=== PATIENT | male | born 1965 | race Caucasian/White ===

== ENCOUNTER 2020-08-02 06:15 | Outpatient (REF) | payer OTHER, SELFPAY ==
[2020-08-02 07:01] LABS: MANUAL DIFF FLAG NO
[2020-08-02 07:17] LABS: Basophils Percent Auto 0.8 % (0-2); Eosinophils Absolute Auto 0.2 X10*3/uL (0.0-0.4); Hematocrit 41.5 % (42-52); Hemoglobin 14.1 g/dl (14.0-18.0); Imm Gran Abs Auto 0.01 X10*3/uL (0.00-0.03); Imm Gran Pct Auto 0.2 % (0.0-0.4); Lymphocytes Absolute Auto 1.9 X10*3/uL (1.2-4.9); Lymphocytes Percent Auto 37.2 % (20-40); Mean Corpuscular Hemoglobin 29.1 pg (27.0-33.0); Mean Corpuscular Volume 85.7 fL (80-98); Mean Platelet Volume 9.8 fL (9.4-12.4); Monocytes Absolute Auto 0.5 X10*3/uL (0.1-1.2); Monocytes Percent Auto 8.9 % (2-11); Neutrophils Absolute Auto 2.5 X10*3/uL (2.0-8.3); Neutrophils Percent Auto 49.9 % (45-73); Platelet Count 255 X10*3/uL (160-400); Red Blood Count 4.84 X10*6/uL (4.60-5.80); Red Cell Distribution Width 12.2 % (11.0-16.0); White Blood Count 5.1 X10*3/uL (4.8-10.8)
[2020-08-02 07:31] LABS: Glucose Urine UA NEG (NEG); Leukocyte Esterase Urine NEG (NEG); Nitrite Urine NEG (NEG); PH 5.5 (5.0-8.0); Specific Gravity - Urine 1.025 (1.005-1.025); Urine Blood TRACE (NEG); Urine Ketones NEG (NEG); Urine Protein NEG (NEG-TRACE)
[2020-08-02 07:47] LABS: Appearance Urine CLEAR; Color Urine YELLOW
[2020-08-02 07:52] LABS: Creatinine Urine 123.57 mg/dL; Microalbum/Creatinine Ratio Ur 37.2 ug/mg cr
[2020-08-02 08:01] LABS: RBC Urine 0 /HPF (0)
[2020-08-02 08:01] LABS: Estimated Average Glucose 111 mg/dL; Hemoglobin A1c % 5.5 %
[2020-08-02 08:02] LABS: Alanine Aminotransferase 31 U/L (0-40); Albumin Level 4.5 g/dL (3.5-5.0); Alkaline Phosphatase 58 U/L (39-117); Anion Gap 9 (12-20); Aspartate Amino Transferase 30 U/L (5-37); Bilirubin Total 0.8 mg/dL (0.0-1.0); Blood Urea Nitrogen 14 mg/dL (9-16); Calcium 8.8 mg/dL (8.4-10.2); Carbon Dioxide 31 mmol/L (22-29); Chloride 105 mmol/L (96-108); Cholesterol 192 mg/dL; Estimated Glomerular Filt Rate > 60; Glucose Fasting 116 mg/dL (60-99); HDL Cholesterol 39 mg/dL; LDL Cholesterol Calculated 132 mg/dl; Potassium 4.4 mmol/l (3.3-5.1); Sodium 141 mmol/L (135-145); Total Protein 6.9 g/dL (6.5-8.0); Triglycerides 105 mg/dL
[2020-08-02 08:13] LABS: Prostate Specific Antigen Scr 0.44 ng/mL (<0.05-4.0)
== END 2020-08-02 06:16 | disposition home or self-care (01) ==
LOC: HO.LAB 06:15
PROVIDERS: PCP Internal Medicine; Visit Provider Internal Medicine
DX: Z00.00 Encounter for general adult medical examination without abnormal findings (principal); R31.0 Gross hematuria; R73.03 Prediabetes; E78.5 Hyperlipidemia, unspecified; L20.84 Intrinsic (allergic) eczema
CPT/HCPCS: 36415; 80053; 80061; 81001; 81003; 82043; 83036; 84153; 85025

== ENCOUNTER → 2020-12-29 14:48 | Outpatient (BNVA) | payer OTHER, SELFPAY | PROVIDERS: PCP Internal Medicine; Visit Provider Internal Medicine | DX: I48.0 Paroxysmal atrial fibrillation (principal); I49.3 Ventricular premature depolarization | CPT/HCPCS: 93005 ==

== ENCOUNTER → 2021-01-26 08:46 | Outpatient (REF) | payer OTHER, SELFPAY | LOC: HO.SL 08:46 | PROVIDERS: PCP Internal Medicine; Visit Provider Internal Medicine | DX: G47.33 Obstructive sleep apnea (adult) (pediatric) (principal); I48.0 Paroxysmal atrial fibrillation | CPT/HCPCS: 95806 ==

== ENCOUNTER → 2021-01-27 09:28 | Outpatient (REF) | payer OTHER, SELFPAY ==
--- NOTE | 2021-01-27 09:31 | CA_ITS ---
Transthoracic Echocardiogram Patient (Last, First, Middle): Ismael Fletcher T Gender: Male Date of : 1965 Age: 55 Procedure Date: 01/27/2021 Procedure Type: Transthoracic Echocardiogram Location: OP Height: 185.42 cm Weight: 111.13 kg BSA: 2.35 m2 Heart Rate: bpm BP: 120 / mmHg Washing Machine Repairer: DSG Referring MD: Javon Grier MD Symptoms: I48.0 - Paroxysmal atrial fibrillation Conclusions: - 1. Mildly reduced LV systolic function with grade 1 diastolic dysfunction. 2. Mildly dilated left atrium 3. Mild aortic regurgitation 4. Normal RV systolic pressure 5. No pericardial effusion Findings Left Ventricle Normal left ventricular cavity size. There is normal left ventricular wall thickness. The left ventricular systolic function is mildly decreased. The visually estimated ejection fraction is between 45-50%. There is mild global hypokinesis. Spectral Doppler is indicative of an impaired relaxation filling pattern. E/E prime ratio is <8, consistent with normal filling pressures. Evidence suggests grade I (mild) diastolic dysfunction. Right Ventricle Normal right ventricular cavity size and systolic function. Atria The left atrium is mildly dilated. There is no evidence of interatrial shunt. The right atrium is normal in size. Aortic Valve Normal aortic valve structure and function. There is no aortic valve stenosis. There is mild aortic valve regurgitation. Mitral Valve Normal mitral valve structure and function. There is trace mitral valve regurgitation. There is no mitral valve stenosis. Pulmonic Valve The pulmonic valve is likely normal. There is trace pulmonic valve regurgitation. Tricuspid Valve Normal tricuspid valve structure. There is trace tricuspid valve regurgitation. The right ventricular systolic pressure is normal. The right ventricular systolic pressure is 23 mmHg. Normal right atrial pressure. There is no evidence of pulmonary hypertension. Great Vessels All visible segments of the aorta are normal in size. The pulmonary artery was not well visualized. Venous The inferior vena cava is normal in size and collapses greater than 50% with inspiration. Pericardium/Pleural There is no evidence of pericardial effusion. Prior Study Comparison No prior study available for comparison. Measurements M-Mode Liner Measurements Normals - Women/Men LVIDd: 6.19 3.9-5.3/4.2-5.9 cm LVIDs: 4.98 2.0-3.8 cm 2D Linear Measurements IVSd: 1.04 0.6-0.9/0.6-1.0 cm LVIDd: 5.74 3.9-5.3/4.2-5.9 cm LVIDs: 4.90 2.0-3.6 cm LVPWd: 1.16 0.7-1.1 cm Ao Root: 2.83 2.1-3.5 cm LV Mass: 335.18 67-162/88-224 g LVOT Diam: 2.57 3.0+(-)1.3 cm 2D Systolic Function EF Teich: 46.00 >55% EF 4C: 56.00 >55% EF 2C: 38.00 >55% Mitral Valve MV Pk E: 0.36 MV PK A: 0.59 MV Decel Time: 190.44 E/A: 0.61 Decel Sunflower: 1.89 Aortic Valve AoV Pk Phan: 1.50 AoV Pk Grad: 9.00 AI Pk Phan: 3.63 AI Sunflower: 0.47 LVOT LVOT Pk Phan: 0.76 LVOT Mn Phan: 0.48 LVOT VTI: 0.15 LVOT Pk Grad: 2.31 LVOT Mn Grad: 1.10 LVOT Diam: 2.57 LVOT Area: 5.20 Diastolic Function MV Pk E: 0.36 MV Pk A: 0.59 E/A: 0.61 Tricuspid Valve TR Pk Phan: 2.29 TR Pk Grad: 20.98 RA Press: 3.00 RVSP: 23.00 Great Vessels Aorta Ao Root-2D: 2.83 2.0-3.7 cm Ao Asc: 3.60 2.1-3.4 cm Updated in Other Vendor System with Status of Final Shoaib Monique MD electronically signed on 01/27/2021 12:34:35 PM with status of Final
--- NOTE | 2021-01-27 09:31 | ECG_ITS ---
Hook-up date: 2021-01-27 10:40:00 Duration: 26:43:00 Test Indications: I48.0 - Paroxysmal atrial fibri Medications: 200387 QRS complexes 8454 Ventricular ectopics which represent 7 % of total QRS comp. 72 Supraventricular ectopics which represent <1 % of total QRS comp. * Paced QRS complexs which represent % of total QRS comp. VENTRICULAR ECTOPY 8035 Isolated 558 Bigeminal Cycles 154 Couplets 36 Runs 111 Beats in Runs 4 Beats LONGEST at 67 BPM at 14:28:27 2021-01-27 3 Beats FASTEST at 115 BPM at 09:28:46 2021-01-28 SUPRAVENTRICULAR ECTOPY 62 Isolated 2 Couplets 2 Runs 6 Beats in Runs 3 Beats LONGEST at 130 BPM at 14:32:43 2021-01-27 3 Beats FASTEST at 137 BPM at 04:31:35 2021-01-28 HEART RATES 61 MIN at 05:34:51 2021-01-28 80 AVG 134 MAX at 06:26:35 2021-01-28 LONGEST RR 0.9920 secs at 08:18:41 2021-01-28 S-T LEVELS Channel 1 - 128 mm at 10:40:00 2021-01-27 - 128 mm at 10:40:00 2021-01-27 Channel 2 - 128 mm at 10:40:00 2021-01-27 - 128 mm at 10:40:00 2021-01-27 Channel 3 - 128 mm at 02:95:91 -- - 128 mm at 02:95:91 Underlying rhythm is sinus; Average ventricular rhythm is 80/min; Frequent Premature ventricular complexes -8% of total beats; Mostly isolated, with couplets, bigeminy but no significant runs; Occasional supraventricular ectopy; Patient did not report any symptoms in the diary Referred By: Yasmine Bond Overread By: YASMINE BOND
== END ==
LOC: HO.CARD 09:28
PROVIDERS: Visit Provider Internal Medicine
DX: I48.0 Paroxysmal atrial fibrillation (principal)
CPT/HCPCS: 93225; 93226; 93306

== ENCOUNTER → 2021-03-14 15:03 | Outpatient (BNVA) | payer OTHER, SELFPAY | PROVIDERS: PCP Nurse Practitioner Family; Visit Provider Internal Medicine ==

== ENCOUNTER 2021-08-15 10:39 | Outpatient (REF) | payer OTHER, SELFPAY ==
[2021-08-15 10:43] LABS: MANUAL DIFF FLAG NO
[2021-08-15 11:08] LABS: Basophils Percent Auto 0.4 % (0-2); Eosinophils Absolute Auto 0.2 X10*3/uL (0.0-0.4); Eosinophils Percent Auto 1.8 % (0-4); Hematocrit 39.9 % (42-52); Imm Gran Abs Auto 0.03 X10*3/uL (0.00-0.03); Imm Gran Pct Auto 0.4 % (0.0-0.4); Lymphocytes Absolute Auto 1.6 X10*3/uL (1.2-4.9); Lymphocytes Percent Auto 18.6 % (20-40); Mean Corpuscular HGB Conc 32.6 g/dl (31.0-36.0); Mean Corpuscular Hemoglobin 28.4 pg (27.0-33.0); Mean Corpuscular Volume 87.1 fL (80-98); Mean Platelet Volume 10.2 fL (9.4-12.4); Monocytes Absolute Auto 0.6 X10*3/uL (0.1-1.2); Monocytes Percent Auto 7.3 % (2-11); Neutrophils Percent Auto 71.5 % (45-73); Platelet Count 233 X10*3/uL (160-400); Red Blood Count 4.58 X10*6/uL (4.60-5.80); Red Cell Distribution Width 12.2 % (11.0-16.0); White Blood Count 8.4 X10*3/uL (4.8-10.8)
[2021-08-15 11:22] LABS: Appearance Urine CLEAR; Color Urine YELLOW; Glucose Urine UA NEG (NEG); Leukocyte Esterase Urine NEG (NEG); Nitrite Urine NEG (NEG); Urine Blood 1+ (NEG); Urine Ketones NEG (NEG); Urine Protein NEG (NEG-TRACE)
[2021-08-15 11:33] LABS: Estimated Average Glucose 108 mg/dL; Hemoglobin A1c % 5.4 %
[2021-08-15 11:43] LABS: Alanine Aminotransferase 25 U/L (0-40); Albumin Level 4.2 g/dL (3.5-5.0); Alkaline Phosphatase 63 U/L (39-117); Anion Gap 12 (12-20); Aspartate Amino Transferase 26 U/L (5-37); Bilirubin Total 0.5 mg/dL (0.0-1.0); Blood Urea Nitrogen 19 mg/dL (9-16); Calcium 8.6 mg/dL (8.4-10.2); Carbon Dioxide 27 mmol/L (22-29); Chloride 106 mmol/L (96-108); Cholesterol 181 mg/dL; Estimated Glomerular Filt Rate 56; Glucose Fasting 107 mg/dL (60-99); HDL Cholesterol 37 mg/dL; LDL Cholesterol Calculated 117 mg/dl; Potassium 4.6 mmol/L (3.3-5.1); Sodium 140 mmol/L (135-145); Total Protein 6.7 g/dL (6.5-8.0); Triglycerides 136 mg/dL
[2021-08-15 11:44] LABS: PSA,Total (Free>4and<10) 0.43 ng/mL (0.00-4.00)
[2021-08-15 11:58] LABS: Microalbum/Creatinine Ratio Ur 7.9 ug/mg cr
[2021-08-15 12:33] LABS: Reflex LDLD? No
[2021-08-15 13:09] LABS: WBC Urine 0-2 /HPF (0-4)
[2021-08-15 13:10] LABS: RBC Urine 0 /HPF (0); Squamous Epithelial Cell Urine TRACE /LPF
== END 2021-08-15 10:40 | disposition home or self-care (01) ==
LOC: HO.LNP 10:39
PROVIDERS: Visit Provider Internal Medicine
DX: Z00.00 Encounter for general adult medical examination without abnormal findings (principal); N28.89 Other specified disorders of kidney and ureter; R73.09 Other abnormal glucose; E78.6 Lipoprotein deficiency
CPT/HCPCS: 80053; 80061; 81001; 81003; 82043; 83036; 84153; 85025

== ENCOUNTER 2021-11-18 10:04 | Outpatient (REF) | payer OTHER, SELFPAY ==
[2021-11-18 10:06] LABS: MANUAL DIFF FLAG NO
[2021-11-18 10:28] LABS: Basophils Absolute Auto 0.1 X10*3/uL (0.0-0.2); Basophils Percent Auto 0.7 % (0-2); Eosinophils Absolute Auto 0.2 X10*3/uL (0.0-0.4); Eosinophils Percent Auto 2.7 % (0-4); Hematocrit 40.9 % (42.0-52.0); Hemoglobin 13.8 g/dl (14.0-18.0); Imm Gran Abs Auto 0.02 X10*3/uL (0.00-0.03); Imm Gran Pct Auto 0.3 % (0.0-0.4); Lymphocytes Absolute Auto 2.3 X10*3/uL (1.2-4.9); Lymphocytes Percent Auto 30.7 % (20-40); Mean Corpuscular HGB Conc 33.7 g/dl (31.0-36.0); Mean Corpuscular Volume 85.9 fL (80.0-98.0); Monocytes Absolute Auto 0.7 X10*3/uL (0.1-1.2); Monocytes Percent Auto 8.8 % (2-11); Neutrophils Absolute Auto 4.2 x10*3/uL (2.0-8.3); Neutrophils Percent Auto 56.8 % (45-73); Platelet Count 287 X10*3/uL (160-400); Red Blood Count 4.76 X10*6/uL (4.60-5.80); Red Cell Distribution Width 12.1 % (11.0-16.0); White Blood Count 7.4 X10*3/uL (4.8-10.8)
[2021-11-18 10:35] LABS: Iron 78 mcg/dL (45-160); Percent Iron Saturation 22 % (15-50); Total Iron Binding Capacity 359 mcg/dL (228-428); Unsaturated Iron Binding 281 ug/dL
[2021-11-18 11:12] LABS: Vitamin B12 397 pg/mL (200-900)
== END 2021-11-18 10:05 | disposition home or self-care (01) ==
LOC: HO.LNP 10:04
PROVIDERS: Visit Provider Internal Medicine
DX: D64.9 Anemia, unspecified (principal)
CPT/HCPCS: 82607; 82746; 83540; 85025

== ENCOUNTER 2022-07-13 07:46 | Outpatient (REF) | payer OTHER, SELFPAY ==
--- NOTE | ~2022-07-13 | US_ITS ---
EXAMINATION: US ABDOMEN COMPLETE CLINICAL INFORMATION: Calculus of bile duct without cholangitis. COMPARISON: Ultrasound abdomen complete 12/31/2019. TECHNIQUE: Real-time imaging of the abdominal viscera. FINDINGS: PANCREAS: Normal. ABDOMINAL AORTA: The proximal, mid, and distal segments are normal in caliber. INFERIOR VENA CAVA: Visualized portions are normal. LIVER: The liver is normal in size. The liver contour is normal. Parenchymal echogenicity is normal. No focal hepatic lesion. There is no intrahepatic biliary duct dilatation seen. GALLBLADDER: A 1.5 x 1.3 x 1.2 cm echogenic lesion within the gallbladder fundus which appears to demonstrate color flow, raising the suspicion for primary gallbladder mass. Cholelithiasis without evidence of acute cholecystitis. No significant gallbladder wall thickening or pericholecystic fluid. COMMON BILE DUCT: Normal in caliber measuring 0.6 cm in diameter. RIGHT KIDNEY: Surgically absent. LEFT KIDNEY: Normal. No hydronephrosis. No renal calculi or focal parenchymal lesions. The kidney measures 13.8 cm in maximum dimension. SPLEEN: Normal. The spleen measures 10.2 cm in maximum dimension. FREE FLUID: None. US/US abdomen complete IMPRESSION: 1.5 cm echogenic lesion within the gallbladder fundus which appears to demonstrate color flow reason the suspicion for primary gallbladder mass. Recommend contrast-enhanced MR abdomen for further evaluation and surgical consultation. Cholelithiasis without evidence of acute cholecystitis. The report will be called to the ordering clinician by a [facility] Physician Rental Coordinator.
== END 2022-07-13 07:47 | disposition home or self-care (01) ==
LOC: HO.US 07:46
PROVIDERS: Visit Provider Internal Medicine
DX: K80.50 Calculus of bile duct without cholangitis or cholecystitis without obstruction (principal)
CPT/HCPCS: 76700

== ENCOUNTER 2022-08-14 10:18 | Outpatient (REF) | payer OTHER, SELFPAY ==
[2022-08-14 10:23] LABS: MANUAL DIFF FLAG NO
[2022-08-14 10:50] LABS: Basophils Percent Auto 0.6 % (0-2); Eosinophils Absolute Auto 0.1 X10*3/uL (0.0-0.4); Eosinophils Percent Auto 2.9 % (0-4); Hematocrit 42.7 % (42.0-52.0); Hemoglobin 14.2 g/dl (14.0-18.0); Imm Gran Abs Auto 0.01 X10*3/uL (0.00-0.03); Imm Gran Pct Auto 0.2 % (0.0-0.4); Lymphocytes Absolute Auto 1.5 X10*3/uL (1.2-4.9); Lymphocytes Percent Auto 31.4 % (20-40); Mean Corpuscular HGB Conc 33.3 g/dl (31.0-36.0); Mean Corpuscular Hemoglobin 28.3 pg (27.0-33.0); Mean Corpuscular Volume 85.1 fL (80.0-98.0); Monocytes Absolute Auto 0.4 X10*3/uL (0.1-1.2); Monocytes Percent Auto 8.8 % (2-11); Neutrophils Absolute Auto 2.7 x10*3/uL (2.0-8.3); Neutrophils Percent Auto 56.1 % (45-73); Platelet Count 257 X10*3/uL (160-400); Red Blood Count 5.02 X10*6/uL (4.60-5.80); White Blood Count 4.8 X10*3/uL (4.8-10.8)
[2022-08-14 10:56] LABS: Appearance Urine Clear; Color Urine Yellow; Glucose Urine UA Negative (Negative); Leukocyte Esterase Urine Negative (Negative); Nitrite Urine Negative (Negative); Specific Gravity - Urine 1.015 (1.005-1.025); UMIC TRIGGER UA YES; Urine Blood Trace (Negative); Urine Ketones Negative (Negative); Urine Protein Negative (Neg-Trace)
[2022-08-14 11:02] LABS: Bacteria Urine None Seen (None Seen); Hyaline Casts Urine 0-2 /LPF (0-2); Squamous Epithelial Cell Urine 0-2 /HPF (0-2); WBC Urine 0-5 /HPF (0-5)
[2022-08-14 11:10] LABS: Estimated Average Glucose 111 mg/dL; Hemoglobin A1c % 5.5 %
[2022-08-14 11:15] LABS: Alanine Aminotransferase 28 U/L (0-40); Albumin Level 4.5 g/dL (3.5-5.0); Alkaline Phosphatase 64 U/L (39-117); Anion Gap 14 (12-20); Aspartate Amino Transferase 28 U/L (5-37); Bilirubin Total 0.8 mg/dL (0.0-1.0); Blood Urea Nitrogen 18 mg/dL (9-16); Calcium 9.1 mg/dL (8.4-10.2); Carbon Dioxide 29 mmol/L (22-29); Chloride 104 mmol/L (96-108); Cholesterol 170 mg/dL; Estimated Glomerular Filt Rate 55; Glucose Fasting 113 mg/dL (60-99); HDL Cholesterol 39 mg/dL; LDL Cholesterol Calculated 113 mg/dl; Potassium 4.5 mmol/L (3.3-5.1); Sodium 142 mmol/L (135-145); Total Protein 7.2 g/dL (6.5-8.0); Triglycerides 91 mg/dL
[2022-08-14 11:24] LABS: Creatinine Urine 97.48 mg/dL; Microalbum/Creatinine Ratio Ur 8.2 ug/mg cr
== END 2022-08-14 10:19 | disposition home or self-care (01) ==
LOC: HO.LNP 10:18
PROVIDERS: Visit Provider Internal Medicine
DX: Z00.00 Encounter for general adult medical examination without abnormal findings (principal); R73.03 Prediabetes; E78.6 Lipoprotein deficiency
CPT/HCPCS: 80053; 80061; 81001; 82043; 83036; 85025

== ENCOUNTER 2023-08-17 11:44 | Outpatient (REF) | payer OTHER, SELFPAY ==
[2023-08-17 11:47] LABS: MANUAL DIFF FLAG NO
[2023-08-17 12:10] LABS: Appearance Urine Clear; Basophils Percent Auto 0.6 % (0-2); Color Urine Yellow; Eosinophils Absolute Auto 0.2 X10*3/uL (0.0-0.4); Eosinophils Percent Auto 2.8 % (0-4); Glucose Urine UA Negative (Negative); Hematocrit 41.9 % (42.0-52.0); Hemoglobin 13.9 g/dl (14.0-18.0); Imm Gran Abs Auto 0.02 X10*3/uL (0.00-0.03); Imm Gran Pct Auto 0.3 % (0.0-0.4); Leukocyte Esterase Urine Negative (Negative); Lymphocytes Absolute Auto 1.8 X10*3/uL (1.2-4.9); Lymphocytes Percent Auto 26.3 % (20-40); Mean Corpuscular HGB Conc 33.2 g/dl (31.0-36.0); Mean Corpuscular Hemoglobin 28.7 pg (27.0-33.0); Mean Corpuscular Volume 86.6 fL (80.0-98.0); Mean Platelet Volume 9.2 fL (9.4-12.4); Monocytes Absolute Auto 0.6 X10*3/uL (0.1-1.2); Neutrophils Absolute Auto 4.1 x10*3/uL (2.0-8.3); Nitrite Urine Negative (Negative); PH 7.5 (5.0-9.0); Platelet Count 338 X10*3/uL (160-400); Red Blood Count 4.84 X10*6/uL (4.60-5.80); Urine Blood Negative (Negative); Urine Ketones Negative (Negative); Urine Protein Negative (Neg-Trace); White Blood Count 6.7 X10*3/uL (4.8-10.8)
[2023-08-17 12:17] LABS: Estimated Average Glucose 108 mg/dL; Hemoglobin A1c % 5.4 % (<6.0)
[2023-08-17 12:18] LABS: Bacteria Urine None Seen (None Seen); Hyaline Casts Urine 0-2 /LPF (0-2); RBC Urine 0-2 /HPF (0-2); Squamous Epithelial Cell Urine 0-2 /HPF (0-2); WBC Urine 0-5 /HPF (0-5)
[2023-08-17 12:37] LABS: Alanine Aminotransferase 25 U/L (0-40); Albumin Level 4.3 g/dL (3.5-5.0); Alkaline Phosphatase 68 U/L (39-117); Anion Gap 12 (12-20); Aspartate Amino Transferase 25 U/L (5-37); Bilirubin Total 0.6 mg/dL (0.0-1.0); Blood Urea Nitrogen 12 mg/dL (9-16); Calcium 9.4 mg/dL (8.4-10.2); Carbon Dioxide 26 mmol/L (22-29); Chloride 104 mmol/L (96-108); Cholesterol 171 mg/dL (<200); Estimated Glomerular Filt Rate > 60; Glucose Fasting 109 mg/dL (60-99); HDL Cholesterol 39 mg/dL (>40); LDL Cholesterol Calculated 112 mg/dL (<100); Potassium 4.1 mmol/L (3.3-5.1); Sodium 138 mmol/L (135-145); Total Protein 7.4 g/dL (6.5-8.0); Triglycerides 104 mg/dL (<150)
[2023-08-17 12:53] LABS: PSA,Total (Free>4and<10) 0.52 ng/mL (0.00-4.00)
[2023-08-17 13:00] LABS: Creatinine Urine 86.06 mg/dL; Microalbum/Creatinine Ratio Ur 6.9 ug/mg cr (<30)
== END 2023-08-17 11:45 | disposition home or self-care (01) ==
LOC: HO.LNP 11:44
PROVIDERS: Visit Provider Internal Medicine
DX: Z00.00 Encounter for general adult medical examination without abnormal findings (principal); R73.09 Other abnormal glucose; E78.6 Lipoprotein deficiency; Z12.5 Encounter for screening for malignant neoplasm of prostate
CPT/HCPCS: 80053; 80061; 81001; 82043; 82570; 83036; 84153; 85025

== ENCOUNTER 2024-08-22 10:50 | Outpatient (REF) | payer OTHER, SELFPAY ==
[2024-08-22 10:55] LABS: MANUAL DIFF FLAG NO
[2024-08-22 11:22] LABS: Basophils Percent Auto 0.7 % (0-2); Eosinophils Absolute Auto 0.1 X10*3/uL (0.0-0.4); Eosinophils Percent Auto 2.4 % (0-4); Hematocrit 42.6 % (42.0-52.0); Hemoglobin 14.5 g/dl (14.0-18.0); Imm Gran Abs Auto 0.01 X10*3/uL (0.00-0.03); Imm Gran Pct Auto 0.2 % (0.0-0.4); Lymphocytes Percent Auto 36.4 % (20-40); Mean Corpuscular Hemoglobin 28.9 pg (27.0-33.0); Mean Corpuscular Volume 84.9 fL (80.0-98.0); Mean Platelet Volume 9.9 fL (9.4-12.4); Monocytes Absolute Auto 0.5 X10*3/uL (0.1-1.2); Monocytes Percent Auto 8.4 % (2-11); Neutrophils Absolute Auto 2.8 x10*3/uL (2.0-8.3); Neutrophils Percent Auto 51.9 % (45-73); Platelet Count 247 X10*3/uL (160-400); Red Blood Count 5.02 X10*6/uL (4.60-5.80); White Blood Count 5.5 X10*3/uL (4.8-10.8)
[2024-08-22 11:31] LABS: Appearance Urine Clear; Color Urine Yellow; Glucose Urine UA Negative (Negative); Leukocyte Esterase Urine Negative (Negative); Nitrite Urine Negative (Negative); Urine Blood Negative (Negative); Urine Ketones Negative (Negative); Urine Protein Negative (Neg-Trace)
[2024-08-22 11:33] LABS: Estimated Average Glucose 114 mg/dL; Hemoglobin A1C 129.2529 umol/L; Hemoglobin A1c % 5.6 % (<6.0); Total Hemoglobin (HGBA1C) 3467.2102 umol/L
[2024-08-22 11:48] LABS: Alanine Aminotransferase 30 U/L (0-40); Albumin Level 4.4 g/dL (3.5-5.0); Alkaline Phosphatase 62 U/L (39-117); Anion Gap 12 (12-20); Aspartate Amino Transferase 34 U/L (5-37); Bilirubin Total 0.7 mg/dL (0.0-1.0); Blood Urea Nitrogen 13 mg/dL (9-16); Calcium 9.3 mg/dL (8.4-10.2); Carbon Dioxide 27 mmol/L (22-29); Chloride 106 mmol/L (96-108); Cholesterol 197 mg/dL (<200); Estimated Glomerular Filt Rate 57; Glucose Fasting 112 mg/dL (60-99); HDL Cholesterol 41 mg/dL (>40); LDL Cholesterol Calculated 135 mg/dL (<100); Potassium 3.5 mmol/L (3.3-5.1); Sodium 141 mmol/L (135-145); Total Protein 7.1 g/dL (6.5-8.0); Triglycerides 105 mg/dL (<150)
[2024-08-22 11:58] LABS: Bacteria Urine None Seen (None Seen); RBC Urine 0-2 /HPF (0-2); Squamous Epithelial Cell Urine 0-2 /HPF (0-2); WBC Urine 0-5 /HPF (0-5)
[2024-08-22 12:34] LABS: Creatinine Urine 118.46 mg/dL; Microalbum/Creatinine Ratio Ur 10.1 ug/mg cr (<30)
== END 2024-08-22 10:51 | disposition home or self-care (01) ==
LOC: HO.LNP 10:50
PROVIDERS: Visit Provider Internal Medicine
DX: Z00.00 Encounter for general adult medical examination without abnormal findings (principal); R73.09 Other abnormal glucose; E78.6 Lipoprotein deficiency; Z12.5 Encounter for screening for malignant neoplasm of prostate
CPT/HCPCS: 80053; 80061; 81001; 82043; 82570; 83036; 84153; 85025

== ENCOUNTER 2024-10-31 14:46 | Emergency (ER) | payer OTHER, SELFPAY ==
--- NOTE | ~2024-10-31 | XR_ITS ---
EXAMINATION: XR CHEST CLINICAL INFORMATION: shortenss of breath COMPARISON: None available. TECHNIQUE: 2 views of the chest were obtained. FINDINGS: No significant abnormality is noted involving the heart, lungs, mediastinum, bony thorax or soft tissues. XR/XR chest 2V IMPRESSION: Unremarkable chest examination. Electronically signed by: Rambo Cohen MD 10/31/2024 04:50 PM [facility]
--- NOTE | 2024-10-31 14:50 | ED.GENADULT ---
HPI - General Adult General Chief complaint: Dizziness Stated complaint: Diff breathing Lightheaded Time Seen by Provider: 10/31/24 21:22 Source: patient Mode of arrival: ambulatory History of Present Illness ED Provider: HPI narrative: Patient is 58 years old history of paroxysmal AFib had only 1 episode 3 years ago after infection no more episodes after that and toll test desk worker cleared not on any anticoagulation no coronary artery disease does have history of sleep apnea around 14:30 while sitting with the client patient noticed all of a sudden lightheadedness almost passing out felt short of breath did not feel any palpitation did not check his pulse episode lasted for half an hours the time patient came to the ER he was back to normal no chest no headache no focal deficits since then 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 Related Data Home Medications ?Medication ?Instructions ?Recorded ?Confirmed No Known Home Meds 12/29/20 12/29/20 Allergies Allergy/AdvReac Type Severity Reaction Status Date / Time No Known Allergies Allergy Verified 10/31/24 14:53 Review of Systems Review of Systems: Yes all other systems are reviewed and are negative [facility] Past Medical History Medical History (Updated 11/01/24 @ 00:02 by Ruddy Piper) PAF (paroxysmal atrial fibrillation) Surgical History (Updated 12/29/20 @ 15:07 by FREDDY Guajardo) History of appendectomy History of kidney removal (~12/13/20) Family History Family History (Updated 12/29/20 @ 15:09 by FREDDY Guajardo) Father No problems noted. Mother Heart attack Social History Social History (Updated 12/29/20 @ 15:09 by FREDDY Guajardo) Smoked in Last 30 Days: No Substance Use Type: Marijuana Substance Use Frequency: Socially Advance Directives: No Advance Directives Information Provided: Yes Do you have a plan to hurt others: No Plan Physical Exam ED Vital Signs: Vital Signs - 24 hr 10/31/24 14:51 10/31/24 19:43 10/31/24 22:03 Temperature 98.0 F Pulse Rate 69 73 67 Respiratory Rate 20 16 14 Blood Pressure 173/90 H 175/103 H 137/80 Pulse Oximetry 98 96 96 Oxygen Delivery Method Room Air Room Air Room Air BMI result Body Mass Index 30.6 Appearance: Alert. Oriented X3. No acute distress. Eyes: PERRLA, No Nystagmus ENT: Pharynx normal. Oral Mucosa moist Neck: Normal inspection. Neck supple. CVS: Normal heart rate and rhythm. Pulses normal. Respiratory: No respiratory distress. Equal air entry bilateral, no wheezing/rales/rhonchi Abdomen: Soft and nontender. Bowel sounds are present, no mass palpable, no CVA tenderness Skin: Skin warm and dry. Normal skin color. Normal skin turgor. Extremities: No lower extremity edema. No calf tenderness Neuro: Oriented X 3. No motor deficit. No sensory deficit.No cerebellar signs , cranial nerves II-XII intact Course Course Course Narrative: This is a rapid medical exam performed by Michelle Del Valle NP: Additional HPI, ROS, PE not included below will be deferred to primary provider. Patient is a 58-year-old male with history of REJI, paroxysmal afib not anticoagulated, cardiomyopathy presenting with complaint of shortness of breath for a few days, feels very lightheaded. BP elevated, HR irregular in triage ranging between 41-71. Plan: EKG, labs, viral serology, CXR Medical Decision Making Medical Decision Making [facility] Narrative: Patient with transient dizziness etiology not very clear patient does not feel AFib did not check his pulse possible had a cardiac arrhythmia as the cause during stay in the ER patient did not have any epidural dizziness initial blood pressure was elevated 173/90 repeat blood pressure 137/80 patient advised to follow with toll test desk worker for further management Differential Diagnosis Differential Diagnoses: The differential diagnosis associated with the presentation includes Cardiac arrhythmias/vasovagal/AFib Lab Data [facility] Lab Attestation statement: I reviewed the patient's lab results. 10/31/24 17:30 10/31/24 17:30 Labs: Lab Results 10/31/24 Range/Units 17:30 WBC 6.7 (4.8-10.8) X10*3/uL RBC 4.70 (4.60-5.80) X10*6/uL Hgb 13.8 L (14.0-18.0) g/dl Hct 39.9 L (42.0-52.0) % MCV 84.9 (80.0-98.0) fL MCH 29.4 (27.0-33.0) pg MCHC 34.6 (31.0-36.0) g/dl RDW 12.2 (11.0-16.0) % Plt Count 233 (160-400) X10*3/uL MPV 9.8 (9.4-12.4) fL Immature Gran % (Auto) 0.5 H (0.0-0.4) % Neut % (Auto) 65.1 (45-73) % Lymph % (Auto) 23.2 (20-40) % [place] % (Auto) 8.4 (2-11) % Eos % (Auto) 2.3 (0-4) % Baso % (Auto) 0.5 (0-2) % Lymph # (Auto) 1.5 (1.2-4.9) X10*3/uL [place] # (Auto) 0.6 (0.1-1.2) X10*3/uL Eos # (Auto) 0.2 (0.0-0.4) X10*3/uL Baso # (Auto) 0.0 (0.0-0.2) X10*3/uL Abs Immat Gran (auto) 0.03 (0.00-0.03) X10*3/uL Absolute Neuts (auto) 4.3 (2.0-8.3) x10*3/uL Absolute Nucleated RBC 0.000 (0.0-0.012) X10*3/uL Nucleated RBC % (auto) 0.0 (0.0-0.2) /100WBC PT 10.9 (10.9-12.4) SEC INR 0.9 (0.9-1.1) Sodium 140 (135-145) mmol/L Potassium 4.1 (3.3-5.1) mmol/L Chloride 107 (96-108) mmol/L Carbon Dioxide 25 (22-29) mmol/L Anion Gap 12 (12-20) BUN 14 (9-16) mg/dL Creatinine 1.20 (0.5-1.4) mg/dL Estim Creat Clear Calc 90.3 Estimated GFR > 60 Random Glucose 123 H (60-115) mg/dL Calcium 8.6 D (8.4-10.2) mg/dL Total Bilirubin 0.4 (0.0-1.0) mg/dL AST 32 (5-37) U/L ALT 35 (0-40) U/L Alkaline Phosphatase 60 (39-117) U/L Troponin I High Sens 8.3 (<3.5-35.0) ng/L B-Natriuretic Peptide 63 (<100) pg/mL Total Protein 7.1 (6.5-8.0) g/dL Albumin 4.4 (3.5-5.0) g/dL Influenza Type A (PCR) NEGATIVE (Negative) Influenza Type B (PCR) NEGATIVE (Negative) RSV RNA Qual (PCR) NEGATIVE (Negative) SARS-CoV-2 RNA (RT-PCR) NEGATIVE (Negative) Independent Interpretation I performed an independent interpretation of an: EKG Interpretation: Normal sinus rhythm heart rate 79 beats per minute few PVCs LVH no acute ST-T changes no acute ischemia Discharge Plan Discharge Clinical Impression: Dizziness Patient Disposition: Home, Self-Care Instructions: Dizziness (ED) Additional Instructions: Follow up with toll test desk worker for further management Possible you had paroxysmal AFib/cardiac arrhythmia as a cause Decrease salt intake Noted to have slightly high blood pressure which improved during stay in the ER keep an eye on the blood pressure should be less than 135/85 Report to the ER if more episode of dizziness Prescriptions: No Action No Known Home Meds Referrals: Shoaib Monique MD [Physician] - 1 week Interventions: ED Discharge Assessment Last Done: 10/31/24 22:37 Discharge Date/Time: 10/31/24 22:38 Print Language: Czech
[2024-10-31 14:51] VITALS: BP 173/90; PULSE 69; RESP 20; TEMP 36.7; O2SAT 98; BMI 30.6
--- NOTE | 2024-10-31 14:52 | ECG_ITS ---
Test Reason : dizziness Blood Pressure : / mmHG Vent. Rate : 079 BPM Atrial Rate : 079 BPM P-R Int : 164 ms QRS Dur : 092 ms QT Int : 390 ms P-R-T Axes : 031 -24 014 degrees QTc Int : 447 ms Sinus rhythm with marked sinus arrhythmia with occasional Premature ventricular complexes Moderate voltage criteria for LVH, may be normal variant ( R in aVL , Jim product ) Nonspecific T wave abnormality Abnormal ECG When compared with ECG of 12-FEB-2012 21:19, Premature ventricular complexes are now Present Referred By: Alexus Del Valle Electronically Signed By:RUAP FOX MD
--- OUTSIDE RECORDS SUMMARY | 2024-10-31 16:06 | XMS_ITS ---
Author Organization [facility] Address [address] [address] Care Team Providers Care Presales Senior Specialist Name Role Phone Amari Albarado Primary Care Provider Unavailab VERNELL Gan Unavailable [phone] REASON FOR VISIT 6-8wk Encounters Encounter Location Date Provider Diagnosis [facility] [address] [address] 10/02/2023 VERNELL SCHAEFFER Plan Of Treatment No Information Progress Notes * Chris FLETCHEROB:[birth year] (58 yo M)Acc No.[id number]:10/02/2023 Progress Note Patient:?Ismael FLETCHER Provider:?Vernell Camarillo DPM :1965???Age:57 Y???Sex:Male Jack e:10/02/2023 Phone: Address:[address] [place] [id number] Pcp:Amari Albarado Subjective: * Chief Complaints: * ???1. 6-8wk. * Medical History:? Objective: * Vitals:? Assessment: Plan: * Treatment: * Billing Information: * Visit Code:? * Procedure Codes:? * Electronic signature of Cesar GARRETTPSandrine on 10/31/2024 at 04:06 PM EST Sign off status: Pending * Provider:Enid Camarillo DPM Date:?10/02 Generated for Thania corey/Rayo/eTransmitting on:?10/31/2024 04:06 PM EST
--- OUTSIDE RECORDS SUMMARY | 2024-10-31 16:06 | XMS_ITS ---
Author Organization [facility] Address [address] [address] Care Team Providers Care Armhole Baster Jumpbasting Name Role Phone Amari Albarado Primary Care Provider Unavailab YUDI Gan Unavailable [phone] REASON FOR VISIT ATI discharge summary Encounters Encounter Location Date Provider Diagnosis [facility] [address] [address] 09/26/2023 YUDI SCHAEFFER Plan Of Treatment No Information Progress Notes * NACHOWilli POPEAbdelrahmanOB:[birth year] (57 yo M)Acc No.[id number]:09/26/2023 Patient:?Willi FLETCHERn :1965???Age:57 Y???Sex:Male Phone: Address:[address] [place] [address] [facility], [place] [address] * true * Date:? Generated for Kpi leora/Rayo/eTransmitting on:?10/31/2024 04:06 PM EST
--- OUTSIDE RECORDS SUMMARY | 2024-10-31 16:06 | XMS_ITS ---
Author Organization Amari Albarado MD Address [address] [place], [place] [phone] Care Team Providers Care Liquefier Name Role Phone Amari Albarado Primary Care Provider ALLERGIES No Known Allergies RESULTS Component Value Reference Range Notes Occult Blood, Stool, Guaiac Reviewed date:08/29/2024 01:51:42 PM Interpretation:Negative Performing Lab: Notes/Report: Negative Occult Blood, Stool, Guaiac Neg REASON FOR REFERRAL Reason SKIN LESION OF FACE Diagnosis 1 [...] > REFERRAL FAXED TO [facility] ON 08/29/24, Daily [place] 10/10/2024 11:01:09 AM EST > SCHEDULED FOR APPT 10/20 AT10:30AM Referral Priority Routine Referral Appointment Date 10/20/2024 REASON FOR VISIT annual visit SOCIAL HISTORY Tobacco Use: Social History Observation Description Date Details (start date - stop date) Never Smoker NA - NA Sex Assigned At : Social History Observation Description Sex Assigned At Unknown Tobacco Use/Smoking Question Answer Notes Patient is [...] Never (0 point) Points 1 Interpretation Negative VITAL SIGNS BMI 30.49 kg/m2 08/29/2024 Blood pressure systolic 122 mm Hg 08/29/20 24 Blood pressure diastolic 80 mm Hg 024 Height 75 in 08/29/2024 Weight 244 lbs 08/29/2024 weight is up 14 pounds since 04-15-24 Encounters Encounter Location Date Provider Diagnosis Amari Albarado MD [address] [place] [address] [place] [phone] 08/29/2024 Amari Albarado Skin lesion of face L98.9 ; Annual physical exam Z00.00 ; Prediabetes R73.09 ; Family history of colon cancer Z80.0 ; Renal mass N28.89 ; REJI (obstructive sleep apnea) G47.33 ; Paroxysmal atrial fibrillation I48.0 ; Colon cancer screening Z12.11 and Depression screening Z13.31 ASSESSMENTS Encounter Date Diagnosis Assessment Notes Treatment Notes Treatment Clinical Notes 08/29/2024 Skin lesion of face (ICD-10 - L98.9) referral back to dr mccann/ REFERRAL MADE AND FAXED TO DR MCCANN @ [facility] , WILL RADU ON APPT AFTER 2 WEEKS PER [facility] [...] (ICD-10 - N28.89) going to go to [facility] 08/29/2024 REJI (obstructive sleep apnea) (ICD-10 - G47.33) is going to go back to see sleep medicine 08/29/2024 Paroxysmal atrial fibrillation (ICD-10 - I48.0) has not had any further episodes 08/29/2024 Colon cancer screening (ICD-10 - Z12.11) guaiac negative 08/29/2024 Depression screening (ICD-10 - Z13.31) negative screen PLAN OF TREATMENT Treatment Notes Assessment Notes Skin lesion of face referral back to dr mccann/ REFERRAL MADE AND FAXED TO DR MCCANN @ [facility] , WILL CHAECK ON APPT AFTER 2 WEEKS PER [facility] Annual physical exam labs reviewed and d iscused with patient Prediabetes keep weight down, st able, no need for medicatin at this time Family history of colon cancer had colon oscopy last year repeat in 2 years. Renal mass going to go to [facility] REJI (obstructive sleep apnea) is going t o go back to see sleep medicine Paroxysmal atrial fibrillation has not h ad any further episodes Colon cancer screening guaiac negative Depression screening negative screen Referrals Referral Date Details 10/20/2024 10/20/2024, SKIN LES ION OF FACE, [facility] Next Appt Details Follow Up: 1 Year, Reason: Provider Name:Amari mcgee, 08/24/2025 08:00:00 AM, [address] [place] [address], [address], [phone], Provider Name:Amari mcgee, 08/31/2025 02:30:00 PM, [address] [place] [address], [address] [place] [address], [phone], Progress Notes * Examination Category Sub-Category Detail Notes General Examination GENERAL APPEARANCE: well dev eloped, well nourished, in no acute distress HEAD: normocephalic, atrau matic EYES: pupils equal, round, reactive to light and accommodation, sclera non- icteric EARS: normal THROAT: clear NECK/THYROID: neck supple, [...] stool guaiac negative ORAL CAVITY: mucosa moist History and Physical Notes * HPI (History of Present Illness) Category Sub-Category Detail Notes Depression Screening PHQ-9 Little inte rest or [...] patient have a vision impairmen t?: Yes ?If yes, what is the vision impairment?: Glasses Does the patient have a cognition impair ment?: No Consultation Request Notes Referral Date Referring Provider Referred Provider Not myrna 08/29/2024 Amari Albarado, German TAVARES ON OF FACE
--- OUTSIDE RECORDS SUMMARY | 2024-10-31 16:06 | XMS_ITS ---
Author Organization Amari Albarado MD Address [address] [place] [phone] Care Team Providers Care Tank Assembler Name Role Phone Amari Albarado Primary Care Provider ALLERGIES No Known Allergies REASON FOR VISIT sore throat , coughing and congested been going on for 2 weeks, Tested negative for Covid 04-14-24, Video [phone] MEDICATIONS Medication SIG (Take, Route, Frequency, Duration) Notes Start Date End Date Status Zithromax Z-Darius 250 MG 2 tablet on the irst day, then 1 tablet daily for 4 days Orally Once a day for 5 day(s) 04/15/2024 Active Mucinex Sinus-Max 7-74-836-325 MG 2 tablets may be given every 4 hours as needed Orally Five times a day Active VITAL SIGNS BMI 28.74 kg/m2 04/15/2024 Height 75 in 04/15/2024 Weight 230 lbs 04/15/2024 weight at home is 230 BP not taken at home no temp Encounters Encounter Location Date Provider Diagnosis Amari Albarado MD [address] [place] [phone] 04/15/2024 Amari Albarado Bronchitis J40 ASSESSMENTS Encounter Date Diagnosis Assessment Notes Treatment Notes Treatment Clinical Notes 04/15/2024 Bronchitis (ICD-10 - J40) patient verbalized understanding of medication and directions for use PLAN OF TREATMENT Medication Medication Name Sig Start Date Stop Date Notes Zithromax Z-Darius 250 MG 2 tablet on the f irst day, then 1 tablet daily for 4 days Orally Once a day for 5 day(s) 04/15/2024 Treatment Notes Assessment Notes Bronchitis patient verbalized u nderstanding of medication and directions for use Next Appt Details Provider Name:Amari Amaya ier, 08/24/2025 08:00:00 AM, [address] [place] [address], [address], [place], [place], [phone], Provider Name:Amari Amaya ier, 08/31/2025 02:30:00 PM, [address] [place] [address], [address], [place], [place], [phone], Progress Notes * Examination Category Sub-Category Detail Notes General Examination GENERAL APPEARANCE: alert, w ell hydrated, in no distress History and Physical Notes * HPI (History of Present Illness) Category Sub-Category Detail Notes Symptom(s) Telehealth Location of [facility] ider rendering services:: [address] [place] [address], [address] Location of patient:: other (please spec camilla) Work in [place] Patient identification confi rmed using:: Name, , SSN, Insurance information Telehealth method:: Video co nference where patient is visible to the provider of care Consent:: Patient verbally c onsented to treatment, Patient verbally consented to billing insurance company, Patient informed of any privacy concerns related to method of visit
--- OUTSIDE RECORDS SUMMARY | 2024-10-31 16:06 | XMS_ITS ---
Author Organization Amari Albarado MD Address [address] [place], [place] [id number] Care Team Providers Care Veterinary Nurse Name Role Phone Amari Albarado Primary Care Provider RESULTS Component Value Reference Range Notes Complete Blood Count Auto Di ff Reviewed date:08/22/2024 01:43:32 PM Interpretation: Performing Lab:[facility], [address] [place] [phone] Notes/Report: White Blood Count 5.5 4.8-10.8 X10*3/uL [...] NRBC Abs Auto 0.000 0.0-0.012 X10*3/uL Comprehensive [place]. Panel Fa st Reviewed date:08/24/2024 03:58:24 PM Interpretation: Performing Lab:[facility], [address] [place] [phone] Notes/Report: Sodium 141 135-145 mmol/L Potassium 3.5 3.3-5.1 mmol/L Chloride 106 96-108 mmol/L Carbon Dioxide 27 22-29 mmol/L Anion Gap 12 12-20 Blood Urea Nitrogen 13 9-16 mg/dL Creatinine 1.30 0.5-1.4 mg/dL Estimated Glomerular Filt Rate 57 NOTE: For -Wallisian individuals, multiply the result by 1.210. Chronic [...] Panel Reviewed date:08/22/2024 01:42:57 PM Interpretation: Performing Lab:[facility], [address] [place] [phone] Notes/Report: Triglycerides 105 <150 mg/dL Desirable Triglyceride: [...] (Free>4and<10) Reviewed date:08/23/2024 06:28:56 PM Interpretation: Performing Lab:[facility], [address] [place] [phone] Notes/Report: PSA,Total (Free>4and<10) 0.50 0.00-4.00 ng/mL A [...] Random Reviewed date:08/23/2024 12:57:47 PM Interpretation: Performing Lab:[facility], [address] [place] [phone] Notes/Report: Creatinine Urine 118.46 Microalbumin Urine 12.0 Microalbum/Creatinine Ratio Ur 10.1 <30 ug/mg cr Albumin/Creatinine Ratio Reference Ranges: Normal: < 30 ug/mg creatinine Microalbuminuria: 30 - 300 ug/mg creatinine Clinical Albuminuria: > 300 ug/mg creatinine Hemoglobin A1c Reviewed date:08/24/2024 03:54:32 PM Interpretation: Performing Lab:[facility], [address] [place] [phone] Notes/Report: Hemoglobin A1c % 5.6 <6.0 % [...] average glucose, using the formula of the H7D-Fgfepsr Average Glucose study (ADAG), Diabetes Care, Vol.31,#8, May. 2007 UA ClnCatch+Micro w/rflx Cul t Reviewed date:08/25/2024 06:22:43 PM Interpretation: Performing Lab:[facility], [address] [place] [phone] Notes/Report: Urine, Clean Catch Color Urine Yellow Appearance Urine Clear PH 6.0 5.0-9.0 Glucose Urine UA Negative Negative mg/dL Urine Blood Negative Negative Specific [place] - Urine 1.010 1.005-1.025 Urine Protein Negative Neg-Trace mg/dL Urine Ketones Negative Negative mg/dL Nitrite Urine Negative Negative Leukocyte Esterase Urine Negative Negative RBC Urine 0-2 0-2 /HPF WBC Urine 0-5 0-5 /HPF Squamous Epithelial Cell Urine 0-2 0-2 /HPF Bacteria Urine None Seen None Seen Hyaline Casts Urine 3-5 0-2 /LPF REASON FOR VISIT yearly fasting labs IMMUNIZATIONS Vaccine Route Administration Date Status Comme nts Fluarix Quadrivalent - 150 Unknown 08/22/2024 Refused Encounters Encounter Location Date Provider Diagnosis Amari Albarado MD [address] [place], [place] [phone] 08/22/2024 Amari Albarado Blood tests for routine general physical examination Z00.00 ; Prediabetes R73.09 and Low HDL (under 40) E78.6 ASSESSMENTS Encounter Date Diagnosis Assessment Notes Treatment Notes Treatment Clinical Notes 08/22/2024 Blood tests for routine general physical examination (ICD-10 - Z00.00) 08/22/2024 Prediabetes (ICD-10 - R73.09) 08/22/2024 Low HDL (under 40) (ICD-10 - E78.6) PLAN OF TREATMENT Next Appt Details Provider Name:Amari mcgee, 08/24/2025 08:00:00 AM, [address] [place] [address], [place] [address], [place], [place], [phone], Provider Name:Amari mcgee, 08/31/2025 02:30:00 PM, [address] [place] [address], [facility] [address], [place], [phone],
--- OUTSIDE RECORDS SUMMARY | 2024-10-31 16:06 | XMS_ITS | Patient Health Record ---
Author Organization Amari Albarado MD Address [address] [place], [place] [id number] Care Team Providers Care Asset Liability Analyst Name Role Phone Amari Albarado Primary Care Provider ALLERGIES No Known Allergies RESULTS Component Value Reference Range Notes Complete Blood Count Auto Di ff Reviewed date:08/22/2024 01:43:32 PM Interpretation: Performing Lab:[facility], [address] [place] [phone] Notes/Report: White Blood Count 5.5 4.8-10.8 X10*3/uL [...] NRBC Abs Auto 0.000 0.0-0.012 X10*3/uL Comprehensive [place]. Panel Fa st Reviewed date:08/24/2024 03:58:24 PM Interpretation: Performing Lab:[facility], [address] [place] [phone] Notes/Report: Sodium 141 135-145 mmol/L Potassium 3.5 3.3-5.1 mmol/L Chloride 106 96-108 mmol/L Carbon Dioxide 27 22-29 mmol/L Anion Gap 12 12-20 Blood Urea Nitrogen 13 9-16 mg/dL Creatinine 1.30 0.5-1.4 mg/dL Estimated Glomerular Filt Rate 57 NOTE: For -Ukrainian individuals, multiply the result by 1.210. Chronic [...] Panel Reviewed date:08/22/2024 01:42:57 PM Interpretation: Performing Lab:[facility], [address] [place] [phone] Notes/Report: Triglycerides 105 <150 mg/dL Desirable Triglyceride: [...] (Free>4and<10) Reviewed date:08/23/2024 06:28:56 PM Interpretation: Performing Lab:[facility], [address] [place] [phone] Notes/Report: PSA,Total (Free>4and<10) 0.50 0.00-4.00 ng/mL A [...] Random Reviewed date:08/23/2024 12:57:47 PM Interpretation: Performing Lab:[facility], [address] [place] [phone] Notes/Report: Creatinine Urine 118.46 Microalbumin Urine 12.0 Microalbum/Creatinine Ratio Ur 10.1 <30 ug/mg cr Albumin/Creatinine Ratio Reference Ranges: Normal: < 30 ug/mg creatinine Microalbuminuria: 30 - 300 ug/mg creatinine Clinical Albuminuria: > 300 ug/mg creatinine Hemoglobin A1c Reviewed date:08/24/2024 03:54:32 PM Interpretation: Performing Lab:[facility], [address] [place] [phone] Notes/Report: Hemoglobin A1c % 5.6 <6.0 % [...] average glucose, using the formula of the X8P-Llmjuxm Average Glucose study (ADAG), Diabetes Care, Vol.31,#8, May. 2007 UA ClnCatch+Micro w/rflx Cul t Reviewed date:08/25/2024 06:22:43 PM Interpretation: Performing Lab:[facility], [address] [place] [phone] Notes/Report: Urine, Clean Catch Color Urine Yellow Appearance Urine Clear PH 6.0 5.0-9.0 Glucose Urine UA Negative Negative mg/dL Urine Blood Negative Negative Specific [place] - Urine 1.010 1.005-1.025 Urine Protein Negative Neg-Trace mg/dL Urine Ketones Negative Negative mg/dL Nitrite Urine Negative Negative Leukocyte Esterase Urine Negative Negative RBC Urine 0-2 0-2 /HPF WBC Urine 0-5 0-5 /HPF Squamous Epithelial Cell Urine 0-2 0-2 /HPF Bacteria Urine None Seen None Seen Hyaline Casts Urine 3-5 0-2 /LPF Occult Blood, Stool, Guaiac Reviewed date:08/29/2024 01:51:42 [...] Referral Priority Routine Referral Appointment Date 10/20/2024 IMMUNIZATIONS Vaccine Route Administration Date Status Comme nts Fluarix Quadrivalent IM Intramuscular 08/04/2019 Administe red Fluarix Quadrivalent IM Intramuscular 07/30/2020 Administe red SARS-COV-2 Moderna Unknown 03/31/2021 Administered SARS-COV-2 Moderna Unknown 03/03/2021 Administered Fluarix Quadrivalent IM Intramuscular 08/18/2021 Administe red Fluarix Quadrivalent IM Intramuscular 08/14/2022 Administe red Fluarix Quadrivalent IM Intramuscular 08/17/2023 Administe red Fluarix Quadrivalent Unknown 07/23/2018 Refused Fluarix Quadrivalent - 150 Unknown 08/22/2024 Refused SOCIAL HISTORY Tobacco Use: Social History Observation [...] Never (0 point) Points 1 Interpretation Negative PROBLEMS Problem Type ICD Code Onset Dates Problem Status W/U Status Risk SNOMED Code Notes Problem Paroxysmal atrial fibrillation (I48.0) Active confirmed 948279669 Problem Chronic sinusitis, unspecified (J32.9) Active confirmed 110339937 Problem Rectal polyp (K62.1) Active confirmed 31925228 Problem Prediabetes (R73.09) Active confirmed 1003216 Problem Low HDL (under 40) (E78.6) Active confirmed 110512629 Problem Intrinsic eczema (L20.84) Active confirmed 28448230 Problem Family history of colon cancer (Z80.0) Active confirmed 040271227 Problem Acute non-recurrent maxillary sinusitis (J01.00) Active confirmed 13569847 Problem Renal mass (N28.89) Active confirmed 215726359 Problem REJI (obstructive sleep apnea) (G47.33) Active confirmed 18854889 Problem Renal cell carcinoma of right kidney (C64.1) Active confirmed 693754043 VITAL SIGNS Blood pressure diastolic 80 mm Hg 08/29/2024 ольга ght is up 14 pounds since 04-15-24 Height 75 in 08/29/2024 weight is up 14 pounds since 04-15-24 Blood pressure systolic 122 mm Hg 08/29/2024 weig ht is up 14 pounds since 04-15-24 Weight 244 lbs 08/29/2024 weight is up 14 pounds since 04-15-24 BMI 30.49 kg/m2 08/29/2024 weight is up 14 pounds since 04-15-24 Encounters Encounter Location Date Provider Diagnosis Amari Albarado MD [address] [place] [phone] 08/29/2024 Amari Albarado Skin lesion of face L98.9 ; Annual physical exam Z00.00 ; Prediabetes R73.09 ; Family history of colon cancer Z80.0 ; Renal mass N28.89 ; REJI (obstructive sleep apnea) G47.33 ; Paroxysmal atrial fibrillation I48.0 ; Colon cancer screening Z12.11 and Depression screening Z13.31 Amari Albarado MD [address] [place] [phone] 08/22/2024 Amari Albarado Blood tests for routine general physical examination Z00.00 ; Prediabetes R73.09 and Low HDL (under 40) E78.6 Amari Albarado MD [address] [place] [phone] 01/21/2024 Amari Albarado Acute non-recurrent maxillary sinusitis J01.00 Amari Albarado MD [address] [place] [phone] 04/15/2024 Amari Albarado Bronchitis J40 ASSESSMENTS Encounter Date Diagnosis Assessment Notes Treatment Notes Treatment Clinical Notes 08/29/2024 Annual physical exam (ICD-10 - Z00.00) labs reviewed and discused with patient 08/29/2024 Skin lesion of face (ICD-10 - L98.9) referral back to dr mccann/ REFERRAL MADE AND FAXED TO DR MCCANN @ [facility] , WILL [facility]K ON APPT AFTER 2 WEEKS PER [facility] 08/22/2024 Prediabetes (ICD-10 - R73.09) 08/22/2024 Blood tests for routine general physical examination (ICD-10 - Z00.00) 01/21/2024 Acute non-recurrent maxillary sinusitis (ICD-10 - J01.00) patient verbalized understanding of medication and directions for use 04/15/2024 Bronchitis (ICD-10 - J40) patient verbalized understanding of medication and directions for use 08/29/2024 Prediabetes (ICD-10 - R73.09) keep weight down, stable, no need for medicatin at this time 08/22/2024 Low HDL (under 40) (ICD-10 - E78.6) 08/29/2024 Family history of colon cancer (ICD-10 - Z80.0) had colonoscopy last year repeat in 2 years. 08/29/2024 Renal mass (ICD-10 - N28.89) going to go to [facility] 08/29/2024 REJI (obstructive sleep apnea) (ICD-10 - G47.33) is going to go back to see sleep medicine 08/29/2024 Paroxysmal atrial fibrillation (ICD-10 - I48.0) has not had any further episodes 08/29/2024 Colon cancer screening (ICD-10 - Z12.11) guaiac negative 08/29/2024 Depression screening (ICD-10 - Z13.31) negative screen PLAN OF TREATMENT Pending Test Test Name Order Date Electrocardiogram (EKG) 06/01/2016 Electrocardiogram (EKG) 06/07/2017 Electrocardiogram (EKG) 08/01/2018 MRI ABD W&WO CONTRAST 07/20/2022 XR GI SERIES 01/02/2020 US ABD 05/18/2022 Next Appt Details Provider Name:Amari Amaya ier, 08/24/2025 08:00:00 AM, [address], [address], [place], [place], [phone], Provider Name:Amari Coello Monique ier, 08/31/2025 02:30:00 PM, [address], [address], [place], [place], [phone], Insurance Providers Payer Name Payer Address Payer Phone Subscriber Number Group Number Insured Name Patient Relationship to Insured Coverage Start Date Coverage End Date [employer] CHUA [id number] [place] [phone] [id number] Ismael Wells Self - patient is the insured MEDICAL (GENERAL) HISTORY Medical History History ICD Code colonoscopy 2011 due in 5 ye ars; colonoscopy 09/06/[address] Novak-repeat 5 years. Clonoscopy 03/09/21 repeat 3y colonoscopy in 2022 repeat in 3 years
--- OUTSIDE RECORDS SUMMARY | 2024-10-31 16:07 | XMS_ITS | Patient Health Record ---
Author Organization [facility] Address [address] [place] [address] Care Team Providers Care Packing Machine Tender Name Role Phone Amari Albarado Primary Care Provider Unavailab le Allergies No Known Allergies Reason For Referral No Information Plan Of Treatment Pending Test Test Name Order Date WALKING BOOT PNEUMATIC AND/OR VAC 2022 Insurance Providers Payer Name Payer Address Payer Phone Subscriber Number Group Number Insured Name Patient Relationship to Insured Coverage Start Date [facility]age End Date [facility] [address] [place] [phone] [id number] Ismael Richardson Self - patient is the insured Medical (General) History Medical History History ICD Code bacterial gastroenteritis (e.coli and sh igella February 2023) + COVID X 3 COVID vaccinated X 2 (Moderna) Lower back pain Renal cancer. s/p right total nephrectom y. Surgical History Surgery Date(Month/Year) right nephrectomy due to cancer. 2020 Hospitalization History Reason Date(Month/Year) right kidney removed 2020
--- OUTSIDE RECORDS SUMMARY | 2024-10-31 16:07 | XMS_ITS ---
Author Organization [facility] Address [address] [address] Care Team Providers Care Process Excellence Manager Name Role Phone Amari Albarado Primary Care Provider Unavailab YUDI Gan Unavailable [phone] REASON FOR VISIT r/s apt Encounters Encounter Location Date Provider Diagnosis [facility] [address] [phone] 09/26/2023 YUDI SCHAEFFER Plan Of Treatment No Information Progress Notes * BERNADINEMALAWilli POPEAbdelrahmanOB:[birth year] (57 yo M)Acc No.[id number]:09/26/2023 Patient:?Willi FLETCHERn :1965???Age:57 Y???Sex:Male Phone: Address:[address] [place] [address] [facility], [place] [address] * true * Date:? Generated for Thania corey/Rayo/eTransmitting on:?10/31/2024 04:06 PM EST
[2024-10-31 17:37] LABS: MANUAL DIFF FLAG NO
[2024-10-31 17:40] LABS: Basophils Percent Auto 0.5 % (0-2); Eosinophils Absolute Auto 0.2 X10*3/uL (0.0-0.4); Eosinophils Percent Auto 2.3 % (0-4); Hematocrit 39.9 % (42.0-52.0); Hemoglobin 13.8 g/dl (14.0-18.0); Imm Gran Abs Auto 0.03 X10*3/uL (0.00-0.03); Imm Gran Pct Auto 0.5 % (0.0-0.4); Lymphocytes Absolute Auto 1.5 X10*3/uL (1.2-4.9); Lymphocytes Percent Auto 23.2 % (20-40); Mean Corpuscular HGB Conc 34.6 g/dl (31.0-36.0); Mean Corpuscular Hemoglobin 29.4 pg (27.0-33.0); Mean Corpuscular Volume 84.9 fL (80.0-98.0); Mean Platelet Volume 9.8 fL (9.4-12.4); Monocytes Absolute Auto 0.6 X10*3/uL (0.1-1.2); Monocytes Percent Auto 8.4 % (2-11); Neutrophils Absolute Auto 4.3 x10*3/uL (2.0-8.3); Neutrophils Percent Auto 65.1 % (45-73); Platelet Count 233 X10*3/uL (160-400); Red Cell Distribution Width 12.2 % (11.0-16.0); White Blood Count 6.7 X10*3/uL (4.8-10.8)
[2024-10-31 17:53] LABS: Alanine Aminotransferase 35 U/L (0-40); Albumin Level 4.4 g/dL (3.5-5.0); Alkaline Phosphatase 60 U/L (39-117); Anion Gap 12 (12-20); Aspartate Amino Transferase 32 U/L (5-37); Bilirubin Total 0.4 mg/dL (0.0-1.0); Blood Urea Nitrogen 14 mg/dL (9-16); Calcium 8.6 mg/dL (8.4-10.2); Carbon Dioxide 25 mmol/L (22-29); Chloride 107 mmol/L (96-108); Creatinine Clr Calc Pharmacy 90.3; Estimated Glomerular Filt Rate > 60; Glucose Random 123 mg/dL (60-115); Potassium 4.1 mmol/L (3.3-5.1); Sodium 140 mmol/L (135-145); Total Protein 7.1 g/dL (6.5-8.0)
[2024-10-31 17:58] LABS: INTERNATIONAL NORM RATIO 0.9 (0.9-1.1); Prothrombin Time 10.9 SEC (10.9-12.4)
[2024-10-31 17:59] LABS: B Type Natriuretic Peptide 63 pg/mL (<100)
[2024-10-31 18:01] LABS: Troponin-I High Sensitivity 8.3 ng/L (<3.5-35.0)
[2024-10-31 18:14] LABS: Influenza A PCR NEGATIVE (Negative); Influenza B PCR NEGATIVE (Negative); Resp Syncy Virus RNA Qual PCR NEGATIVE (Negative); SARS COV2 PCR INHOUSE NEGATIVE (Negative)
[2024-10-31 19:43] VITALS: BP 175/103; PULSE 73; RESP 16; O2SAT 96
[2024-10-31 22:03] VITALS: BP 137/80; PULSE 67; RESP 14; O2SAT 96
[2024-10-31 22:37] VITALS: BP 145/94; PULSE 67; RESP 14; TEMP 36.7; O2SAT 96
== END 2024-10-31 22:38 | disposition home or self-care (01) ==
PROVIDERS: Registered Nurse Emergency; Emergency Provider Internal Medicine; PCP Internal Medicine
DX: R42 Dizziness and giddiness (principal); R06.02 Shortness of breath; I48.0 Paroxysmal atrial fibrillation; Z03.818 Encounter for observation for suspected exposure to other biological agents ruled out
CPT/HCPCS: 0241U; 71046; 80053; 83880; 84484; 85025; 85610; 93005; 99283; 99284

== ENCOUNTER → 2024-10-31 14:52 | Outpatient (BNV) | payer OTHER, SELFPAY | PROVIDERS: Emergency Provider Internal Medicine; PCP Internal Medicine; Visit Provider Internal Medicine Cardiovascular Disease | DX: R94.31 Abnormal electrocardiogram [ECG] [EKG] (principal) | CPT/HCPCS: 93010 ==

== ENCOUNTER → 2024-10-31 14:52 | Outpatient (BNV) | payer OTHER, SELFPAY | PROVIDERS: PCP Internal Medicine; Visit Provider Radiology Diagnostic Radiology | DX: R06.02 Shortness of breath (principal) | CPT/HCPCS: 71046 ==

== ENCOUNTER → 2024-12-31 13:00 | Outpatient (REF) | payer OTHER, SELFPAY ==
--- NOTE | 2024-12-31 13:03 | CA_ITS ---
Transthoracic Echocardiogram Patient (Last, First, Middle): Ismael Fletcher T Gender: Male Date of : 1965 Age: 59 Procedure Date: 12/31/2024 Procedure Type: Transthoracic Echocardiogram Location: OP Height: 190.5 cm Weight: 111.13 kg BSA: 2.39 m2 Heart Rate: bpm BP: 120 / 80 mmHg Instrumentation Technologist: ANNA Referring MD: Amari Albarado MD [employer] Professor: Shoaib Monique MD Symptoms: HEART MURMUR Study Quality: Adequate ECG Rhythm: Sinus with PVCs Conclusions: - 1. Normal LV ejection fraction 55-60% 2. Mildly dilated left atrium 3. Mild aortic regurgitation 4. Mildly dilated ascending aorta at 4 cm 5. Normal RV systolic pressure with mildly elevated right atrial pressures 6. No pericardial effusion Findings Left Ventricle Normal left ventricular size, thickness, and systolic function. The visually estimated ejection fraction is between 55-60%. Spectral Doppler is indicative of a normal filling pattern. Right Ventricle Normal right ventricular cavity size and systolic function. Atria The left atrium is mildly dilated. There is no evidence of interatrial shunt. The right atrium is normal in size. Aortic Valve Normal aortic valve structure and function. There is no aortic valve stenosis. There is mild aortic valve regurgitation. Mitral Valve Normal mitral valve structure and function. There is trace mitral valve regurgitation. There is no mitral valve stenosis. Pulmonic Valve The pulmonic valve was not well visualized. Tricuspid Valve Normal tricuspid valve structure. There is mild tricuspid valve regurgitation. Mildly elevated right atrial pressure. There is no evidence of pulmonary hypertension. Great Vessels All visible segments of the aorta are normal in size. The pulmonary artery was not well visualized. There is mild dilatation of the ascending aorta measuring 4.00 cm. Venous The inferior vena cava is mildly dilated and collapses less than 50% with inspiration. Pericardium/Pleural There is no evidence of pericardial effusion. Prior Study Comparison Changes noted compared to prior study dated: 01/27/2021. LV ejection fraction has improved marginally Measurements 2D Linear Measurements IVSd: 0.91 0.6-0.9/0.6-1.0 cm LVIDd: 6.58 3.9-5.3/4.2-5.9 cm LVIDd Index: 2.75 2.4-3.2/2.2-3.1 cm/m2 LVIDs: 4.19 2.0-3.6 cm LVPWd: 0.96 0.7-1.1 cm LA Diam: 4.20 2.7-3.8/3.0-4.0 cm LAIDs Index: 1.76 1.5-2.3 cm/m2 LV Mass: 332.31 67-162/88-224 g LV Mass Index: 139.04 43-95/49-115 g/m2 LVOT Diam: 2.40 3.0+(-)1.3 cm 2D Systolic Function EF 4C: 58.10 >55% EF 2C: 57.90 >55% EF BiP: 58.50 >55% Mitral Valve MV Pk E: 0.76 MV PK A: 0.95 MV Decel Time: 207.00 E/A: 0.80 E'Lateral: 9.03 E'Medial: 5.55 E/E' Med: 13.70 E/E' Lat: 8.40 PHT: 61.00 MVA PHT: 3.61 Decel [place]: 3.67 Aortic Valve AoV Pk Phan: 2.05 AoV Mn Phan: 1.40 AoV VTI: 0.50 AoV Pk Grad: 17.00 Aov Mn Grad: 9.00 CARL Cont.VTI: 2.55 LVOT LVOT Pk Phan: 1.12 LVOT Mn Phan: 0.76 LVOT VTI: 0.28 LVOT Pk Grad: 5.00 LVOT Mn Grad: 3.00 LVOT Diam: 2.40 LVOT Area: 4.52 Diastolic Function MV Pk E: 0.76 MV Pk A: 0.95 E/A: 0.80 E'Medial: 5.55 E/E' Med: 13.70 E' Laterial: 9.03 E/E' Lat: 8.40 Right Ventricle TAPSE (mm): 27.00 TVS' Phan: 13.80 Tricuspid Valve TR Pk Phan: 2.55 TR Pk Grad: 26.00 RA Press: 8.00 RVSP: 34.00 Great Vessels Aorta Sinus of Valsalva: 3.30 2.0-3.[address] [place]: 2.98 1.7-3.4 cm Ao Asc: 4.00 2.1-3.4 cm Updated in Other Vendor System with Status of Final Shoaib Monique MD electronically signed on 01/01/2025 4:07:25 PM with status of Final
--- OUTSIDE RECORDS SUMMARY | 2024-12-31 15:20 | XMS_ITS ---
Author Organization [facility] Address [address] [address] Care Team Providers Care Courseware Developer Name Role Phone Amari Albarado Primary Care Provider Unavailab YUDI Gan Unavailable [phone] REASON FOR VISIT ATI discharge summary Encounters Encounter Location Date Provider Diagnosis [facility] [address] [address] 09/26/2023 YUDI SCHAEFFER Plan Of Treatment No Information Progress Notes * NCAHOSANDRA WilliAbdelrahmanOB:[birth year] (57 yo M)Acc No.[id number]:09/26/2023 Patient:?Willi FLETCHERn :1965???Age:57 Y???Sex:Male Phone: Address:[address] [place] [address] [facility], [place] [address] * true * Date:? Generated for Kpi leora/Rayo/eTransmitting on:?12/31/2024 03:19 PM EST
--- OUTSIDE RECORDS SUMMARY | 2024-12-31 15:20 | XMS_ITS | Patient Health Record ---
Author Organization Amari Albarado MD Address [address] [place], [place] [address] Care Team Providers Care Auto Inspector Name Role Phone Amari Albarado Primary Care Provider [phone] Allergies No Known Allergies Results Component Value Reference Range Notes Complete Blood Count Auto Di ff Reviewed date:08/22/2024 01:43:32 PM Interpretation: Performing Lab:[facility], [address] [place] [phone] Notes/Report: White Blood Count 5.5 4.8-10.8 X10*3/uL [...] NRBC Abs Auto 0.000 0.0-0.012 X10*3/uL Comprehensive [place]. Panel Fa st Reviewed date:08/24/2024 03:58:24 PM Interpretation: Performing Lab:[facility], [address] [place] [phone] Notes/Report: Sodium 141 135-145 mmol/L Potassium 3.5 3.3-5.1 mmol/L Chloride 106 96-108 mmol/L Carbon Dioxide 27 22-29 mmol/L Anion Gap 12 12-20 Blood Urea Nitrogen 13 9-16 mg/dL Creatinine 1.30 0.5-1.4 mg/dL Estimated Glomerular Filt Rate 57 NOTE: For -[place] individuals, multiply the result by 1.210. Chronic [...] Panel Reviewed date:08/22/2024 01:42:57 PM Interpretation: Performing Lab:[facility], [address] [place] [phone] Notes/Report: Triglycerides 105 <150 mg/dL Desirable Triglyceride: [...] (Free>4and<10) Reviewed date:08/23/2024 06:28:56 PM Interpretation: Performing Lab:[facility], [address] [place] [phone] Notes/Report: PSA,Total (Free>4and<10) 0.50 0.00-4.00 ng/mL A [...] Random Reviewed date:08/23/2024 12:57:47 PM Interpretation: Performing Lab:[facility], [address] [place] [phone] Notes/Report: Creatinine Urine 118.46 Microalbumin Urine 12.0 Microalbum/Creatinine Ratio Ur 10.1 <30 ug/mg cr Albumin/Creatinine Ratio Reference Ranges: Normal: < 30 ug/mg creatinine Microalbuminuria: 30 - 300 ug/mg creatinine Clinical Albuminuria: > 300 ug/mg creatinine Hemoglobin A1c Reviewed date:08/24/2024 03:54:32 PM Interpretation: Performing Lab:[facility], [address] [place] [phone] Notes/Report: Hemoglobin A1c % 5.6 <6.0 % [...] average glucose, using the formula of the U2G-[place] Average Glucose study (ADAG), Diabetes Care, Vol.31,#8, May. 2007 UA ClnCatch+Micro w/rflx Cul t Reviewed date:08/25/2024 06:22:43 PM Interpretation: Performing Lab:[facility], [address] [place] [phone] Notes/Report: Urine, Clean Catch Color Urine Yellow Appearance Urine Clear PH 6.0 5.0-9.0 Glucose Urine UA Negative Negative mg/dL Urine Blood Negative Negative Specific [place] - Urine 1.010 1.005-1.025 Urine Protein Negative [...] Notes/Report: Negative Occult Blood, Stool, Guaiac Neg Complete Blood Count Auto Di ff Reviewed date:11/02/2024 06:30:08 PM Interpretation: Performing Lab:[facility], [address] [place] [phone] Notes/Report: White Blood Count 6.7 4.8-10.8 X10*3/uL Red Blood Count 4.70 4.60-5.80 X10*6/uL Hemoglobin 13.8 14.0-18.0 g/dl Hematocrit 39.9 42.0-52.0 % Mean Corpuscular Volume 84.9 80.0-98.0 fL Mean Corpuscular Hemoglobin 29.4 27.0-33.0 pg Mean Corpuscular HGB Conc 34.6 31.0-36.0 g/dl Red Cell Distribution Width 12.2 11.0-16.0 % Platelet Count 233 160-400 X10*3/uL Mean Platelet Volume 9.8 9.4-12.4 fL Neutrophils Percent Auto 65.1 45-73 % Imm Gran Pct Auto 0.5 0.0-0.4 % Lymphocytes Percent Auto 23.2 20-40 % Monocytes Percent Auto 8.4 2-11 % Eosinophils Percent Auto 2.3 0-4 % Basophils Percent Auto 0.5 0-2 % NRBC Pct Auto 0.0 0.0-0.2 /100WBC Neutrophils Absolute Auto 4.3 2.0-8.3 x10*3/u L Imm Gran Abs Auto 0.03 0.00-0.03 X10*3/uL Lymphocytes Absolute Auto 1.5 1.2-4.9 X10*3/u L Monocytes Absolute Auto 0.6 0.1-1.2 X10*3/uL Eosinophils Absolute Auto 0.2 0.0-0.4 X10*3/u L Basophils Absolute Auto 0.0 0.0-0.2 X10*3/uL NRBC Abs Auto 0.000 0.0-0.012 X10*3/uL Prothrombin Time INR Reviewed date:11/02/2024 06:18:05 PM Interpretation: Performing Lab:[facility], [address] [place] [phone] Notes/Report: Prothrombin Time 10.9 10.9-12.4 SEC INTERNATIONAL NORM RATIO 0.9 0.9-1.1 INTERNATIONAL NORMALIZED RATIO (INR) REFERENCE RANGES Reference Range For patients not on anticoagulant therapy: 0.9 - 1.1 INR ranges for oral anticoagulant therapy: For prevention and treatment of venous thrombosis and pulmonary embolism: 2.0 - 3.0 For acute myocardial infarction with aspirin therapy: 2.0 - 3.0 For acute myocardial infarction without aspirin therapy: 3.0 - 4.0 For patients with mechanical prosthetic heart valves: 2.5 - 3.5 Comprehensive Met. Panel Reviewed date:11/02/2024 06:30:35 PM Interpretation: Performing Lab:[facility], [address] [place] [phone] Notes/Report: Sodium 140 135-145 mmol/L Potassium 4.1 3.3-5.1 mmol/L Chloride 107 96-108 mmol/L Carbon Dioxide 25 22-29 mmol/L Anion Gap 12 12-20 Blood Urea Nitrogen 14 9-16 mg/dL Creatinine 1.20 0.5-1.4 mg/dL Creatinine Clr Calc Pharmacy 90.3 eGFR (calculated from the MDRD study equation) and eCrCl (calculated from the Cockcroft-Gault equation) are based on different parameters and may not yield comparable results. If eCrCl result is absurd, please check patient's height/weight. Estimated Glomerular Filt Rate > 60 Chronic Kidney Disease: Estimated GFR < 60 mL/min/1.73m2 Severe Kidney Disease: Estimated GFR < 15 mL/min/1.73m2 Glucose Random 123 60-115 mg/dL Calcium 8.6 8.4-10.2 mg/dL Bilirubin Total 0.4 0.0-1.0 mg/dL Aspartate Amino Transferase 32 5-37 U/L Alanine Aminotransferase 35 0-40 U/L Total Protein 7.1 6.5-8.0 g/dL Albumin Level 4.4 3.5-5.0 g/dL Alkaline Phosphatase 60 39-117 U/L Troponin-I High Sensitivity Reviewed date:11/02/2024 06:17:46 PM Interpretation: Performing Lab:[facility], [address] [place] [phone] Notes/Report: Troponin-I High Sensitivity 8.3 <3.5-35.0 ng/L The [place]rade high sensitivity Troponin-I results should be used in conjunction with other diagnostic information such as ECG, clinical observations and information, and patient symptoms to aid in the diagnosis of ME. B Type Natriuretic Peptide Reviewed date:11/02/2024 06:28:53 PM Interpretation: Performing Lab:[facility], [address] [place] [phone] Notes/Report: B Type Natriuretic Peptide 63 <100 pg/mL For those patients who are being treated with Natrecor (nesiritide, recombinant BNP), BNP testing should be performed at least two hours post treatment in order to ensure that only endogenous levels of BNP are detected. SARS-CoV2/FLU/RSV Reviewed date:11/02/2024 06:17:54 PM Interpretation: Performing Lab:[facility], [address] [place] [phone] Notes/Report: Influenza A PCR NEGATIVE Negative Influenza B PCR NEGATIVE Negative Resp Syncy Virus RNA Qual PCR NEGATIVE Negative SARS COV2 PCR INHOUSE NEGATIVE Negative All test results must be correlated with clinical findings. Negative results do not preclude SARS-CoV2, influenza A virus, influenza B virus and/or RSV infection and should not be used as the sole basis for treatment or other patient management decisions. Negative results must be combined with clinical observations, patient history, and epidemiological information. This test has not been evaluated for monitoring treatment of infection. This test has been authorized by the FDA under an Emergency Use Authorization (EUA) for use by authorized laboratories. Testing performed on the [employer] GeneXpert utilizing real-time RT-PCR. All SARS CoV2 and positive influenza A/B results are reported to [facility]. XR chest 2V Reviewed date:10/31/2024 04:57:02 PM Interpretation: Performing Lab: Notes/Report: [address] [address] XRay Report Signed Patient: Ismael Fletcher MR#: [id number] : 1965 Acct:[id number] Age/Sex: 58 / M ADM Date: 10/31/24 Loc: .ED Attending Dr: Ordering Physician: Alexus Del Valle NP Date of Service: 10/31/24 Procedure(s): XR chest 2V Accession Number(s): [id number] cc: Amari Albarado MD; Alexus Del Valle NP EXAMINATION: XR CHEST CLINICAL INFORMATION: shortenss of breath COMPARISON: None available. TECHNIQUE: 2 views of the chest were obtained. FINDINGS: No significant abnormality is noted involving the heart, lungs, mediastinum, bony thorax or soft tissues. XR/XR chest 2V IMPRESSION: Unremarkable chest examination. Electronically signed by: Rambo Cohen MD 10/31/2024 04:50 PM EST RP Dictated By: Rambo Cohen MD Signed By: <Electronically signed by Rambo Cohen MD in OV> 10/31/24 1650 DD/ 1600 TD/TT: 10/31/24 1605 Finished Metal Repairer: [address] [address] XRay Report Signed Patient: Ismael Fletcher MR#: [id number] : 1965 Acct:[id number] Age/Sex: 58 / M ADM Date: 10/31/24 Loc: .ED Attending Dr: Ordering Physician: Alexus Del Valle NP Date of Service: 10/31/24 Procedure(s): XR mirta st 2V Accession Number(s): [id number] cc: Amari Albarado MD; Alexus Del Valle NP EXAMINATION: XR CHEST CLINICAL INFORMATION: shortenss of breath COMPARISON: None available. TECHNIQUE: 2 views of the chest were obtained. FINDINGS: No significant abnormality is noted involving the heart, lungs, mediastinum, bony thorax or soft tissues. XR/XR chest 2V IMPRESSION: Unremarkable chest examination. Electronically mele d by: Rambo Cohen MD 10/31/2024 04:50 PM EST RP Dictated By: Rambo Cohen MD Signed By: <Electronically signed by Rambo Cohen MD in OV> 10/31/24 1650 DD/ 1600 TD/TT: 10/31/24 1605 Finished Metal Repairer[place] [facility] [place] For Referral Reason SKIN LESION OF FACE Diagnosis 1 Skin lesion of face (L98.9) Referral Organization Amari Albarado MD Referring Provider First Name Amari Referring Provider Last Name Per Referring Provider Speciality Internal M edicine Referred Provider German Guerra Referred Provider Specialty Dermatology General Notes Daily Millard 08/29/2024 01:47:37 PM EDT > , Daily Millard 09/01/2024 09:02:39 AM EST > REFERRAL FAXED TO DANIELLE COELHO ON 08/29/24, Daily Millard 10/10/2024 11:01:09 AM EST > SCHEDULED FOR APPT 10/20 AT10:30AM, Daily Millard 11/03/2024 01:12:49 PM EST > OFFICE NOTE RECD Referral Priority Routine Referral Appointment Date 10/20/2024 Reason intermittent palpita tions heart murmur, systolic Diagnosis 1 Intermittent palpita tions (R00.2) Diagnosis 2 Heart murmur, systol ic (R01.1) Referral Organization Amari Albarado MD Referring Provider First Name Amari Referring Provider Last Name Per Referring Provider Speciality Internal M edicine Referred Provider MALLORY BOND Referred Provider Specialty Cardiology General Notes Yohana Vasques 0 11/11/2024 02:38:34 PM > referral info faxedLayo Annette 12/11/2024 09:04:01 AM > was told to call back in few days, Yohana Vasques 12/16/2024 11:54:49 AM > spoke with office they would like him to have an echo done first. Message sent to provider.Layo Annette 12/16/2024 01:11:54 PM >order put in system for Echo order faxed to [facility] [place] [facility] [place] booked for 12-31-2024 Referral Priority Routine Reason right hydrocele Diagnosis 1 Right hydrocele (N43 .3) Referral Organization Amari Albarado MD Referring Provider First Name Amari Referring Provider Last Name Per Referring Provider Speciality Internal M edicine Referred Provider Anish Mtz Referred Provider Specialty Urology General Notes Yohana Vasques 0 11/28/2024 02:35:55 PM >info faxedLayo Annette 12/16/2024 11:07:47 AM > referral info mailed to patient Referral Priority Routine Referral Appointment Date 02/05/2025 Immunizations Vaccine Route Administration Date Status Comme [...] Fluarix Quadrivalent - 150 Unknown 08/22/2024 Refused Social History Tobacco Use: Social History Observation [...] Never (0 point) Points 1 Interpretation Negative Problems Problem Type SNOMED Code ICD Code Onset Dates Problem Status W/U Status Risk Notes Problem 804383182 Paroxysmal atria l fibrillation (I48.0) Active confirmed Problem 407047035 Chronic sinusitis, unspecified (J32.9) Active confirmed Problem 74303828 Rectal polyp (K62.1) Active confirmed Problem 7859189 Prediabetes (R73.09) Active confirmed Problem 470425307 Low HDL (under 40) (E78.6) Active confirmed Problem 83690300 Intrinsic eczema (L20.84) Active confirmed Problem 881053825 Family history o f colon cancer (Z80.0) Active confirmed Problem 09762948 Acute non-recurrent maxillary sinusitis (J01.00) Active confirmed Problem 488000044 Renal mass (N28.89) Active confirmed Problem 56077232 REJI (obstructive sleep apnea) (G47.33) Active confirmed Problem 709052332 Renal cell carcinoma of right kidney (C64.1) Active confirmed Vital Signs Blood pressure diastolic 90 mm Hg 11/07/2024 ольга ght is up 7 pounds since 08-29-24 Height 75 in 11/07/2024 weight is up 7 pounds since 08-29-24 Blood pressure systolic 148 mm Hg 11/07/2024 stacy ht is up 7 pounds since 08-29-24 Weight 251 lbs 11/07/2024 weight is up 7 pounds since 08-29-24 BMI 31.37 kg/m2 11/07/2024 weight is up 7 pounds since 08-29-24 Encounters Encounter Location Date Provider Diagnosis Amari Albarado MD [address] [place] [id number] 11/07/2024 Amari Albarado Intermittent palpitations R00.2 ; Heart murmur, systolic R01.1 and Right hydrocele N43.3 Amari Albarado MD [address] [place] [address] [id number] 01/21/2024 Amari Albarado Acute non-recurrent maxillary sinusitis J01.00 Amari Albarado MD [address] [place] [phone] 04/15/2024 Amari Albarado Bronchitis J40 Amari Albarado MD [address] [place] [address] [id number] 08/22/2024 Amari Albarado Blood tests for routine general physical examination Z00.00 ; Prediabetes R73.09 and Low HDL (under 40) E78.6 Amari Albarado MD [address] [id number] 08/29/2024 Amari Albarado Skin lesion of face L98.9 ; Annual physical exam Z00.00 ; Prediabetes R73.09 ; Family history of colon cancer Z80.0 ; Renal mass N28.89 ; REJI (obstructive sleep apnea) G47.33 ; Paroxysmal atrial fibrillation I48.0 ; Colon cancer screening Z12.11 and Depression screening Z13.31 Amari Albarado MD [address] [place] [phone] 12/01/2024 Amari Albarado MD [address] [place] [phone] 12/16/2024 Amari Albarado Heart murmur, systolic R01.1 Assessments Encounter Date Diagnosis (ICD Code) Assessment Notes Treatment Notes Treatment Clinical Notes Section Notes 11/07/2024 Intermittent palpitations (ICD-10 - R00.2) referral to dr carvajal 11/07/2024 Heart murmur, systolic (ICD-10 - R01.1) get results of cardiology consult dr woodruff 01/21/2024 Acute non-recurrent maxillary sinusitis (ICD-10 - J01.00) patient verbalized understanding of medication and directions for use 04/15/2024 Bronchitis (ICD-10 - J40) patient verbalized understanding of medication and directions for use 08/22/2024 Blood tests for routine general physical examination (ICD-10 - Z00.00) 08/22/2024 Prediabetes (ICD-10 - R73.09) 08/29/2024 Skin lesion of face (ICD-10 - L98.9) referral back to dr guerra/ REFERRAL MADE AND FAXED TO DR GUERRA @ [facility] , WILL CHAECK ON APPT AFTER 2 WEEKS PER [facility] 08/29/2024 Annual physical exam (ICD-10 - Z00.00) labs reviewed and discused with patient 12/16/2024 Heart murmur, systolic (ICD-10 - R01.1) 11/07/2024 Right hydrocele (ICD-10 - N43.3) referral to urology at [facility] [place] 08/22/2024 Low HDL (under 40) (ICD-10 - E78.6) 08/29/2024 Prediabetes (ICD-10 - R73.09) keep weight down, stable, no need for medicatin at this time 08/29/2024 Family history of colon cancer (ICD-10 - Z80.0) had colonoscopy last year repeat in 2 years. 08/29/2024 Renal mass (ICD-10 - N28.89) going to go to [facility] 08/29/2024 REJI (obstructive sleep apnea) (ICD-10 - G47.33) is going to go back to see sleep medicine 08/29/2024 Paroxysmal atrial fibrillation (ICD-10 - I48.0) has not had any further episodes 08/29/2024 Colon cancer screening (ICD-10 - Z12.11) guaiac negative 08/29/2024 Depression screening (ICD-10 - Z13.31) negative screen Plan Of Treatment Pending Test Test Name Order Date Electrocardiogram (EKG) 06/01/2016 Electrocardiogram (EKG) 06/07/2017 Electrocardiogram (EKG) 08/01/2018 MRI ABD W&WO CONTRAST 07/20/2022 XR GI SERIES 01/02/2020 US ABD 05/18/2022 ECHO 12/16/2024 Next Appt Details Provider Name:Amari Amaya ier, 08/24/2025 08:00:00 AM, [address] [place] [address], [address], [place], [place], [phone], Provider Name:Amari Amaya ier, 08/31/2025 02:30:00 PM, [address] [facility], [address], [place], [place], [phone], Insurance Providers Payer Name Payer Address Payer Phone Subscriber Number Group Number Insured Name Patient Relationship to Insured Coverage Start Date Coverage End Date [employer] CHUA [id number] [place] [phone] [id number] Ismael Wells Self - patient is the insured Medical (General) History Medical History History ICD Code colonoscopy 2011 due in 5 ye ars; colonoscopy 09/06/[address] Novak-repeat 5 years. Clonoscopy 03/09/21 repeat 3y colonoscopy in 2022 repeat in 3 years
--- OUTSIDE RECORDS SUMMARY | 2024-12-31 15:20 | XMS_ITS ---
Author Organization [facility] Address [address] [address] Care Team Providers Care Visual Educator Name Role Phone Amari Albarado Primary Care Provider Unavailab YUDI Gan Unavailable [phone] REASON FOR VISIT r/s apt Encounters Encounter Location Date Provider Diagnosis [facility] [address] [address] 09/26/2023 YUDI SCHAEFFER Plan Of Treatment No Information Progress Notes * NACHOWilli POPEAbdelrahmanOB:[birth year] (57 yo M)Acc No.[id number]:09/26/2023 Patient:?Willi FLETCHERn :1965???Age:57 Y???Sex:Male Phone: Address:[address] [place] [address] [facility], [place] [address] * true * Date:? Generated for Thania corey/Rayo/eTransmitting on:?12/31/2024 03:20 PM EST
--- OUTSIDE RECORDS SUMMARY | 2024-12-31 15:21 | XMS_ITS | Referral Summary ---
Author Organization [facility] Address [address] [place] [address] Care Team Providers Care Chief Of Surgery Name Role Phone Amari Albarado Primary Care Provider [phone] Encounters Date Type Department Care Team Description 11/02/2024 11:08 PM EST - 11/03/2024 2:23 AM EST Emergency [facility] Emergency Department [address] [place] [id number] Robby Jaquez MD PVC (premature ventricular contraction) (Primary Dx) Discharge Disposition: Home or Self Care () from Last 3 Months Allergies No known active allergies Medications No known medications Active Problems Problem Noted Date Diagnosed Date PVC (premature ventricular contraction) 11/03/19 25 Social History Tobacco Use Types Packs/Day Years Used Date Smoking Tobacco: Never Smokeless Tobacco: Never Tobacco Cessation:Counseling Given: Not Answered Alcohol Use Standard Drinks/Week Comments Never 0 (1 standard drink = 0.6 oz pur e alcohol) Sex and Gender Information Value Date Recorded Sex Assigned at Male 11/03/2024 12:10 AM EST Legal Sex Male 8:21 PM EST Gender Identity Male 11/03/2024 12:10 AM EST Sexual Orientation Not on file Last Filed Vital Signs Vital Sign Reading Time Taken Comments Blood Pressure 135/75 11/03/2024 2:02 AM EST Pulse 75 11/03/2024 2:02 AM EST Temperature 36.7 ??C (98.1 ??F) 11/03/2024 12:[address] Respiratory Rate 21 11/03/2024 2:02 AM EST Oxygen Saturation 99% 11/03/2024 2:02 AM EST Inhaled Oxygen Concentration - - Weight 111.1 kg (245 lb) 11/02/2024 8:27 PM EST Height 190.5 cm (6' 3 ) 11/02/2024 8:27 PM EST Body Mass Index 30.62 11/02/2024 8:27 PM EST Plan of Treatment Not on file Procedures * Due to [employer] law, this organization might not be sharing negative HIV tests. Procedure Name Priority Date/Time Associated Diagnosis Comments LIGHT BLUE TOP Routine 11/02/2024 11:38 PM EST MAGNESIUM STAT Add-on 11/02/2024 11:38 PM EST PHOSPHORUS STAT Add-on 11/02/2024 11:38 PM EST BASIC METABOLIC PANEL STAT Add-on 11/02/2024 11:38 PM EST RAINBOW DRAW Routine 11/02/2024 11:38 PM EST TROPONIN T HIGH SENSITIVITY STAT 11/02/2024 11:38 PM EST MAGNESIUM STAT Add-on 11/02/2024 9:40 PM EST TROPONIN T HIGH SENSITIVITY STAT 11/02/2024 9:40 PM EST TROPONIN T HIGH SENSITIVITY STAT 11/02/2024 8:49 PM EST BASIC METABOLIC PANEL STAT 11/02/2024 8:49 PM EST CBC AUTO DIFFERENTIAL STAT 11/02/2024 8:49 PM EST ECG 12-LEAD Routine 11/02/2024 8:38 PM EST ECG 12-LEAD STAT 11/02/2024 8:34 PM EST HEART & VASCULAR - SCANNED 11/02/2024 from Last 3 Months Results * Due to [employer] law, this organization might not be sharing negative HIV tests. * Repeat Troponin #2 (11/02/2024 11:38 PM EST) Only the most recent of3 resultswithin the time period is included. Troponin T High Sensitivity 16 <=21 ng/L 11/03/2024 12:18 AM EST [facility] Comment: St-Oflulnop-K level of 52 ng/L or higher at 0-hour at presentation is recommended by the ESC 0/1-hour algorithm for identifying patients at high risk for ruling in acute myocardial infarction (AMI) in the appropriate clinical context. Repeat troponin testing 1-3 hours after the initial sample may be helpful in assessing for ongoing myocardial injury. Troponin elevations can be seen in several other non-infarct conditions, and the change (delta) should be evaluated in line with the 4th [place] Definition of AMI. Troponin baseline and serial elevation for a significant delta should be interpreted with clinical presentation, history, signs and symptoms, ECG, and biomarker concentrations. For inpatient setting: Value <12ng/L is considered negative for all genders. 0-1hr: A delta change of <3 will be considered negative/flat if chest pain onset >3 hours 0-3hr: A delta change of <7 will be considered negative/flat Blood Structure of peripheral vein / Unknown Venipuncture / Unknown 11/02/2024 11:38 PM EST 11/02/2024 11:51 PM EST us Robby Jaquez MD LAB BLOOD ORDERABLES Final Res ult Performing Organization Address City/[facility]/ZIP Co de Phone Number [facility] [address] [place] [address], * Light Blue Top (11/02/2024 11:38 PM EST) Extra Tube Hold for add-ons. 11/03/2024 4:05 AM EST [facility] Comment:Auto resulted. Blood Structure of peripheral vein / Unknown Venipuncture / Unknown 11/02/2024 11:38 PM EST 11/02/2024 11:51 PM EST us Robby Jaquez MD LAB BLOOD ORDERABLES Final Res ult [facility] [address] [place] [address], [place] * Phosphorus (11/02/2024 11:38 PM EST) Phosphorus 2.9 2.5 - 4.5 mg/dL 11/03/2024 1:49 AM EST [facility] Blood Structure of peripheral vein / Unknown Venipuncture / Unknown 11/02/2024 11:38 PM EST 11/02/2024 11:51 PM EST us Robby Jaquez MD LAB BLOOD ORDERABLES Final Res ult Performing Organization Address City/[facility]/ZIP Co de Phone Number [facility] [address] [place] [address], [place] * Magnesium (11/02/2024 11:38 PM EST) Only the most recent of2 resultswithin the time period is included. MG 2.4 1.6 - 2.4 mg/dL 11/03/2024 1:49 AM EST [facility] Blood Structure of peripheral vein / Unknown Venipuncture / Unknown 11/02/2024 11:38 PM EST 11/02/2024 11:51 PM EST us Robby Jaquez MD LAB BLOOD ORDERABLES Final Res ult Performing Organization Address City/[facility]/ZIP Co de Phone Number [facility] [address] [place] [address], [place] * (ABNORMAL) Basic Metabolic Panel (11/02/2024 11:38 PM EST) Only the most recent of2 resultswithin the time period is included. NA 140 135 - 145 mmol/L 11/03/2024 1:49 AM EST [facility] K 4.0 3.5 - 5.3 mmol/L 11/03/2024 1:49 AM EST [facility] Cl 104 98 - 107 mmol/L 11/03/2024 1:49 AM EST [facility] CO2 22 22 - 32 mmol/L 11/03/2024 1:49 AM EST [facility] BUN 17 7 - 23 mg/dL 11/03/2024 1:49 AM EST [facility] Creatinine 1.13 0.60 - 1.30 mg/dL 11/03/2024 1:49 AM EST [facility] Glucose 132(H) 65 - 99 mg/dL 11/03/2024 1:49 AM EST [facility] Calcium 8.9 8.6 - 10.5 mg/dL 11/03/2024 1:49 AM EST [facility] Anion Gap 14 5 - 15 11/03/2024 1:49 AM EST [facility] eGFR 75 >=60 mL/min/1. 73m2 11/03/2024 1:49 AM EST [facility] Comment:The estimated glomer ular filtration rate (eGFR) is calculated using a new formula developed by the NKF-ASN task force to eliminate race-based correction factors. The new formula uses serum/plasma creatinine, age, and gender to determine eGFR. A value below 60mls/min might indicate kidney disease and will be flagged. For additional information, see Banerjee et al, Am J Kidney Dis. 2021;79(2):268- 288, A Unifying Approach for GFR estimation: Recommendations of the NKF-ASN Task Force on Reassessing the Inclusion of Race in Diagnosing Kidney Disease . Blood Structure of peripheral vein / Unknown Venipuncture / Unknown 11/02/2024 11:38 PM EST 11/02/2024 11:51 PM EST us Robby Jaquez MD LAB BLOOD ORDERABLES Final Res ult [facility] [address] [place] [address], [place] * CBC Auto Differential (11/02/2024 8:49 PM EST) WBC 6.4 3.8 - 10.8 10*3/uL 11/02/2024 9:05 PM EST [facility] RBC 5.00 4.20 - 5.80 10*6/uL 11/02/2024 9:05 PM EST [facility] Hemoglobin 14.3 13.2 - 17.1 g/dL 11/02/2024 9:05 PM EST [facility] Hematocrit 42.1 38.5 - 50.0 % 11/02/2024 9:05 PM EST [facility] MCV 84.2 80.0 - 100.0 fL 11/02/2024 9:05 PM EST [facility] MCH 28.6 27.0 - 33.0 pg 11/02/2024 9:05 PM EST [facility] MCHC 34.0 32.0 - 36.0 g/dL 11/02/2024 9:05 PM EST [facility] RDW 12.0 11.0 - 15.0 % 11/02/2024 9:05 PM EST [facility] Platelets 251 140 - 400 10*3/uL 11/02/2024 9:05 PM EST [facility] MPV 9.8 7.5 - 12.5 fL 11/02/2024 9:05 PM EST [facility] Neutrophil % 63.2 % 11/02/2024 9:05 PM EST [facility] Immature Grans % 0.3 0.0 - 0.9 % 11/02/2024 9:05 PM EST [facility] Lymphocyte % 28.1 % 11/02/2024 9:05 PM EST [facility] Monocyte % 6.2 % 11/02/2024 9:05 PM EST [facility] Eosinophil % 1.9 % 11/02/2024 9:05 PM EST [facility] Basophil % 0.3 % 11/02/2024 9:05 PM EST [facility] Neutrophil # 4.06 1.50 - 7.80 10*3/uL 11/02/2024 9:05 PM EST [facility] Immature Grans # <0.03 <=0.03 10*3/uL 11/02/2024 9:05 PM EST [facility] Lymphocyte # 1.80 0.85 - 3.90 10*3/uL 11/02/2024 9:05 PM EST [facility] Monocyte # 0.40 0.20 - 0.95 10*3/uL 11/02/2024 9:05 PM EST [facility] Eosinophil # 0.10 0.02 - 0.50 10*3/uL 11/02/2024 9:05 PM EST [facility] Basophil # <0.03 0.00 - 0.20 10*3/uL 11/02/2024 9:05 PM EST [facility] nRBC % 0.0 /100 WBCs 11/02/2024 9:05 PM EST [facility] nRBC # <0.01 <0.01 10*3/uL 11/02/2024 9:05 PM EST [employer] [facility] Blood Structure of peripheral vein / Unknown Venipuncture / Unknown 11/02/2024 8:49 PM EST 11/02/2024 9:01 PM EST us Robby Jaquez MD LAB BLOOD ORDERABLES Final Res ult [facility] [address] [place] [address], [place] * ECG 12 lead (11/02/2024 8:38 PM EST) Only the most recent of2 resultswithin the time period is included. Ventricular Rate EKG 94 BPM MUSE EKG Atrial Rate 94 BPM MUSE EKG ID Interval 160 ms MUSE EKG QRS Interval 94 ms MUSE EKG QT Interval 350 ms MUSE EKG QTC Interval 437 ms MUSE EKG P [place] 38 degrees MUSE EKG R [place] -24 degrees MUSE EKG T Wave [place] 34 degrees MUSE EKG 11/02/2024 8:38 PM EST 11/08/2024 2:08 PM EST Impressions MUSE EKG - 11/08/2024 2:08 PM EST SINUS RHYTHM WITH OCCASIONAL PREMATURE VENTRICULAR COMPLEXES POSSIBLE LEFT ATRIAL ENLARGEMENT LEFT VENTRICULAR HYPERTROPHY ( R in aVL , Jim product ) NONSPECIFIC ST AND T WAVE ABNORMALITY ABNORMAL ECG WHEN COMPARED WITH ECG OF 02-NOV-2024 20:34, (UNCONFIRMED) PREMATURE VENTRICULAR COMPLEXES ARE NOW PRESENT Confirmed by Abhi Peterson ([id number]) on 11/08/2024 2:08:04 PM us Lay Out Helper Ivan ORTEGA ECG ORDERABLES Final Resu lt MUSE EKG * HEART & VASCULAR - SCANNED (11/02/2024) Anatomical Region Laterality Modality Other us Onbase Scan Ora SCANNED PROCEDURES Final Resu lt from Last 3 Months Insurance [facility] PPO/EPO/IND Care Teams Chief Of Surgery Relationship Specialty Start Date End Date Amari Albarado [address] [place] [address] [place] [address] PCP - General Internal Medicine 11/02/24
--- OUTSIDE RECORDS SUMMARY | 2024-12-31 15:21 | XMS_ITS | Continuity of Care Document ---
Author Organization [facility] Address [address] [place] [address] Dr ve [address] [place] [address]- Care Team Providers Care Retail Personal Banker Name Role Phone Amari Albarado MD Primary Care Physician [phone] Encounter [facility] Date(s): 12/08/24 - 12/15/24 [facility] [address] [place] [address] Drive [place], [place] [address] Attending Physician: Emmanuel Thornton MD Referring Physician: Karoline Mc NP Encounter Type: Office Visit Allergies, Adverse Reactions, Alerts No Known Allergies Medications No Known Medications Problem List Condition Confirmation Course Effective Dates Status Health St atus Informant Obese class I Confirmed Active Vital Signs Most recent to oldest [Reference Range]: 1 Height 190 cm (12/08/24 1:08 PM) Weight 118.8 kg (12/08/24 1:08 PM) Body Mass Index [18.5-24.99 kg/m2] 32.91 kg/m2 *>HHI* (12/08/24 1:08 PM) Patient Care team information Care Team Personnel Name: Amari Albarado MD Position: Reference Physician Member Role: PCP Address: [address] Amari [place]barado [place], [place] [address] Telecom: [phone] Care Team Related Persons Name: CORINA JUDD Insurance Providers Guarantor name: HEAVEN JUDD Health Plan Information #: 1 Payer: [employer] PPO MVP Member Number: [id number] Policy Number: NA Group Number: [id number] Health Plan Information #: 2 Payer: [employer] PPO MVP Member Number: [id number] Policy Number: NA Group Number: [id number]
--- OUTSIDE RECORDS SUMMARY | 2024-12-31 15:21 | XMS_ITS | Clinical Summary ---
Author Organization [facility] Address [address] [place] [address] Care Team Providers Care Fur Repair Inspector Name Role Phone Amair Albarado Primary Care Provider [phone] Allergies No known active allergies Medications No known medications Active Problems Problem Noted Date Diagnosed Date PVC (premature ventricular contraction) 11/03/19 25 Encounters Date Type Department Care Team Description 11/02/2024 11:08 PM EST - 11/03/2024 2:23 AM EST Emergency [facility] Emergency Department [address] [place] [address] Robby Jaquez MD PVC (premature ventricular contraction) (Primary Dx) Discharge Disposition: Home or Self Care () from Last 3 Months Social History Tobacco Use Types Packs/Day Years [...] 11/02/2024 8:27 PM EST Plan of Treatment Health Maintenance Due Date Last Done Comments Cologuard 1965 Colon Cancer Screening 1965 Colonoscopy 1965 FOBT / Fit Test 1965 HIV Screening 1965 Sigmoidoscopy 1965 Hepatitis B Vaccines (1 of 3 - 19+ 3-dose series) 1984 DTaP,Tdap,and Td Vaccines (1 - Tdap) 1987 Pneumococcal Vaccine: 50+ Ye ars (1 of 1 - PCV) 2015 Zoster Vaccines (1 of 2) 2015 Influenza Vaccine (#1) 2024 3, 08/14/2022, 08/18/2021, Additional history exists Alcohol/Substance Use Screening 10/29/2024 RSV Vaccine (60+ years old a nd patients) (1 - 1-dose 75+ series) 2040 Procedures * Due to [place] state law, this organization might not be sharing [...] Last 3 Months Results * Due to [place] state law, this organization might not be sharing negative HIV tests. * Repeat Troponin #2 (11/02/2024 11:38 PM EST) Only the most recent of3 resultswithin the time period is included. Troponin T High Sensitivity 16 <=21 ng/L 11/03/2024 12:18 AM EST [facility] Comment: Ga-Fpkezqow-Q level of 52 ng/L or higher at [...] be evaluated in line with the 4th [place] Definition of AMI. Troponin baseline and serial [...] EST 11/02/2024 11:51 PM EST us Robby Gisele MD LAB BLOOD ORDERABLES Final Res ult Performing Organization Address [facility]/ZIP Co de Phone Number [facility] [address] [place] [address], [place] * Light Blue Top (11/02/2024 11:38 PM EST) Extra Tube Hold for add-ons. 11/03/2024 4:05 AM EST [facility] Comment:Auto resulted. Blood Structure of peripheral vein / Unknown Venipuncture / Unknown 11/02/2024 11:38 PM EST 11/02/2024 11:51 PM EST Robby Jaquez MD LAB BLOOD ORDERABLES Final Res ult Performing Organization Address [facility] Co de Phone Number [facility] [address] [place] [address], [place] * Phosphorus (11/02/2024 11:38 PM EST) Phosphorus 2.9 2.5 - 4.5 mg/dL 11/03/2024 1:49 AM EST [facility] Blood Structure of peripheral vein / Unknown Venipuncture / Unknown 11/02/2024 11:38 PM EST 11/02/2024 11:51 PM EST Robby Jaquez MD LAB BLOOD ORDERABLES Final Res ult Performing Organization Address [facility]/ZIP Co de Phone Number [facility] [address] [place] [address], [place] * Magnesium (11/02/2024 11:38 PM EST) Only the most recent of2 resultswithin the time period is included. MG 2.4 1.6 - 2.4 mg/dL 11/03/2024 1:49 AM EST [facility] Blood Structure of peripheral vein / Unknown Venipuncture / Unknown 11/02/2024 11:38 PM EST 11/02/2024 11:51 PM EST us Robby Jaquez MD LAB BLOOD ORDERABLES Final Res ult [facility] [address] [place] [address], [place] * (ABNORMAL) Basic Metabolic Panel (11/02/2024 11:38 PM EST) Only the most recent of2 resultswithin the time period is included. NA 140 135 - 145 mmol/L 11/03/2024 1:49 AM EST [facility] K 4.0 3.5 - 5.3 mmol/L 11/03/2024 1:49 AM EST [facility] Cl 104 98 - 107 mmol/L 11/03/2024 1:49 AM EST [facility] CO2 22 22 - 32 mmol/L 11/03/2024 1:49 AM EST [facility] BUN 17 7 - 23 mg/dL 11/03/2024 1:49 AM EST [facility] Creatinine 1.13 0.60 - 1.30 mg/dL 11/03/2024 1:49 AM EST [facility] Glucose 132(H) 65 - 99 mg/dL 11/03/2024 1:49 AM EST [facility] Calcium 8.9 8.6 - 10.5 mg/dL 11/03/2024 1:49 AM EST [facility] Anion Gap 14 5 - 15 11/03/2024 1:49 AM EST [facility] eGFR 75 >=60 mL/min/1. 73m2 11/03/2024 1:49 AM EST [facility] Comment:The estimated glomer ular [...] MD LAB BLOOD ORDERABLES Final Res ult [facility] [address] [place] [address], * CBC Auto Differential (11/02/2024 8:49 PM [...] - 400 10*3/uL 11/02/2024 9:05 PM EST [facility] MPV 9.8 7.5 - 12.5 fL 11/02/2024 9:05 PM EST [facility] Neutrophil % 63.2 % 11/02/2024 9:05 PM EST [facility] Immature Grans % 0.3 0.0 - 0.9 % 11/02/2024 9:05 PM EST [facility] Lymphocyte % 28.1 % 11/02/2024 9:05 PM EST [facility] Monocyte % 6.2 % 11/02/2024 9:05 PM EST [facility] Eosinophil % 1.9 % 11/02/2024 9:05 PM EST [facility] Basophil % 0.3 % 11/02/2024 9:05 PM EST [facility] Neutrophil # 4.06 1.50 - 7.80 10*3/uL 11/02/2024 9:05 PM EST [facility] Immature Grans # <0.03 <=0.03 10*3/uL 11/02/2024 9:05 PM EST [facility] Lymphocyte # 1.80 0.85 - 3.90 10*3/uL 11/02/2024 9:05 PM EST [facility] Monocyte # 0.40 0.20 - 0.95 10*3/uL 11/02/2024 9:05 PM EST [facility] Eosinophil # 0.10 0.02 - 0.50 10*3/uL 11/02/2024 9:05 PM EST [facility] Basophil # <0.03 0.00 - 0.20 10*3/uL 11/02/2024 9:05 PM EST [facility] nRBC % 0.0 /100 WBCs 11/02/2024 9:05 PM EST [facility] nRBC # <0.01 <0.01 10*3/uL 11/02/2024 9:05 PM EST [facility] Blood Structure of peripheral vein / Unknown Venipuncture / Unknown 11/02/2024 8:49 PM EST 11/02/2024 9:01 PM EST us Robby Jaquez MD LAB BLOOD ORDERABLES Final Res ult Performing Organization Address City/[facility]/ZIP Co de Phone Number [facility] [address] [place] [address], * ECG 12 lead (11/02/2024 8:38 PM EST) Only the most recent of2 resultswithin the time period is included. Ventricular Rate EKG 94 BPM MUSE EKG Atrial Rate 94 BPM MUSE EKG AR Interval 160 ms MUSE EKG QRS Interval 94 ms MUSE EKG QT Interval 350 ms MUSE EKG QTC Interval 437 ms MUSE EKG P [place] 38 degrees MUSE EKG R [place] -24 degrees MUSE EKG T Wave [place] 34 degrees MUSE EKG 11/02/2024 8:38 PM EST 11/08/2024 2:08 PM EST Impressions MUSE EKG - 11/08/2024 2:08 PM EST SINUS RHYTHM WITH OCCASIONAL PREMATURE VENTRICULAR COMPLEXES POSSIBLE LEFT ATRIAL ENLARGEMENT LEFT VENTRICULAR HYPERTROPHY ( R in aVL , [place] product ) NONSPECIFIC ST AND T WAVE ABNORMALITY ABNORMAL ECG WHEN COMPARED WITH ECG OF 02-NOV-2024 20:34, (UNCONFIRMED) PREMATURE VENTRICULAR COMPLEXES ARE NOW PRESENT Confirmed by Abhi Peterson ([id number]) on 11/08/2024 2:08:04 PM us Grade Recorder Ivan ORTEGA ECG ORDERABLES Final Resu lt MUSE EKG * HEART & VASCULAR - SCANNED (11/02/2024) Anatomical Region Laterality Modality Other us Onbase Scan Ora SCANNED PROCEDURES Final Resu lt from Last 3 Months Insurance [employer] PPO/EPO/IND Care Teams Fur Repair Inspector Relationship Specialty Start Date End Date Amari Albarado [address] [place] [address] [place] [address] PCP - General Internal Medicine 11/02/24
--- OUTSIDE RECORDS SUMMARY | 2024-12-31 15:21 | XMS_ITS | Patient Health Record ---
Author Organization [facility] Address [address] [place] [address] Care Team Providers Care Backup Administrator Name Role Phone Amari Albarado Primary Care Provider Unavailab le Allergies No Known Allergies Reason For Referral No Information Plan Of Treatment Pending Test Test Name Order Date WALKING BOOT PNEUMATIC AND/OR VAC 2022 Insurance Providers Payer Name Payer Address Payer Phone Subscriber Number Group Number Insured Name Patient Relationship to Insured Coverage Start Date [facility]age End Date [facility] [address] [place] [phone] [id number] Ismael Richardson Self - patient is the [...]
--- OUTSIDE RECORDS SUMMARY | 2024-12-31 15:21 | XMS_ITS | Clinical Summary ---
Author Organization [facility] Address [address] [place] [address] Care Team Providers Care Chenille Machine Operator Name Role Phone Amari Albarado MD Primary Care Provider Social History Tobacco Use Types Packs/Day Years Used Date Smoking Tobacco: Never Sex and Gender Information Value Date Recorded Sex Assigned at Not on file Legal Sex Male 2:02 AM EST Gender Identity Not on file Sexual Orientation Not on file Obstetrics History Last Filed Vital Signs Vital Sign Reading Time Taken Comments Blood Pressure 135/75 08/22/2022 9:58 AM EDT Pulse 62 08/22/2022 9:58 AM EDT Temperature - - Respiratory Rate - - Oxygen Saturation - - Inhaled Oxygen Concentration - - Weight 109 kg (240 lb 12.8 oz) 08/22/2022 9:58 A M EDT Height - - Body Mass Index - - Plan of Treatment Health Maintenance Due Date Last Done Comments DTaP,Tdap,and Td Vaccines (1 - Tdap) 1984 Hepatitis B Vaccines (1 of 3 - 19+ 3-dose series) 1984 Pneumococcal Vaccine: 50+ Years (1 of 1 - PCV) 2015 Zoster Vaccines (1 of 2) 2015 Cholesterol Screening (Lipid Panel) 10/01/2022 Colorectal Cancer Screening: Colonoscopy 10/01/2022 Depression Screening 10/01/2022 HIV Screening 10/01/2022 Hepatitis C Screening 10/01/2022 Social Influencers of Health Screening 10/01/2022 COVID-19 Vaccine ( - 2023-2 5 season) 2024 Influenza Vaccine (#1) 2024 , 08/04/2019 RSV Immunization Patients 60 + Years Old (1 - 1-dose 75+ series) 2040 HIB Vaccines Aged Out No longer eligi ble based on patient's age to complete this topic HPV Vaccines Aged Out No longer eligi ble based on patient's age to complete this topic Hepatitis A Vaccines Aged Out No long er eligible based on patient's age to complete this topic IPV Vaccines Aged Out No longer eligi ble based on patient's age to complete this topic MMR Vaccines Aged Out No longer eligi ble based on patient's age to complete this topic Meningococcal ACWY Vaccine Aged Out N o longer eligible based on patient's age to complete this topic Meningococcal B Vacine Aged Out No lo nger eligible based on patient's age to complete this topic Pneumococcal Vaccine: Pediatrics (0 to 5 Years) and At-Risk Patients (6 to 64 Years) Aged Out No longer eligible b ased on patient's age to complete this topic RSV Immunization Patients Under 20 months Aged Out No longer eligible b ased on patient's age to complete this topic Varicella Vaccines Aged Out No longer eligible based on patient's age to complete this topic Care Teams Chenille Machine Operator Relationship Specialty Start Date End Date Amari Albarado MD PCP - General Internal Medicine 08/07/22
--- OUTSIDE RECORDS SUMMARY | 2024-12-31 15:21 | XMS_ITS ---
Author Organization Amari Albarado MD Address [address] [place] [phone] Care Team Providers Care Senior Controls Technician Name Role Phone Amari Albarado Primary Care Provider [phone] REASON FOR VISIT ? echo Encounters Encounter Location Date Provider Diagnosis Amari Albarado MD [address] [place] [address] [place] [phone] 12/16/2024 Amari Albarado Heart murmur, systolic R01.1 Assessments Encounter Date Diagnosis (ICD Code) Assessment Notes Treatment Notes Treatment Clinical Notes Section Notes 12/16/2024 Heart murmur, systolic (ICD-10 - R01.1) Plan Of Treatment Pending Test Test Name Order Date ECHO 12/16/2024 Next Appt Details Provider Name:Amari Amaya ier, 08/24/2025 08:00:00 AM, [address] [place] [address], [address], [phone], Provider Name:Amari mcgee, 08/31/2025 02:30:00 PM, [address] [place] [address], [address], [phone], Progress Notes * Ismael FLETCHER TDOB:1965 (59 yo M)Acc No.[id number]:12/16/2024 Patient:?Ismael FLETCHER :1965???Age:59 Y???Sex:Male Address:[facility], [place] [address] Subjective: * Chief Complaints: * ? echo * Medical History:? * Surgical History:? * Hospitalization/Major Diagno stic Procedure:? * Medications:? Objective: * Vitals:? * Physical Examination:? Assessment: * Assessment: 1.?Heart murmur, systolic - R01.1??? Plan: * Treatment: * Procedure Codes:? * true * Date:? Generated for Thania corey/Rayo/Melba on:?12/31/2024 03:21 PM EST
--- OUTSIDE RECORDS SUMMARY | 2024-12-31 15:21 | XMS_ITS ---
Author Organization Amari Albarado MD Address [address] [place], [place] [phone] Care Team Providers Care Design Analyst Name Role Phone Amari Albarado Primary [...] in system for Echo order faxed to [facility] dept booked for 12-31-2024 Referral Priority [...] 02/05/2025 REASON FOR VISIT follow up from [facility] ER Sunday and [facility] on Sunday nite / for heart flutters, Went to the chiropractor feels much better Vital Signs Blood pressure systolic 148 mm Hg 11/07/19 25 Blood pressure diastolic 90 mm Hg 025 Height 75 in 11/07/2024 Weight 251 lbs 11/07/2024 BMI 31.37 kg/m2 11/07/2024 weight is up 7 pounds since 08-29-24 Encounters Encounter Location Date Provider Diagnosis Amari Albarado MD [address] [place] [address] Drive [address] [place], [place] [phone] 11/07/2024 Amari Albarado Intermittent palpitations R00.2 ; [...] (ICD-10 - N43.3) referral to [place] [facility] Plan Of Treatment Treatment Notes Assessment Notes Intermittent palpitations referral to dr carvajal Heart murmur, systolic get results of ca rdiology consult dr woodruff Right hydrocele referral to [place]rology at [facility] Referrals Referral Date Details 11/07/2024 11/07/2024, intermit tent palpitations heart murmur, systolic, YASMINE BOND 11/07/2024 11/07/2024, right hy droAnish [place] Next Appt Details Provider Name:Amari Amaya ier, 08/24/2025 08:00:00 AM, [address], [address], [place], [place], [phone], Provider Name:Amari Amaya ier, 08/31/2025 02:30:00 PM, [address], [address], [place], [phone], Progress Notes * Ismael FLETCHER TDOB:1965 (59 yo M)Acc No.[id number]:11/07/2024 Progress Notes Patient:?Ismael FLETCHER Provider:?Amari Albarado MD :1965???Age:58 Y???Sex:Male Jack e:11/07/2024 Address:[address] [place] [address], [id number] Subjective: * Chief Complaints: * ???1. follow up from [facility] Sunday and [facility] on Sunday nite / for heart flutters. 2. Went to the chiropractor feels much better. * HPI: ???Symptom(s):? was having palpitations and went to er heart beat was going from 98 to 52. and feeling dizzy. had palpitationss. * ROS:?General/Constitutional:?Denies?Chills.?Denies?Fatigue.?Denies?Fever.?Denies?Headache.?ENT:?Denies?Sore throat.?Respiratory:?Denies?Cough.?Denies?Shortness of breath at rest.?Denies?Shortness of breath with exertion.?Cardiovascular:?Denies?Chest pain at rest.?Denies?Chest pain with exertion.?Denies?Dizziness.?Denies?Shortness of breath.?Gastrointestinal:?Denies?Diarrhea.?Denies?Nausea.? * Medical History:?colonoscopy 2012 due in 5 years; colonoscopy 09/06/[address] Novak-repeat 5 years. Clonoscopy 03/09/21 repeat 3y, Colonoscopy in 2022 repeat in 3 years. * Medications:?None * Allergies:?N.K.D.A. Objective: * Vitals:?Ht: 75, Wt:251, BMI: 31.37, BP:148/90. weight is up 7 pounds since 08-29-24. * Examination: ???General Examination: ?GENERAL APPEARANCE:?alert, well hydrated, in no distress.?HEAD:?normocephalic.?HEART:?grade 2/6 systolic murmur at left sternal border.?LUNGS:?no wheezes, rales, rhonchi , good air movement , clear to auscultation bilaterally.?MALE GENITOURINARY:?rt hydrocele getting bigger.? Assessment: * Assessment: 1.?Intermittent palpitations - R00.2 (Primary)???2.?Heart murmur, systolic - R01.1???3.?Right hydrocele - N43.3??? Plan: * Treatment: 2.?Heart murmur, systolic? Notes: get results of cardiology consult dr woodruff? Referral To:YASMINE BOND??Cardiology ?Reason:intermittent palpitations heart murmur, systolic 3.?Right hydrocele? Notes: referral to [place] at [facility]? Referral To:Anish Mtz??Urology ?Reason:right hydrocele * * The named appointment provid er may or may not be the originator of this progress note, and it is not deemed complete until electronically signed by the appointment provider. Sign off status: Pending * Provider:?Amari Albarado MD Date:?0 11/07/2024 Generated for Thania corey/Rayo/Mackitting on:?12/31/2024 03:21 PM EST History and Physical Notes * [...]
--- OUTSIDE RECORDS SUMMARY | 2024-12-31 15:21 | XMS_ITS ---
Author Organization Amari Albarado MD Address [address] [place] [address] Drive [address] [place] [phone] Care Team Providers Care Beater Out Leveling Machine Name Role Phone Amari Albarado Primary Care Provider REASON FOR VISIT Medical Records Encounters Encounter Location Date Provider Diagnosis Amari Albarado MD [address] [place] [address] [place] [phone] 12/01/2024 Amari Albarado Plan Of Treatment Next Appt Details Provider Name:Amari Amaya ier, 08/24/2025 08:00:00 AM, [address] [place] [address], [place] [address], [place], [place], [phone], Provider Name:Amari Amaya ier, 08/31/2025 02:30:00 PM, [address] [place] [address], [place] [address], [place], [place], [phone], Progress Notes * Ismael FLETCHER TDOB:1965 (59 yo M)Acc No.[id number]:12/01/2024 Patient:?Ismael FLETCHER :1965???Age:59 Y???Sex:Male Address:[facility] [address], [place] [address] * Addendum: * ? true * Date:? Generated for Thania corey/Rayo/Melba on:?12/31/2024 03:20 PM EST
== END ==
LOC: HO.CARD 13:00
PROVIDERS: PCP Internal Medicine; Visit Provider Internal Medicine
DX: R01.1 Cardiac murmur, unspecified (principal)
CPT/HCPCS: 93306

== ENCOUNTER → 2024-12-31 13:03 | Outpatient (BNV) | payer OTHER, SELFPAY | PROVIDERS: PCP Internal Medicine; Visit Provider Internal Medicine Cardiovascular Disease | DX: I35.1 Nonrheumatic aortic (valve) insufficiency (principal); I36.1 Nonrheumatic tricuspid (valve) insufficiency | CPT/HCPCS: 93306 ==

== ENCOUNTER 2025-01-28 14:50 | Outpatient (AMB) | payer OTHER, SELFPAY ==
--- NOTE | 2025-01-28 14:58 | A.OFFVIS_ITS ---
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 He is a 59-year-old male with prior history of obstructive sleep apnea which currently treating with CPAP, history of paroxysmal atrial fibrillation, post surgical after nephrectomy in [place]. He has had no obvious clinical recurrence since then. He was in his usual health and was having lot of back pain related to the thoracic spine. He was not able to see his chiropractor and remained in pain and then came to the emergency room because he was feeling fluttering in his chest. By time he came to emergency room if symptoms as abated although EKG was consistent with frequent isolated PVCs. He said he subsequently went to the chiropractor has a treatment done and his symptoms of PVCs and fluttering in the chest have completely resolved. He was no prolonged irregular heartbeat or fast heart rate. Currently takes no medications. Remains active. He had an echocardiogram done recently which showed normal LV ejection fraction with mildly dilated ascending aorta at 4 cm with mild aortic regurgitation. He also has mildly dilated left atrium. He denies any significant symptoms at current point time says he is back to feeling normal and with normal activity. Denies any exertional chest pain or shortness of breath. No orthopnea, PND, leg edema. No lightheadedness, syncope. [facility] Medical History PAF (paroxysmal atrial fibrillation) Surgical History History of appendectomy History of kidney removal (~12/13/20) Family History Father No problems noted. Mother Heart attack Social History Substance Use Type: Marijuana Review of Systems Const Denies chills, Denies daytime sleepiness, Denies fatigue, Denies fever(s), Denies frequent falls, Denies poor appetite, Denies snoring, Denies stops breathing during sleep, Denies weakness, Denies weight gain and Denies weight loss Eyes Denies loss of vision ENT Denies dizziness and Denies hearing loss Card Denies chest pain, Denies claudication, Denies leg edema, Denies lightheadedness, Denies palpitations, Denies dyspnea, Denies dyspnea on exertion and Denies orthopnea Resp Denies cough, Denies excessive phlegm production, Denies dyspnea, Denies dyspnea on exertion, Denies snoring and Denies wheezing GI Denies abdominal pain, Denies hematochezia, Denies change in bowel habits, De nies nausea and Denies vomiting Denies dysuria and Denies urinary frequency Musc Denies arthralgias, Denies muscle weakness, Denies numbness and Denies other (frequent falls) Skin/Breast Denies nail changes and Denies rash Neuro Denies Abnormal speech present, Denies dizziness, Denies frequent falls, Denies loss of vision, Denies memory loss, Denies numbness and Denies weakness Psych Denies depression and Denies memory loss Endo Denies fatigue and Denies palpitations Alvaro/Lymph Reports easy bruising and Reports other (anemia) Aller/Immun Denies wheezing Physical Exam Vital Signs: Last Vital Signs Pulse 58 01/28/25 14:59 BP 120/76 01/28/25 14:59 BMI result Body Mass Index 31.1 Const General: cooperative, comfortable, no acute distress, alert, awake and Physically active Nutritional Appearance: overweight Orientation/consciousness: patient oriented x3 Limitations: no limitations HEENT Head: Yes normocephalic and Yes atraumatic Neck Neck: Yes trachea midline, Yes supple and Yes no JVD Resp Effort & Inspection: normal respiratory effort Auscultation: clear to auscultation bilaterally Cardio Jugular venous distension: no JVD Rate: regular rate Rhythm: regular rhythm Heart sounds: S1 normal heart sound present, S2 normal heart sound present, no click, no gallops and Murmur heart sound present systolic GI Auscultation: normal bowel sounds Skin General skin exam: no rashes or lesions noted Neuro General: patient oriented x3 and no focal motor deficits Speech: No Abnormal speech present Extrem General: Yes no clubbing, cyanosis or edema Office Procedures EKG Details: EKG shows normal sinus rhythm with LVH with repolarization abnormality 18799-[id number], Complete Assessment & Plan Assessment & Plan (1) PVC (premature ventricular contraction): Code(s): I49.3 - Ventricular premature depolarization Category: Medical Plan: Patient was symptoms of fluttering related to isolated PVCs. He said his symptoms have now abated. He is not feeling any symptoms at this point time. Most likely exacerbated by pain syndrome related to his thoracic spine issues which has now resolved. No further workup is indicated his echocardiogram shows preserved LV ejection fraction. Avoidance of stimulants was discussed. Continue to pursue pain management. Continue CPAP therapy. (2) Ascending aorta enlargement: Code(s): I77.89 - Other specified disorders of arteries and arterioles Category: Medical Plan: Mildly dilated ascending aorta on echocardiogram recently. Discussed with him about the findings. Advised to avoid sudden strenuous isometric exercise such as sudden heavy lifting. Pathophysiology of ascending aortic enlargement and management was discussed. Does not require any surgical intervention. Has secondary mild aortic regurgitation related to it. Follow-up echocardiogram in 1 year's time. Continue aggressive blood pressure control which is currently well optimized. (3) PAF (paroxysmal atrial fibrillation): Code(s): I48.0 - Paroxysmal atrial fibrillation Category: Medical Plan: Paroxysmal atrial fibrillation 1 time occurrence at the time of nephrectomy few years ago. He was no obvious clinical recurrence of it. Mibi probably related to treatment of sleep apnea. Advised to continue CPAP therapy and treatment of sleep apnea. Avoidance of stimulants was discussed advised to call me with any new symptoms. Follow up in the clinic in 1 year's time, sooner p.r.n.. Thank you for allowing me to partake in his care Orders: Orders CA echo transthoracic complete 1 Year I77.89 - Other specified disorders of arteries and arterioles Coding Level of Care Code New Pt Level 4 (71946) Complex EM visit Add On G2211 Diagnoses PVC (premature ventricular contraction) I49.3 Ascending aorta enlargement I77.89 PAF (paroxysmal atrial fibrillation) I48.0 CPT Codes EKG - CPT: 70480-Wnzjbozyljqvhqago, Complete ([id number])
[2025-01-28 14:59] VITALS: BP 120/76; PULSE 58; BMI 31.1
--- OUTSIDE RECORDS SUMMARY | 2025-01-28 17:26 | XMS_ITS | Patient Health Record ---
Author Organization [facility] Address [address] [facility] [address] [place] [address] Care Team Providers Care Proposal Editor Name Role Phone Amari Albarado Primary Care Provider Unavailab le Allergies No Known Allergies Reason For Referral No Information Plan Of Treatment Pending Test Test Name Order Date WALKING BOOT PNEUMATIC AND/OR VAC 2022 Insurance Providers Payer Name Payer Address Payer Phone Subscriber Number Group Number Insured Name Patient Relationship to Insured Coverage Start Date [facility]age End Date [facility] [address] [place] [address] [phone] [id number] Ismael Richardson Self - patient is the [...]
--- OUTSIDE RECORDS SUMMARY | 2025-01-28 17:26 | XMS_ITS ---
Author Organization [facility] Address [address] [address] Care Team Providers Care Title Curator Name Role Phone Amari Albarado Primary Care Provider Unavailab YUDI Gan Unavailable [phone] REASON FOR VISIT r/s apt Encounters Encounter Location Date Provider Diagnosis [facility] [address] [address] 09/26/2023 YUDI SCHAEFFER Plan Of Treatment No Information Progress Notes * BERNADINEMALAWilli POPEAbdelrahmanOB:[birth year] (57 yo M)Acc No.[id number]:09/26/2023 Patient:?Ismael FLETCHER :1965???Age:57 Y???Sex:Male Phone: Address:[address] [place] [address] [facility] [place] [address] * true * Date:? Generated for Thania corey/Rayo/eTransmitting on:?01/28/2025 05:25 PM EDT
--- OUTSIDE RECORDS SUMMARY | 2025-01-28 17:26 | XMS_ITS | Clinical Summary ---
Author Organization [facility] Address [address] [place] [address] Care Team Providers Care Knowledge Manager Name Role Phone Amari Albarado Primary Care Provider [phone] Allergies No known active allergies Medications No known medications Active Problems Problem Noted Date Diagnosed Date PVC (premature ventricular contraction) 11/03/19 25 Encounters Date Type Department Care Team Description 11/02/2024 11:08 PM EST - 11/03/2024 2:23 AM EST Emergency [facility] Emergency Department [address] [place] [id number] Robby Jaquez MD PVC (premature ventricular contraction) [...] 2015 Zoster Vaccines (1 of 2) 2015 Alcohol/Substance Use Screening 10/29/2024 Influenza Vaccine (Season Ended) 2025 08/17/2023, 08/14/2022, 08/18/2021, Additional history exists RSV Vaccine (60+ years old a nd patients) (1 - 1-dose 75+ series) 2040 Procedures * Due to [place] state law, this organization might not be [...] Last 3 Months Results * Due to [place] state law, this organization might not be sharing negative HIV tests. * Repeat Troponin #2 (11/02/2024 11:38 PM EST) Only the most recent of3 resultswithin the time period is included. Troponin T High Sensitivity 16 <=21 ng/L 11/03/2024 12:18 AM EST [facility] Comment: Uy-Izqyduss-O level of 52 ng/L or higher at [...] be evaluated in line with the 4th [place] Definition of AMI. Troponin baseline and serial [...] ORDERABLES Final Res ult Performing Organization Address [facility]/ZIP Co de Phone Number [facility] [address] [place] [address], [place] * Light Blue Top (11/02/2024 11:38 PM EST) Extra Tube Hold for add-ons. 11/03/2024 4:05 AM EST [facility] Comment:Auto resulted. Blood Structure of peripheral vein / Unknown Venipuncture / Unknown 11/02/2024 11:38 PM EST 11/02/2024 11:51 PM EST Robby Jaquez MD LAB BLOOD ORDERABLES Final Res ult Performing Organization Address [facility] Co de Phone Number [facility] [address] [place] [address], [place] * Phosphorus (11/02/2024 11:38 PM EST) Phosphorus 2.9 2.5 - 4.5 mg/dL 11/03/2024 1:49 AM EST [facility] Blood Structure of peripheral vein / Unknown Venipuncture / Unknown 11/02/2024 11:38 PM EST 11/02/2024 11:51 PM EST Robby Jaquez MD LAB BLOOD ORDERABLES Final Res ult Performing Organization Address [facility]/ZIP Co de Phone Number [facility] [address] [place] [address], [place] * Magnesium (11/02/2024 11:38 PM EST) Only the most recent of2 resultswithin the time period is included. MG 2.4 1.6 - 2.4 mg/dL 11/03/2024 1:49 AM EST [facility] Blood Structure of peripheral vein / Unknown Venipuncture / Unknown 11/02/2024 11:38 PM EST 11/02/2024 11:51 PM EST us Robby Jaquez MD LAB BLOOD ORDERABLES Final Res ult [facility] [address] [place] [address], [place] * (ABNORMAL) Basic Metabolic Panel (11/02/2024 11:38 PM EST) Only the most recent of2 resultswithin the time period is included. NA 140 135 - 145 mmol/L 11/03/2024 1:49 AM EST [facility] K 4.0 3.5 - 5.3 mmol/L 11/03/2024 1:49 AM EST [facility] Cl 104 98 - 107 mmol/L 11/03/2024 1:49 AM EST [facility] CO2 22 22 - 32 mmol/L 11/03/2024 1:49 AM EST [facility] BUN 17 7 - 23 mg/dL 11/03/2024 1:49 AM EST [facility] Creatinine 1.13 0.60 - 1.30 mg/dL 11/03/2024 1:49 AM EST [facility] Glucose 132(H) 65 - 99 mg/dL 11/03/2024 1:49 AM EST [facility] Calcium 8.9 8.6 - 10.5 mg/dL 11/03/2024 1:49 AM EST [facility] Anion Gap 14 5 - 15 11/03/2024 1:49 AM EST [facility] eGFR 75 >=60 mL/min/1. 73m2 11/03/2024 1:49 AM EST [facility] Comment:The estimated glomer ular [...] MD LAB BLOOD ORDERABLES Final Res ult [facility] [address] [place] [address], * CBC Auto Differential (11/02/2024 8:49 PM [...] - 400 10*3/uL 11/02/2024 9:05 PM EST [facility] MPV 9.8 7.5 - 12.5 fL 11/02/2024 9:05 PM EST [facility] Neutrophil % 63.2 % 11/02/2024 9:05 PM EST [facility] Immature Grans % 0.3 0.0 - 0.9 % 11/02/2024 9:05 PM EST [facility] Lymphocyte % 28.1 % 11/02/2024 9:05 PM EST [facility] Monocyte % 6.2 % 11/02/2024 9:05 PM EST [facility] Eosinophil % 1.9 % 11/02/2024 9:05 PM EST [facility] Basophil % 0.3 % 11/02/2024 9:05 PM EST [facility] Neutrophil # 4.06 1.50 - 7.80 10*3/uL 11/02/2024 9:05 PM EST [facility] Immature Grans # <0.03 <=0.03 10*3/uL 11/02/2024 9:05 PM EST [facility] Lymphocyte # 1.80 0.85 - 3.90 10*3/uL 11/02/2024 9:05 PM EST [facility] Monocyte # 0.40 0.20 - 0.95 10*3/uL 11/02/2024 9:05 PM EST [facility] Eosinophil # 0.10 0.02 - 0.50 10*3/uL 11/02/2024 9:05 PM EST [facility] Basophil # <0.03 0.00 - 0.20 10*3/uL 11/02/2024 9:05 PM EST [facility] nRBC % 0.0 /100 WBCs 11/02/2024 9:05 PM EST [facility] nRBC # <0.01 <0.01 10*3/uL 11/02/2024 9:05 PM EST [facility] Blood Structure of peripheral vein / Unknown Venipuncture / Unknown 11/02/2024 8:49 PM EST 11/02/2024 9:01 PM EST us Robby Jaquez MD LAB BLOOD ORDERABLES Final Res ult Performing Organization Address City/[facility]/ZIP Co de Phone Number [facility] [address] [place] [phone], * ECG 12 lead (11/02/2024 8:38 PM EST) Only the most recent of2 resultswithin the time period is included. Ventricular Rate EKG 94 BPM MUSE EKG Atrial Rate 94 BPM MUSE EKG IN Interval 160 ms MUSE EKG QRS Interval 94 ms MUSE EKG QT Interval 350 ms MUSE EKG QTC Interval 437 ms MUSE EKG P [place] 38 degrees MUSE EKG R [place] -24 degrees MUSE EKG T Wave [place] 34 degrees MUSE EKG 11/02/2024 8:38 PM EST 11/08/2024 2:08 PM EST Impressions MUSE EKG - 11/08/2024 2:08 PM EST SINUS RHYTHM WITH OCCASIONAL PREMATURE VENTRICULAR COMPLEXES POSSIBLE LEFT ATRIAL ENLARGEMENT LEFT VENTRICULAR HYPERTROPHY ( R in aVL , Trent product ) NONSPECIFIC ST AND T WAVE ABNORMALITY ABNORMAL ECG WHEN COMPARED WITH ECG OF 02-NOV-2024 20:34, (UNCONFIRMED) PREMATURE VENTRICULAR COMPLEXES ARE NOW PRESENT Confirmed by Abhi Peterson ([id number]) on 11/08/2024 2:08:04 PM us Tool Honing Machine Set Up Operator Ivan ORTEGA ECG ORDERABLES Final Resu lt MUSE EKG * HEART & VASCULAR - SCANNED (11/02/2024) Anatomical Region Laterality Modality Other us Onbase Scan Ora SCANNED PROCEDURES Final Resu lt from Last 3 Months Insurance [employer] PPO/EPO/IND Care Teams Knowledge Manager Relationship Specialty Start Date End Date Amari Albarado [address] [place] [address] [place] [address] PCP - General Internal Medicine 11/02/24
--- OUTSIDE RECORDS SUMMARY | 2025-01-28 17:26 | XMS_ITS ---
Author Organization Amari Albarado MD Address [address] [place] [address] [address] [place] [phone] Care Team Providers Care Multiskill Operator Name Role Phone Amari Albarado Primary Care Provider REASON FOR VISIT Medical Records Encounters Encounter Location Date Provider Diagnosis Amari Albarado MD [address] [place] [address] [place] [phone] 12/01/2024 Amari Albarado Plan Of Treatment Next Appt Details Provider Name:Amari Amaya ier, 08/24/2025 08:00:00 AM, [address] [place] [address], [place] [address], [place], [place], [phone], Provider Name:Amari Amaya ier, 08/31/2025 02:30:00 PM, [address] [place] [address], [place] [address], [place], [place], [phone], Progress Notes * Ismael FLETCHER TDOB:1965 (59 yo M)Acc No.[id number]:12/01/2024 Patient:?Ismael FLETCHER :1965???Age:59 Y???Sex:Male Address:[address], [place] [address] * Addendum: * ? true * Date:? Generated for Thania corey/Rayo/Melba on:?01/28/2025 05:26 PM EDT
--- OUTSIDE RECORDS SUMMARY | 2025-01-28 17:26 | XMS_ITS | Clinical Summary ---
Author Organization [facility] Address [address] [place] [address] Care Team Providers Care Big 6 Dealer Name Role Phone Amari Albarado MD Primary Care Provider [phone] Social History Tobacco Use Types Packs/Day Years [...] Vaccine (#1) 2024 , 08/04/2019 RSV Immunization Adult Patients (1 - 1-dose 75+ series) 2040 HIB [...] age to complete this topic Care Teams Big 6 Dealer Relationship Specialty Start Date End Date Amari Albarado MD PCP - General Internal Medicine 08/07/22
--- OUTSIDE RECORDS SUMMARY | 2025-01-28 17:26 | XMS_ITS ---
Author Organization [facility] Address [address] [address] Care Team Providers Care Finisher Operator Name Role Phone Amari Albarado Primary Care Provider Unavailab VERNELL Gan Unavailable [phone] REASON FOR VISIT 6-8wk Encounters Encounter Location Date Provider Diagnosis [facility] [address] [address] 10/02/2023 VERNELL SCHAEFFER Plan Of Treatment No Information Progress Notes * Chris FLETCHEROB:[birth year] (59 yo M)Acc No.[id number]:10/02/2023 Progress Note Patient:?Ismael FLETCHER Provider:?Vernell Camarillo DPM :1965???Age:57 Y???Sex:Male Jack e:10/02/2023 Phone: Address:[address] [place] [id number] Pcp:Amari Albarado Subjective: * Chief Complaints: * ???1. 6-8wk. * Medical History:? Objective: * Vitals:? Assessment: Plan: * Treatment: * Billing Information: * Visit Code:? * Procedure Codes:? * Electronic signature of Cesar GARRETTPSandrine on 01/28/2025 at 05:26 PM EDT Sign off status: Pending * Provider:?Vernell Camarillo DPM Date:?10/02 Generated for Kpi leora/Facraigg/eTransmitting on:?01/28/2025 05:26 PM EDT
--- OUTSIDE RECORDS SUMMARY | 2025-01-28 17:26 | XMS_ITS ---
Author Organization Amari Albarado MD Address [address] [place] [phone] Care Team Providers Care Client Professional Name Role Phone Amari Albarado Primary Care Provider [phone] REASON FOR VISIT ? echo Encounters Encounter Location Date Provider Diagnosis Amari Albarado MD [address] [place] [address] [place] [phone] 12/16/2024 Amari Albarado Heart murmur, systolic R01.1 Assessments Encounter Date Diagnosis (ICD Code) Assessment Notes Treatment Notes Treatment Clinical Notes Section Notes 12/16/2024 Heart murmur, systolic (ICD-10 - R01.1) Plan Of Treatment Pending Test Test Name Order Date ECHO 12/16/2024 Next Appt Details Provider Name:Amari Amaya ier, 08/24/2025 08:00:00 AM, [address] [place] [address], [address], [phone], Provider Name:Amari mcgee, 08/31/2025 02:30:00 PM, [address] [place] [address], [address], [phone], Progress Notes * Ismael FLETCHER TDOB:1965 (59 yo M)Acc No.[id number]:12/16/2024 Patient:?Ismael FLETCHER :1965???Age:59 Y???Sex:Male Address[facility] [address] [facility], [place] [address] Subjective: * Chief Complaints: * ? echo * Medical History:? * Surgical History:? * Hospitalization/Major Diagno stic Procedure:? * Medications:? Objective: * Vitals:? * Physical Examination:? Assessment: * Assessment: 1.?Heart murmur, systolic - R01.1??? Plan: * Treatment: * Procedure Codes:? * true * Date:? Generated for Thania corey/Rayo/Melba on:?01/28/2025 05:26 PM EDT
--- OUTSIDE RECORDS SUMMARY | 2025-01-28 17:26 | XMS_ITS | Referral Summary ---
Author Organization [facility] Address [address] [place] [address] Care Team Providers Care Aerial Planting And Cultivation Manager Name Role Phone Amari Albarado Primary Care Provider [phone] Encounters Date Type Department Care Team Description 11/02/2024 11:08 PM EST - 11/03/2024 2:23 AM EST Emergency [facility] Emergency Department [address] [place] [id number] Robby Jaquez MD PVC (premature ventricular [...] Not on file Procedures * Due to [place] [employer] law, this organization might not be sharing [...] Last 3 Months Results * Due to [place] [employer] law, this organization might not be sharing negative HIV tests. * Repeat Troponin #2 (11/02/2024 11:38 PM EST) Only the most recent of3 resultswithin the time period is included. Troponin T High Sensitivity 16 <=21 ng/L 11/03/2024 12:18 AM EST [facility] Comment: Iv-Kwctthjb-Q level of 52 ng/L or higher at [...] be evaluated in line with the 4th [place] Definition of AMI. Troponin baseline and serial [...] ORDERABLES Final Res ult Performing Organization Address City/[facility]/ZIP Co de Phone Number [facility] [address] [place] [phone], * Light Blue Top (11/02/2024 11:38 PM EST) Extra Tube Hold for add-ons. 11/03/2024 4:05 AM EST [facility] Comment:Auto resulted. Blood Structure of peripheral vein / Unknown Venipuncture / Unknown 11/02/2024 11:38 PM EST 11/02/2024 11:51 PM EST us Robby Jaquez MD LAB BLOOD ORDERABLES Final Res ult [facility] [address] [place] [address], [place] * Phosphorus (11/02/2024 11:38 PM EST) Phosphorus 2.9 2.5 - 4.5 mg/dL 11/03/2024 1:49 AM EST [facility] Blood Structure of peripheral vein / Unknown Venipuncture / Unknown 11/02/2024 11:38 PM EST 11/02/2024 11:51 PM EST us Robby Jaquez MD LAB BLOOD ORDERABLES Final Res ult Performing Organization Address City/[facility]/ZIP Co de Phone Number [facility] [address] [place] [address], [place] * Magnesium (11/02/2024 11:38 PM EST) Only the most recent of2 resultswithin the time period is included. MG 2.4 1.6 - 2.4 mg/dL 11/03/2024 1:49 AM EST [facility] Blood Structure of peripheral vein / Unknown Venipuncture / Unknown 11/02/2024 11:38 PM EST 11/02/2024 11:51 PM EST us Robby Jaquez MD LAB BLOOD ORDERABLES Final Res ult Performing Organization Address City/[facility]/ZIP Co de Phone Number [facility] [address] [place] [address], [place] * (ABNORMAL) Basic Metabolic Panel (11/02/2024 11:38 PM EST) Only the most recent of2 resultswithin the time period is included. NA 140 135 - 145 mmol/L 11/03/2024 1:49 AM EST [facility] K 4.0 3.5 - 5.3 mmol/L 11/03/2024 1:49 AM EST [facility] Cl 104 98 - 107 mmol/L 11/03/2024 1:49 AM EST [facility] CO2 22 22 - 32 mmol/L 11/03/2024 1:49 AM EST [facility] BUN 17 7 - 23 mg/dL 11/03/2024 1:49 AM EST [facility] Creatinine 1.13 0.60 - 1.30 mg/dL 11/03/2024 1:49 AM EST [facility] Glucose 132(H) 65 - 99 mg/dL 11/03/2024 1:49 AM EST [facility] Calcium 8.9 8.6 - 10.5 mg/dL 11/03/2024 1:49 AM EST [facility] Anion Gap 14 5 - 15 11/03/2024 1:49 AM EST [facility] eGFR 75 >=60 mL/min/1. 73m2 11/03/2024 1:49 AM EST [facility] Comment:The estimated glomer ular [...] MD LAB BLOOD ORDERABLES Final Res ult [facility] [address] [place] [address], [place] * CBC Auto Differential (11/02/2024 8:49 [...] % 1.9 % 11/02/2024 9:05 PM EST [facility] Basophil % 0.3 % 11/02/2024 9:05 PM EST [facility] Neutrophil # 4.06 1.50 - 7.80 10*3/uL 11/02/2024 9:05 PM EST [facility] Immature Grans # <0.03 <=0.03 10*3/uL 11/02/2024 9:05 PM EST [facility] Lymphocyte # 1.80 0.85 - 3.90 10*3/uL 11/02/2024 9:05 PM EST [facility] Monocyte # 0.40 0.20 - 0.95 10*3/uL 11/02/2024 9:05 PM EST [facility] Eosinophil # 0.10 0.02 - 0.50 10*3/uL 11/02/2024 9:05 PM EST [facility] Basophil # <0.03 0.00 - 0.20 10*3/uL 11/02/2024 9:05 PM EST [facility] nRBC % 0.0 /100 WBCs 11/02/2024 9:05 PM EST [facility] nRBC # <0.01 <0.01 10*3/uL 11/02/2024 9:05 PM EST [facility] Blood Structure of peripheral vein / Unknown Venipuncture / Unknown 11/02/2024 8:49 PM EST 11/02/2024 9:01 PM EST us Robby Jaquez MD LAB BLOOD ORDERABLES Final Res ult [facility] [address] [place] [address], [place] * ECG 12 lead (11/02/2024 8:38 PM EST) Only the most recent of2 resultswithin the time period is included. Ventricular Rate EKG 94 BPM MUSE EKG Atrial Rate 94 BPM MUSE EKG VT Interval 160 ms MUSE EKG QRS Interval 94 ms MUSE EKG QT Interval 350 ms MUSE EKG QTC Interval 437 ms MUSE EKG P [place] 38 degrees MUSE EKG R [place] -24 degrees MUSE EKG T Wave [place] 34 degrees MUSE EKG 11/02/2024 8:38 PM [...] Peterson ([id number]) on 11/08/2024 2:08:04 PM us Berry Picker Ivan ORTEGA ECG ORDERABLES Final Resu lt MUSE EKG * HEART & VASCULAR - SCANNED (11/02/2024) Anatomical Region Laterality Modality Other us Onbase Scan Ora SCANNED PROCEDURES Final Resu lt from Last 3 Months Insurance [facility] PPO/EPO/IND Care Teams Aerial Planting And Cultivation Manager Relationship Specialty Start Date End Date Amari Albarado [address] [place] [address] [place] [address] PCP - General Internal Medicine 11/02/24
--- OUTSIDE RECORDS SUMMARY | 2025-01-28 17:26 | XMS_ITS | Patient Health Record ---
Author Organization Amari Albarado MD Address [address] [place], [place] [address] Care Team Providers Care Luster Repairer Name Role Phone Amari Albarado Primary Care Provider Allergies No Known Allergies Results Component Value Reference Range Notes Complete Blood Count Auto Di ff Reviewed date:08/22/2024 01:43:32 PM Interpretation: Performing Lab:[facility], [address] [place] [phone] Notes/Report: White Blood Count 5.5 4.8-10.8 X10*3/uL [...] NRBC Abs Auto 0.000 0.0-0.012 X10*3/uL Comprehensive [place]. Panel Fa st Reviewed date:08/24/2024 03:58:24 PM Interpretation: Performing Lab:[facility], [address] [place] [phone] Notes/Report: Sodium 141 135-145 mmol/L Potassium 3.5 3.3-5.1 mmol/L Chloride 106 96-108 mmol/L Carbon Dioxide 27 22-29 mmol/L Anion Gap 12 12-20 Blood Urea Nitrogen 13 9-16 mg/dL Creatinine 1.30 0.5-1.4 mg/dL Estimated Glomerular Filt Rate 57 NOTE: For -Omani individuals, multiply the result by 1.210. Chronic [...] Panel Reviewed date:08/22/2024 01:42:57 PM Interpretation: Performing Lab:[facility], [address] [place] [phone] Notes/Report: Triglycerides 105 <150 mg/dL Desirable Triglyceride: [...] (Free>4and<10) Reviewed date:08/23/2024 06:28:56 PM Interpretation: Performing Lab:[facility], [address] [place] [phone] Notes/Report: PSA,Total (Free>4and<10) 0.50 0.00-4.00 ng/mL A [...] Random Reviewed date:08/23/2024 12:57:47 PM Interpretation: Performing Lab:[facility], [address] [place] [phone] Notes/Report: Creatinine Urine 118.46 Microalbumin Urine 12.0 Microalbum/Creatinine Ratio Ur 10.1 <30 ug/mg cr Albumin/Creatinine Ratio Reference Ranges: Normal: < 30 ug/mg creatinine Microalbuminuria: 30 - 300 ug/mg creatinine Clinical Albuminuria: > 300 ug/mg creatinine Hemoglobin A1c Reviewed date:08/24/2024 03:54:32 PM Interpretation: Performing Lab:[facility], [address] [place] [phone] Notes/Report: Hemoglobin A1c % 5.6 <6.0 % [...] average glucose, using the formula of the F3B-Qhhrgvg Average Glucose study (ADAG), Diabetes Care, Vol.31,#8, May. 2007 UA ClnCatch+Micro w/rflx Cul t Reviewed date:08/25/2024 06:22:43 PM Interpretation: Performing Lab:[facility], [address] [place] [phone] Notes/Report: Urine, Clean Catch Color Urine Yellow Appearance Urine Clear PH 6.0 5.0-9.0 Glucose Urine UA Negative Negative mg/dL Urine Blood Negative Negative Specific [place] - Urine 1.010 1.005-1.025 Urine Protein Negative [...] ff Reviewed date:11/02/2024 06:30:08 PM Interpretation: Performing Lab:[facility], [address] [place] [phone] Notes/Report: White Blood Count 6.7 4.8-10.8 X10*3/uL [...] INR Reviewed date:11/02/2024 06:18:05 PM Interpretation: Performing Lab:[facility], [address] [place] [phone] Notes/Report: Prothrombin Time 10.9 10.9-12.4 SEC INTERNATIONAL [...] Panel Reviewed date:11/02/2024 06:30:35 PM Interpretation: Performing Lab:[facility], [address] [place] [phone] Notes/Report: Sodium 140 135-145 mmol/L Potassium 4.1 [...] Sensitivity Reviewed date:11/02/2024 06:17:46 PM Interpretation: Performing Lab:[facility], [address] [place] [phone] Notes/Report: Troponin-I High Sensitivity 8.3 <3.5-35.0 ng/L The Andrade high sensitivity Troponin-I results should be used in conjunction with other diagnostic information such as ECG, clinical observations and information, and patient symptoms to aid in the diagnosis of [place]. B Type Natriuretic Peptide Reviewed date:11/02/2024 06:28:53 PM Interpretation: Performing Lab:[facility], [address] [place] [phone] Notes/Report: B Type Natriuretic Peptide 63 <100 pg/mL For those patients who are being treated with Natrecor (nesiritide, recombinant BNP), BNP testing should be performed at least two hours post treatment in order to ensure that only endogenous levels of BNP are detected. SARS-CoV2/FLU/RSV Reviewed date:11/02/2024 06:17:54 PM Interpretation: Performing Lab:[facility], [address] [place] [phone] Notes/Report: Influenza A PCR NEGATIVE Negative Influenza [...] by authorized laboratories. Testing performed on the [employer] GeneXpert utilizing real-time RT-PCR. All SARS CoV2 and positive influenza A/B results are reported to [facility]. XR chest 2V Reviewed date:10/31/2024 04:57:02 PM Interpretation: Performing Lab: Notes/Report: [address] [address] XRay Report Signed Patient: Ismael Fletcher MR#: [id number] : 1965 Acct:[id number] Age/Sex: 58 / M ADM Date: 10/31/24 Loc: .ED Attending Dr: Ordering Physician: Alexus Del Valle NP Date of Service: 10/31/24 Procedure(s): XR chest 2V Accession Number(s): [id number] cc: Amari Albarado MD; Alexus Del Valle [...] 10/31/24 1650 DD/ 1600 TD/TT: 10/31/24 1605 Commissioning Engineer: [address] [address] XRay Report Signed Patient: Ismael Fletcher MR#: [id number] : 1965 Acct:[id number] Age/Sex: 58 / M ADM Date: 10/31/24 Loc: .ED Attending Dr: Ordering Physician: Alexus Del Valle NP Date of Service: 10/31/24 Procedure(s): XR mirta st 2V Accession Number(s): [id number] cc: Amari Albarado MD; Alexus Del Valle [...] 10/31/24 1650 DD/ 1600 TD/TT: 10/31/24 1605 Commissioning Engineer: [facility] Reason For Referral Reason SKIN LESION OF [...] in system for Echo order faxed to [facility] CS dept booked for 12-31-2024, Yohana Vasques 01/06/2025 10:31:00 AM >was told by office appt is being worked on Referral Priority Routine Reason right hydrocele Diagnosis [...] Problem Status W/U Status Risk Notes Problem 673915480 Paroxysmal atria l fibrillation (I48.0) Active confirmed Problem 375000653 Chronic sinusitis, unspecified (J32.9) Active confirmed Problem 32516020 Rectal polyp (K62.1) Active confirmed Problem 2695884 Prediabetes (R73.09) Active confirmed Problem 747409872 Low HDL (under 40) (E78.6) Active confirmed Problem 18880646 Intrinsic eczema (L20.84) Active confirmed Problem 731708191 Family history o f colon cancer (Z80.0) Active confirmed Problem 79214012 Acute non-recurrent maxillary sinusitis (J01.00) Active confirmed Problem 834013241 Renal mass (N28.89) Active confirmed Problem 11913019 REJI (obstructive sleep apnea) (G47.33) Active confirmed Problem 785078565 Renal cell carcinoma of right kidney (C64.1) Active confirmed Vital Signs Blood pressure diastolic 90 mm Hg 11/07/2024 ольга ght is up 7 pounds since 08-29-24 Height 75 in 11/07/2024 weight is up 7 pounds since 08-29-24 Blood pressure systolic 148 mm Hg 11/07/2024 ольгаg ht is up 7 pounds since 08-29-24 Weight 251 lbs 11/07/2024 weight is up 7 pounds since 08-29-24 BMI 31.37 kg/m2 11/07/2024 weight is up 7 pounds since 08-29-24 Encounters Encounter Location Date Provider Diagnosis Amari Albarado MD [address] [place] [id number] 11/07/2024 Amari Albarado Intermittent palpitations R00.2 ; Heart murmur, systolic R01.1 and Right hydrocele N43.3 Amari Albarado MD [address] [place] [address] [id number] 04/15/2024 Amari Albarado Bronchitis J40 Amari Albarado MD [address] [place] [address] [id number] 08/22/2024 Amari Albarado Blood tests for routine general physical examination Z00.00 ; Prediabetes R73.09 and Low HDL (under 40) E78.6 Amari Albarado MD [address] [place] [id number] 08/29/2024 Amari Albarado Skin lesion of face L98.9 ; Annual physical exam Z00.00 ; Prediabetes R73.09 ; Family history of colon cancer Z80.0 ; Renal mass N28.89 ; REJI (obstructive sleep apnea) G47.33 ; Paroxysmal atrial fibrillation I48.0 ; Colon cancer screening Z12.11 and Depression screening Z13.31 Amari Albarado MD [address] [place] [id number] 12/01/2024 Amari Albarado MD [address] [place] [id number] 12/16/2024 Amari Albarado Heart murmur, systolic R01.1 Assessments Encounter Date Diagnosis (ICD Code) Assessment Notes Treatment Notes Treatment Clinical Notes Section Notes 11/07/2024 Intermittent palpitations (ICD-10 - R00.2) referral to dr carvajal 11/07/2024 Heart murmur, systolic (ICD-10 - R01.1) get results of cardiology consult dr woodruff 04/15/2024 Bronchitis (ICD-10 - J40) patient verbalized understanding of medication and directions for use 08/22/2024 Blood tests for routine general physical examination (ICD-10 - Z00.00) 08/22/2024 Prediabetes (ICD-10 - R73.09) 08/29/2024 Skin lesion of face (ICD-10 - L98.9) referral back to dr guerra/ REFERRAL MADE AND FAXED TO DR GUERRA @ [facility] , WILL CHAECK ON APPT AFTER 2 WEEKS PER [facility] 08/29/2024 Annual physical exam (ICD-10 - Z00.00) labs reviewed and discused with patient 12/16/2024 Heart murmur, systolic (ICD-10 - R01.1) 11/07/2024 Right hydrocele (ICD-10 - N43.3) [place] [facility] 08/22/2024 Low HDL (under 40) (ICD-10 - E78.6) 08/29/2024 Prediabetes (ICD-10 - R73.09) keep weight down, stable, no need for medicatin at this time 08/29/2024 Family history of colon cancer (ICD-10 - Z80.0) had colonoscopy last year repeat in 2 years. 08/29/2024 Renal mass (ICD-10 - N28.89) going to go to [facility] 08/29/2024 REJI (obstructive sleep apnea) (ICD-10 [...] 08:00:00 AM, [address], [address], [place], [phone], Provider Name:Amari Amaya ier, 08/31/2025 02:30:00 PM, [address], [address], [place], [phone], Insurance Providers Payer Name Payer Address Payer Phone Subscriber Number Group Number Insured Name Patient Relationship to Insured Coverage Start Date Coverage End Date MALCOLM CHUA [id number] [place] [phone] [id number] Ismael Wells Self - patient is the insured Medical (General) History Medical History History ICD Code colonoscopy 2011 due in 5 ye ars; colonoscopy 09/06/[address] Novak-repeat 5 years. Clonoscopy 03/09/21 repeat 3y colonoscopy in 2022 repeat in 3 years
--- OUTSIDE RECORDS SUMMARY | 2025-01-28 17:26 | XMS_ITS ---
Author Organization [facility] Address [address] [address] Care Team Providers Care Pastoral Counselor Name Role Phone Amari Albarado Primary Care Provider Unavailab YUDI Gan Unavailable [phone] REASON FOR VISIT ATI discharge summary Encounters Encounter Location Date Provider Diagnosis [facility] [address] [address] 09/26/2023 YUDI SCHAEFFER Plan Of Treatment No Information Progress Notes * NACHOWilli POPEAbdelrahmanOB:[birth year] (57 yo M)Acc No.[id number]:09/26/2023 Patient:?Willi FLETCHERn :1965???Age:57 Y???Sex:Male Phone: Address:[address] [place] [place] [address] [facility] [facility], [place] [address] * true * Date:? Generated for Kpi leora/Rayo/eTransmitting on:?01/28/2025 05:25 PM EDT
--- OUTSIDE RECORDS SUMMARY | 2025-01-28 17:27 | XMS_ITS ---
Author Organization Amari Albarado MD Address [address] [place], [place] [phone] Care Team Providers Care Fuel Technician Name Role Phone Amari Albarado Primary [...] [facility] booked for 12-31-2024, Yohana Vasques [...] [facility] and [facility] on Sunday nite / for heart flutters, Went to the chiropractor feels much better Vital Signs Blood pressure systolic 148 mm Hg 11/07/19 25 Blood pressure diastolic 90 mm Hg 025 Height 75 in 11/07/2024 Weight 251 lbs 11/07/2024 BMI 31.37 kg/m2 11/07/2024 weight is up 7 pounds since 08-29-24 Encounters Encounter Location Date Provider Diagnosis Amari Albarado MD [address] [place] [address] Drive [address] [place], [place] [phone] 11/07/2024 Amari Albarado Intermittent palpitations R00.2 ; [...] (ICD-10 - N43.3) referral to urology [place] [facility] Plan Of Treatment Treatment Notes Assessment Notes Intermittent palpitations referral to dr carvajal Heart murmur, systolic get results of ca rdiology consult dr woodruff Right hydrocele referral to urology at [facility] Referrals Referral Date Details 11/07/2024 11/07/2024, intermit tent palpitations heart murmur, systolic, YASMINE BOND 11/07/2024 11/07/2024, right hy bella, [facility] Next Appt Details Provider Name:Amari Amaya ier, 08/24/2025 08:00:00 AM, [address], [address], [place], [place], [phone], Provider Name:Amari Amaya ier, 08/31/2025 02:30:00 PM, [address], [place], [place], [phone], Progress Notes * Ismael FLETCHER TDOB:1965 (59 yo M)Acc No.[id number]:11/07/2024 Progress Notes Patient:?Willi FLETCHERn Aidan Provider:?Amari Albarado MD :1965???Age:58 Y???Sex:Male Jack e:11/07/2024 Address:[address] [place], [place] [address] Subjective: * Chief Complaints: * ???1. follow up from [facility] Sunday and [facility] on Sunday nite / for heart [...] 3.?Right hydrocele? Notes: referral to urology at [facility]? Referral To:[facility]??Urology ?Reason:right hydrocele * * The named appointment provid er may or may not be the originator of this progress note, and it is not deemed complete until electronically signed by the appointment provider. Sign off status: Pending * Provider:?Amari Albarado MD Date:?0 11/07/2024 Generated for Thania corey/Rayo/Mackitting on:?01/28/2025 05:26 PM EDT History and Physical Notes * [...]
== END 2025-01-28 15:23 | disposition home or self-care (01) ==
LOC: HO.HCS 14:51
PROVIDERS: PCP Internal Medicine; Visit Provider Internal Medicine Cardiovascular Disease
DX: I49.3 Ventricular premature depolarization (principal); I77.89 Other specified disorders of arteries and arterioles; I48.0 Paroxysmal atrial fibrillation
CPT/HCPCS: 93010; 99214

== ENCOUNTER → 2025-01-28 14:50 | Outpatient (BNVA) | payer OTHER, SELFPAY | PROVIDERS: PCP Internal Medicine; Visit Provider Internal Medicine Cardiovascular Disease | DX: I49.3 Ventricular premature depolarization (principal); I48.0 Paroxysmal atrial fibrillation; I77.89 Other specified disorders of arteries and arterioles | CPT/HCPCS: 93005 ==

== ENCOUNTER 2025-02-05 14:41 | Outpatient (AMB) | payer OTHER, SELFPAY ==
--- NOTE | 2025-02-05 14:54 | MHC.OFFVIS ---
Intake Visit Reasons: hydrocele Intake Note: New patient presents today for initial visit for hydrocele Urology Medication:none Blood Thinner:none Antibiotic Allergies:none PVR:44ml Allergies No Known Allergies Allergy (Verified 02/05/25 14:54) Medication List - Last Reconciled 02/05/25 by Zhen Martin MD No Known Home Meds [facility] Medical History PAF (paroxysmal atrial fibrillation) Surgical History History of appendectomy History of kidney removal (~12/13/20) Family History Father No problems noted. Mother Heart attack Social History Substance Use Type: Marijuana Results AMB Urinalysis, Automated UA Leukoctes 0 [place]/uL Last Edit by Katie Alvarez on 02/05/25 16:26 UA Nitrite Negative Last Edit by Katie Alvarez on 02/05/25 16:26 UA Urobilinogen 0.2 mg/dL Last Edit by Katie Alvarez on 02/05/25 16:26 UA Protein 0 mg/dL Last Edit by Katie Alvarez on 02/05/25 16:26 UA pH 7.0 Last Edit by Katie Alvarez on 02/05/25 16:26 UA Blood 0 Yfn/uL Last Edit by Katie Alvarez on 02/05/25 16:26 UA Specific [place] 1.005 Last Edit by Katie Alvarez on 02/05/25 16:26 UA Ketone Negative Last Edit by Katie Alvarez on 02/05/25 16:26 UA Bilirubin 0 mg/dL Last Edit by Katie Alvarez on 02/05/25 16:26 UA Glucose 0 mg/dL Last Edit by Katie Alvarez on 02/05/25 16:26 Assessment & Plan Assessment & Plan (1) Scrotal swelling: Code(s): N50.89 - Other specified disorders of the male genital organs Category: Medical Orders: Orders US scrotum Today N50.89 - Other specified disorders of the male genital organs AMB Urinalysis Automated Today Z13.9 - Encounter for screening, unspecified Coding Diagnoses Scrotal swelling N50.89
--- OUTSIDE RECORDS SUMMARY | 2025-02-05 17:20 | XMS_ITS | Clinical Summary ---
Author Organization [facility] it Address [address] [place] [address] Care Team Providers Care Senior Marketing Associate Name Role Phone Amari Albarado MD Primary [...] - 2023-2 5 season) 2024 Influenza Vaccine (Season Ended) 2025 07/30/2020, 08/04/2019 RSV Immunization Adult Patients (1 - [...] age to complete this topic Meningococcal B Vaccine Aged Out No l onger eligible based on patient's age to complete [...] age to complete this topic Care Teams Senior Marketing Associate Relationship Specialty Start Date End Date Amari Albarado MD PCP - General Internal Medicine 08/07/22
--- OUTSIDE RECORDS SUMMARY | 2025-02-05 17:20 | XMS_ITS ---
Author Organization Amari Albarado MD Address [address] [place] [phone] Care Team Providers Care Reel Hooker Name Role Phone Amari Albarado Primary Care Provider REASON FOR VISIT Medical Records Encounters Encounter Location Date Provider Diagnosis Amari Albarado MD [address] [place] [address] [place] [phone] 12/01/2024 Amari Albarado Plan Of Treatment Next Appt Details Provider Name:Amari Amaay ier, 08/24/2025 08:00:00 AM, [address] [place] [address], [place] [address], [place], [place], [phone], Provider Name:Amari Amaya ier, 08/31/2025 02:30:00 PM, [address] [place] [address], [place] [address], [place], [place], [phone], Progress Notes * Ismael FLETCHER TDOB:1965 (59 yo M)Acc No.[id number]:12/01/2024 Patient:?Ismael FLETCHER :1965???Age:59 Y???Sex:Male Address:[address], [place] [address] * Addendum: * ? true * Date:? Generated for Thania corey/Rayo/Melba on:?02/05/2025 05:20 PM EDT
--- OUTSIDE RECORDS SUMMARY | 2025-02-05 17:20 | XMS_ITS | Referral Summary ---
Author Organization [facility] Address [address] [place] [address] Care Team Providers Care Free Lance Artist Name Role Phone Amari Albarado Primary Care Provider [phone] Allergies No known active allergies Medications No [...] EST Plan of Treatment Not on file Insurance [employer] PPO/EPO/IND Care Teams Free Lance Artist Relationship Specialty Start Date End Date Amari Albarado [address] [place] [address] dr Gio [place], [place] [address] PCP - General Internal Medicine 11/02/24
--- OUTSIDE RECORDS SUMMARY | 2025-02-05 17:20 | XMS_ITS | Clinical Summary ---
Author Organization [facility] Address [address] [place] [address] Care Team Providers Care Paralegal Specialist Name Role Phone Amari Albarado Primary Care Provider [phone] Allergies No known active allergies Medications No [...] patients) (1 - 1-dose 75+ series) 2040 Insurance [employer] PPO/EPO/IND Care Teams Paralegal Specialist Relationship Specialty Start Date End Date Amari Albarado [address] [place] [address] [place] [address] PCP - General Internal Medicine 11/02/24
--- OUTSIDE RECORDS SUMMARY | 2025-02-05 17:20 | XMS_ITS ---
Author Organization [facility] Address [address] [address] Care Team Providers Care Railroad Signal Technician Name Role Phone Amari Albarado Primary Care Provider Unavailab YUDI Gan Unavailable [phone] REASON FOR VISIT r/s apt Encounters Encounter Location Date Provider Diagnosis [facility] [address] [address] 09/26/2023 YUDI SCHAEFFER Plan Of Treatment No Information Progress Notes * NACHOWilli POPEAbdelrahmanOB:[birth year] (57 yo M)Acc No.[id number]:09/26/2023 Patient:?Willi FLETCHERn :1965???Age:57 Y???Sex:Male Phone: Address:[address] [place] [address] [facility], [place] [address] * true * Date:? Generated for Kpi leora/Rayo/eTransmitting on:?02/05/2025 05:19 PM EDT
--- OUTSIDE RECORDS SUMMARY | 2025-02-05 17:20 | XMS_ITS ---
Author Organization [facility] Address [address] [address] Care Team Providers Care Assessor Name Role Phone Amari Albarado Primary Care Provider Unavailab YUDI Gan Unavailable [phone] REASON FOR VISIT ATI discharge summary Encounters Encounter Location Date Provider Diagnosis [facility] [address] [address] 09/26/2023 YUDI SCHAEFFER Plan Of Treatment No Information Progress Notes * NACHOWilli POPEAbdelrahmanOB:[birth year] (57 yo M)Acc No.[id number]:09/26/2023 Patient:?Willi FLETCHERn :1965???Age:57 Y???Sex:Male Phone: Address:[address] [place] [address] [facility] [facility], [place] [address] * true * Date:? Generated for Kpi leora/Rayo/eTransmitting on:?02/05/2025 05:19 PM EDT
--- OUTSIDE RECORDS SUMMARY | 2025-02-05 17:20 | XMS_ITS ---
Author Organization Amari Albarado MD Address [address] [place] [phone] Care Team Providers Care Sanitation Worker Cleaning Machinery Name Role Phone Amari Albarado Primary Care Provider REASON FOR VISIT ? echo Encounters Encounter Location Date Provider Diagnosis Amari Albarado MD [address] [place] [address] [place] [phone] 12/16/2024 Amari Albarado Heart murmur, systolic R01.1 Assessments Encounter Date Diagnosis (ICD Code) Assessment Notes Treatment Notes Treatment Clinical Notes Section Notes 12/16/2024 Heart murmur, systolic (ICD-10 - R01.1) Plan Of Treatment Pending Test Test Name Order Date ECHO 12/16/2024 Next Appt Details Provider Name:Amari Amaya ier, 08/24/2025 08:00:00 AM, [address] [place] [address], [address], [phone], Provider Name:Amari mcgee, 08/31/2025 02:30:00 PM, [address] [place] [address], [address], [phone], Progress Notes * Ismael FLETCHER TDOB:1965 (59 yo M)Acc No.[id number]:12/16/2024 Patient:?Ismael FLETCHER :1965???Age:59 Y???Sex:Male Address[facility], [place] [address] Subjective: * Chief Complaints: * ? echo * Medical History:? * Surgical History:? * Hospitalization/Major Diagno stic Procedure:? * Medications:? Objective: * Vitals:? * Physical Examination:? Assessment: * Assessment: 1.?Heart murmur, systolic - R01.1??? Plan: * Treatment: * Procedure Codes:? * true * Date:? Generated for Thania corey/Rayo/Melba on:?02/05/2025 05:20 PM EDT
--- OUTSIDE RECORDS SUMMARY | 2025-02-05 17:20 | XMS_ITS | Patient Health Record ---
Author Organization Amari Albarado MD Address [address] [place], [place] [id number] Care Team Providers Care Nurse Reviewer Name Role Phone Amari Albarado Primary Care Provider Allergies No Known Allergies Results Component Value Reference Range Notes Complete Blood Count Auto Di ff Reviewed date:08/22/2024 01:43:32 PM Interpretation: Performing Lab:[facility], [address] [place] [phone] Notes/Report: White Blood Count 5.5 4.8-10.8 X10*3/uL [...] NRBC Abs Auto 0.000 0.0-0.012 X10*3/uL Comprehensive [place]. Panel Fa st Reviewed date:08/24/2024 03:58:24 PM Interpretation: Performing Lab:[facility], [address] [place] [phone] Notes/Report: Sodium 141 135-145 mmol/L Potassium 3.5 3.3-5.1 mmol/L Chloride 106 96-108 mmol/L Carbon Dioxide 27 22-29 mmol/L Anion Gap 12 12-20 Blood Urea Nitrogen 13 9-16 mg/dL Creatinine 1.30 0.5-1.4 mg/dL Estimated Glomerular Filt Rate 57 NOTE: For -Georgian individuals, multiply the result by 1.210. Chronic [...] Panel Reviewed date:08/22/2024 01:42:57 PM Interpretation: Performing Lab:[facility], [address] [place] [phone] Notes/Report: Triglycerides 105 <150 mg/dL Desirable Triglyceride: [...] (Free>4and<10) Reviewed date:08/23/2024 06:28:56 PM Interpretation: Performing Lab:[facility], [address] [place] [phone] Notes/Report: PSA,Total (Free>4and<10) 0.50 0.00-4.00 ng/mL A [...] Random Reviewed date:08/23/2024 12:57:47 PM Interpretation: Performing Lab:[facility], [address] [place] [phone] Notes/Report: Creatinine Urine 118.46 Microalbumin Urine 12.0 Microalbum/Creatinine Ratio Ur 10.1 <30 ug/mg cr Albumin/Creatinine Ratio Reference Ranges: Normal: < 30 ug/mg creatinine Microalbuminuria: 30 - 300 ug/mg creatinine Clinical Albuminuria: > 300 ug/mg creatinine Hemoglobin A1c Reviewed date:08/24/2024 03:54:32 PM Interpretation: Performing Lab:[facility], [address] [place] [phone] Notes/Report: Hemoglobin A1c % 5.6 <6.0 % [...] average glucose, using the formula of the X8S-Yalalfd Average Glucose study (ADAG), Diabetes Care, Vol.31,#8, May. 2007 UA ClnCatch+Micro w/rflx Cul t Reviewed date:08/25/2024 06:22:43 PM Interpretation: Performing Lab:[facility], [address] [place] [phone] Notes/Report: Urine, Clean Catch Color Urine Yellow Appearance Urine Clear PH 6.0 5.0-9.0 Glucose Urine UA Negative Negative mg/dL Urine Blood Negative Negative Specific [place] - Urine 1.010 1.005-1.025 Urine Protein Negative [...] ff Reviewed date:11/02/2024 06:30:08 PM Interpretation: Performing Lab:[facility], [address] [place] [phone] Notes/Report: White Blood Count 6.7 4.8-10.8 X10*3/uL [...] INR Reviewed date:11/02/2024 06:18:05 PM Interpretation: Performing Lab:[facility], [address] [place] [phone] Notes/Report: Prothrombin Time 10.9 10.9-12.4 SEC INTERNATIONAL [...] Panel Reviewed date:11/02/2024 06:30:35 PM Interpretation: Performing Lab:[facility], [address] [place] [phone] Notes/Report: Sodium 140 135-145 mmol/L Potassium 4.1 [...] Sensitivity Reviewed date:11/02/2024 06:17:46 PM Interpretation: Performing Lab:[facility], [address] [place] [phone] Notes/Report: Troponin-I High Sensitivity 8.3 <3.5-35.0 ng/L The Andrade high sensitivity Troponin-I results should be used in conjunction with other diagnostic information such as ECG, clinical observations and information, and patient symptoms to aid in the diagnosis of DC. B Type Natriuretic Peptide Reviewed date:11/02/2024 06:28:53 PM Interpretation: Performing Lab:[facility], [address] [place] [phone] Notes/Report: B Type Natriuretic Peptide 63 <100 pg/mL For those patients who are being treated with Natrecor (nesiritide, recombinant BNP), BNP testing should be performed at least two hours post treatment in order to ensure that only endogenous levels of BNP are detected. SARS-CoV2/FLU/RSV Reviewed date:11/02/2024 06:17:54 PM Interpretation: Performing Lab:[facility], [address] [place] [phone] Notes/Report: Influenza A PCR NEGATIVE Negative Influenza [...] by authorized laboratories. Testing performed on the [employer] GeneXpert utilizing real-time RT-PCR. All SARS CoV2 and positive influenza A/B results are reported to [facility]. XR chest 2V Reviewed date:10/31/2024 04:57:02 PM Interpretation: Performing Lab: Notes/Report: [address] [address] XRay Report Signed Patient: Ismael Fletcher MR#: [id number] : 1965 Acct:[id number] Age/Sex: 58 / M ADM Date: 10/31/24 Loc: .ED Attending Dr: Ordering Physician: Alexus Del Valle NP Date of Service: 10/31/24 Procedure(s): XR chest 2V Accession Number(s): [id number] cc: Amari Albarado MD; Alexus Del Valle [...] 10/31/24 1650 DD/ 1600 TD/TT: 10/31/24 1605 Mar[address] Coper: [address] [address] XRay Report Signed Patient: Ismael Fletcher MR#: [id number] : 1965 Acct:[id number] Age/Sex: 58 / M ADM Date: 10/31/24 Loc: .ED Attending Dr: Ordering Physician: Alexus Del Valle NP Date of Service: 10/31/24 Procedure(s): XR mirta st 2V Accession Number(s): [id number] cc: Amari Albarado MD; Alexus Del Valle [...] 10/31/24 1650 DD/ 1600 TD/TT: 10/31/24 1605 [place] Coper: [facility] Reason For Referral Reason SKIN LESION OF [...] in system for Echo order faxed to [facility] dept booked for 12-31-2024, [...] Problem Status W/U Status Risk Notes Problem 861185967 Paroxysmal atria l fibrillation (I48.0) Active confirmed Problem 265165115 Chronic sinusitis, unspecified (J32.9) Active confirmed Problem 66313121 Rectal polyp (K62.1) Active confirmed Problem 5505315 Prediabetes (R73.09) Active confirmed Problem 568441650 Low HDL (under 40) (E78.6) Active confirmed Problem 68531799 Intrinsic eczema (L20.84) Active confirmed Problem 122033091 Family history o f colon cancer (Z80.0) Active confirmed Problem 54664366 Acute non-recurrent maxillary sinusitis (J01.00) Active confirmed Problem 725909270 Renal mass (N28.89) Active confirmed Problem 62662172 REJI (obstructive sleep apnea) (G47.33) Active confirmed Problem 350225868 Renal cell carcinoma of right kidney (C64.1) [...] Albarado MD [address] [place] [phone] 11/07/2024 Amari Albarado Intermittent palpitations R00.2 ; Heart murmur, systolic R01.1 and Right hydrocele N43.3 Amari lAbarado MD [address] [place] [address] [phone] 04/15/2024 Amari Albarado Bronchitis J40 Amari Albarado MD [address] [place] [address] [id number] 08/22/2024 Amari Albarado Blood tests for routine general physical examination Z00.00 ; Prediabetes R73.09 and Low HDL (under 40) E78.6 Amari Albarado MD [address] [place] [id number] 08/29/2024 Amari Albarado Skin lesion of face L98.9 ; Annual physical exam Z00.00 ; Prediabetes R73.09 ; Family history of colon cancer Z80.0 ; Renal mass N28.89 ; REJI (obstructive sleep apnea) G47.33 ; Paroxysmal atrial fibrillation I48.0 ; Colon cancer screening Z12.11 and Depression screening Z13.31 Amari Albarado MD [address] [place] [id number] 12/01/2024 Amari Albarado MD [address] [place] [id number] 12/16/2024 Amari Albarado Heart murmur, systolic R01.1 [...] (ICD-10 - N43.3) referral to urology at [facility] 08/22/2024 Low HDL (under 40) (ICD-10 - [...] [address], [address], [place], [id number], Provider Name:Amari Amaya ier, 08/31/2025 02:30:00 PM, [address], [address], [place], [phone], Insurance Providers Payer Name Payer Address Payer Phone Subscriber Number Group Number Insured Name Patient Relationship to Insured Coverage Start Date Coverage End Date MALCOLM CHUA 186466 [place] [phone] [id number] Ismael Wells Self - patient is the insured Medical (General) History Medical History History ICD Code colonoscopy 2011 due in 5 ye ars; colonoscopy 09/06/[address] Novak-repeat 5 years. Clonoscopy 03/09/21 repeat 3y colonoscopy in 2022 repeat in 3 years
--- OUTSIDE RECORDS SUMMARY | 2025-02-05 17:20 | XMS_ITS ---
Author Organization [facility] Address [address] [address] Care Team Providers Care Special Loan Officer Name Role Phone Amari Albarado Primary Care Provider Unavailab VERNELL Gan Unavailable [phone] REASON FOR VISIT 6-8wk Encounters Encounter Location Date Provider Diagnosis [facility] [address] [address] 10/02/2023 VERNELL SCHAEFFER Plan Of Treatment No Information Progress Notes * Chris FLETCHEROB:[birth year] (59 yo M)Acc No.[id number]:10/02/2023 Progress Note Patient:?Ismael FLETCHER Provider:?Vernell Camarillo DPM :1965???Age:57 Y???Sex:Male Jack e:10/02/2023 Phone: Address:[address] [place] [phone] Pcp:Amari Albarado Subjective: * Chief Complaints: * ???1. 6-8wk. * Medical History:? Objective: * Vitals:? Assessment: Plan: * Treatment: * Billing Information: * Visit Code:? * Procedure Codes:? * Electronic signature of Cesar GARRETTPSandrine on 02/05/2025 at 05:20 PM EDT Sign off status: Pending * Provider:?Vernell Camarillo DPM Date:?10/02 Generated for Printi ng/Facraigg/eTransmitting on:?02/05/2025 05:20 PM EDT
--- OUTSIDE RECORDS SUMMARY | 2025-02-05 17:20 | XMS_ITS | Patient Health Record ---
Author Organization [facility] Address [address] [facility] [address] [place] [address] Care Team Providers Care Scientific Aide Name Role Phone Amari Albarado Primary Care Provider Unavailab le Allergies No Known Allergies Reason For Referral No Information Plan Of Treatment Pending Test Test Name Order Date WALKING BOOT PNEUMATIC AND/OR VAC 2022 Insurance Providers Payer Name Payer Address Payer Phone Subscriber Number Group Number Insured Name Patient Relationship to Insured Coverage Start Date Coverage End Date [facility] [address] [place] [phone] [id number] Ismael Richardson Self - patient is the [...]
--- OUTSIDE RECORDS SUMMARY | 2025-02-05 17:21 | XMS_ITS ---
Author Organization Amari Albarado MD Address [address] [place], [place] [phone] Care Team Providers Care Brick Sorter Name Role Phone Amari Albarado Primary Care [...] in system for Echo order faxed to [facility] dept booked for 12-31-2024, Yohana Vasques [...] 02/05/2025 REASON FOR VISIT follow up from [facility] Sunday and [facility] on Sunday nite / for heart flutters, Went to the chiropractor feels much better Vital Signs Blood pressure systolic 148 mm Hg 11/07/19 25 Blood pressure diastolic 90 mm Hg 025 Height 75 in 11/07/2024 Weight 251 lbs 11/07/2024 BMI 31.37 kg/m2 11/07/2024 weight is up 7 pounds since 08-29-24 Encounters Encounter Location Date Provider Diagnosis Amari Albarado MD [address] [place] [address] Drive [address] [place], [place] [phone] 11/07/2024 Amari Albarado Intermittent palpitations R00.2 ; [...] (ICD-10 - N43.3) referral to urology at [facility] Plan Of Treatment Treatment Notes Assessment Notes Intermittent palpitations referral to dr carvajal Heart murmur, systolic get results of ca rdiology consult dr woodruff Right hydrocele referral to urology at [facility] Referrals Referral Date Details 11/07/2024 11/07/2024, intermit tent palpitations heart murmur, systolic, YASMINE BOND 11/07/2024 11/07/2024, right hy bella, [facility] Next Appt Details Provider Name:Amari Amaya ier, 08/24/2025 08:00:00 AM, [address], [address], [place], [place], [id number], Provider Name:Amari Amaya ier, 08/31/2025 02:30:00 PM, [address], [address], [place], [place], [id number], Progress Notes * Ismael FLETCHER TDOB:1965 (59 yo M)Acc No.[id number]:11/07/2024 Progress Notes Patient:?Willi FLETCHERn Aidan Provider:?Amari Albarado MD :1965???Age:58 Y???Sex:Male Jack e:11/07/2024 Address:[address] [place], [place] [phone] Subjective: * Chief Complaints: * ???1. follow up from [facility] Sunday and [facility] on Sunday nite / for heart [...] 3.?Right hydrocele? Notes: referral to urology at [facility]? Referral To:[facility]??Urology ?Reason:right hydrocele * * The named appointment provid er may or may not be the originator of this progress note, and it is not deemed complete until electronically signed by the appointment provider. Sign off status: Pending * Provider:?Amari Albarado MD Date:?0 11/07/2024 Generated for Thania corey/Rayo/Mackitting on:?02/05/2025 05:20 PM EDT History and Physical Notes * [...]
== END 2025-02-05 15:27 | disposition home or self-care (01) ==
LOC: HO.HUSH 14:41
PROVIDERS: PCP Internal Medicine; Visit Provider Urology
DX: Z13.9 Encounter for screening, unspecified (principal)

== ENCOUNTER → 2025-02-05 14:41 | Outpatient (BNVA) | payer OTHER, SELFPAY | PROVIDERS: PCP Internal Medicine; Visit Provider Urology | DX: N50.89 Other specified disorders of the male genital organs (principal); N43.3 Hydrocele, unspecified | CPT/HCPCS: 81003 ==

== ENCOUNTER 2025-03-13 15:57 | Outpatient (REF) | payer OTHER, SELFPAY ==
--- NOTE | ~2025-03-13 | US_ITS ---
EXAMINATION: US SCROTUM HISTORY: N50.89 - HYDROCELE. COMPARISON: There are no prior studies for comparison. FINDINGS: Real-time grayscale ultrasound imaging of the scrotum was performed. RIGHT TESTICLE: The right testis measures 4.6 x 2.7 x 3.2 cm and demonstrates normal homogeneous echotexture. No masses are seen. The right testis demonstrates normal color Doppler flow. RIGHT EPIDIDYMIS: The right epididymal head is unremarkable. The remainder of the epididymis is not well visualized. LEFT TESTICLE: The left testis measures 4.3 x 2.6 x 2.7 cm and demonstrates normal homogeneous echotexture. No masses are seen. The left testis demonstrates normal color Doppler flow. LEFT EPIDIDYMIS: There is a 6 x 3 x 6 mm epididymal head cyst. The epididymal tail is not well visualized. VARICOCELE: None. HYDROCELE: There is a moderate-sized right hydrocele containing particulate echoes. OTHER COMMENTS: None. US/US scrotum IMPRESSION: Moderate right hydrocele. Electronically signed by: Zach Benitez MD 03/16/2025 07:16 AM EDT
--- OUTSIDE RECORDS SUMMARY | 2025-03-13 16:00 | XMS_ITS ---
Author Organization [facility] Address [address] [address] Care Team Providers Care School Commissioner Name Role Phone Amari Albarado Primary Care Provider Unavailab YUDI Gan Unavailable [phone] REASON FOR VISIT r/s apt Encounters Encounter Location Date Provider Diagnosis [facility] [address] [address] 09/26/2023 YUDI SCHAEFFER Plan Of Treatment No Information Progress Notes * BERNADINEMALAWilli POPEAbdelrahmanOB:[birth year] (57 yo M)Acc No.[id number]:09/26/2023 Patient:?Ismael FLETCHER :1965???Age:57 Y???Sex:Male Phone: Address:[address] [place] [address] [facility] [facility], [place] [address] * true * Date:? Generated for Kpi leora/Rayo/eTransmitting on:?03/13/2025 03:59 PM EDT
--- OUTSIDE RECORDS SUMMARY | 2025-03-13 16:00 | XMS_ITS | Patient Health Record ---
Author Organization Amari Albarado MD Address [address] [place], [place] [phone] Care Team Providers Care Software Development Project Manager Name Role Phone Amari Albarado Primary Care Provider [phone] Allergies No Known Allergies Results Component Value Reference Range Notes Complete Blood Count Auto Di ff Reviewed date:08/22/2024 01:43:32 PM Interpretation: Performing Lab:[facility], [address] [place] [phone] Notes/Report: White Blood Count 5.5 4.8-10.8 X10*3/uL [...] NRBC Abs Auto 0.000 0.0-0.012 X10*3/uL Comprehensive [place]. Panel Fa st Reviewed date:08/24/2024 03:58:24 PM Interpretation: Performing Lab:[facility], [address] [place] [phone] Notes/Report: Sodium 141 135-145 mmol/L Potassium 3.5 3.3-5.1 mmol/L Chloride 106 96-108 mmol/L Carbon Dioxide 27 22-29 mmol/L Anion Gap 12 12-20 Blood Urea Nitrogen 13 9-16 mg/dL Creatinine 1.30 0.5-1.4 mg/dL Estimated Glomerular Filt Rate 57 NOTE: For -Uzbek individuals, multiply the result by 1.210. Chronic [...] Panel Reviewed date:08/22/2024 01:42:57 PM Interpretation: Performing Lab:[facility], [address] [place] [phone] Notes/Report: Triglycerides 105 <150 mg/dL Desirable Triglyceride: [...] (Free>4and<10) Reviewed date:08/23/2024 06:28:56 PM Interpretation: Performing Lab:[facility], [address] [place] [phone] Notes/Report: PSA,Total (Free>4and<10) 0.50 0.00-4.00 ng/mL A [...] Random Reviewed date:08/23/2024 12:57:47 PM Interpretation: Performing Lab:[facility], [address] [place] [phone] Notes/Report: Creatinine Urine 118.46 Microalbumin Urine 12.0 Microalbum/Creatinine Ratio Ur 10.1 <30 ug/mg cr Albumin/Creatinine Ratio Reference Ranges: Normal: < 30 ug/mg creatinine Microalbuminuria: 30 - 300 ug/mg creatinine Clinical Albuminuria: > 300 ug/mg creatinine Hemoglobin A1c Reviewed date:08/24/2024 03:54:32 PM Interpretation: Performing Lab:[facility], [address] [place] [phone] Notes/Report: Hemoglobin A1c % 5.6 <6.0 % [...] average glucose, using the formula of the M5G-Ycstxmo Average Glucose study (ADAG), Diabetes Care, Vol.31,#8, May. 2007 UA ClnCatch+Micro w/rflx Cul t Reviewed date:08/25/2024 06:22:43 PM Interpretation: Performing Lab:[facility], [address] [place] [phone] Notes/Report: Urine, Clean Catch Color Urine Yellow Appearance Urine Clear PH 6.0 5.0-9.0 Glucose Urine UA Negative Negative mg/dL Urine Blood Negative Negative Specific [place] - Urine 1.010 1.005-1.025 Urine Protein Negative [...] ff Reviewed date:11/02/2024 06:30:08 PM Interpretation: Performing Lab:[facility], [address] [place] [phone] Notes/Report: White Blood Count 6.7 4.8-10.8 X10*3/uL [...] INR Reviewed date:11/02/2024 06:18:05 PM Interpretation: Performing Lab:[facility], [address] [place] [phone] Notes/Report: Prothrombin Time 10.9 10.9-12.4 SEC INTERNATIONAL [...] Panel Reviewed date:11/02/2024 06:30:35 PM Interpretation: Performing Lab:[facility], [address] [place] [phone] Notes/Report: Sodium 140 135-145 mmol/L Potassium 4.1 [...] Sensitivity Reviewed date:11/02/2024 06:17:46 PM Interpretation: Performing Lab:[facility], [address] [place] [phone] Notes/Report: Troponin-I High Sensitivity 8.3 <3.5-35.0 ng/L The Andrade high sensitivity Troponin-I results should be used in conjunction with other diagnostic information such as ECG, clinical observations and information, and patient symptoms to aid in the diagnosis of ND. B Type Natriuretic Peptide Reviewed date:11/02/2024 06:28:53 PM Interpretation: Performing Lab:[facility], [address] [place] [phone] Notes/Report: B Type Natriuretic Peptide 63 <100 pg/mL For those patients who are being treated with Natrecor (nesiritide, recombinant BNP), BNP testing should be performed at least two hours post treatment in order to ensure that only endogenous levels of BNP are detected. SARS-CoV2/FLU/RSV Reviewed date:11/02/2024 06:17:54 PM Interpretation: Performing Lab:[facility], [address] [place] [phone] Notes/Report: Influenza A PCR NEGATIVE Negative Influenza [...] by authorized laboratories. Testing performed on the [employer] GeneXpert utilizing real-time RT-PCR. All SARS CoV2 and positive influenza A/B results are reported to [facility]. XR chest 2V Reviewed date:10/31/2024 04:57:02 PM Interpretation: Performing Lab: Notes/Report: [address] [address] XRay Report Signed Patient: Ismael Fletcher MR#: [id number] : 1965 Acct:[id number] Age/Sex: 58 / M ADM Date: 10/31/24 Loc: .ED Attending Dr: Ordering Physician: Alexus Del Valle NP Date of Service: 10/31/24 Procedure(s): XR chest 2V Accession Number(s): [id number] cc: Amari Albarado MD; Alexus DelV alle NP EXAMINATION: XR CHEST CLINICAL INFORMATION: shortenss [...] 10/31/24 1650 DD/ 1600 TD/TT: 10/31/24 1605 [address] Brusher: [address] [address] XRay Report Signed Patient: Ismael Fletcher MR#: [id number] : 1965 Acct:[id number] Age/Sex: 58 / M ADM Date: 10/31/24 Loc: .ED Attending Dr: Ordering Physician: Alexus Del Valle NP Date of Service: 10/31/24 Procedure(s): XR mirta st 2V Accession Number(s): [id number] cc: Amari Albarado MD; Alexus Del Valle [...] 10/31/24 1650 DD/ 1600 TD/TT: 10/31/24 1605 Har[place] Brusher: [facility] Reason For Referral Reason SKIN LESION OF [...] in system for Echo order faxed to [facility] dept booked for 12-31-2024, [...] Problem Status W/U Status Risk Notes Problem 153411102 Paroxysmal atria l fibrillation (I48.0) Active confirmed Problem 235858638 Chronic sinusitis, unspecified (J32.9) Active confirmed Problem 34941701 Rectal polyp (K62.1) Active confirmed Problem 5326793 Prediabetes (R73.09) Active confirmed Problem 406434909 Low HDL (under 40) (E78.6) Active confirmed Problem 85359286 Intrinsic eczema (L20.84) Active confirmed Problem 503130124 Family history o f colon cancer (Z80.0) Active confirmed Problem 26561978 Acute non-recurrent maxillary sinusitis (J01.00) Active confirmed Problem 780777008 Renal mass (N28.89) Active confirmed Problem 15818606 REJI (obstructive sleep apnea) (G47.33) Active confirmed Problem 097329044 Renal cell carcinoma of right kidney (C64.1) [...] Date Provider Diagnosis Amari Albarado MD [address] [facility] [address] [place] [phone] 11/07/2024 Amari Albarado Intermittent palpitations R00.2 ; Heart murmur, systolic R01.1 and Right hydrocele N43.3 Amari Albarado MD [address] [place] [address] [phone] 04/15/2024 Amari Albarado Bronchitis J40 Amari Albarado MD [address] [place] [address] [phone] 08/22/2024 Amari Albarado Blood tests for routine general physical examination Z00.00 ; Prediabetes R73.09 and Low HDL (under 40) E78.6 Amari Albarado MD [address] [place] [address] [address] [place] [id number] 08/29/2024 Amari Albarado Skin lesion of face L98.9 ; Annual physical exam Z00.00 ; Prediabetes R73.09 ; Family history of colon cancer Z80.0 ; Renal mass N28.89 ; REJI (obstructive sleep apnea) G47.33 ; Paroxysmal atrial fibrillation I48.0 ; Colon cancer screening Z12.11 and Depression screening Z13.31 Amari Albarado MD [address] [facility] [address] [place] [id number] 12/01/2024 Amari Albarado MD [address] [place] [phone] 12/16/2024 Amari Albarado Heart murmur, systolic R01.1 [...] (ICD-10 - N43.3) [place] [facility] 08/22/2024 Low HDL (under 40) (ICD-10 - [...] Name:Amari Amaya ier, 08/24/2025 08:00:00 AM, [address] [facility], [address], [place], [place], [phone], Provider Name:Amari Amaya ier, 08/31/2025 02:30:00 PM, [address] [facility], [address], [place], [place], [phone], Insurance Providers Payer Name Payer Address Payer Phone Subscriber Number Group Number Insured Name Patient Relationship to Insured Coverage Start Date Coverage End Date MALCOLM CHUA [id number] [place] [phone] [id number] Ismael Wells Self - patient is the insured Medical (General) History Medical History History ICD Code colonoscopy 2011 due in 5 ye ars; colonoscopy 09/06/[address] Novak-repeat 5 years. Clonoscopy 03/09/21 repeat 3y colonoscopy in 2022 repeat in 3 years
--- OUTSIDE RECORDS SUMMARY | 2025-03-13 16:00 | XMS_ITS ---
Author Organization [facility] Address [address] [address] Care Team Providers Care Diet Attendant Name Role Phone Amari Albarado Primary Care Provider Unavailab VERNELL Gan Unavailable [phone] REASON FOR VISIT 6-8wk Encounters Encounter Location Date Provider Diagnosis [facility] [address] [address] 10/02/2023 VERNELL SCHAEFFER Plan Of Treatment No Information Progress Notes * Chris FLETCHEROB:[birth year] (59 yo M)Acc No.[id number]:10/02/2023 Progress Note Patient:?Ismael FLETCHER Provider:?Vernell Camarillo DPM :1965???Age:57 Y???Sex:Male Jack e:10/02/2023 Phone: Address:[address] [place] [phone] Pcp:Amari Albarado Subjective: * Chief Complaints: * ???1. 6-8wk. * Medical History:? Objective: * Vitals:? Assessment: Plan: * Treatment: * Billing Information: * Visit Code:? * Procedure Codes:? * Electronic signature of Cesar GARRETTPSandrine on 03/13/2025 at 04:00 PM EDT Sign off status: Pending * Provider:?Vernell Camarillo DPM Date:?10/02 Generated for Printi ng/Facraigg/eTransmitting on:?03/13/2025 04:00 PM EDT
--- OUTSIDE RECORDS SUMMARY | 2025-03-13 16:00 | XMS_ITS ---
Author Organization [facility] Address [address] [address] Care Team Providers Care Candy Polisher Name Role Phone Amari Albarado Primary Care Provider Unavailab YUDI Gan Unavailable [phone] REASON FOR VISIT ATI discharge summary Encounters Encounter Location Date Provider Diagnosis [facility] [address] [address] 09/26/2023 YUDI SCHAEFFER Plan Of Treatment No Information Progress Notes * NACHOWilli POPEAbdelrahmanOB:[birth year] (57 yo M)Acc No.[id number]:09/26/2023 Patient:?Willi FLETCHERn :1965???Age:57 Y???Sex:Male Phone: Address:[address] [place] [address] [facility], [place] [address] * true * Date:? Generated for Kpi leora/Rayo/eTransmitting on:?03/13/2025 03:59 PM EDT
--- OUTSIDE RECORDS SUMMARY | 2025-03-13 16:00 | XMS_ITS ---
Author Organization Amari Albarado MD Address [address] [place] [phone] Care Team Providers Care Flatbed Press Operator Name Role Phone Amari Albarado Primary Care Provider [phone] REASON FOR VISIT Medical Records Encounters Encounter Location Date Provider Diagnosis Amari Albarado MD [address] [place] [address] [place] [phone] 12/01/2024 Amari Albarado Plan Of Treatment Next Appt Details Provider Name:Amari Amaya ier, 08/24/2025 08:00:00 AM, [address] [place] [address], [place] [address], [place], [place], [phone], Provider Name:Amari Amaya ier, 08/31/2025 02:30:00 PM, [address] [place] [address], [place] [address], [place], [place], [phone], Progress Notes * Ismael FLETCHER TDOB:1965 (59 yo M)Acc No.[id number]:12/01/2024 Patient:?Ismael FLETCHER :1965???Age:59 Y???Sex:Male Address:[facility] [address], [place] [address] * Addendum: * ? true * Date:? Generated for Thania corey/Rayo/Melba on:?03/13/2025 04:00 PM EDT
--- OUTSIDE RECORDS SUMMARY | 2025-03-13 16:00 | XMS_ITS | Clinical Summary ---
Author Organization [facility] it Address [address] [place] [address] Care Team Providers Care Applied Research Director Name Role Phone Amari Alabrado MD Primary Care Provider Social History Tobacco [...] age to complete this topic Care Teams Applied Research Director Relationship Specialty Start Date End Date Amari Albarado MD PCP - General Internal Medicine 08/07/22
--- OUTSIDE RECORDS SUMMARY | 2025-03-13 16:01 | XMS_ITS ---
Author Organization Amari Albarado MD Address [address] [place], [place] [phone] Care Team Providers Care Campus Police Officer Name Role Phone Amari Albarado Primary [...] 02/05/2025 REASON FOR VISIT follow up from [facility] Sunday and [facility] on Sunday nite / for heart flutters, Went to the chiropractor feels much better Vital Signs Blood pressure systolic 148 mm Hg 11/07/19 25 Blood pressure diastolic 90 mm Hg 025 Height 75 in 11/07/2024 Weight 251 lbs 11/07/2024 BMI 31.37 kg/m2 11/07/2024 weight is up 7 pounds since 08-29-24 Encounters Encounter Location Date Provider Diagnosis Amari Albarado MD [address] [place], [place] [phone] 11/07/2024 Amari Albarado Intermittent palpitations R00.2 ; [...] (ICD-10 - N43.3) referral to urology at [facility] Plan Of Treatment Treatment Notes Assessment Notes Intermittent palpitations referral to dr carvajal Heart murmur, systolic get results of ca rdiology consult dr woodruff Right hydrocele referral to urology at [facility] Referrals Referral Date Details 11/07/2024 11/07/2024, intermit tent palpitations heart murmur, systolic, YASMINE VARUN 11/07/2024 11/07/2024, right hy drocele, Anish [facility]tz Next Appt Details Provider Name:Amari Amaya ier, 08/24/2025 08:00:00 AM, [address], [address], [place], [place], [phone], Provider Name:Amari Amaya ier, 08/31/2025 02:30:00 PM, [address], [address], [place], [place], [phone], Progress Notes * NACHOWilli FLORESn TDOB:1965 (59 yo M)Acc No.[id number]:11/07/2024 Progress Notes Patient:?Ismael FLETCHER Provider:?Amari Albarado MD :1965???Age:58 Y???Sex:Male Jack e:11/07/2024 Address:[address] [place] [phone] Subjective: * Chief Complaints: * ???1. follow up from [facility] Sunday and [facility] on Sunday nite / for heart flutters. [...] 3.?Right hydrocele? Notes: referral to urology at [facility]? Referral To:[facility]ish [facility]??Urology ?Reason:right hydrocele * * The named appointment provid er may or may not be the originator of this progress note, and it is not deemed complete until electronically signed by the appointment provider. Sign off status: Pending * Provider:?Amari Albarado MD Date:?0 11/07/2024 Generated for Thania corey/Rayo/eTnealitting on:?03/13/2025 04:00 PM EDT History and Physical Notes * [...]
--- OUTSIDE RECORDS SUMMARY | 2025-03-13 16:01 | XMS_ITS | Referral Summary ---
Author Organization [facility] Address [address] [place] [address] Care Team Providers Care Pension Adviser Name Role Phone Amari Albarado Primary Care Provider [phone] Allergies No known active allergies Medications No [...] on file Insurance [employer] PPO/EPO/IND Care Teams Pension Adviser Relationship Specialty Start Date End Date Amari Albarado [address] [place] [address] dr Gio Powers, [place] [address] PCP - General Internal Medicine 11/02/24
--- OUTSIDE RECORDS SUMMARY | 2025-03-13 16:01 | XMS_ITS | Clinical Summary ---
Author Organization [facility] Address [address] [place] [address] Care Team Providers Care Waterproofer Helper Name Role Phone Amari Albarado Primary Care Provider [phone] Allergies No known active allergies Medications No [...] series) 2040 Insurance [employer] PPO/EPO/IND Care Teams Waterproofer Helper Relationship Specialty Start Date End Date Amari Albarado [address] [place] [address] [place] [address] PCP - General Internal Medicine 11/02/24
--- OUTSIDE RECORDS SUMMARY | 2025-03-13 16:01 | XMS_ITS ---
Author Organization Amari Albarado MD Address [address] [place] [phone] Care Team Providers Care Box Office Clerk Name Role Phone Amari Albarado Primary Care Provider REASON FOR VISIT ? echo Encounters Encounter Location Date Provider Diagnosis Amari Albarado MD [address] [place] [address] [place] [phone] 12/16/2024 Amair Albarado Heart murmur, systolic R01.1 Assessments Encounter Date Diagnosis (ICD Code) Assessment Notes Treatment Notes Treatment Clinical Notes Section Notes 12/16/2024 Heart murmur, systolic (ICD-10 - R01.1) Plan Of Treatment Pending Test Test Name Order Date ECHO 12/16/2024 Next Appt Details Provider Name:Amari Amaya ier, 08/24/2025 08:00:00 AM, [address] [place] [address], [address], [phone], Provider Name:Amari mcgee, 08/31/2025 02:30:00 PM, [address] [place] [address], [address], [phone], Progress Notes * Ismael FLETCHER TDOB:1965 (59 yo M)Acc No.[id number]:12/16/2024 Patient:?Ismael FLETCHER :1965???Age:59 Y???Sex:Male Address[facility], [place] [address] Subjective: * Chief Complaints: * ? echo * Medical History:? * Surgical History:? * Hospitalization/Major Diagno stic Procedure:? * Medications:? Objective: * Vitals:? * Physical Examination:? Assessment: * Assessment: 1.?Heart murmur, systolic - R01.1??? Plan: * Treatment: * Procedure Codes:? * true * Date:? Generated for Thania corey/Rayo/Melba on:?03/13/2025 04:00 PM EDT
--- OUTSIDE RECORDS SUMMARY | 2025-03-13 16:01 | XMS_ITS | Patient Health Record ---
Author Organization [facility] Address [address] [facility] [address] [place] [address] Care Team Providers Care Business Operations Consultant Name Role Phone Amari Albarado Primary Care Provider Unavailab le Allergies No Known Allergies Reason For Referral No Information Plan Of Treatment Pending Test Test Name Order Date WALKING BOOT PNEUMATIC AND/OR VAC 2022 Insurance Providers Payer Name Payer Address Payer Phone Subscriber Number Group Number Insured Name Patient Relationship to Insured Coverage Start Date Coverage End Date [employer] [address] [place] [address] [phone] [id number] Ismael Richardson Self - patient is the [...]
== END 2025-03-13 15:58 | disposition home or self-care (01) ==
LOC: HO.US 15:57
PROVIDERS: PCP Internal Medicine; Visit Provider Urology
DX: N50.89 Other specified disorders of the male genital organs (principal)
CPT/HCPCS: 76870

== ENCOUNTER → 2025-03-13 16:00 | Outpatient (BNV) | payer OTHER, SELFPAY | PROVIDERS: PCP Internal Medicine; Visit Provider Radiology Diagnostic Radiology | DX: N43.3 Hydrocele, unspecified (principal) | CPT/HCPCS: 76870; 93976 ==

== ENCOUNTER 2025-04-02 16:15 | Outpatient (AMB) | payer OTHER, SELFPAY ==
--- NOTE | 2025-04-02 16:15 | A.OFFVIS_ITS ---
Intake Visit Reasons: 8w/US Intake Note: Patient presents today via telehealth for 8 week follow up/US * Scrotum US 03/13 Urology Medication:none Blood Thinner:none Antibiotic Allergies:none Allergies No Known Allergies Allergy (Verified 04/02/25 16:16) HPI Comments Details: 04/02/25--FU scrotal US. 03/17/25--Right Hydrocele. Currently asymptomatic. Will monitor. 02/05/25--Ismael is a 59-year-old male who is here as a new patient evaluation for scrotal swelling. He denies scrotal pain. He denies irritative voiding symptoms. Review of chart PSA 08/22/2024 0.50 ng/mL. PFSH Medical History PAF (paroxysmal atrial fibrillation) Surgical History History of appendectomy History of kidney removal (~12/13/20) Family History Father No problems noted. Mother Heart attack Social History Substance Use Type: Marijuana Review of Systems Const All systems reviewed & are unremarkable except as noted in HPI and below Reports no additional complaints Eyes Reports no additional complaints ENT Reports no additional complaints Card Reports no additional complaints Resp Reports no additional complaints GI Reports no additional complaints Reports as per HPI Musc Reports no additional complaints Skin/Breast Reports system reviewed and no additional complaints, except as documented Neuro Reports no additional complaints Psych Reports no additional complaints Endo Reports no additional complaints Alvaro/Lymph Reports no additional complaints Aller/Immun Reports no additional complaints Telehealth Telehealth Telehealth Platform: [facility] Location of provider rendering services: practice address Location of patient: address on file Patient Identification confirmed using: Name, : Yes Telehealth method: video Patient verbally consented to treatment: Yes Patient verbally consented to billing insurance company: Yes Patient informed of any privacy concerns related to visit: Yes Results Reviewed Results Reviewed: Date of Service: 03/13/25 EXAMINATION: US SCROTUM HISTORY: N50.89 - HYDROCELE. COMPARISON: There are no prior studies for comparison. FINDINGS: Real-time grayscale ultrasound imaging of the scrotum was performed. RIGHT TESTICLE: The right testis measures 4.6 x 2.7 x 3.2 cm and demonstrates normal homogeneous echotexture. No masses are seen. The right testis demonstrates normal color Doppler flow. RIGHT EPIDIDYMIS: The right epididymal head is unremarkable. The remainder of the epididymis is not well visualized. LEFT TESTICLE: The left testis measures 4.3 x 2.6 x 2.7 cm and demonstrates normal homogeneous echotexture. No masses are seen. The left testis demonstrates normal color Doppler flow. LEFT EPIDIDYMIS: There is a 6 x 3 x 6 mm epididymal head cyst. The epididymal tail is not well visualized. VARICOCELE: None. HYDROCELE: There is a moderate-sized right hydrocele containing particulate echoes. OTHER COMMENTS: None. US/US scrotum IMPRESSION: Moderate right hydrocele. Assessment & Plan Assessment & Plan (1) Scrotal swelling: Code(s): N50.89 - Other specified disorders of the male genital organs Category: Medical (2) Hydrocele: Code(s): N43.3 - Hydrocele, unspecified Category: Medical Plan Ultrasound scrotum Patient Instructions: The patient had an opportunity to ask questions regarding treatment plan. The patient expressed understanding and agreement with the above treatment plan. The patient is aware they should contact our office by phone for worsening of their current condition or the appearance of new symptoms. Compliance is encouraged with any medications and followup testing that is ordered. It is a privilege to be allowed the opportunity to participate in the urologic care of your patient. If you have any questions or concerns regarding treatment for the above conditions please do not hesitate to contact me. The office telephone contact is [phone]. This note is constructed in part using voice recognition software. While every effort has been made to ensure accuracy pipeline integrity engineer errors may have been included. Yours sincerely, Zhen Martin MD Coding Level of Care Code Tele Est Pt Level 3 (00332) Diagnoses Scrotal swelling N50.89 Hydrocele N43.3
--- OUTSIDE RECORDS SUMMARY | 2025-04-02 18:15 | XMS_ITS ---
Author Organization [facility] Address [address] [address] Care Team Providers Care Talent Acquisition Sourcer Name Role Phone Amari Albarado Primary Care Provider Unavailab VERNELL Gan Unavailable [phone] REASON FOR VISIT 6-8wk Encounters Encounter Location Date Provider Diagnosis [facility] [address] [address] 10/02/2023 VERNELL SCHAEFFER Plan Of Treatment No Information Progress Notes * Chris FLETCHEROB:[birth year] (59 yo M)Acc No.[id number]:10/02/2023 Progress Note Patient:?Isamel FLETCHER Provider:?Vernell Camarillo DPM :1965???Age:57 Y???Sex:Male Jack e:10/02/2023 Phone: Address:[address] [place] [phone] Pcp:Amari Albarado Subjective: * Chief Complaints: * ???1. 6-8wk. * Medical History:? Objective: * Vitals:? Assessment: Plan: * Treatment: * Billing Information: * Visit Code:? * Procedure Codes:? * Electronic signature of Cesar GARRETTPSandrine on 04/02/2025 at 06:15 PM EDT Sign off status: Pending * Provider:?Vernell Camarillo DPM Date:?10/02 Generated for Printi ng/Facraigg/eTransmitting on:?04/02/2025 06:15 PM EDT
== END 2025-04-02 16:30 | disposition home or self-care (01) ==
LOC: HO.HUSH 16:15
PROVIDERS: PCP Internal Medicine; Visit Provider Urology
DX: N50.89 Other specified disorders of the male genital organs (principal); N43.3 Hydrocele, unspecified
CPT/HCPCS: 99213

== ENCOUNTER → 2025-04-02 16:15 | Outpatient (BNVA) | payer OTHER, SELFPAY | PROVIDERS: PCP Internal Medicine; Visit Provider Urology ==

== ENCOUNTER 2025-08-24 10:20 | Outpatient (REF) | payer OTHER, SELFPAY ==
--- OUTSIDE RECORDS SUMMARY | 2024-04-15 06:30 | XMS_ITS ---
Author Organization Amari Albarado MD Address [address] [place] [phone] Care Team Providers Care Classroom Assistant Name Role Phone Amari Albarado Primary Care Provider Allergies No Known Allergies REASON FOR VISIT sore throat , coughing and congested been going on for 2 weeks, Tested negative for Covid 04-14-24, Video [phone] Medications Medication SIG (Take, Route, Frequency, Duration) Notes Start Date End Date Status Zithromax Z-Darius 250 MG 2 tablet on the irst day, then 1 tablet daily for 4 days Orally Once a day for 5 day(s) 04/15/2024 Active Mucinex Sinus-Max 8-09-474-325 MG 2 tablets may be given every 4 hours as needed Orally Five times a day Active Vital Signs Height 75 in 04/15/2024 Weight 230 lbs 04/15/2024 BMI 28.74 kg/m2 04/15/2024 weight at home is 230 BP not taken at home no temp Encounters Encounter Location Date Provider Diagnosis Amari Albarado MD [address] [place] [phone] 04/15/2024 Amari Albarado Bronchitis J40 Assessments Encounter [...] for use Next Appt Details Provider Name:Amari Amaya ier, 08/31/2025 02:30:00 PM, [address] [facility], [address], [place], [place], [phone], Progress Notes * NACHOWilli FLORESn TDOB:1965 (58 yo M)Acc No.[id number]:04/15/2024 Patient: Ismael Bobby Provider: Starla Albarado MD :1965 A ge:58 Y S ex:Male Date:04/15/2024 Address:[address] [place], [place] [phone] Subjective: * Chief Complaints: * S ore throat , coughing and congested been going on for 2 weeksTested negative for Covid 3-64-20Dpbap [phone] * HPI: S ymptom(s): Telehealth L ocation of provider rendering services: 1 0 [facility], [address], ocation of patient: merritt ther (please specify) Work in [place], P atient identification confirmed using: N evelyn , SSN, Insurance information, T elehealth method: V ideo conference where patient is visible to the provider of care, C onsent: P atient verbally consented to treatment, Patient verbally consented to billing [...] stic Procedure: * Medications: T akingMucinex Sinus-Max 1-79-793-325 MG Tablet 2 tablets may be given every 4 hours as needed Orally Five times a dayMedication List reviewed and reconciled with the patientTaking Mucinex Sinus-Max 5-74-703-325 MG Tablet 2 tablets may be given [...] distress . Assessment: * Assessment: 1. B [facility] - J40 (Primary) Plan: * Treatment: * Procedure Codes: * * Sign off status: Completed true * Provider: Starla Albarado MD Date: 0 04/15/2024 Generated for Thania corey/Rayo/Melba on: 1 12:28 PM EDT History and Physical Notes * HPI (History of Present Illness) Category Sub-Category Detail Notes Category Not es Symptom(s) [facility] [address], [address] patient is a 58 yo male Video [facility] visit, complaining of coughing and sore throat for 2 weeks. feels like glands are swollen. tested negative for covid. Location of patient:: other (please spec camilla) Work in [place] Patient identification confi rmed using:: Name, , [...]
--- OUTSIDE RECORDS SUMMARY | 2024-08-22 03:45 | XMS_ITS ---
Author Organization Amari Albarado MD Address [address] [place], [place] [phone] Care Team Providers Care Chart Collector Name Role Phone Amari Albarado Primary Care Provider Results Component Value Reference Range Notes Complete Blood Count Auto Di ff Reviewed date:08/22/2024 01:43:32 PM Interpretation: Performing Lab:[facility], [address] [place] [phone] Notes/Report: White Blood Count 5.5 4.8-10.8 X10*3/uL [...] NRBC Abs Auto 0.000 0.0-0.012 X10*3/uL Comprehensive [place]. Panel Fa st Reviewed date:08/24/2024 03:58:24 PM Interpretation: Performing Lab:[facility], [address] [place] [phone] Notes/Report: Sodium 141 135-145 mmol/L Potassium 3.5 3.3-5.1 mmol/L Chloride 106 96-108 mmol/L Carbon Dioxide 27 22-29 mmol/L Anion Gap 12 12-20 Blood Urea Nitrogen 13 9-16 mg/dL Creatinine 1.30 0.5-1.4 mg/dL Estimated Glomerular Filt Rate 57 NOTE: For -Chinese individuals, multiply the result by 1.210. Chronic [...] Panel Reviewed date:08/22/2024 01:42:57 PM Interpretation: Performing Lab:[facility], [address] [place] [phone] Notes/Report: Triglycerides 105 <150 mg/dL Desirable Triglyceride: [...] (Free>4and<10) Reviewed date:08/23/2024 06:28:56 PM Interpretation: Performing Lab:[facility], [address] [place] [phone] Notes/Report: PSA,Total (Free>4and<10) 0.50 0.00-4.00 ng/mL A [...] Random Reviewed date:08/23/2024 12:57:47 PM Interpretation: Performing Lab:[facility], [address] [place] [phone] Notes/Report: Creatinine Urine 118.46 Microalbumin Urine 12.0 Microalbum/Creatinine Ratio Ur 10.1 <30 ug/mg cr Albumin/Creatinine Ratio Reference Ranges: Normal: < 30 ug/mg creatinine Microalbuminuria: 30 - 300 ug/mg creatinine Clinical Albuminuria: > 300 ug/mg creatinine Hemoglobin A1c Reviewed date:08/24/2024 03:54:32 PM Interpretation: Performing Lab:[facility], [address] [place] [phone] Notes/Report: Hemoglobin A1c % 5.6 <6.0 % [...] average glucose, using the formula of the G4M-Recoflg Average Glucose study (ADAG), Diabetes Care, Vol.31,#8, May. 2007 UA ClnCatch+Micro w/rflx Cul t Reviewed date:08/25/2024 06:22:43 PM Interpretation: Performing Lab:[facility], [address] [place] [phone] Notes/Report: Urine, Clean Catch Color Urine Yellow Appearance Urine Clear PH 6.0 5.0-9.0 Glucose Urine UA Negative Negative mg/dL Urine Blood Negative Negative Specific [place] - Urine 1.010 1.005-1.025 Urine Protein Negative [...] Date Provider Diagnosis Amari Albarado MD [address] [place], [place] [phone] 08/22/2024 Amari Albarado Blood tests for routine [...] Provider Name:Amari Amaya ier, 08/31/2025 02:30:00 PM, [address] [place] [address], [address], [place], [place], [phone], Progress Notes * Ismael FLETCHER TDOB:1965 (58 yo M)Acc No.[id number]:08/22/2024 Progress Note Patient: Ismael Bobby Provider: Starla Albarado MD :1965 A ge:58 Y S ex:Male Date:08/22/2024 Address:[address] [place], [place] [phone] Subjective: * Chief Complaints: * Y early [...] Blood Count Auto Diff L AB: Comprehensive [place]. Panel Fast L AB: Lipid Panel L AB: PSA,Total (Free>4and<10) L AB: Microalbumin, Random L AB: Hemoglobin A1c L AB: UA ClnCatch+Micro w/rflx Cult 3. L ow HDL (under 40) L AB: Complete Blood Count Auto Diff L AB: Comprehensive [place]. Panel Fast L AB: Lipid Panel L AB: PSA,Total (Free>4and<10) L AB: Microalbumin, Random L AB: Hemoglobin A1c L AB: UA ClnCatch+Micro w/rflx Cult * Immunizations: Fluarix Quadrivalent - 150 (Not administered - Refused: Patient decision) * Procedure Codes: 3 6415 VENIPUNCT, ROUTINE* * * Sign off status: Completed true * Provider: Starla Albarado MD Date: 1 Generated for Thania corey/Rayo/Melba on: 12:29 PM EDT
--- OUTSIDE RECORDS SUMMARY | 2024-08-29 09:00 | XMS_ITS ---
Author Organization Amari Albarado MD Address [address] [place], [place] [id number] Care Team Providers Care Licensed Weigher Name Role Phone Amari Albarado Primary Care [...] Location Date Provider Diagnosis Amari Albarado MD [address] [place] [address] [place] [phone] 08/29/2024 Amari Albarado Skin lesion of face [...] (ICD-10 - N28.89) going to go to [facility] 08/29/2024 REJI (obstructive sleep apnea) (ICD-10 [...] MADE AND FAXED TO DR MCCANN @ [facility] , WILL CHAECK ON APPT AFTER 2 WEEKS PER [facility] Annual physical exam labs reviewed and d iscused with patient Prediabetes keep weight down, st able, no need for medicatin at this time Family history of colon cancer had colon oscopy last year repeat in 2 years. Renal mass going to go to [facility] REJI (obstructive sleep apnea) is going t o go back to see sleep medicine Paroxysmal atrial fibrillation has not h ad any further episodes Colon cancer screening guaiac negative Depression screening negative screen Referrals Referral Date Details 08/29/2024 08/29/2024, SKIN LES ION OF FACE, [facility] Next Appt Details Follow Up: 1 Year, Reason: Provider Name:Amari justinr, 08/31/2025 02:30:00 PM, [address] [place] [address], [address], [place], [place], [phone], Progress Notes * Ismael FLETCHER TDOB:1965 (58 yo M)Acc No.[id number]:08/29/2024 Progress Notes Patient: Ismael Bobby Provider: Starla Albarado MD :1965 A ge:58 Y S ex:Male Date:08/29/2024 Address:[address] [place] [address], [facility] Subjective: * Chief Complaints: * A nnual [...] been doing well. has been to the reed maker. * ROS: G eneral/Constitutional: Patient denies f [...] 72 yrs, Healthy. M other: 62 yrs, [place]. 2 sister(s) . 2 son(s) . . Father- Mother- [place], Denies mental health/substance abuse family history, No pertinent family medical history, Denies mental health/substance abuse family history father was an alcoholic. * Social History: T obacco Use: T obacco Use/Smoking P atient is a n onsmoker, A dditional Findings: [...] Pets: dog. no Travel outside of the [place]. * Medications: N one * Allergies: [...] - X10*3/uL L ab:Lipid Panel (Order Date 08/22/2024) (Collection Date - 08/22/2024) Value Reference Range Triglycerides 105 <150 - mg/dL Cholesterol 197 <200 - mg/dL LDL Cholesterol Calculated 135 H <100 - mg/dL HDL Cholesterol 41 >40 - mg/dL L ab:PSA,Total (Free>4and<10) (Order Date 08/22/2024) (Collection Date - 08/22/2024) Value Reference Range PSA,Total (Free>4and<10) 0.50 0.00-4.00 - ng/ mL L ab:Microalbumin, Random (Order 08/22/2024) (Collection Date - 08/22/2024) Value Reference Range Creatinine Urine 118.46 - mg/dL Microalbumin Urine 12.0 - mg/L Microalbum Creatinine Ratio Ur 10.1 <30 - ug/ mg cr L ab:Hemoglobin A1c (Order Date 08/22/2024) (Collection Date - 08/22/2024) Value Reference Range Hemoglobin A1c % 5.6 <6.0 - % Estimated Average Glucose 114 - mg/dL L ab:UA ClnCatch+Micro w/rflx Cult (Order Date 08/22/2024) (Collection Date - 08/22/2024) Value Reference Range Color Urine Yellow - Appearance Urine Clear - PH 6.0 5.0-9.0 - Glucose Urine UA Negative Negative - mg/dL Urine Blood Negative Negative - Specific [place] - Urine 1.010 1.005-1.025 - Urine Protein [...] Urine 3-5 0-2 - /LPF L ab:Comprehensive [place]. Panel Fast (Order Date - 08/22/2024) (Collection [...] MADE AND FAXED TO DR MCCANN @ [facility] , WILL CHAECK ON APPT AFTER 2 WEEKS PER [facility] Referral To:[facility] Reason:SKIN LESION OF FACE 3. P rediabetes Notes: keep weight down, stable, no need for medicatin at this time 4. F amily history of colon cancer Notes: had colonoscopy last year repeat in 2 years. 5. R enal mass Notes: going to go to [facility] 6. O SA (obstructive sleep apnea) Notes: is going to go back to see sleep medicine 7. P aroxysmal atrial fibrillation Notes: has not had any further episodes 8. C olon cancer screening L AB: Occult Blood, Stool, Guaiac N egative Value Reference Range O ccult Blood, Stool, Guaiac Neg Notes: guaiac negative??9.?Depression screening? Notes: negative screen?? * Procedure Codes: 8 2826 TEST FOR BLOOD, FECES * Follow Up: 1 Year * * Sign off status: Completed true * Provider: Starla Albarado MD Date: 10/29/2023 Generated for Thania corey/Rayo/Melba on: 12:29 PM EDT History and Physical Notes * HPI (History of Present Illness) Category Sub-Category Detail Notes Category Not es Symptom(s) patient is a 58 yo male here for annual visit with review of recent labs and follow up of chronic issues. has been doing well. has been to the reed maker. Depression Screening PHQ-9 Little inte rest or [...] Referral Date Referring Provider Referred Provider Not myrna 08/29/2024 Amari Albarado, German SKIN LESI ON OF FACE
--- OUTSIDE RECORDS SUMMARY | 2024-11-07 09:45 | XMS_ITS ---
Author Organization Amari Albarado MD Address [address] [place], [place] [phone] Care Team Providers Care Millinery Designer Name Role Phone Amari Albarado Primary Care [...] in system for Echo order faxed to [facility] dept booked for 12-31-2024, Yohana Vasques [...] 02/05/2025 REASON FOR VISIT follow up from [facility] Sunday and [facility] on Sunday nite / for heart flutters, Went to the chiropractor feels much better Vital Signs Blood pressure systolic 148 mm Hg 11/07/19 25 Blood pressure diastolic 90 mm Hg 025 Height 75 in 11/07/2024 Weight 251 lbs 11/07/2024 BMI 31.37 kg/m2 11/07/2024 weight is up 7 pounds since 08-29-24 Encounters Encounter Location Date Provider Diagnosis Amari Albarado MD [address] [place], [place] [phone] 11/07/2024 Amari Albarado Intermittent palpitations R00.2 ; [...] (ICD-10 - N43.3) referral to urology at [facility] Plan Of Treatment Treatment Notes Assessment Notes Intermittent palpitations referral to dr carvajal Heart murmur, systolic get results of ca rdiology consult dr woodruff Right hydrocele referral to urology at [facility] Referrals Referral Date Details 11/07/2024 11/07/2024, intermit tent palpitations heart murmur, systolic, YASMINE VARUN 11/07/2024 11/07/2024, right hy drocele, [facility] Next Appt Details Provider Name:Amari Amaya ier, 08/31/2025 02:30:00 PM, [address], [address], [place], [place], [phone], Progress Notes * Ismael FLETCHER TDOB:1965 (59 yo M)Acc No.[id number]:11/07/2024 Progress Notes Patient: Ismael QUEZADA Provider: Starla Albarado MD :1965 A ge:58 Y S ex:Male Date:11/07/2024 Address:[facility] Subjective: * Chief Complaints: * 1 . follow up from [facility] Sunday and [facility] on Sunday nite / for heart [...] N ausea. * Medical History: c olonoscopy 2011 due in 5 years; colonoscopy 09/06/17 by [...] ight hydrocele Notes: referral to urology at [facility] Referral To:[facility] Reason:right hydrocele * * The named appointment provid er may or may not be the originator of this progress note, and it is not deemed complete until electronically signed by the appointment provider. Sign off status: Pending * Provider: Starla Albarado MD Date: 0 11/07/2024 Generated for Thania corey/Rayo/Mackitting on: 1 12:28 PM EDT History and [...] Referred Provider Not es 11/07/2024 Amari Albarado YASMINE daily ntermittent palpitations heart murmur, systolic 11/07/2024 Amari Albarado [facility] ydrocele
--- OUTSIDE RECORDS SUMMARY | 2024-12-01 07:46 | XMS_ITS ---
Author Organization Amari Albarado MD Address [address] [place] [phone] Care Team Providers Care Accredited Farm Manager Name Role Phone Amari Albaraod Primary Care Provider [phone] REASON FOR VISIT Medical Records Encounters Encounter Location Date Provider Diagnosis Amari Albarado MD [address] [place] [address] [place] [phone] 12/01/2024 Amari Albarado Plan Of Treatment Next Appt Details Provider Name:Amari Amaya ier, 08/31/2025 02:30:00 PM, [address] [place] [address], Suite [facility], [place], [place], [phone], Progress Notes * Ismael FLETCHER TDOB:1965 (59 yo M)Acc No.[id number]:12/01/2024 Patient: Ismael QUEZADA :1965 A ge:59 Y S ex:Male Address:[address] [place] [address] [address] , [place] [address] * Addendum: * true * Date: Generated for Printi leora/Rayo/eTransmitting on: 12:30 PM EDT
--- OUTSIDE RECORDS SUMMARY | 2024-12-16 07:55 | XMS_ITS ---
Author Organization Amari Albarado MD Address [address] [place] [phone] Care Team Providers Care Battery Filler Name Role Phone Amari Albarado Primary Care Provider [phone] REASON FOR VISIT ? echo Encounters Encounter Location Date Provider Diagnosis Amari Albarado MD [address] [place] [address] [place] [phone] 12/16/2024 Amari Albarado Heart murmur, systolic R01.1 Assessments Encounter Date Diagnosis (ICD Code) Assessment Notes Treatment Notes Treatment Clinical Notes Section Notes 12/16/2024 Heart murmur, systolic (ICD-10 - R01.1) Plan Of Treatment Pending Test Test Name Order Date ECHO 12/16/2024 Next Appt Details Provider Name:Amari Amaya ier, 08/31/2025 02:30:00 PM, [address] [facility], [address] [facility], [place], [place], [phone], Progress Notes * Ismael FLETCHER TDOB:1965 (59 yo M)Acc No.[id number]:12/16/2024 Patient: Ismael QUEZADA :1965 A ge:59 Y S ex:Male [facility] [address] , [place] [address] Subjective: * Chief Complaints: * ? echo * Medical History: * Surgical History: * Hospitalization/Major Diagno stic Procedure: * Medications: Objective: * Vitals: * Physical Examination: Assessment: * Assessment: 1. H eart murmur, systolic - R01.1 Plan: * Treatment: * Procedure Codes: * true * Date: Generated for Thania corey/Rayo/Mackitting on: 12:29 PM EDT
--- OUTSIDE RECORDS SUMMARY | 2025-08-24 04:00 | XMS_ITS ---
Author Organization Amari Albarado MD Address [address] [place], [place] [id number] Care Team Providers Care Switch Box Installer Name Role Phone Amari Albarado Primary Care Provider Results Component Value Reference Range Notes Complete Blood Count Auto Di ff (Not yet reviewed by provider) Interpretation: Performing Lab:[facility], [address] [place] [phone] Notes/Report: White Blood Count 6.8 4.8-10.8 X10*3/uL [...] Abs Auto 0.000 0.0-0.012 X10*3/uL Lipid Panel (Not yet reviewe d by provider) Interpretation: Performing Lab:[address] [address] Notes/Report: Triglycerides 114 <150 mg/dL Desirable Triglyceride: [...] in patients with liver disease. PSA,Total (Free>4and<10) (No t yet reviewed by provider) Interpretation: Performing Lab:[address] [phone] Notes/Report: PSA,Total (Free>4and<10) 0.51 0.00-4.00 ng/mL A [...] i Chemiluminescent Microparticle Immunoassay (CMIA) Microalbumin, Random (Not ye t reviewed by provider) Interpretation: Performing Lab:[address] [address] Notes/Report: Creatinine Urine 102.26 Microalbumin Urine 11.0 Microalbum/Creatinine Ratio Ur 10.7 <30 ug/mg cr Albumin/Creatinine Ratio Reference Ranges: Normal: < 30 ug/mg creatinine Microalbuminuria: 30 - 300 ug/mg creatinine Clinical Albuminuria: > 300 ug/mg creatinine Hemoglobin A1c (Not yet revi ewed by provider) Interpretation: Performing Lab:[address] [address] Notes/Report: Hemoglobin A1c % 5.9 <6.0 % [...] average glucose, using the formula of the T2R-Ixqydsb Average Glucose study (ADAG), Diabetes Care, Vol.31,#8, May. 2007 UA ClnCatch+Micro w/rflx Cul t (Not yet reviewed by provider) Interpretation: Performing Lab:[address] [address] Notes/Report: Urine, Clean Catch Color Urine Yellow Appearance Urine Clear PH 6.0 5.0-9.0 Glucose Urine UA Negative Negative mg/dL Urine Blood Trace Negative Specific [place] - Urine 1.015 1.005-1.025 Urine Protein Negative [...] Date Provider Diagnosis Amari Albarado MD [address] [place], [place] [id number] 08/24/2025 Amari Albarado Blood tests for routine [...] Treatment Pending Test Test Name Order Date Complete Blood Count Auto Diff Comprehensive [place]. Panel Fast Lipid Panel 08/24/2025 PSA,Total (Free>4and<10) 08/24/2025 Microalbumin, Random 08/24/2025 Hemoglobin A1c 08/24/2025 UA ClnCatch+Micro w/rflx Cult 08/24/2025 Next Appt Details Provider Name:Amari Amaya ier, 08/31/2025 02:30:00 PM, [address], [address], [place], [place], [id number], Progress Notes * Ismael FLETCHER TDOB:1965 (59 yo M)Acc No.[id number]:08/24/2025 Progress Note Patient: Ismael QUEZADA Provider: Starla Albarado MD :1965 A ge:59 Y S ex:Male Date:08/24/2025 Address:[address] [place] [address], [facility] Subjective: * Chief Complaints: * [...] Time - 08/24/2025 08:00 AM) L AB: Comprehensive [place]. Panel Fast L AB: Lipid Panel (Collection Date & [...] Time - 08/24/2025 08:00 AM) L AB: Comprehensive [place]. Panel Fast L AB: Lipid Panel (Collection Date & [...]
[2025-08-24 10:23] LABS: MANUAL DIFF FLAG NO
[2025-08-24 10:43] LABS: Hematocrit 43.8 % (42.0-52.0); Hemoglobin 14.4 g/dl (14.0-18.0); Imm Gran Abs Auto 0.02 X10*3/uL (0.00-0.03); Imm Gran Pct Auto 0.3 % (0.0-0.4); Lymphocytes Absolute Auto 2.2 X10*3/uL (1.2-4.9); Mean Corpuscular HGB Conc 32.9 g/dl (31.0-36.0); Mean Corpuscular Hemoglobin 28.3 pg (27.0-33.0); Mean Corpuscular Volume 86.1 fL (80.0-98.0); NRBC Abs Auto 0.000 X10*3/uL (0.0-0.012); NRBC Pct Auto 0.0 /100WBC (0.0-0.2); Platelet Count 263 X10*3/uL (160-400); Red Blood Count 5.09 X10*6/uL (4.60-5.80); White Blood Count 6.8 X10*3/uL (4.8-10.8)
[2025-08-24 10:48] LABS: Appearance Urine Clear; Glucose Urine UA Negative (Negative); PH 6.0 (5.0-9.0); Specific Gravity - Urine 1.015 (1.005-1.025); UMIC TRIGGER UACC YES
[2025-08-24 10:57] LABS: Alanine Aminotransferase 31 U/L (0-40); Albumin Level 4.5 g/dL (3.5-5.0); Alkaline Phosphatase 63 U/L (39-117); Anion Gap 12 (12-20); Aspartate Amino Transferase 26 U/L (5-37); Blood Urea Nitrogen 17 mg/dL (9-16); Calcium 8.7 mg/dL (8.4-10.2); Carbon Dioxide 28 mmol/L (22-29); Chloride 107 mmol/L (96-108); Cholesterol 202 mg/dL (<200); Estimated Glomerular Filt Rate > 60; HDL Cholesterol 44 mg/dL (>40); Potassium 4.0 mmol/L (3.3-5.1); Sodium 143 mmol/L (135-145); Total Protein 6.9 g/dL (6.5-8.0); Triglycerides 114 mg/dL (<150)
[2025-08-24 11:01] LABS: Hemoglobin A1C 150.6699 umol/L
[2025-08-24 11:14] LABS: PSA,Total (Free>4and<10) 0.51 ng/mL (0.00-4.00)
[2025-08-24 11:20] LABS: Microalbum/Creatinine Ratio Ur 10.7 ug/mg cr (<30)
--- OUTSIDE RECORDS SUMMARY | 2025-08-24 12:29 | XMS_ITS | Clinical Summary ---
Author Organization [facility] Address [address] [place] [address] Care Team Providers Care Table Games Supervisor Name Role Phone Amari Albarado Primary Care Provider [phone] Allergies No known active allergies Medications No [...] 75 11/03/2024 2:02 AM EST Temperature 36.7 C (98.1 F) 11/03/2024 12:51 AM EST Respiratory Rate 21 11/03/2024 2:02 AM EST [...] 2015 Alcohol/Substance Use Screening 10/29/2024 Influenza Vaccine (#1) 2025 3, 08/14/2022, 08/18/2021, Additional history exists Diabetes Screening 11/02/2027 11/02/2024, 11/02/2024 RSV Vaccine (60+ years old a nd patients) (1 - 1-dose 75+ series) 2040 Procedures * Due to [place] Sgr[place] law, this organization might not be sharing negative HIV tests. Procedure Name Priority Date/Time Associated Diagnosis Comments BASIC METABOLIC PANEL STAT 11/02/2024 8:49 PM EST from Last 3 Months or Most Recently Relevant to Health Maintenance Results * Due to [place] S[place] law, this organization might not be sharing negative HIV tests. * (ABNORMAL) Basic Metabolic Panel (11/02/2024 8:49 PM EST) NA 139 135 - 145 mmol/L 11/02/2024 9:33 PM EST [facility] K 4.2 3.5 - 5.3 mmol/L 11/02/2024 9:33 PM EST [facility] Comment:1+ hemolysis, result may be falsely increased Cl 104 98 - 107 mmol/L 11/02/2024 9:33 PM EST [facility] CO2 20(L) 22 - 32 mmol/L 11/02/2024 9:33 PM EST [facility] BUN 16 7 - 23 mg/dL 11/02/2024 9:33 PM EST [facility] Creatinine 1.16 0.60 - 1.30 mg/dL 11/02/2024 9:33 PM EST [facility] Glucose 130(H) 65 - 99 mg/dL 11/02/2024 9:33 PM EST [facility] Calcium 9.4 8.6 - 10.5 mg/dL 11/02/2024 9:33 PM EST [facility] Anion Gap 15 5 - 15 11/02/2024 9:33 PM EST [facility] eGFR 73 >=60 mL/min/1. 73m2 11/02/2024 9:33 PM EST [facility] Comment:The estimated glomer ular [...] MD LAB BLOOD ORDERABLES Final Res ult [facility] [address] [place] [address], from Last 3 Months or Most Recently Relevant to Health Maintenance Insurance [employer] PPO/EPO/IND Care Teams Table Games Supervisor Relationship Specialty Start Date End Date Per Amari [address] [place] [address] [place] [address] PCP - General Internal Medicine 11/02/24
--- OUTSIDE RECORDS SUMMARY | 2025-08-24 12:29 | XMS_ITS | Encounter Summary ---
Author Organization [facility] Address [address] [facility] [address] [place] [address] Phone Care Team Providers Care Educational Guidance Counselor Name Role Phone Self-Referred, Patient Unavailable Unavailab German Richard MD, MPH Unavailable [phone] Amari Albarado MD Primary Care Provider Encounter Details Date Type Department Care Team (Late st Contact Info) Description 12/13/2020 Procedure Pass [facility] Periop [address] [place] [address] Social History Tobacco Use Types Packs/Day Years Used Date Smoking Tobacco: Never Smokeless Tobacco: Never Alcohol Use Standard Drinks/Week Comments Yes 6 (1 standard drink = 0.6 oz pur e alcohol) Sex and Gender Information Value Date Recorded Sex Assigned at Male 11/28/2020 3:18 PM EST Legal Sex Male 4:19 PM EST Gender Identity Male 11/28/2020 3:18 PM EST Sexual Orientation Straight 11/28/2020 3: 18 PM EST documented as of this encounter Plan of Treatment Not on file documented as of this encounter Visit Diagnoses Not on filedocumented in this encounter Care Teams Educational Guidance Counselor Relationship Specialty Start Date End Date Amari Albarado MD [address] [place] [address] [place] [address] PCP - General Internal Medicine 11/29/20 Self-Referred, Patient 11/25/20 German Pena MD, MPH [address] [place] [phone] [email or web address] Primary Oncologist Urology 11/25/20 documented as of this encounter Additional Source Comments The information contained in this document represents components of the legal health record. It is not the complete legal health record.[facility]
--- OUTSIDE RECORDS SUMMARY | 2025-08-24 12:29 | XMS_ITS | Encounter Summary ---
Author Organization [facility] Address [address] [facility] [address] [place] [address] Phone Care Team Providers Care Sign Writer Hand Name Role Phone Self-Referred, Patient Unavailable Unavailab German Richard MD, MPH Unavailable [phone] Amari Albarado MD Primary Care Provider Encounter Details Date Type Department Care Team (Late st Contact Info) Description 12/27/2020 Procedure Pass [facility] [address] [place] [address] Social History Tobacco Use Types Packs/Day Years [...] on filedocumented in this encounter Care Teams Sign Writer Hand Relationship Specialty Start Date End Date Amari Albarado MD [address] [place] [address] [place] [address] PCP - General Internal Medicine 11/29/20 Self-Referred, Patient 11/25/20 German Pena MD, MPH [address] [place] [address] [place] [phone] [email or web address] Primary Oncologist Urology 11/25/20 documented as of this encounter Additional Source Comments The information contained in this document represents components of the legal health record. It is not the complete legal health record.[facility]
--- OUTSIDE RECORDS SUMMARY | 2025-08-24 12:29 | XMS_ITS | Encounter Summary ---
Author Organization [facility] Address [address] [facility] [address] [place] [address] Phone Care Team Providers Care Airport Ramp Attendant Name Role Phone Self-Referred, Patient Unavailable Unavailab German Richard MD, MPH Unavailable [phone] Amari Albarado MD Primary Care Provider Encounter Details Date Type Department Care Team (Late st Contact Info) Description 06/30/2021 Procedure Pass [facility] [address] [place] [address] Social History Tobacco Use Types Packs/Day Years [...] on filedocumented in this encounter Care Teams Airport Ramp Attendant Relationship Specialty Start Date End Date Amari Albarado MD [address] [place] [address] [place] [address] PCP - General Internal Medicine 11/29/20 Self-Referred, Patient 11/25/20 German Pena MD, MPH [address] [place] [address] [place] [address] [email or web address] Primary Oncologist Urology 11/25/20 documented as of this encounter Additional Source Comments The information contained in this document represents components of the legal health record. It is not the complete legal health record.[facility]
--- OUTSIDE RECORDS SUMMARY | 2025-08-24 12:30 | XMS_ITS | Patient Health Record ---
Author Organization [facility] Address [address] [facility] [address] [place] [address] Care Team Providers Care Refinery Operator Helper Crude Unit Name Role Phone Amari Albarado Primary Care Provider Unavailab le Allergies No Known Allergies Reason For Referral No Information Plan Of Treatment Pending Test Test Name Order Date WALKING BOOT PNEUMATIC AND/OR VAC 2022 Insurance Providers Payer Name Payer Address Payer Phone Subscriber Number Group Number Insured Name Patient Relationship to Insured Coverage Start Date [facility]age End Date [facility] [address] [place] [address] [phone] [id number] Ismael Richardson Self - patient is the [...]
--- OUTSIDE RECORDS SUMMARY | 2025-08-24 12:30 | XMS_ITS | Encounter Summary ---
Author Organization [facility] Address [address] [facility] [address] [place] [address] Phone Care Team Providers Care Metal Furniture Polisher Name Role Phone Self-Referred, Patient Unavailable Unavailab German Richard MD, MPH Unavailable [phone] Amari Albarado MD Primary Care Provider Encounter Details Date Type Department Care Team (Late st Contact Info) Description 12/07/2020 Prep for Surgery [facility] Urology [address] [place], [place] [address] [place] [address] German Pena MD, MPH [address] [facility] [address] [place] [address] [email or web address] Social History Tobacco Use Types Packs/Day Years Used Date Smoking Tobacco: Never Assessed Sex and Gender Information Value Date Recorded Sex Assigned at Male 11/28/2020 3:18 PM EST Legal Sex Male 4:19 PM EST Gender Identity Male 11/28/2020 3:18 PM EST Sexual Orientation Straight 11/28/2020 3: 18 PM EST documented as of this encounter Plan of Treatment Not on file documented as of this encounter Visit Diagnoses Not on filedocumented in this encounter Care Teams Metal Furniture Polisher Relationship Specialty Start Date End Date Amari Albarado MD [address] [place] [address] [place] [address] PCP - General Internal Medicine 11/29/20 Self-Referred, Patient 11/25/20 German Pena MD, MPH [address] [place] [address] [address] [place] [address] [email or web address] Primary Oncologist Urology 11/25/20 documented as of this encounter Additional Source Comments The information contained in this document represents components of the legal health record. It is not the complete legal health record.[facility]
--- OUTSIDE RECORDS SUMMARY | 2025-08-24 12:30 | XMS_ITS | Clinical Summary ---
Author Organization [facility] Address [address] [facility] [address] [place] [address] Phone Care Team Providers Care Technology Resource Teacher Name Role Phone Self-Referred, Patient Unavailable Unavailab German Richard MD, MPH Unavailable [phone] Amari Albarado MD Primary Care Provider Allergies No known active allergies Medications polyethylene glycol (MIRALAX) 17 gram packet Take 17 g by mouth daily as needed. 15 packet 1 Active oxyCODONE 5 MG immediate release tablet Take 1 tablet (5 mg total) by mouth every 4 (four) hours as needed. Pt. may request partial fill 5 tablet 1 Active Additional Information Patient not taking.Reported on 06/30/2021 Active Problems Problem Noted Date Diagnosed Date Renal mass 12/12/2020 Urothelial carcinoma of kidney, right 2020 Social History Tobacco Use Types Packs/Day Years Used Date Smoking Tobacco: Never Smokeless Tobacco: Never Alcohol Use Standard Drinks/Week Comments Yes 6 (1 standard drink = 0.6 oz pur e alcohol) Education Answer Date Recorded Are you interested in more education? Not on greg e 02/23/2023 Are you concerned about learning? Not on file 02/23/2023 No 02/23/2023 No 02/23/2023 Digital Access Answer Date Recorded No 03/24/2023 No 03/24/2023 Reliable internet access at home? Not on file 03/24/2023 Device with a working camera? Not on file Sex and Gender Information Value Date Recorded Sex Assigned at Male 11/28/2020 3:18 PM EST Legal Sex Male 4:19 PM EST Gender Identity Male 11/28/2020 3:18 PM EST Sexual Orientation Straight 11/28/2020 3: 18 PM EST Last Filed Vital Signs Vital Sign Reading Time Taken Comments Blood Pressure 157/81 05/29/2022 12:55 PM EDT Pulse 79 05/29/2022 12:55 PM EDT Temperature 37.2 C (99 F) 12/16/2020 7:31 AM EST Respiratory Rate 18 12/16/2020 7:31 AM EST Oxygen Saturation 94% 12/16/2020 7:31 AM EST Inhaled Oxygen Concentration - - Weight 108.9 kg (240 lb) 05/29/2022 12:55 PM EDT Height 189.2 cm (6' 2.49 ) 05/29/2022 12:55 PM E DT Body Mass Index 30.41 05/29/2022 12:55 PM EDT Plan of Treatment Health Maintenance Due Date Last Done Comments Adult Td,Tdap Booster 1965 LIPID PANEL 1965 DEPRESSION SCREENING 1977 HEPATITIS C SCREENING 1983 HIV ONE-TIME SCREENING (18-6 5 YEARS) 1983 PNEUMOCOCCAL VACCINES (50+ years) (1 of 2 - PCV) 1984 ZOSTER VACCINES (1 of 2) 1984 COLOGUARD 2010 COLONOSCOPY 2010 COLORECTAL CANCER SCREENING 2010 FIT TEST 2010 FOBT 2010 SIGMOIDOSCOPY 2010 VIRTUAL COLONOSCOPY 2010 INFLUENZA VACCINE (#1) 2025 , 07/30/2020, 08/04/2019 COVID-19 VACCINE (3 - 2024-2 6 season) 2025 03/31/2021, 03/02/2021 RSV VACCINE (1 - 1-dose 75+ series) 2040 SMOKING STATUS SCREENING (On ce After 26 Yrs) Completed 05/29/2022 HEPATITIS A VACCINES Aged Out No long er eligible based on patient's age to complete this topic HIB VACCINES Aged Out No longer eligi ble based on patient's age to complete this topic MENINGOCOCCAL VACCINES (ACWY) Aged Out No longer eligible based on patient's age to complete this topic MENINGOCOCCAL VACCINES (B) Aged Out N o longer eligible based on patient's age to complete this topic Medical Devices Not on file Insurance CIGNA PPO CIGNA PPO CIGNA PPO CIGNA PPO CIGNA PPO CIGNA PPO CIGNA PPO CIGNA PPO CIGNA PPO Advance Directives For more information, please contact: [phone] (9AM - 5PM [facility], Sunday-Sunday) * Full Code (Latest Code Status on File) Date Activated Date Inactivated Comments 12/12/2020 8:53 PM Question Answer Comments Code Status Confirmed With: Other (specify below ) Code Discussion Comments: Having surgery 2 Care Teams Technology Resource Teacher Relationship Specialty Start Date End Date Amari Albarado MD [address] [place] [address] [place] [address] PCP - General Internal Medicine 11/29/20 Self-Referred, Patient 11/25/20 German Pena MD, MPH [address] [place] [phone] [email or web address] Primary Oncologist Urology 11/25/20 Additional Source Comments The information contained in this document represents components of the legal health record. It is not the complete legal health record.[facility]
--- OUTSIDE RECORDS SUMMARY | 2025-08-24 12:30 | XMS_ITS | Encounter Summary ---
Author Organization [facility] Address [address] [facility] [address] [place] [address] Phone Care Team Providers Care Pullman Car Clerk Name Role Phone Self-Referred, Patient Unavailable Unavailab German Richard MD, MPH Unavailable [phone] Amari Albarado MD Primary Care Provider Encounter Details Date Type Department Care Team (Late st Contact Info) Description 12/12/2020 Procedure Pass [facility] [address] [place] [address] Social History Tobacco Use Types Packs/Day Years [...] PM EST documented as of this encounter Functional Status * Calculated C-SSRS Risk Score (Lifetime/Recent) Answer Date of Assessment Author No Risk Indicated 12/12/2020 8:32 PM Catherine Mccurdy RN * [place] Suicide Severity Rating Scale (Screener/Recent Self-Report) Question Answer Date of Assessment Author 1. Wish to be (Past 1 Month) No 021 8:32 PM Catherine Mccurdy RN 2. Non-Specific Active Suici mata Thoughts (Past 1 Month) No 12/12/2020 8:32 PM Catherine Mccurdy, JOHN 6. Suicidal Behavior (Lifetime) No 1 8:32 PM Catherine Mccurdy RN documented as of this encounter Plan of Treatment Not on file documented as of this encounter Visit Diagnoses Not on filedocumented in this encounter Care Teams Pullman Car Clerk Relationship Specialty Start Date End Date Amari Albarado MD [address] [place] [address] [place] [address] PCP - General Internal Medicine 11/29/20 Self-Referred, Patient 11/25/20 German Pena MD, MPH [address] [place] [phone] [email or web address] Primary Oncologist Urology 11/25/20 documented as of this encounter Additional Source Comments The information contained in this document represents components of the legal health record. It is not the complete legal health record.[facility]
--- OUTSIDE RECORDS SUMMARY | 2025-08-24 12:30 | XMS_ITS | Clinical Summary ---
Author Organization [facility] it Address [address] [place] [address] Care Team Providers Care Glass Bender Name Role Phone Amari Albarado MD Primary Care Provider [phone] Social History Tobacco Use Types Packs/Day Years [...] Health Maintenance Due Date Last Done Comments Colorectal Cancer Screening: Colonoscopy 1965 DTaP,Tdap,and Td Vaccines (1 - Tdap) 1984 Hepatitis B Vaccines (1 of 3 - 19+ 3-dose series) 1984 Pneumococcal Vaccine: 50+ Years (1 of 1 - PCV) 2015 Zoster Vaccines (1 of 2) 2015 Cholesterol Screening (Lipid Panel) 10/01/2022 HIV Screening 10/01/2022 Hepatitis C Screening 10/01/2022 Social Influencers of Health Screening 10/01/2022 Depression Screening 10/29/2024 COVID-19 Vaccine (1 - 2023-2 5 season) 2025 Influenza Vaccine (#1) 2025 , 08/04/2019 RSV Immunization Adult Patients (1 [...] age to complete this topic Care Teams Glass Bender Relationship Specialty Start Date End Date Amari Albarado MD PCP - General Internal Medicine 08/07/22
--- OUTSIDE RECORDS SUMMARY | 2025-08-24 12:30 | XMS_ITS | Patient Health Record ---
Author Organization Amari Albarado MD Address [address] [place], [place] [id number] Care Team Providers Care Scoop Machine Operator Name Role Phone Amari Albarado Primary Care Provider [phone] Allergies No Known Allergies Results Component Value Reference Range Notes Complete Blood Count Auto Di ff (Not yet reviewed by provider) Interpretation: Performing Lab:[facility] [place], [address] [place] [phone] Notes/Report: White Blood Count 6.8 4.8-10.8 X10*3/uL [...] yet reviewe d by provider) Interpretation: Performing Lab:[address] [address] Notes/Report: Triglycerides 114 <150 mg/dL Desirable Triglyceride: [...] t yet reviewed by provider) Interpretation: Performing Lab:[address] [address] Notes/Report: PSA,Total (Free>4and<10) 0.51 0.00-4.00 ng/mL A [...] ye t reviewed by provider) Interpretation: Performing Lab:[address] [address] Notes/Report: Creatinine Urine 102.26 Microalbumin Urine 11.0 Microalbum/Creatinine Ratio Ur 10.7 <30 ug/mg cr Albumin/Creatinine Ratio Reference Ranges: Normal: < 30 ug/mg creatinine Microalbuminuria: 30 - 300 ug/mg creatinine Clinical Albuminuria: > 300 ug/mg creatinine Hemoglobin A1c (Not yet revi ewed by provider) Interpretation: Performing Lab:[address] [address] Notes/Report: Hemoglobin A1c % 5.9 <6.0 % [...] average glucose, using the formula of the [id number]-[id number] Average Glucose study (ADAG), Diabetes Care, Vol.31,#8, May. 2007 UA ClnCatch+Micro w/rflx Cul t (Not yet reviewed by provider) Interpretation: Performing Lab:[address] [address] Notes/Report: Urine, Clean Catch Color Urine Yellow Appearance Urine Clear PH 6.0 5.0-9.0 Glucose Urine UA Negative Negative mg/dL Urine Blood Trace Negative Specific [place] - Urine 1.015 1.005-1.025 Urine Protein Negative Neg-Trace mg/dL Urine Ketones Negative Negative mg/dL Nitrite Urine Negative Negative Leukocyte Esterase Urine Negative Negative RBC Urine 0-2 0-2 /HPF WBC Urine 0-5 0-5 /HPF Squamous Epithelial Cell Urine 0-2 0-2 /HPF Bacteria Urine None Seen None Seen Hyaline Casts Urine 0-2 0-2 /LPF Occult Blood, Stool, Guaiac Reviewed date:08/29/2024 01:51:42 PM Interpretation:Negative Performing Lab: Notes/Report: Negative Occult Blood, Stool, Guaiac Neg Complete Blood Count Auto Di ff Reviewed date:11/02/2024 06:30:08 PM Interpretation: Performing Lab:[facility] [place], [address] [place] [phone] Notes/Report: White Blood Count 6.7 4.8-10.8 X10*3/uL [...] INR Reviewed date:11/02/2024 06:18:05 PM Interpretation: Performing Lab:[facility] [place], [address] [place] [phone] Notes/Report: Prothrombin Time 10.9 10.9-12.4 SEC INTERNATIONAL [...] Panel Reviewed date:11/02/2024 06:30:35 PM Interpretation: Performing Lab:[facility] [place], [address] [place] [phone] Notes/Report: Sodium 140 135-145 mmol/L Potassium 4.1 [...] Sensitivity Reviewed date:11/02/2024 06:17:46 PM Interpretation: Performing Lab:[facility] [place], [address] [place] [phone] Notes/Report: Troponin-I High Sensitivity 8.3 <3.5-35.0 ng/L The Andrade high sensitivity Troponin-I results should be used in conjunction with other diagnostic information such as ECG, clinical observations and information, and patient symptoms to aid in the diagnosis of [place]. B Type Natriuretic Peptide Reviewed date:11/02/2024 06:28:53 PM Interpretation: Performing Lab:[facility] [place], [address] [place] [phone] Notes/Report: B Type Natriuretic Peptide 63 <100 pg/mL For those patients who are being treated with Natrecor (nesiritide, recombinant BNP), BNP testing should be performed at least two hours post treatment in order to ensure that only endogenous levels of BNP are detected. SARS-CoV2/FLU/RSV Reviewed date:11/02/2024 06:17:54 PM Interpretation: Performing Lab:[facility] [place], [address] [place] [phone] Notes/Report: Influenza A PCR NEGATIVE Negative Influenza [...] by authorized laboratories. Testing performed on the iNEWiT GeneXpert utilizing real-time RT-PCR. All SARS CoV2 and positive influenza A/B results are reported to [facility]. XR chest 2V Reviewed date:10/31/2024 04:57:02 PM Interpretation: Performing Lab: Notes/Report: [address] [address] XRay Report Signed Patient: Ismael Fletcher MR#: [id number] : 1965 Acct:[id number] Age/Sex: 58 / M ADM Date: 10/31/24 Loc: .ED Attending Dr: Ordering Physician: Alexus Del Valle NP Date of Service: 10/31/24 Procedure(s): XR chest 2V Accession Number(s): [id number] cc: Amari Albarado MD; Alexus Del Valle NP EXAMINATION: XR CHEST CLINICAL INFORMATION: shortenss of breath COMPARISON: None available. TECHNIQUE: 2 views of the chest were obtained. FINDINGS: No significant abnormality is noted involving the heart, lungs, mediastinum, bony thorax or soft tissues. XR/XR chest 2V IMPRESSION: Unremarkable chest examination. Electronically signed by: Rambo Cohen MD 10/31/2024 04:50 PM EST Dictated By: Rambo Cohen MD Signed By: <Electronically signed by Rambo Cohen MD in OV> 10/31/24 1650 DD/ 1600 TD/TT: 10/31/24 1605 Business Continuity Planner: [address] [address] XRay Report Signed Patient: Ismael Fletcher MR#: [id number] : 1965 Acct:[id number] Age/Sex: 58 / M ADM Date: 10/31/24 Loc: .ED Attending Dr: Ordering Physician: Alexus Del Valle NP Date of Service: 10/31/24 Procedure(s): XR mirta st 2V Accession Number(s): [id number] cc: Amari Albarado MD; Alexus Del Valle NP EXAMINATION: XR CHEST CLINICAL INFORMATION: shortenss of breath COMPARISON: None available. TECHNIQUE: 2 views of the chest were obtained. FINDINGS: No significant abnormality is noted involving the heart, lungs, mediastinum, bony thorax or soft tissues. XR/XR chest 2V IMPRESSION: Unremarkable chest examination. Electronically mele d by: Rambo Cohen MD 10/31/2024 04:50 PM [facility] Dictated By: Rambo Cohen MD Signed By: <Electronically signed by Rambo Cohen MD in OV> 10/31/24 1650 DD/ 1600 TD/TT: 10/31/24 1605 Business Continuity Planner: [facility] [place] scrotum Reviewed date:03/16/2025 12:29:24 PM Interpretation: Performing Lab: Notes/Report: [address] [address] Ultrasound Report Signed Patient: Ismael Fletcher MR#: [id number] : 1965 Acct:[id number] Age/Sex: 59 / M ADM Date: 03/13/25 Loc: .US Attending Dr: Zhen Martin MD Ordering Physician: Zhen Martin MD Date of Service: 03/13/25 Procedure(s): US scrotum Accession Number(s): [id number] cc: Zhen Martin MD; Amari Albarado MD EXAMINATION: US SCROTUM HISTORY: N50.89 - HYDROCELE. COMPARISON: There are no prior studies for comparison. FINDINGS: Real-time grayscale ultrasound imaging of the scrotum was performed. RIGHT TESTICLE: The right testis measures 4.6 x 2.7 x 3.2 cm and demonstrates normal homogeneous echotexture. No masses are seen. The right testis demonstrates normal color Doppler flow. RIGHT EPIDIDYMIS: The right epididymal head is unremarkable. The remainder of the epididymis is not well visualized. LEFT TESTICLE: The left testis measures 4.3 x 2.6 x 2.7 cm and demonstrates normal homogeneous echotexture. No masses are seen. The left testis demonstrates normal color Doppler flow. LEFT EPIDIDYMIS: There is a 6 x 3 x 6 mm epididymal head cyst. The epididymal tail is not well visualized. VARICOCELE: None. HYDROCELE: There is a moderate-sized right hydrocele containing particulate echoes. OTHER COMMENTS: None. US/US scrotum IMPRESSION: Moderate right hydrocele. Electronically signed by: Zach Benitez MD 03/16/2025 07:16 AM EDT Dictated By: Zach Benitez MD Signed By: <Electronically signed by Zach Benitez MD in OV> 03/16/25 0716 DD/ 1609 TD/TT: 03/13/25 1616 Business Continuity Planner: [place] [address] Ultrasound Report Signed Patient: Ismael Fletcher MR#: [id number] : 1965 Acct:[id number] Age/Sex: 59 / M ADM Date: 03/13/25 Loc: .US Attending Dr: Zhen Martin MD Ordering Physician: Zhen Martin MD Date of Service: 03/13/25 Procedure(s): US scrotum Accession Number(s): [id number] cc: Zhen Martin MD; Amari Albarado MD EXAMINATION: US SCROTUM HISTORY: N50.89 - HYDROCELE. COMPARISON: There ar e no prior studies for comparison. FINDINGS: Real-time grayscale ultrasound imaging of the scrotum was performed. RIGHT TESTICLE: The right testis measures 4.6 x 2.7 x 3.2 cm and demonstrates normal homogeneous echotexture. No masses are seen. The right testis demonstrates normal color Doppler flow. RIGHT EPIDIDYMIS: Th e right epididymal head is unremarkable. The remainder of the epididymis is not well visualized. LEFT TESTICLE: The left testis measures 4.3 x 2.6 x 2.7 cm and demonstrates normal homogeneous echotexture. No masses are seen. The left testis demonstrates normal color Doppler flow. LEFT EPIDIDYMIS: The re is a 6 x 3 x 6 mm epididymal head cyst. The epididymal tail is n ot well visualized. VARICOCELE: None. HYDROCELE: There is a moderate-sized right hydrocele containing particulate echoes. OTHER COMMENTS: None. __ US/US scrotum IMPRESSION: Moderate right hydrocele. Electronically mele d by: Zach Benitez MD 03/16/2025 07:16 AM EDT RP Dictated By: Zach Benitez MD Signed By: <Electronically signed by Zach Benitez MD in OV> 03/16/25 0716 DD/ 1609 TD/TT: 03/13/25 1616 Business Continuity Planner: Comprehensive Met. Panel (No t yet reviewed by provider) Interpretation: Performing Lab:[facility] [place], [address] [place] [phone] Notes/Report: Sodium 143 135-145 mmol/L Potassium 4.0 3.3-5.1 mmol/L Chloride 107 96-108 mmol/L Carbon Dioxide 28 22-29 mmol/L Anion Gap 12 12-20 Blood Urea Nitrogen 17 9-16 mg/dL Creatinine 1.16 0.5-1.4 mg/dL Estimated Glomerular Filt Rate > 60 Chronic Kidney Disease: Estimated GFR < 60 mL/min/1.73m2 Severe Kidney Disease: Estimated GFR < 15 mL/min/1.73m2 Glucose Random 110 60-115 mg/dL Calcium 8.7 8.4-10.2 mg/dL Bilirubin Total 0.4 0.0-1.0 mg/dL Aspartate Amino Transferase 26 5-37 U/L Alanine Aminotransferase 31 0-40 U/L Total Protein 6.9 6.5-8.0 g/dL Albumin Level 4.5 3.5-5.0 g/dL Alkaline Phosphatase 63 39-117 U/L Reason For Referral Reason SKIN LESION OF [...] EST > SCHEDULED FOR APPT 10/20 AT10:30AM, AlexisNetoMorenoCheloDaily A 11/03/2024 01:12:49 PM EST > OFFICE NOTE [...] in system for Echo [place] [facility] for 12-31-2024, Yohana Vasques 01/06/2025 10:31:00 AM >was told by office appt is being worked on Referral Priority Routine Referral Appointment Date 01/28/2025 Reason right hydrocele Diagnosis 1 Right hydrocele (N43 .3) Referral Organization Amari Albarado MD Referring Provider First Name Amari Referring Provider Last Name Per Referring Provider Speciality Internal edicine Referred Provider Anish Mtz Referred Provider [...] Problem Status W/U Status Risk Notes Problem 608939912 Paroxysmal atria l fibrillation (I48.0) Active confirmed Problem 326370585 Chronic sinusitis, unspecified (J32.9) Active confirmed Problem 50538744 Rectal polyp (K62.1) Active confirmed Problem 8550453 Prediabetes (R73.09) Active confirmed Problem 057191992 Low HDL (under 40) (E78.6) Active confirmed Problem 66339364 Intrinsic eczema (L20.84) Active confirmed Problem 698090110 Family history o f colon cancer (Z80.0) Active confirmed Problem 64461450 Acute non-recurrent maxillary sinusitis (J01.00) Active confirmed Problem 257715848 Renal mass (N28.89) Active confirmed Problem 04231123 REJI (obstructive sleep apnea) (G47.33) Active confirmed Problem 032178274 Renal cell carcinoma of right kidney (C64.1) [...] Date Provider Diagnosis Amari Albarado MD [address] [place] [phone] 11/07/2024 Amari Albarado Intermittent palpitations R00.2 ; Heart murmur, systolic R01.1 and Right hydrocele N43.3 Amari Albarado MD [address] [place] [phone] 08/24/2025 Amari Albarado Blood tests for routine general physical examination Z00.00 ; Prediabetes R73.09 and Low HDL (under 40) E78.6 Amari Albarado MD [address] [place] [address] [phone] 08/29/2024 Amari Albarado Skin lesion of face L98.9 ; Annual physical exam Z00.00 ; Prediabetes R73.09 ; Family history of colon cancer Z80.0 ; Renal mass N28.89 ; REJI (obstructive sleep apnea) G47.33 ; Paroxysmal atrial fibrillation I48.0 ; Colon cancer screening Z12.11 and Depression screening Z13.31 Amari Albarado MD [address] [place] [address] [phone] 12/01/2024 Amari Albarado MD [address] [place] [address] [phone] 12/16/2024 Amari Albarado Heart murmur, systolic R01.1 Assessments Encounter Date Diagnosis (ICD Code) Assessment Notes Treatment Notes Treatment Clinical Notes Section Notes 11/07/2024 Intermittent palpitations (ICD-10 - R00.2) referral to dr carvajal 11/07/2024 Heart murmur, systolic (ICD-10 - R01.1) get results of cardiology consult dr woodruff 08/24/2025 Blood tests for routine general physical examination (ICD-10 - Z00.00) 08/29/2024 Skin lesion of face (ICD-10 - L98.9) referral back to dr guerra/ REFERRAL MADE AND FAXED TO DR GUERRA @ [facility] , WILL CHAECK ON APPT AFTER 2 WEEKS PER [facility] 08/29/2024 Annual physical exam (ICD-10 - Z00.00) labs reviewed and discused with patient 12/16/2024 Heart murmur, systolic (ICD-10 - R01.1) 11/07/2024 Right hydrocele (ICD-10 - N43.3) referral to urology at [facility] [place] 08/24/2025 Prediabetes (ICD-10 - R73.09) 08/29/2024 Prediabetes (ICD-10 - R73.09) keep weight down, stable, no need for medicatin at this time 08/24/2025 Low HDL (under 40) (ICD-10 - [...] Test Test Name Order Date Electrocardiogram (EKG) 06/07/2017 Electrocardiogram (EKG) 08/01/2018 Electrocardiogram (EKG) 06/01/2016 MRI ABD W&WO CONTRAST 07/20/2022 XR GI SERIES 01/02/2020 US ABD 05/18/2022 ECHO 12/16/2024 Complete Blood Count Auto Diff Comprehensive Met. Panel 08/24/2025 Comprehensive [place]. Panel Fast Lipid Panel 08/24/2025 PSA,Total (Free>4and<10) 08/24/2025 Microalbumin, Random 08/24/2025 Hemoglobin A1c 08/24/2025 UA ClnCatch+Micro w/rflx Cult 08/24/2025 Next Appt Details Provider Name:Amari Amaya ier, 08/31/2025 02:30:00 PM, [address] [facility], [address], [place], [place], [id number], Insurance Providers Payer Name Payer Address Payer Phone Subscriber Number Group Number Insured Name Patient Relationship to Insured Coverage Start Date Coverage End Date [employer] [id number] [place] [phone] [id number] Ismael Wells Self - patient is the insured Medical (General) History Medical History History ICD Code colonoscopy 2011 due in 5 ye ars; colonoscopy 09/06/[address] Novak-repeat 5 years. Clonoscopy 03/09/21 repeat 3y colonoscopy in 2022 repeat in 3 years
== END 2025-08-24 10:21 | disposition home or self-care (01) ==
LOC: HO.LNP 10:20
PROVIDERS: Visit Provider Internal Medicine
DX: Z00.00 Encounter for general adult medical examination without abnormal findings (principal); Z12.5 Encounter for screening for malignant neoplasm of prostate; E78.5 Hyperlipidemia, unspecified; R73.03 Prediabetes
CPT/HCPCS: 80053; 80061; 81001; 82043; 82570; 83036; 84153; 85025

== ENCOUNTER 2025-08-31 15:57 | Outpatient (REF) | payer OTHER, SELFPAY ==
--- OUTSIDE RECORDS SUMMARY | 2024-04-15 05:30 | XMS_ITS ---
Author Organization Amari Albarado MD Address [address] [place] [phone] Care Team Providers Care Supervisor Porcelain Department Name Role Phone Amari Albarado Primary Care Provider [phone] Allergies No Known Allergies REASON FOR VISIT sore throat , coughing and congested been going on for 2 weeks, Tested negative for Covid 04-14-24, Video [phone] Medications Medication SIG (Take, Route, Frequency, Duration) Notes Start Date End Date Status Zithromax Z-Darius 250 MG 2 tablet on the irst day, then 1 tablet daily for 4 days Orally Once a day for 5 day(s) 04/15/2024 Active Mucinex Sinus-Max 4-46-817-325 MG 2 tablets may be given every 4 hours as needed Orally Five times a day Active Vital Signs Height 75 in 04/15/2024 Weight 230 lbs 04/15/2024 BMI 28.74 kg/m2 04/15/2024 weight at home is 230 BP not taken at home no temp Encounters Encounter Location Date Provider Diagnosis Amari Albarado MD [address] [place] [phone] 04/15/2024 Amari Albarado Bronchitis J40 Assessments Encounter Date Diagnosis (ICD Code) Assessment Notes Treatment Notes Treatment Clinical Notes Section Notes 04/15/2024 Bronchitis (ICD-10 - J40) patient verbalized understanding of medication and directions for use Plan Of Treatment Medication Medication Name Sig Start Date Stop Date Notes Zithromax Z-Darius 250 MG 2 tablet on the f irst day, then 1 tablet daily for 4 days Orally Once a day for 5 day(s) 04/15/2024 Treatment Notes Assessment Notes Bronchitis patient verbalized u nderstanding of medication and directions for use Next Appt Details Provider Name:Amari mcgee, 03/01/2026 08:30:00 AM, [address] [place] [address], [address], [phone], Provider Name:Amari mcgee, 08/26/2026 07:15:00 AM, [address] [place] [address], [address], [phone], Provider Name:Amari mcgee, 09/02/2026 09:30:00 AM, [address] [place] [address], [place] [address], [place], [place], [phone], Progress Notes * NACHOSANDRAIsmael TDOB:1965 (58 yo M)Acc No.[id number]:04/15/2024 Patient: Ismael Bobby Provider: Starla Albarado MD :1965 A ge:58 Y S ex:Male Date:04/15/2024 Address:[address] [place], [place] [id number] Subjective: * Chief Complaints: * S ore throat , coughing and congested been going on for 2 weeksTested negative for Covid 0-04-34Jjzuq [phone] * HPI: S ymptom(s): Telehealth L ocation of provider rendering services: 1 0 [facility], [address], L ocation of patient: o ther (please specify) Work in [facility] identification confirmed using: N evelyn, , SSN, Insurance information, T elehealth method: V ideo conference where patient is visible to the provider of care, C onsent: P atient verbally consented to treatment, Patient verbally consented to [employer], Patient informed of any privacy concerns related to method of visit. patient is a 58 yo male Video [facility] visit, complaining of coughing and sore throat for 2 weeks. feels like glands are swollen. tested negative for covid. * ROS: G eneral/Constitutional: Denies C hills. D enies F atigue. D enies F ever. D enies H eadache. E NT: Patient denies d ecreased sense of smell , any loss of taste. A dmits S ore throat. R espiratory: Admits C ough. D enies S hortness of breath at rest. D enies S hortness of breath with exertion. D enies S putum production. D enies W heezing. G astrointestinal: Denies D iarrhea. D enies N ausea. M usculoskeletal: Patient denies m uscle aches. P eripheral Vascular: Patient denies r ed and blue toes. * Medical History: * Surgical History: * Hospitalization/Major Diagno stic Procedure: * Medications: T akingMucinex Sinus-Max 1-72-343-325 MG Tablet 2 tablets may be given every 4 hours as needed Orally Five times a dayMedication List reviewed and reconciled with the patientTaking Mucinex Sinus-Max 6-97-985-325 MG Tablet 2 tablets may be given every 4 hours as needed Orally Five times a dayMedication List reviewed and reconciled with the patient * Allergies: N .K.D.A.yes[Allergies Verified] Objective: * Vitals: H t: 75, Wt:230, BMI:28.74 weight at home is 230 BP not taken at home no temp. * Examination: G eneral Examination: GENERAL APPEARANCE: alert, well hydrated, in no distress . Assessment: * Assessment: 1. B edvin - J40 (Primary) Plan: * Treatment: * Procedure Codes: * * Sign off status: Completed true * Provider: Starla Albarado MD Date: 0 04/15/2024 Generated for Thania corey/Rayo/eTransmitting on: 10/31/2024 04:59 PM EST History and Physical Notes * HPI (History of Present Illness) Category Sub-Category Detail Notes Category Not es Symptom(s) Telehealth Location of [facility] rendering services:: [address], [address] patient is a 58 yo male Video [facility] visit, complaining of coughing and sore throat for 2 weeks. feels like glands are swollen. tested negative for covid. Location of patient:: other (please spec camilla) Work in [place] Patient identification confi rmed using:: Name, , SSN, Insurance information Telehealth method:: Video co nference where patient is visible to the provider of care Consent:: Patient verbally c onsented to treatment, Patient verbally consented to billing insurance company, Patient informed of any privacy concerns related to method of visit Examination Category Sub-Category Detail Notes Category Not es General Examination GENERAL APPEARANCE: alert, w ell hydrated, in no distress
--- OUTSIDE RECORDS SUMMARY | 2024-08-22 02:45 | XMS_ITS ---
Author Organization Amari Albarado MD Address [address] [place], [place] [id number] Care Team Providers Care Icing Machine Operator Name Role Phone Amari Albarado Primary Care Provider Results Component Value Reference Range Notes Complete Blood Count Auto Di ff Reviewed date:08/22/2024 01:43:32 PM Interpretation: Performing Lab:[facility], [address] [place] [phone] Notes/Report: White Blood Count 5.5 4.8-10.8 X10*3/uL [...] NRBC Abs Auto 0.000 0.0-0.012 X10*3/uL Comprehensive [place]. Panel Fa st Reviewed date:08/24/2024 03:58:24 PM Interpretation: Performing Lab:[facility], [address] [place] [phone] Notes/Report: Sodium 141 135-145 mmol/L Potassium 3.5 3.3-5.1 mmol/L Chloride 106 96-108 mmol/L Carbon Dioxide 27 22-29 mmol/L Anion Gap 12 12-20 Blood Urea Nitrogen 13 9-16 mg/dL Creatinine 1.30 0.5-1.4 mg/dL Estimated Glomerular Filt Rate 57 NOTE: For -[place] individuals, multiply the result by 1.210. Chronic [...] Panel Reviewed date:08/22/2024 01:42:57 PM Interpretation: Performing Lab:[facility], [address] [place] [phone] Notes/Report: Triglycerides 105 <150 mg/dL Desirable Triglyceride: [...] (Free>4and<10) Reviewed date:08/23/2024 06:28:56 PM Interpretation: Performing Lab:[facility], [address] [place] [phone] Notes/Report: PSA,Total (Free>4and<10) 0.50 0.00-4.00 ng/mL A [...] Random Reviewed date:08/23/2024 12:57:47 PM Interpretation: Performing Lab:[facility], [address] [place] [phone] Notes/Report: Creatinine Urine 118.46 Microalbumin Urine 12.0 Microalbum/Creatinine Ratio Ur 10.1 <30 ug/mg cr Albumin/Creatinine Ratio Reference Ranges: Normal: < 30 ug/mg creatinine Microalbuminuria: 30 - 300 ug/mg creatinine Clinical Albuminuria: > 300 ug/mg creatinine Hemoglobin A1c Reviewed date:08/24/2024 03:54:32 PM Interpretation: Performing Lab:[facility], [address] [place] [phone] Notes/Report: Hemoglobin A1c % 5.6 <6.0 % [...] average glucose, using the formula of the K0O-Dfzkize Average Glucose study (ADAG), Diabetes Care, Vol.31,#8, May. 2007 UA ClnCatch+Micro w/rflx Cul t Reviewed date:08/25/2024 06:22:43 PM Interpretation: Performing Lab:[facility], [address] [place] [phone] Notes/Report: Urine, Clean Catch Color Urine Yellow Appearance Urine Clear PH 6.0 5.0-9.0 Glucose Urine UA Negative Negative mg/dL Urine Blood Negative Negative Specific [place] - Urine 1.010 1.005-1.025 Urine Protein Negative [...] Date Provider Diagnosis Amari Albarado MD [address] [place], [place] [phone] 08/22/2024 Amari Albarado Blood tests for routine [...] Provider Name:Amari Amaya ier, 03/01/2026 08:30:00 AM, [address] [place] [address], Suite [facility], [place], [place], [phone], Provider Name:Amari Amaya ier, 08/26/2026 07:15:00 AM, [address] [place] [address], Suite [facility], [place], [place], [phone], Provider Name:Amari Amaya ier, 09/02/2026 09:30:00 AM, [address] [place] [address], [address], [phone], Progress Notes * Ismael FLETCHER TDOB:1965 (58 yo M)Acc No.[id number]:08/22/2024 Progress Note Patient: Ismael Bobby Provider: Starla Albarado MD :1965 A ge:58 Y S ex:Male Date:08/22/2024 Address:[address] [place] [phone] Subjective: * Chief Complaints: * Y early [...] Blood Count Auto Diff L AB: Comprehensive [place]. Panel Fast L AB: Lipid Panel L AB: PSA,Total (Free>4and<10) L AB: Microalbumin, Random L AB: Hemoglobin A1c L AB: UA ClnCatch+Micro w/rflx Cult 3. L ow HDL (under 40) L AB: Complete Blood Count Auto Diff L AB: Comprehensive [place]. Panel Fast L AB: Lipid Panel L AB: PSA,Total (Free>4and<10) L AB: Microalbumin, Random L AB: Hemoglobin A1c L AB: UA ClnCatch+Micro w/rflx Cult * Immunizations: Fluarix Quadrivalent - 150 (Not administered - Refused: Patient decision) * Procedure Codes: 3 6415 VENIPUNCT, ROUTINE* * * Sign off status: Completed true * Provider: Starla Albarado MD Date: Generated for Thania corey/Rayo/Melba on: 10/31/2024 04:59 PM EST
--- OUTSIDE RECORDS SUMMARY | 2024-08-29 08:00 | XMS_ITS ---
Author Organization Amari Albarado MD Address [address] [place], [place] [id number] Care Team Providers Care Shirt Line Operator Name Role Phone Amari Albarado Primary Care Provider [phone] Allergies No Known Allergies Results Component Value [...] Location Date Provider Diagnosis Amari Albarado MD [address] [place] [address] [place] [phone] 08/29/2024 Amari Albarado Skin lesion of face [...] (ICD-10 - N28.89) going to go to [facility] 08/29/2024 REJI (obstructive sleep apnea) (ICD-10 [...] MADE AND FAXED TO DR MCCANN @ [facility] , WILL [facility]ECK ON APPT AFTER 2 WEEKS [facility] Annual physical exam labs reviewed and d iscused with patient Prediabetes keep weight down, st able, no need for medicatin at this time Family history of colon cancer had colon oscopy last year repeat in 2 years. Renal mass going to go to [facility] REJI (obstructive sleep apnea) is going t o go back to see sleep medicine Paroxysmal atrial fibrillation has not h ad any further episodes Colon cancer screening guaiac negative Depression screening negative screen Referrals Referral Date Details 08/29/2024 08/29/2024, SKIN LES ION OF FACE, German Mccann Next Appt Details Follow Up: 1 Year, Reason: Provider Name:Amari mcgee, 03/01/2026 08:30:00 AM, [address] [place] [address], [address] [place] [address], [phone], Provider Name:Amari mcgee, 08/26/2026 07:15:00 AM, [address] [place] [address], Suite [facility], [place], [place], [phone], Provider Name:Amari mcgee, 09/02/2026 09:30:00 AM, [address] [place] [address], [address] [place] [address], [phone], Progress Notes * Ismael FLETCHER TDOB:1965 (58 yo M)Acc No.[id number]:08/29/2024 Progress Notes Patient: Ismael Bobby Provider: Starla Albarado MD :1965 A ge:58 Y S ex:Male Date:08/29/2024 Address:[address] [place] [address], [place], [id number] Subjective: * Chief Complaints: * A nnual [...] been doing well. has been to the [facility]. * ROS: G eneral/Constitutional: Patient denies f [...] 72 yrs, Healthy. M other: 62 yrs, [place]. 2 sister(s) . 2 son(s) . . Father- Mother- [place], Denies mental health/substance abuse family history, No [...] mg/dL Urine Blood Negative Negative - Specific [place] - Urine 1.010 1.005-1.025 - Urine Protein [...] Urine 3-5 0-2 - /LPF L ab:Comprehensive [place]. Panel Fast (Order Date - 08/22/2024) (Collection [...] enal mass Notes: going to go to [facility] 6. O SA (obstructive sleep apnea) Notes: [...] Date: 10/29/2023 Generated for Thania corey/Rayo/Siriaransmitting on: 10/31/2024 04:59 PM EST History and Physical Notes * HPI (History of Present Illness) Category Sub-Category Detail Notes Category Not es Symptom(s) patient is a 58 yo male here for annual visit with review of recent labs and follow up of chronic issues. has been doing well. has been to the [facility] game w[facility]. Depression Screening PHQ-9 Little inte rest or [...]
--- OUTSIDE RECORDS SUMMARY | 2024-11-07 08:45 | XMS_ITS ---
Author Organization Amari Albarado MD Address [address] [place], [place] [phone] Care Team Providers Care Process Cheese Cooker Name Role Phone Amari Albarado Primary Care Provider Allergies No Known Allergies Reason For Referral Reason intermittent palpita tions heart murmur, systolic Diagnosis 1 Intermittent palpita tions (R00.2) Diagnosis 2 Heart murmur, systol ic (R01.1) Referral Organization Amari Albarado MD Referring Provider First Name Amari Referring Provider Last Name Per Referring Provider Speciality Internal M edicine Referred Provider MALLORY BOND Referred Provider Specialty Cardiology General Notes Yohana Vasques 0 11/11/2024 02:38:34 PM > referral info faxed, Yohana Vasques 12/11/2024 09:04:01 AM > was told to call back in few days, Yohana Vasques 12/16/2024 11:54:49 AM > spoke with office they would like him to have an echo done first. Message sent to provider., Yohana Vasques 12/16/2024 01:11:54 PM >order put in system for Echo order faxed to [facility] dept booked for 12-31-2024, Yohana Vasques 01/06/2025 10:31:00 AM >was told by office appt is being worked on Referral Priority Routine Referral Appointment Date 01/28/2025 Reason right hydrocele Diagnosis 1 Right hydrocele (N43 .3) Referral Organization Amari Albarado MD Referring Provider First Name Amari Referring Provider Last Name Per Referring Provider Speciality Internal M edicine Referred Provider Anish Mtz Referred Provider Specialty Urology General Notes Yohana Vasques 0 11/28/2024 02:35:55 PM >info faxed, Yohana Vasques 12/16/2024 11:07:47 AM > referral info mailed to patient Referral Priority Routine Referral Appointment Date 02/05/2025 REASON FOR VISIT follow up from [facility] Sunday and [facility] on Sunday nite / for heart flutters, Went to the chiropractor feels much better Vital Signs Blood pressure systolic 148 mm Hg 11/07/19 25 Blood pressure diastolic 90 mm Hg 025 Height 75 in 11/07/2024 Weight 251 lbs 11/07/2024 BMI 31.37 kg/m2 11/07/2024 weight is up 7 pounds since 08-29-24 Encounters Encounter Location Date Provider Diagnosis Amari Albarado MD [address] [place], [place] [phone] 11/07/2024 Amari Albarado Intermittent palpitations R00.2 ; Heart murmur, systolic R01.1 and Right hydrocele N43.3 Assessments Encounter Date Diagnosis (ICD Code) Assessment Notes Treatment Notes Treatment Clinical Notes Section Notes 11/07/2024 Intermittent palpitations (ICD-10 - R00.2) referral to dr carvajal 11/07/2024 Heart murmur, systolic (ICD-10 - R01.1) get results of cardiology consult dr woodruff 11/07/2024 Right hydrocele (ICD-10 - N43.3) referral to urology at [facility] Plan Of Treatment Treatment Notes Assessment Notes Intermittent palpitations referral to dr carvajal Heart murmur, systolic get results of ca rdiology consult dr woodruff Right hydrocele referral to urology at [facility] Referrals Referral Date Details 11/07/2024 11/07/2024, intermit tent palpitations heart murmur, systolic, YASMINE VARUN 11/07/2024 11/07/2024, right hy drocele, Anish Mtz Next Appt Details Provider Name:Amari Amaya ier, 03/01/2026 08:30:00 AM, [address], [address], [place], [place], [phone], Provider Name:Amari Amaya ier, 08/26/2026 07:15:00 AM, [address], [address], [place], [place], [phone], Provider Name:Amari Amaya ier, 09/02/2026 09:30:00 AM, [address], [address], [place], [place], [phone], Progress Notes * DUTCH Ismael TDOB:1965 (59 yo M)Acc No.[id number]:11/07/2024 Progress Notes Patient: Ismael QUEZADA Provider: Starla Albarado MD :1965 A ge:58 Y S ex:Male Date:11/07/2024 [facility] [place], [phone] Subjective: * Chief Complaints: * 1 . follow up from [facility] Sunday and [facility] on Sunday nite / for heart flutters. 2. Went to the chiropractor feels much better. * HPI: S ymptom(s): was having palpitations and went to er heart beat was going from 98 to 52. and feeling dizzy. had palpitationss. * ROS: G eneral/Constitutional: Denies C hills. D enies F atigue. D enies F ever. D enies H eadache. E NT: Denies S ore throat. R espiratory: Denies C ough. D enies S hortness of breath at rest. D enies S hortness of breath with exertion. C ardiovascular: Denies C hest pain at rest. D enies C hest pain with exertion. D enies D izziness. D enies S hortness of breath. G astrointestinal: Denies D iarrhea. D enies N ausea. * Medical History: c olonoscopy 2012 due in 5 years; colonoscopy 09/06/[address] Novak-repeat 5 years. Clonoscopy 03/09/21 repeat 3y, Colonoscopy in 2022 repeat in 3 years. * Medications: N one * Allergies: N .K.D.A. Objective: * Vitals: H t: 75, Wt:251, BMI:31.37, BP:148/90. weight is up 7 pounds since 08-29-24. * Examination: G eneral Examination: GENERAL APPEARANCE: a lert, well hydrated, in no distress.? HEAD: n ormocephalic. HEART: g rade 2/6 systolic murmur at left sternal border.? LUNGS: n o wheezes, rales, rhonchi , good air movement , clear to auscultation bilaterally. MALE GENITOURINARY: r t hydrocele getting bigger. ? Assessment: * Assessment: 1. I ntermittent palpitations - R00.2 (Primary) 2 . H eart murmur, systolic - R01.1 3 . R ight hydrocele - N43.3 Plan: * Treatment: 2. H eart murmur, systolic Notes: get results of cardiology consult dr woodruff ? Referral To:YASMINE BOND Cardiology Reason:intermittent palpitations heart murmur, systolic 3. R ight hydrocele Notes: referral to urology at [facility] Referral To:Anish Mtz Urology Reason:right hydrocele * * The named appointment provid er may or may not be the originator of this progress note, and it is not deemed complete until electronically signed by the appointment provider. Sign off status: Pending * Provider: Starla Albarado MD Date: 0 11/07/2024 Generated for Thania corey/Rayo/Melba on: 10/31/2024 04:59 PM EST History and Physical Notes * HPI (History of Present Illness) Category Sub-Category Detail Notes Category Not es Symptom(s) was having palp itations and went to er heart beat was going from 98 to 52. and feeling dizzy. had palpitationss Examination Category Sub-Category Detail Notes Category Not es General Examination GENERAL APPEARANCE: alert, w ell hydrated, in no distress HEAD: normocephalic HEART: grade 2/6 systolic m urmur at left sternal border LUNGS: no wheezes, rales, r honchi , good air movement , clear to auscultation bilaterally MALE GENITOURINARY: rt hydrocele getting bigger Consultation Request Notes Referral Date Referring Provider Referred Provider Not es 11/07/2024 Amari Albarado HARIHARAN i ntermittent palpitations heart murmur, systolic 11/07/2024 Amari Albarado Alexander right h ydrocele
--- OUTSIDE RECORDS SUMMARY | 2024-12-01 06:46 | XMS_ITS ---
Author Organization Amari Albarado MD Address [address] [place] [phone] Care Team Providers Care Emissions Technician Name Role Phone Amari Albarado Primary Care Provider REASON FOR VISIT Medical Records Encounters Encounter Location Date Provider Diagnosis Amari Albarado MD [address] [place] [address] [address] [place] [phone] 12/01/2024 Amari Albarado Plan Of Treatment Next Appt Details Provider Name:Amari Amaya ier, 03/01/2026 08:30:00 AM, [address] [place] [address], [address], [phone], Provider Name:Amari Amaya ier, 08/26/2026 07:15:00 AM, [address] [place] [address], [address], [phone], Provider Name:Amari Amaya iealina, 09/02/2026 09:30:00 AM, [address] [place] [address], [address], [phone], Progress Notes * Ismael FLETCHER TDOB:1965 (59 yo M)Acc No.[id number]:12/01/2024 Patient: Isamel QUEZADA :1965 A ge:59 Y S ex:Male Address[facility] [address], [place] [address] * Addendum: * true * Date: Generated for Thania corey/Rayo/Mackitting on: 10/31/2024 05:00 PM EST
--- OUTSIDE RECORDS SUMMARY | 2024-12-16 06:55 | XMS_ITS ---
Author Organization Amari Albarado MD Address [address] [place] [phone] Care Team Providers Care Monitoring Manager Name Role Phone Amari Albarado Primary Care Provider REASON FOR VISIT ? echo Encounters Encounter Location Date Provider Diagnosis Amari Albarado MD [address] [place] [address] [place] [phone] 12/16/2024 Amari Albarado Heart murmur, systolic R01.1 Assessments Encounter Date Diagnosis (ICD Code) Assessment Notes Treatment Notes Treatment Clinical Notes Section Notes 12/16/2024 Heart murmur, systolic (ICD-10 - R01.1) Plan Of Treatment Pending Test Test Name Order Date ECHO 12/16/2024 Next Appt Details Provider Name:Amari Amaya ier, 03/01/2026 08:30:00 AM, [address] [place] [address], [address], [phone], Provider Name:Amari mcgee, 08/26/2026 07:15:00 AM, [address] [place] [address], [address], [phone], Provider Name:Amari mcgee, 09/02/2026 09:30:00 AM, [address], [address], [place], [place], [phone], Progress Notes * Ismael FLETCHER TDOB:1965 (59 yo M)Acc No.[id number]:12/16/2024 Patient: Ismael QUEZADA :1965 A ge:59 Y S ex:Male Address[facility], [place] [address] Subjective: * Chief Complaints: * ? echo * Medical History: * Surgical History: * Hospitalization/Major Diagno stic Procedure: * Medications: Objective: * Vitals: * Physical Examination: Assessment: * Assessment: 1. H eart murmur, systolic - R01.1 Plan: * Treatment: * Procedure Codes: * true * Date: Generated for Thania corey/Rayo/Mackitting on: 10/31/2024 04:59 PM EST
--- OUTSIDE RECORDS SUMMARY | 2025-08-24 03:00 | XMS_ITS ---
Author Organization Amari Albarado MD Address [address] [place], [place] [phone] Care Team Providers Care Short Story Writer Name Role Phone Amari Albarado Primary Care Provider [phone] Results Component Value Reference Range Notes Complete Blood Count Auto Di ff Reviewed date:08/25/2025 12:48:17 PM Interpretation: Performing Lab:[facility], [address] [place] [phone] Notes/Report: White Blood Count 6.8 4.8-10.8 X10*3/uL Red Blood Count 5.09 4.60-5.80 X10*6/uL Hemoglobin 14.4 14.0-18.0 g/dl Hematocrit 43.8 42.0-52.0 % Mean Corpuscular Volume 86.1 80.0-98.0 fL Mean Corpuscular Hemoglobin 28.3 27.0-33.0 pg Mean Corpuscular HGB Conc 32.9 31.0-36.0 g/dl Red Cell Distribution Width 12.2 11.0-16.0 % Platelet Count 263 160-400 X10*3/uL Mean Platelet Volume 10.6 9.4-12.4 fL Neutrophils Percent Auto 53.9 45-73 % Imm Gran Pct Auto 0.3 0.0-0.4 % Lymphocytes Percent Auto 32.5 20-40 % Monocytes Percent Auto 9.4 2-11 % Eosinophils Percent Auto 3.2 0-4 % Basophils Percent Auto 0.7 0-2 % NRBC Pct Auto 0.0 0.0-0.2 /100WBC Neutrophils Absolute Auto 3.7 2.0-8.3 x10*3/u L Imm Gran Abs Auto 0.02 0.00-0.03 X10*3/uL Lymphocytes Absolute Auto 2.2 1.2-4.9 X10*3/u L Monocytes Absolute Auto 0.6 0.1-1.2 X10*3/uL Eosinophils Absolute Auto 0.2 0.0-0.4 X10*3/u L Basophils Absolute Auto 0.1 0.0-0.2 X10*3/uL NRBC Abs Auto 0.000 0.0-0.012 X10*3/uL Lipid Panel Reviewed date:08/24/2025 12:31:06 PM Interpretation: Performing Lab:[address] [address] Notes/Report: Triglycerides 114 <150 mg/dL Desirable Triglyceride: less than 150 mg/dL Borderline High Triglyceride 150-199 mg/dL High Triglyceride: 200-499 mg/dL Very High Triglyceride: greater than or equal to 5OO mg/dL Cholesterol 202 <200 mg/dL Desirable Cholesterol: less than 200 mg/dL Borderline High Cholesterol: 200-239 mg/dL High Cholesterol: greater than 239 mg/dL LDL Cholesterol Calculated 136 <100 mg/dL Desirable LDL: less than 100 mg/dL Near Optimal/Above Optimal LDL: 110-129 mg/dL Borderline High LDL: 130-159 mg/dL High LDL: 160-189 mg/dL Very High LDL: greater than or equal to 190 mg/dL HDL Cholesterol 44 >40 mg/dL Desirable HDL: greater than 40 mg/dL Note: This HDL assay may give artificially low results in patients with liver disease. PSA,Total (Free>4and<10) Reviewed date:08/24/2025 12:30:47 PM Interpretation: Performing Lab:[address] [address] Notes/Report: PSA,Total (Free>4and<10) 0.51 0.00-4.00 ng/mL A Free PSA was not [...] Chemiluminescent Microparticle Immunoassay (CMIA) Microalbumin, Random Reviewed date:08/24/2025 12:32:40 PM Interpretation: Performing Lab:[address] [address] Notes/Report: Creatinine Urine 102.26 Microalbumin Urine 11.0 Microalbum/Creatinine Ratio Ur 10.7 <30 ug/mg cr Albumin/Creatinine Ratio Reference Ranges: Normal: < 30 ug/mg creatinine Microalbuminuria: 30 - 300 ug/mg creatinine Clinical Albuminuria: > 300 ug/mg creatinine Hemoglobin A1c Reviewed date:08/24/2025 12:30:56 PM Interpretation: Performing Lab:[address] [address] Notes/Report: Hemoglobin A1c % 5.9 <6.0 % Hemoglobin A1C Reference Range Adults: 4.8 - 6.0 % Non diabetic: < 6.0 % Goal: < 7.0 % Additional Action Suggested: > 8.0 % Note: Hemoglobin A1c results are invalid for patients with abnormal amounts of HbF. Blood transfusions may impact the HbA1c concentration in the patient sample. Estimated Average Glucose 123 eAG = Estimated average glucose which is %A1C expressed as average glucose, using the formula of the B5M-Dxxtnfh Average Glucose study (ADAG), Diabetes Care, Vol.31,#8, May. 2007 UA ClnCatch+Micro w/rflx Cul t Reviewed date:08/27/2025 08:41:44 AM Interpretation: Performing Lab:[address] [address] Notes/Report: Urine, Clean Catch Color Urine Yellow Appearance Urine Clear PH 6.0 5.0-9.0 Glucose Urine UA Negative Negative mg/dL Urine Blood Trace Negative Specific [place] - Urine 1.015 1.005-1.025 Urine Protein Negative Neg-Trace mg/dL Urine Ketones Negative Negative mg/dL Nitrite Urine Negative Negative Leukocyte Esterase Urine Negative Negative RBC Urine 0-2 0-2 /HPF WBC Urine 0-5 0-5 /HPF Squamous Epithelial Cell Urine 0-2 0-2 /HPF Bacteria Urine None Seen None Seen Hyaline Casts Urine 0-2 0-2 /LPF REASON FOR VISIT FASTING LABS Encounters Encounter Location Date Provider Diagnosis Amari Albarado MD [address] [place] [phone] 08/24/2025 Amari Albarado Blood tests for routine general physical examination Z00.00 ; Prediabetes R73.09 and Low HDL (under 40) E78.6 Assessments Encounter Date Diagnosis (ICD Code) Assessment Notes Treatment Notes Treatment Clinical Notes Section Notes 08/24/2025 Blood tests for routine general physical examination (ICD-10 - Z00.00) 08/24/2025 Prediabetes (ICD-10 - R73.09) 08/24/2025 Low HDL (under 40) (ICD-10 - E78.6) Plan Of Treatment Pending Test Test Name Order Date Comprehensive [place]. Panel Fast Next Appt Details Provider Name:Amari mcgee, 03/01/2026 08:30:00 AM, [address] [place] [address], [address], [phone], Provider Name:Amari mcgee, 08/26/2026 07:15:00 AM, [address] [place] [address], [address], [phone], Provider Name:Amari mcgee, 09/02/2026 09:30:00 AM, [address] [place] [address], [phone], Progress Notes * Ismael FLETCHER TDOB:1965 (59 yo M)Acc No.[id number]:08/24/2025 Progress Note Patient: Ismael QUEZADA Provider: Starla Albarado MD :1965 A ge:59 Y S ex:Male Date:08/24/2025 Address:[facility] [address] , [place], [phone] Subjective: * Chief Complaints: * 1 . FASTING LABS. * Medical History: Objective: * Vitals: Assessment: * Assessment: 1. B lood tests for routine general physical examination - Z00.00 (Primary) 2 .?Prediabetes - R73.09 3 . L ow HDL (under 40) - E78.6 Plan: * Treatment: 2. P rediabetes L AB: Comprehensive [place]. Panel Fast L AB: Complete Blood Count Auto Diff (Collection Date & Time - 08/24/2025 08:00 AM) L AB: Lipid Panel (Collection Date & Time - 08/24/2025 08:00 AM) L AB: PSA,Total (Free>4and<10) (Collection Date & Time - 08/24/2025 08:00 AM) L AB: Microalbumin, Random (Collection Date & Time - 08/24/2025 08:00 AM) L AB: Hemoglobin A1c (Collection Date & Time - 08/24/2025 08:00 AM) L AB: UA ClnCatch+Micro w/rflx Cult (Collection Date & Time - 08/24/2025 08:00 AM) 3. L ow HDL (under 40) L AB: Comprehensive [place]. Panel Fast L AB: Complete Blood Count Auto Diff (Collection Date & Time - 08/24/2025 08:00 AM) L AB: Lipid Panel (Collection Date & Time - 08/24/2025 08:00 AM) L AB: PSA,Total (Free>4and<10) (Collection Date & Time - 08/24/2025 08:00 AM) L AB: Microalbumin, Random (Collection Date & Time - 08/24/2025 08:00 AM) L AB: Hemoglobin A1c (Collection Date & Time - 08/24/2025 08:00 AM) L AB: UA ClnCatch+Micro w/rflx Cult (Collection Date & Time - 08/24/2025 08:00 AM) * Procedure Codes: 3 6415 VENIPUNCT, ROUTINE* * * The named appointment provid er may or may not be the originator of this progress note, and it is not deemed complete until electronically signed by the appointment provider. Sign off status: Pending * Provider: Starla Albarado MD Date: Generated for Thania corey/Rayo/Melba on: 10/31/2024 05:00 PM EST
--- OUTSIDE RECORDS SUMMARY | 2025-08-31 09:30 | XMS_ITS ---
Author Organization Amari Albarado MD Address [address] [place], [place] [id number] Care Team Providers Care Contract Specialist Name Role Phone Amari Albarado Primary Care Provider Allergies No Known Allergies Results Component Value Reference Range Notes UA ClnCatch+Micro w/rflx Cul t (Not yet reviewed by provider) Interpretation: Performing Lab:[facility], [address] [place] [phone] Notes/Report: Urine, Clean Catch Color Urine Yellow Appearance Urine Clear PH 5.5 5.0-9.0 Glucose Urine UA Negative Negative mg/dL Urine Blood Negative Negative Specific [place] - Urine <= 1.005 1.005-1.025 Urine Protein [...] Location Date Provider Diagnosis Amari Albarado MD [address] [place] [phone] 08/31/2025 Amari Albarado Hematuria R31.9 and Annual physical exam Z00.00 Assessments Encounter Date Diagnosis (ICD Code) Assessment Notes Treatment Notes Treatment Clinical Notes Section Notes 08/31/2025 Hematuria (ICD-10 - R31.9) will repeat u/a 08/31/2025 Annual physical exam (ICD-10 - Z00.00) Plan Of Treatment Treatment Notes Assessment Notes Hematuria will repeat u/a Pending Test Test Name Order Date UA ClnCatch+Micro w/rflx Cult 08/31/2025 Next Appt Details Follow Up: 6 Months, Reason: Provider Name:Amari mcgee, 03/01/2026 08:30:00 AM, [address] [place] [address], [address], [phone], Provider Name:Amari mcgee, 08/26/2026 07:15:00 AM, [address] [place] [address], [address], [phone], Provider Name:Amari mcgee, 09/02/2026 09:30:00 AM, [address] [place] [address], [address], [phone], Progress Notes * Ismael FLETCHER TDOB:1965 (59 yo M)Acc No.[id number]:08/31/2025 Progress Notes Patient: Ismael QUEZADA Provider: Starla Albarado MD :1965 A ge:59 Y S ex:Male Date:08/31/2025 Address:[address] [place] [phone] Subjective: * Chief Complaints: * 1 . ANNUAL EXAM. 2. Repeat U/A Hematuria. * HPI: D epression Screening: PHQ-9 L [...] d enies. H eadache?denies. * Medical History: c olonoscopy 2011 due in 5 years; colonoscopy 09/06/[address] Novak-repeat 5 years. Clonoscopy 03/09/21 repeat 3y, Colonoscopy in 2022 repeat in 3 years. * Family History: F ather: 72 yrs, Healthy. M other: 62 yrs, [place]. 2 sister(s) . 2 son(s) . . Father- Mother- [place], Denies mental health/substance abuse family history, No [...] .K.D.A. Objective: * Vitals: H t: 75, Wt: [...] Urine Blood Trace A Negative - Specific [place] - Urine 1.015 1.005-1.025 - Urine Protein [...] ematuria - R31.9 ? Plan: * Treatment: * Preventive Medicine: Counseling: C are goal follow-up plan: C ounseling for abnormal BMI provided?Yes, A deana Normal BMI Follow-up G iving encouragement to exercise. * Follow Up: 6 Months * * The named appointment provid er may or may not be the originator of this progress note, and it is not deemed complete until electronically signed by the appointment provider. Sign off status: Pending * Provider: Starla Albarado MD Date: 10/31/2024 Generated for Thania corey/Rayo/Melba on: 10/31/2024 04:59 [...]
[2025-08-31 16:19] LABS: Appearance Urine Clear; Glucose Urine UA Negative (Negative); PH 5.5 (5.0-9.0); Specific Gravity - Urine <= 1.005 (1.005-1.025)
--- OUTSIDE RECORDS SUMMARY | 2025-08-31 16:59 | XMS_ITS | Encounter Summary ---
Author Organization [facility] Address [address] [facility] [address] [place] [address] Phone Care Team Providers Care Crop Grain Or Livestock Farm Manager Name Role Phone Self-Referred, Patient Unavailable Unavailab German Richard MD, MPH Unavailable [phone] Amari Albarado MD Primary Care Provider Encounter Details Date Type Department Care Team (Late st Contact Info) Description 12/13/2020 Procedure Pass [facility] Periop [address] [place] [address] Social History Tobacco Use Types Packs/Day Years [...] as of this encounter Plan of Treatment Upcoming Encounters Date Type Department Care Team (Late st Contact Info) Description 09/21/2025 1:00 PM EST Office Visit [facility] Urology [address] [facility] [place] [address] German Pena MD, MPH [address] [facility] [address] [place] [address] [email or web address] documented as of this encounter Visit Diagnoses Not on filedocumented in this encounter Care Teams Crop Grain Or Livestock Farm Manager Relationship Specialty Start Date End Date Amari Albarado MD [address] [place] [address] [place] [address] PCP - General Internal Medicine 11/29/20 Self-Referred, Patient 11/25/20 German Pena MD, MPH [address] [place] [phone] [email or web address] Primary Oncologist Urology 11/25/20 documented as of this encounter Additional Source Comments The information contained in this document represents components of the legal health record. It is not the complete legal health record.[facility]
--- OUTSIDE RECORDS SUMMARY | 2025-08-31 17:00 | XMS_ITS | Clinical Summary ---
Author Organization [facility] it Address [address] [place] [address] Care Team Providers Care Tip Tester Name Role Phone Amari Albarado MD Primary [...] age to complete this topic Care Teams Tip Tester Relationship Specialty Start Date End Date Amari Albarado MD PCP - General Internal Medicine 08/07/22
--- OUTSIDE RECORDS SUMMARY | 2025-08-31 17:00 | XMS_ITS | Clinical Summary ---
Author Organization [facility] Address [address] [place] [address] Care Team Providers Care Supercalender Operator Helper Name Role Phone Amari Albarado Primary Care Provider [phone] Allergies No known active allergies Medications No [...] 75+ series) 2040 Procedures * Due to [place] [employer] law, this organization might not be sharing negative HIV tests. Procedure Name Priority Date/Time Associated Diagnosis Comments BASIC METABOLIC PANEL STAT 11/02/2024 8:49 PM EST from Last 3 Months or Most Recently Relevant to Health Maintenance Results * Due to [place] [employer] law, this organization might not be sharing negative HIV tests. * (ABNORMAL) Basic Metabolic Panel (11/02/2024 8:49 PM EST) NA 139 135 - 145 mmol/L 11/02/2024 9:33 PM EST [facility] K 4.2 3.5 - 5.3 mmol/L 11/02/2024 9:33 PM EST [facility] Comment:1+ hemolysis, result may be falsely increased Cl 104 98 - 107 mmol/L 11/02/2024 9:33 PM EST [facility] CO2 20(L) 22 - 32 mmol/L 11/02/2024 9:33 PM EST [facility] BUN 16 7 - 23 mg/dL 11/02/2024 9:33 PM EST [facility] Creatinine 1.16 0.60 - 1.30 mg/dL 11/02/2024 9:33 PM EST [facility] Glucose 130(H) 65 - 99 mg/dL 11/02/2024 9:33 PM EST [facility] Calcium 9.4 8.6 - 10.5 mg/dL 11/02/2024 9:33 PM EST [facility] Anion Gap 15 5 - 15 11/02/2024 9:33 PM EST [facility] CL[facility] eGFR 73 >=60 mL/min/1. 73m2 11/02/2024 9:33 PM EST [facility] Comment:The estimated glomer [...] MD LAB BLOOD ORDERABLES Final Res ult [facility] [address] [place] [address], from Last 3 Months or Most Recently Relevant to Health Maintenance Insurance [employer] PPO/EPO/IND Care Teams Supercalender Operator Helper Relationship Specialty Start Date End Date Per Amari [address] [place] [address] [place] [address] PCP - General Internal Medicine 11/02/24
--- OUTSIDE RECORDS SUMMARY | 2025-08-31 17:00 | XMS_ITS | Encounter Summary ---
Author Organization [facility] Address [address] [facility] [address] [place] [address] Phone Care Team Providers Care Magnet Valve Assembler Name Role Phone Self-Referred, Patient Unavailable Unavailab German Richard MD, MPH Unavailable [phone] Amari Albarado MD Primary Care Provider Encounter Details Date Type Department Care Team (Late Contact Info) Description 12/07/2020 Prep for Surgery [facility] Urology [address] [place], [place] [address] [place] [address] German Pena MD, MPH [address] [place] [phone] [email or web address] Social History Tobacco Use Types Packs/Day [...] Encounters Date Type Department Care Team (Late Contact Info) Description 09/21/2025 1:00 PM EST Office Visit [facility] Urology [address] [facility] [place] [place] [address] German Pena MD, MPH [address] [place], [place] [address] [place] [address] [email or web address] documented as of this encounter Visit Diagnoses Not on filedocumented in this encounter Care Teams Magnet Valve Assembler Relationship Specialty Start Date End Date Amari Albarado MD [address] [place] [address] [address] PCP - General Internal Medicine 11/29/20 Self-Referred, Patient 11/25/20 German Pena MD, MPH [address] [place] [phone] [email or web address] Primary Oncologist Urology 11/25/20 documented as of this encounter Additional Source Comments The information contained in this document represents components of the legal health record. It is not the complete legal health record.[facility]
--- OUTSIDE RECORDS SUMMARY | 2025-08-31 17:00 | XMS_ITS | Encounter Summary ---
Author Organization [facility] Address [address] [facility] [address] [place] [address] Phone Care Team Providers Care It Desktop Support Technician Name Role Phone Self-Referred, Patient Unavailable Unavailab German Richard MD, MPH Unavailable [phone] Amari Albarado MD Primary Care Provider Encounter Details Date Type Department Care Team (Late st Contact Info) Description 12/27/2020 Procedure Pass [facility] [address] [place] [address] Social History Tobacco Use Types Packs/Day Years [...] Description 09/21/2025 1:00 PM EST Office Visit [facility] Urology [address] [facility] [place] [address] German Pena MD, MPH [address] [facility] [address] [place] [address] [email or web address] documented as of this encounter Visit Diagnoses Not on filedocumented in this encounter Care Teams It Desktop Support Technician Relationship Specialty Start Date End Date Amari Albarado MD [address] [place] [address] [place] [address] PCP - General Internal Medicine 11/29/20 Self-Referred, Patient 11/25/20 German Pena MD, MPH [address] [place] [phone] [email or web address] Primary Oncologist Urology 11/25/20 documented as of this encounter Additional Source Comments The information contained in this document represents components of the legal health record. It is not the complete legal health record.[facility]
--- OUTSIDE RECORDS SUMMARY | 2025-08-31 17:00 | XMS_ITS | Encounter Summary ---
Author Organization [facility] Address [address] [facility] [address] [place] [address] Phone Care Team Providers Care Mine Safety Manager Name Role Phone Self-Referred, Patient Unavailable Unavailab German Richard MD, MPH Unavailable [phone] Amari Albarado MD Primary Care Provider Encounter Details Date Type Department Care Team (Late st Contact Info) Description 06/30/2021 Procedure Pass [facility] [address] [place] [address] Social History Tobacco Use Types Packs/Day Years [...] Description 09/21/2025 1:00 PM EST Office Visit [facility] Urology [address] [facility] [place] [address] German Pena MD, MPH [address] [facility] [address] [place] [address] [email or web address] documented as of this encounter Visit Diagnoses Not on filedocumented in this encounter Care Teams Mine Safety Manager Relationship Specialty Start Date End Date Amari Albarado MD [address] [place] [address] [place] [address] PCP - General Internal Medicine 11/29/20 Self-Referred, Patient 11/25/20 German Pena MD, MPH [address] [place] [phone] [email or web address] THE [facility] Primary Oncologist Urology 11/25/20 documented as of this encounter Additional Source Comments The information contained in this document represents components of the legal health record. It is not the complete legal health record.[facility]
--- OUTSIDE RECORDS SUMMARY | 2025-08-31 17:00 | XMS_ITS | Patient Health Record ---
Author Organization [facility] Address [address] [facility] [address] [place] [address] Care Team Providers Care Dental Equipment Installer And Servicer Name Role Phone Amari Albarado Primary Care Provider Unavailab le Allergies No Known Allergies Reason For Referral No Information Plan Of Treatment Pending Test Test Name Order Date WALKING BOOT PNEUMATIC AND/OR VAC 2022 Insurance Providers Payer Name Payer Address Payer Phone Subscriber Number Group Number Insured Name Patient Relationship to Insured Coverage Start Date [facility]age End Date [facility] [address] [place] [address] [phone] [id number] Ismael Richardson Self - patient is the [...]
--- OUTSIDE RECORDS SUMMARY | 2025-08-31 17:00 | XMS_ITS | Encounter Summary ---
Author Organization [facility] Address [address] [facility] [address] [place] [phone] Phone Care Team Providers Care Office Communication Professor Name Role Phone Self-Referred, Patient Unavailable Unavailab German Richard MD, MPH Unavailable [phone] Amari Albarado MD Primary Care Provider Encounter Details Date Type Department Care Team (Late st Contact Info) Description 12/12/2020 Procedure Pass [facility] [address] [place] [address] Social History Tobacco Use Types Packs/Day Years [...] 12/12/2020 8:32 PM Catherine Mccurdy RN * [place] Suicide Severity Rating Scale (Screener/Recent Self-Report) Question Answer Date of Assessment Author 1. Wish to be (Past 1 Month) No 021 8:32 PM Catherine Mccurdy RN 2. Non-Specific Active Suici mata Thoughts (Past 1 Month) No 12/12/2020 8:32 PM Catherine Mccurdy, RN 6. Suicidal Behavior (Lifetime) No 8:32 PM Catherine Mccurdy, RN documented as of this encounter Plan of Treatment Upcoming Encounters Date Type Department Care Team ([facility] st Contact Info) Description 09/21/2025 1:00 PM EST Office Visit [facility] Urology [address] [facility] [place] [address] German Pena MD, MPH [address] [place] [address] [email or web address] documented as of this encounter Visit Diagnoses Not on filedocumented in this encounter Care Teams Office Communication Professor Relationship Specialty Start Date End Date Amari Albarado MD [address] [place] [address] [place] [address] PCP - General Internal Medicine 11/29/20 Self-Referred, Patient 11/25/20 German Pena MD, MPH [address] [place] [phone] [email or web address] Primary Oncologist Urology 11/25/20 documented as of this encounter Additional Source Comments The information contained in this document represents components of the legal health record. It is not the complete legal health record.[facility]
--- OUTSIDE RECORDS SUMMARY | 2025-08-31 17:01 | XMS_ITS | Clinical Summary ---
Author Organization [facility] Address [address] [facility] [address] [place] [address] Phone Care Team Providers Care Credit Reporter Name Role Phone Self-Referred, Patient Unavailable Unavailab German Richard MD, MPH Unavailable [phone] Amari Albarado MD Primary Care Provider Allergies [...] 12/12/2020 Urothelial carcinoma of kidney, right 2020 Encounters Date Type Department Care Team Description 08/25/2025 Telephone [facility] Urology [address] [facility] [place] [address] Gisela Corcoran from Last 3 Months Social History Tobacco [...] 05/29/2022 12:55 PM EDT Plan of Treatment Upcoming Encounters Date Type Department Care Team ([facility] st Contact Info) Description 09/21/2025 1:00 PM EST Office Visit [facility] Urology [address] [place] [address] German Pena MD, MPH [address] [place] [address] [email or web address] Health Maintenance Due Date Last Done Comments [...] topic Medical Devices Not on file Insurance Plan[employer]ooNA PPO CIGNA PPO CIGNA PPO Member Subscriber Plan / Payer (Ef fective 2020-Present) Name:CkWilli sheltonn Relation to Subscriber:Self Name:Willi Fletchern Payer ID:[id number] ([employer]) Type:PPO Address: [address] [place] [id number] CIGNA PPO CIGNA PPO CIGNA PPO CIGNA PPO CIGNA PPO CIGNA PPO Advance Directives For more information, please contact: [phone] (9AM - 5PM [place], Sunday-Sunday) * Full Code (Latest Code Status on File) Date Activated Date Inactivated Comments 12/12/2020 8:53 PM Question Answer Comments Code Status Confirmed With: Other (specify below ) Code Discussion Comments: Having surgery 12/13 Care Teams Credit Reporter Relationship Specialty Start Date End Date Amari Albarado MD [address] [place] [address] [place] [address] PCP - General Internal Medicine 11/29/20 Self-Referred, Patient 11/25/20 German Pena MD, MPH [address] [place] [phone] [email or web address] Primary Oncologist Urology 11/25/20 Additional Source Comments The information contained in this document represents components of the legal health record. It is not the complete legal health record.[facility]
--- OUTSIDE RECORDS SUMMARY | 2025-08-31 17:01 | XMS_ITS | Patient Health Record ---
Author Organization Amari Albarado MD Address [address] [place], [place] [id number] Care Team Providers Care Event Lighting Specialist Name Role Phone Amari Albarado Primary Care Provider Allergies No Known Allergies Results Component Value Reference Range Notes Complete Blood Count Auto Di ff Reviewed date:08/25/2025 12:48:17 PM Interpretation: Performing Lab:[facility], [address] [place] [phone] Notes/Report: White Blood Count 6.8 4.8-10.8 X10*3/uL [...] Panel Reviewed date:08/24/2025 12:31:06 PM Interpretation: Performing Lab:[address] [phone] Notes/Report: Triglycerides 114 <150 mg/dL Desirable Triglyceride: [...] (Free>4and<10) Reviewed date:08/24/2025 12:30:47 PM Interpretation: Performing Lab:[facility], [address] [place] [phone] Notes/Report: PSA,Total (Free>4and<10) 0.51 0.00-4.00 ng/mL A [...] Random Reviewed date:08/24/2025 12:32:40 PM Interpretation: Performing Lab:[address] [address] Notes/Report: Creatinine Urine 102.26 Microalbumin Urine 11.0 Microalbum/Creatinine Ratio Ur 10.7 <30 ug/mg cr Albumin/Creatinine Ratio Reference Ranges: Normal: < 30 ug/mg creatinine Microalbuminuria: 30 - 300 ug/mg creatinine Clinical Albuminuria: > 300 ug/mg creatinine Hemoglobin A1c Reviewed date:08/24/2025 12:30:56 PM Interpretation: Performing Lab:[address] [address] Notes/Report: Hemoglobin A1c % 5.9 <6.0 % [...] average glucose, using the formula of the W6F-Adaepmm Average Glucose study (ADAG), Diabetes Care, Vol.31,#8, May. 2007 UA ClnCatch+Micro w/rflx Cul t Reviewed date:08/27/2025 08:41:44 AM Interpretation: Performing Lab:[facility], [address] [place] [phone] Notes/Report: Urine, Clean Catch Color Urine Yellow Appearance Urine Clear PH 6.0 5.0-9.0 Glucose Urine UA Negative Negative mg/dL Urine Blood Trace Negative Specific [place] - Urine 1.015 1.005-1.025 Urine Protein Negative Neg-Trace mg/dL Urine Ketones Negative Negative mg/dL Nitrite Urine Negative Negative Leukocyte Esterase Urine Negative Negative RBC Urine 0-2 0-2 /HPF WBC Urine 0-5 0-5 /HPF Squamous Epithelial Cell Urine 0-2 0-2 /HPF Bacteria Urine None Seen None Seen Hyaline Casts Urine 0-2 0-2 /LPF UA ClnCatch+Micro w/rflx Cul t (Not yet reviewed by provider) Interpretation: Performing Lab:[facility], [address] [place] [phone] Notes/Report: Urine, Clean Catch Color Urine Yellow Appearance Urine Clear PH 5.5 5.0-9.0 Glucose Urine UA Negative Negative mg/dL Urine Blood Negative Negative Specific [place] - Urine <= 1.005 1.005-1.025 Urine Protein Negative Neg-Trace mg/dL Urine Ketones Negative Negative mg/dL Nitrite Urine Negative Negative Leukocyte Esterase Urine Negative Negative RBC Urine 0-2 0-2 /HPF WBC Urine 0-5 0-5 /HPF Squamous Epithelial Cell Urine 0-2 0-2 /HPF Bacteria Urine None Seen None Seen Hyaline Casts Urine 0-2 0-2 /LPF Complete Blood Count Auto Di ff Reviewed date:11/02/2024 06:30:08 PM Interpretation: Performing Lab:[facility], [address] [place] [phone] Notes/Report: White Blood Count 6.7 4.8-10.8 X10*3/uL [...] INR Reviewed date:11/02/2024 06:18:05 PM Interpretation: Performing Lab:[address] [address] Notes/Report: Prothrombin Time 10.9 10.9-12.4 SEC [employer]NATIONAL [...] Panel Reviewed date:11/02/2024 06:30:35 PM Interpretation: Performing Lab:[address] [address] Notes/Report: Sodium 140 135-145 mmol/L Potassium 4.1 [...] Sensitivity Reviewed date:11/02/2024 06:17:46 PM Interpretation: Performing Lab:[address] [address] Notes/Report: Troponin-I High Sensitivity 8.3 <3.5-35.0 ng/L The Andrade high sensitivity Troponin-I results should be used in conjunction with other diagnostic information such as ECG, clinical observations and information, and patient symptoms to aid in the diagnosis of [place]. B Type Natriuretic Peptide Reviewed date:11/02/2024 06:28:53 PM Interpretation: Performing Lab:[facility], [address] [place] [phone] Notes/Report: B Type Natriuretic Peptide 63 <100 pg/mL For those patients who are being treated with Natrecor (nesiritide, recombinant BNP), BNP testing should be performed at least two hours post treatment in order to ensure that only endogenous levels of BNP are detected. SARS-CoV2/FLU/RSV Reviewed date:11/02/2024 06:17:54 PM Interpretation: Performing Lab:[address] [address] Notes/Report: Influenza A PCR NEGATIVE Negative Influenza [...] by authorized laboratories. Testing performed on the [employer] GeneXpert utilizing real-time RT-PCR. All SARS CoV2 and positive influenza A/B results are reported to [facility]. XR chest 2V Reviewed date:10/31/2024 04:57:02 PM Interpretation: Performing Lab: Notes/Report: [address] [address] XRay Report Signed Patient: Ismael Fletcher MR#: [id number] : 1965 Acct:[id number] Age/Sex: 58 / M ADM Date: 10/31/24 Loc: .ED Attending Dr: Ordering Physician: Alexus Del Valle NP Date of Service: 10/31/24 Procedure(s): XR chest 2V Accession Number(s): [id number] cc: Amari Albarado MD; Alexus Del Valle NP EXAMINATION: XR CHEST CLINICAL INFORMATION: shortenss of breath COMPARISON: None available. TECHNIQUE: 2 views of the chest were obtained. FINDINGS: No significant abnormality is noted involving the heart, lungs, mediastinum, bony thorax or soft tissues. XR/XR chest 2V IMPRESSION: Unremarkable chest examination. Electronically signed by: Rambo Cohen MD 10/31/2024 04:50 PM [facility] Dictated By: Rambo Cohen MD Signed By: <Electronically signed by Rambo Cohen MD in OV> 10/31/24 1650 DD/ 1600 TD/TT: 10/31/24 1605 [employer]: [address] [address] XRay Report Signed Patient: Ismael Fletcher MR#: [id number] : 1965 Acct:[id number] Age/Sex: 58 / M ADM Date: 10/31/24 Loc: HO.ED Attending Dr: Ordering Physician: Alexus Del Valle NP Date of Service: 10/31/24 Procedure(s): XR mirta st 2V Accession Number(s): [id number] cc: Amari Albarado MD; Alexus Del Valle NP EXAMINATION: XR CHEST CLINICAL INFORMATION: shortenss of breath COMPARISON: None available. TECHNIQUE: 2 views of the chest were obtained. FINDINGS: No significant abnormality is noted involving the heart, lungs, mediastinum, bony thorax or soft tissues. XR/XR chest 2V IMPRESSION: Unremarkable chest examination. Electronically mele d by: Rambo Cohen MD 10/31/2024 04:50 PM [facility] Dictated By: Rambo Cohen MD Signed By: <Electronically signed by Rambo Cohen MD in OV> 10/31/24 1650 DD/ 1600 TD/TT: 10/31/24 1605 [employer]: [place] US scrotum Reviewed date:03/16/2025 12:29:24 PM Interpretation: Performing Lab: Notes/Report: [address] [address] Ultrasound Report Signed Patient: Ismael Fletcher MR#: [id number] : 1965 Acct:[id number] Age/Sex: 59 / M ADM Date: 03/13/25 Loc: HO.US Attending Dr: Zhen Martin MD Ordering Physician: Zhen Martin MD Date of Service: 03/13/25 Procedure(s): US scrotum Accession Number(s): [id number] cc: Zhen Martin MD; Amari Albarado MD [...] 03/16/25 0716 DD/ 1609 TD/TT: 03/13/25 1616 [employer]: [place] [address] Ultrasound Report Signed Patient: Ismael Fletcher MR#: [id number] : 1965 Acct:[id number] Age/Sex: 59 / M ADM Date: 03/13/25 Loc: HO.US Attending Dr: Zhen Martin MD Ordering Physician: Zhen Martin MD Date of Service: 03/13/25 Procedure(s): US scrotum Accession Number(s): [id number] cc: Zhen Martin MD; Amari Albarado MD [...] 03/16/25 0716 DD/ 1609 TD/TT: 03/13/25 1616 [employer]ing: Jenny Nicole. Panel Reviewed date:08/24/2025 12:33:23 PM Interpretation: Performing Lab:[facility], [address] [place] [phone] Notes/Report: Sodium 143 135-145 mmol/L Potassium 4.0 [...] 63 39-117 U/L Reason For Referral Reason intermittent palpita tions heart murmur, systolic Diagnosis 1 Intermittent palpita tions (R00.2) Diagnosis 2 Heart murmur, systol ic (R01.1) Referral Organization Amari Albarado MD Referring Provider First Name Amari Referring Provider Last Name Per Referring Provider Speciality Internal edicine Referred Provider MALLORY BOND Referred Provider [...] in system for Echo order faxed to [facility] CS dept booked for 12-31-2024, Yohana Vasques 01/06/2025 10:31:00 AM >was told by office appt is being worked on Referral Priority Routine Referral Appointment Date 01/28/2025 Reason right hydrocele Diagnosis 1 Right hydrocele (N43 .3) Referral Organization Amari Albarado MD Referring Provider First Name Amari Referring Provider Last Name Per Referring Provider [facility] Internal edicine Referred Provider Anish Mtz Referred [...] Problem Status W/U Status Risk Notes Problem 561931632 Paroxysmal atria l fibrillation (I48.0) Active confirmed Problem 973402335 Chronic sinusitis, unspecified (J32.9) Active confirmed Problem 06860834 Rectal polyp (K62.1) Active confirmed Problem 1246463 Prediabetes (R73.09) Active confirmed Problem 938899533 Low HDL (under 40) (E78.6) Active confirmed Problem 53816057 Intrinsic eczema (L20.84) Active confirmed Problem 455630150 Family history o f colon cancer (Z80.0) Active confirmed Problem 34028764 Acute non-recurrent maxillary sinusitis (J01.00) Active confirmed Problem 798241438 Renal mass (N28.89) Active confirmed Problem 55969275 REJI (obstructive sleep apnea) (G47.33) Active confirmed Problem 307356291 Renal cell carcinoma of right kidney (C64.1) Active confirmed Vital Signs Blood pressure diastolic 94 mm Hg 08/31/2025 ольга ght is up 2 pounds since 11-07-24 Height 75 in 08/31/2025 weight is up 2 pounds since 11-07-24 Blood pressure systolic 132 mm Hg 08/31/2025 weig ht is up 2 pounds since 11-07-24 Weight 253 lbs 08/31/2025 weight is up 2 pounds since 11-07-24 BMI 31.62 kg/m2 08/31/2025 weight is up 2 pounds since 11-07-24 Encounters Encounter Location Date Provider Diagnosis Amari Albarado MD [address] [place] [address] Drive [address] [place] [id number] 11/07/2024 Amari Albarado Intermittent palpitations R00.2 ; Heart murmur, systolic R01.1 and Right hydrocele N43.3 Amari Albarado MD [address] [place] [address] Drive [address] [place] [id number] 08/24/2025 Amari Albarado Blood tests for routine general physical examination Z00.00 ; Prediabetes R73.09 and Low HDL (under 40) E78.6 Amari Albarado MD [address] [place] [address] [id number] 08/31/2025 Amari Albarado Hematuria R31.9 and Annual physical exam Z00.00 Amari Albarado MD [address] [place] [address] Drive [address] [place] [id number] 12/01/2024 Amari Albarado MD [address] [place] [address] [id number] 12/16/2024 Amari Albarado Heart murmur, systolic R01.1 Assessments Encounter Date Diagnosis (ICD Code) Assessment Notes Treatment Notes Treatment Clinical Notes Section Notes 11/07/2024 Intermittent palpitations (ICD-10 - R00.2) referral to dr carvajal 11/07/2024 Heart murmur, systolic (ICD-10 - R01.1) get results of cardiology consult dr woodruff 08/24/2025 Blood tests for routine general physical examination (ICD-10 - Z00.00) 08/31/2025 Hematuria (ICD-10 - R31.9) will repeat u/a 08/31/2025 Annual physical exam (ICD-10 - Z00.00) 12/16/2024 Heart murmur, systolic (ICD-10 - R01.1) 11/07/2024 Right hydrocele (ICD-10 - N43.3) [place] [facility] 08/24/2025 Prediabetes (ICD-10 - R73.09) 08/24/2025 Low HDL (under 40) (ICD-10 - E78.6) Plan Of Treatment Pending Test Test Name Order Date Electrocardiogram (EKG) 08/01/2018 Electrocardiogram (EKG) 06/01/2016 Electrocardiogram (EKG) 06/07/2017 MRI ABD W&WO CONTRAST 07/20/2022 XR GI SERIES 01/02/2020 US ABD 05/18/2022 ECHO 12/16/2024 Comprehensive [place]. Panel Fast UA ClnCatch+Micro w/rflx Cult 08/31/2025 Next Appt Details Provider Name:Amari Oumou Amaya ier, 03/01/2026 08:30:00 AM, [address] [place] [address], Suite [facility], [place], [place], [phone], Provider Name:Amari Amaya ier, 08/26/2026 07:15:00 AM, [address] [place] [address], Suite [facility], [place], [place], [phone], Provider Name:Amari Amaya ier, 09/02/2026 09:30:00 AM, [address] [place] [address], [address], [place], [place], [phone], Insurance Providers Payer Name Payer Address Payer Phone Subscriber Number Group Number Insured Name Patient Relationship to Insured Coverage Start Date Coverage End Date [employer] [id number] [place] [phone] [id number] Ismael Wells Self - patient is the insured Medical (General) History Medical History History ICD Code colonoscopy 2011 due in 5 ye ars; colonoscopy 09/06/[address] Novak-repeat 5 years. Clonoscopy 03/09/21 repeat 3y colonoscopy in 2022 repeat in 3 years
== END 2025-08-31 15:58 | disposition home or self-care (01) ==
LOC: HO.LNP 15:57
PROVIDERS: Visit Provider Internal Medicine
DX: R31.9 Hematuria, unspecified (principal)
CPT/HCPCS: 81001

== ENCOUNTER 2025-10-15 12:59 | Outpatient (AMB) | payer OTHER, SELFPAY ==
--- OUTSIDE RECORDS SUMMARY | 2024-04-15 05:30 | XMS_ITS ---
Author Organization Amari Albarado MD Address [address] [place] [phone] Care Team Providers Care Lubrication Servicer Name Role Phone Amari Albarado Primary Care Provider Allergies No Known Allergies REASON FOR VISIT sore throat , coughing and congested been going on for 2 weeks, Tested negative for Covid 04-14-24, Video [phone] Medications Medication SIG (Take, Route, Frequency, Duration) Notes Start Date End Date Status Zithromax Z-Darius 250 MG 2 tablet on the irst day, then 1 tablet daily for 4 days Orally Once a day for 5 day(s) 04/15/2024 Active Mucinex Sinus-Max 0-21-343-325 MG 2 tablets may be given every 4 hours as needed Orally Five times a day Active Vital Signs Height 75 in 04/15/2024 Weight 230 lbs 04/15/2024 BMI 28.74 kg/m2 04/15/2024 weight at home is 230 BP not taken at home no temp Encounters Encounter Location Date Provider Diagnosis Amari Albarado MD [address] [place] [phone] 04/15/2024 Amari Albarado Bronchitis J40 Assessments Encounter [...] Details Provider Name:Amari mcgee, 03/01/2026 08:30:00 AM, [address] [place] [address], [address], [phone], Provider Name:Amari mcgee, 08/26/2026 07:15:00 AM, [address] [place] [address], [address], [phone], Provider Name:Amari mcgee, 09/02/2026 09:30:00 AM, [address] [place] [address], [place] [address], [place], [place], [phone], Progress Notes * NACHOSANDRAIsmael TDOB:1965 (58 yo M)Acc No.[id number]:04/15/2024 Patient: Ismael Bobby Provider: Starla Albarado MD :1965 A ge:58 Y S ex:Male Date:04/15/2024 Address:[address] [place], [place] [phone] Subjective: * Chief Complaints: * S ore throat , coughing and congested been going on for 2 weeksTested negative for Covid 5-37-33Nnows [phone] * HPI: S ymptom(s): Telehealth L ocation of provider rendering services: 1 0 [facility], [address], L ocation of patient: o ther (please specify) Work in [facility] identification confirmed using: N evelyn, , SSN, Insurance information, T elehealth method: V ideo conference where patient is visible to the provider of care, C onsent: P atient verbally consented to treatment, Patient verbally consented to [employer], Patient informed of any privacy concerns related [...] stic Procedure: * Medications: T akingMucinex Sinus-Max 2-42-736-325 MG Tablet 2 tablets may be given every 4 hours as needed Orally Five times a dayMedication List reviewed and reconciled with the patientTaking Mucinex Sinus-Max 8-41-935-325 MG Tablet 2 tablets may be given [...] 0 04/15/2024 Generated for Thania corey/Rayo/eTransmitting on: 1 12/16/2024 04:51 PM EST History and Physical Notes * HPI (History of Present Illness) Category Sub-Category Detail Notes Category Not es Symptom(s) Telehealth Location of [facility] rendering services:: [address], [address] patient is a 58 yo male Video [facility] visit, complaining of coughing and sore throat for 2 weeks. feels like glands are swollen. tested negative for covid. Location of patient:: other (please spec camilla) Work in [place] Patient identification confi rmed using:: Name, , [...]
--- OUTSIDE RECORDS SUMMARY | 2024-08-22 02:45 | XMS_ITS ---
Author Organization Amari Albarado MD Address [address] [place], [place] [id number] Care Team Providers Care Foot Worker Name Role Phone Amari Albarado Primary Care Provider [phone] Results Component Value Reference Range Notes Complete Blood Count Auto Di ff Reviewed date:08/22/2024 01:43:32 PM Interpretation: Performing Lab:[facility], [address] [place] [phone] Notes/Report: White Blood Count 5.5 4.8-10.8 X10*3/uL Red Blood Count 5.02 4.60-5.80 X10*6/uL Hemoglobin 14.5 14.0-18.0 g/dl Hematocrit 42.6 42.0-52.0 % Mean Corpuscular Volume 84.9 80.0-98.0 fL Mean Corpuscular Hemoglobin 28.9 27.0-33.0 pg Mean Corpuscular HGB Conc 34.0 31.0-36.0 g/dl Red Cell Distribution Width 12.0 11.0-16.0 % Platelet Count 247 160-400 X10*3/uL Mean Platelet Volume 9.9 9.4-12.4 fL Neutrophils Percent Auto 51.9 45-73 % Imm Gran Pct Auto 0.2 0.0-0.4 % Lymphocytes Percent Auto 36.4 20-40 % Monocytes Percent Auto 8.4 2-11 % Eosinophils Percent Auto 2.4 0-4 % Basophils Percent Auto 0.7 0-2 % NRBC Pct Auto 0.0 0.0-0.2 /100WBC Neutrophils Absolute Auto 2.8 2.0-8.3 x10*3/u L Imm Gran Abs Auto 0.01 0.00-0.03 X10*3/uL Lymphocytes Absolute Auto 2.0 1.2-4.9 X10*3/u L Monocytes Absolute Auto 0.5 0.1-1.2 X10*3/uL Eosinophils Absolute Auto 0.1 0.0-0.4 X10*3/u L Basophils Absolute Auto 0.0 0.0-0.2 X10*3/uL NRBC Abs Auto 0.000 0.0-0.012 X10*3/uL Comprehensive [place]. Panel Fa st Reviewed date:08/24/2024 03:58:24 PM Interpretation: Performing Lab:[facility], [address] [place] [phone] Notes/Report: Sodium 141 135-145 mmol/L Potassium 3.5 3.3-5.1 mmol/L Chloride 106 96-108 mmol/L Carbon Dioxide 27 22-29 mmol/L Anion Gap 12 12-20 Blood Urea Nitrogen 13 9-16 mg/dL Creatinine 1.30 0.5-1.4 mg/dL Estimated Glomerular Filt Rate 57 NOTE: For -[place] individuals, multiply the result by 1.210. Chronic Kidney Disease: Estimated GFR < 60 mL/min/1.73m2 Severe Kidney Disease: Estimated GFR < 15 mL/min/1.73m2 Glucose Fasting 112 60-99 mg/dL A fasting glucose from 100-125 mg/dl is considered impaired (pre-diabetes). Calcium 9.3 8.4-10.2 mg/dL Bilirubin Total 0.7 0.0-1.0 mg/dL Aspartate Amino Transferase 34 5-37 U/L Alanine Aminotransferase 30 0-40 U/L Total Protein 7.1 6.5-8.0 g/dL Albumin Level 4.4 3.5-5.0 g/dL Alkaline Phosphatase 62 39-117 U/L Lipid Panel Reviewed date:08/22/2024 01:42:57 PM Interpretation: Performing Lab:[facility], [address] [place] [phone] Notes/Report: Triglycerides 105 <150 mg/dL Desirable Triglyceride: less than 150 mg/dL Borderline High Triglyceride 150-199 mg/dL High Triglyceride: 200-499 mg/dL Very High Triglyceride: greater than or equal to 5OO mg/dL Cholesterol 197 <200 mg/dL Desirable Cholesterol: less than 200 mg/dL Borderline High Cholesterol: 200-239 mg/dL High Cholesterol: greater than 239 mg/dL LDL Cholesterol Calculated 135 <100 mg/dL Desirable LDL: less than 100 mg/dL Near Optimal/Above Optimal LDL: 110-129 mg/dL Borderline High LDL: 130-159 mg/dL High LDL: 160-189 mg/dL Very High LDL: greater than or equal to 190 mg/dL HDL Cholesterol 41 >40 mg/dL Desirable HDL: greater than 40 mg/dL Note: This HDL assay may give artificially low results in patients with liver disease. PSA,Total (Free>4and<10) Reviewed date:08/23/2024 06:28:56 PM Interpretation: Performing Lab:[facility], [address] [place] [phone] Notes/Report: PSA,Total (Free>4and<10) 0.50 0.00-4.00 ng/mL A Free PSA was not performed: The percentage of Free PSA can be used to enhance the differentiation of prostate cancer from benign prostatic disease in subjects whose PSA levels are between 4.0 and 10.0 ng/mL. For subjects whose PSA levels are below 4.0 or above 10.0 ng/mL, the risk of prostate cancer is determined on the basis of the PSA alone. Therefore the % Free PSA is recommended only for those subjects whose PSA levels are between 4.0 and 10.0 ng/mL. PSA methodology: Andrade Alinity i Chemiluminescent Microparticle Immunoassay (CMIA) Microalbumin, Random Reviewed date:08/23/2024 12:57:47 PM Interpretation: Performing Lab:[facility], [address] [place] [phone] Notes/Report: Creatinine Urine 118.46 Microalbumin Urine 12.0 Microalbum/Creatinine Ratio Ur 10.1 <30 ug/mg cr Albumin/Creatinine Ratio Reference Ranges: Normal: < 30 ug/mg creatinine Microalbuminuria: 30 - 300 ug/mg creatinine Clinical Albuminuria: > 300 ug/mg creatinine Hemoglobin A1c Reviewed date:08/24/2024 03:54:32 PM Interpretation: Performing Lab:[facility], [address] [place] [phone] Notes/Report: Hemoglobin A1c % 5.6 <6.0 % Hemoglobin A1C Reference Range Adults: 4.8 - 6.0 % Non diabetic: < 6.0 % Goal: < 7.0 % Additional Action Suggested: > 8.0 % Note: Hemoglobin A1c results are invalid for patients with abnormal amounts of HbF. Blood transfusions may impact the HbA1c concentration in the patient sample. Estimated Average Glucose 114 eAG = Estimated average glucose which is %A1C expressed as average glucose, using the formula of the Q8T-Gmlssnm Average Glucose study (ADAG), Diabetes Care, Vol.31,#8, May. 2007 UA ClnCatch+Micro w/rflx Cul t Reviewed date:08/25/2024 06:22:43 PM Interpretation: Performing Lab:[facility], [address] [place] [phone] Notes/Report: Urine, Clean Catch Color Urine Yellow Appearance Urine Clear PH 6.0 5.0-9.0 Glucose Urine UA Negative Negative mg/dL Urine Blood Negative Negative Specific [place] - Urine 1.010 1.005-1.025 Urine Protein Negative Neg-Trace mg/dL Urine Ketones Negative Negative mg/dL Nitrite Urine Negative Negative Leukocyte Esterase Urine Negative Negative RBC Urine 0-2 0-2 /HPF WBC Urine 0-5 0-5 /HPF Squamous Epithelial Cell Urine 0-2 0-2 /HPF Bacteria Urine None Seen None Seen Hyaline Casts Urine 3-5 0-2 /LPF REASON FOR VISIT yearly fasting labs Immunizations Vaccine Route Administration Date Status Comme nts Fluarix Quadrivalent - 150 Unknown 08/22/2024 Refused Encounters Encounter Location Date Provider Diagnosis Amari Albarado MD [address] [place], [place] [phone] 08/22/2024 Amari Albarado Blood tests for routine general physical examination Z00.00 ; Prediabetes R73.09 and Low HDL (under 40) E78.6 Assessments Encounter Date Diagnosis (ICD Code) Assessment Notes Treatment Notes Treatment Clinical Notes Section Notes 08/22/2024 Blood tests for routine general physical examination (ICD-10 - Z00.00) 08/22/2024 Prediabetes (ICD-10 - R73.09) 08/22/2024 Low HDL (under 40) (ICD-10 - E78.6) Plan Of Treatment Next Appt Details Provider Name:Amari Amaya ier, 03/01/2026 08:30:00 AM, [address] [place] [address], Suite [facility], [place], [place], [phone], Provider Name:Amari Amaya ier, 08/26/2026 07:15:00 AM, [address] [place] [address], Suite [facility], [place], [place], [phone], Provider Name:Amari Amaya ier, 09/02/2026 09:30:00 AM, [address] [place] [address], [address], [phone], Progress Notes * Ismael FLETCHER TDOB:1965 (58 yo M)Acc No.[id number]:08/22/2024 Progress Note Patient: Ismael Bobby Provider: Starla Albarado MD :1965 A ge:58 Y S ex:Male Date:08/22/2024 Address:[address] [place] [phone] Subjective: * Chief Complaints: * Y early fasting labs * Medical History: * Surgical History: * Hospitalization/Major Diagno stic Procedure: * Medications: Objective: Assessment: * Assessment: 1. B lood tests for routine general physical examination - Z00.00 (Primary) 2 . P rediabetes - R73.09 3 . L ow HDL (under 40) - E78.6 Plan: * Treatment: 2. P rediabetes L AB: Complete Blood Count Auto Diff L AB: Comprehensive [place]. Panel Fast L AB: Lipid Panel L AB: PSA,Total (Free>4and<10) L AB: Microalbumin, Random L AB: Hemoglobin A1c L AB: UA ClnCatch+Micro w/rflx Cult 3. L ow HDL (under 40) L AB: Complete Blood Count Auto Diff L AB: Comprehensive [place]. Panel Fast L AB: Lipid Panel L AB: PSA,Total (Free>4and<10) L AB: Microalbumin, Random L AB: Hemoglobin A1c L AB: UA ClnCatch+Micro w/rflx Cult * Immunizations: Fluarix Quadrivalent - 150 (Not administered - Refused: Patient decision) * Procedure Codes: 3 6415 VENIPUNCT, ROUTINE* * * Sign off status: Completed true * Provider: Starla Albarado MD Date: 1 Generated for Thania corey/Rayo/Melba on: 12/16/2024 04:52 PM EST
--- OUTSIDE RECORDS SUMMARY | 2024-08-29 08:00 | XMS_ITS ---
Author Organization Amari Albarado MD Address [address] [place], [place] [id number] Care Team Providers Care Sugarcane Research Technician Name Role Phone Amari Albarado Primary Care Provider Allergies No Known Allergies Results Component Value Reference Range Notes Occult Blood, Stool, Guaiac Reviewed date:08/29/2024 01:51:42 PM Interpretation:Negative Performing Lab: Notes/Report: Negative Occult Blood, Stool, Guaiac Neg Reason For Referral Reason SKIN LESION OF FACE Diagnosis 1 Skin lesion of face (L98.9) Referral Organization Amari Albarado MD Referring Provider First Name Amari Referring Provider Last Name Per Referring Provider Speciality Internal M edicine Referred Provider German Mccann Referred Provider Specialty Dermatology General Notes Daily Millard 08/29/2024 01:47:37 PM EDT > , Daily Millard 09/01/2024 09:02:39 AM EST > REFERRAL FAXED TO [facility] ON 08/29/24Venice Patti A 10/10/2024 11:01:09 AM EST > SCHEDULED FOR APPT 10/20 AT10:30AM, Daily Millard 11/03/2024 01:12:49 PM EST > OFFICE NOTE RECD Referral Priority Routine Referral Appointment Date 10/20/2024 REASON FOR VISIT annual visit Social History Tobacco Use: Social History Observation Description Date Details (start date - stop date) Never Smoker NA - NA Tobacco Use/Smoking Question Answer Notes Patient is a nonsmoker Additional Findings: Tobacco Non-User Cu rrent non-smoker, currently using no form of tobacco Alcohol Screen Question Answer Notes Did you have a drink contain ing alcohol in the past year? Yes How often did you have a dri nk containing alcohol in the past year? Monthly or less (1 point) How many drinks did you have on a typical day when you were drinking in the past year? 1 or 2 drinks (0 point) How often did you have 6 or more drinks on one occasion in the past year? Never (0 point) Points 1 Interpretation Negative Vital Signs Blood pressure systolic 122 mm Hg 08/29/20 24 Blood pressure diastolic 80 mm Hg 024 Height 75 in 08/29/2024 Weight 244 lbs 08/29/2024 BMI 30.49 kg/m2 08/29/2024 weight is up 14 pounds since 04-15-24 Encounters Encounter Location Date Provider Diagnosis Amari Albarado MD [address] [place] [address] [place] [phone] 08/29/2024 Amari Albarado Skin lesion of face L98.9 ; Annual physical exam Z00.00 ; Prediabetes R73.09 ; Family history of colon cancer Z80.0 ; Renal mass N28.89 ; REJI (obstructive sleep apnea) G47.33 ; Paroxysmal atrial fibrillation I48.0 ; Colon cancer screening Z12.11 and Depression screening Z13.31 Assessments Encounter Date Diagnosis (ICD Code) Assessment Notes Treatment Notes Treatment Clinical Notes Section Notes 08/29/2024 Skin lesion of face (ICD-10 - L98.9) referral back to dr mccann/ REFERRAL MADE AND FAXED TO DR MCCANN @ [facility] ON APPT AFTER 2 WEEKS PER [facility] 08/29/2024 Annual physical exam (ICD-10 - Z00.00) labs reviewed and discused with patient 08/29/2024 Prediabetes (ICD-10 - R73.09) keep weight down, stable, no need for medicatin at this time 08/29/2024 Family history of colon cancer (ICD-10 - Z80.0) had colonoscopy last year repeat in 2 years. 08/29/2024 Renal mass (ICD-10 - N28.89) going to go to [facility] 08/29/2024 REJI (obstructive sleep apnea) (ICD-10 - G47.33) is going to go back to see sleep medicine 08/29/2024 Paroxysmal atrial fibrillation (ICD-10 - I48.0) has not had any further episodes 08/29/2024 Colon cancer screening (ICD-10 - Z12.11) guaiac negative 08/29/2024 Depression screening (ICD-10 - Z13.31) negative screen Plan Of Treatment Treatment Notes Assessment Notes Skin lesion of face referral back to dr mccann/ REFERRAL MADE AND FAXED TO DR MCCANN @ [facility] , [facility] ON APPT AFTER 2 WEEKS PER [facility] Annual physical exam labs reviewed and d iscused with patient Prediabetes keep weight down, st able, no need for medicatin at this time Family history of colon cancer had colon oscopy last year repeat in 2 years. Renal mass going to go to [facility] REJI (obstructive sleep apnea) is going t o go back to see sleep medicine Paroxysmal atrial fibrillation has not h ad any further episodes Colon cancer screening guaiac negative Depression screening negative screen Referrals Referral Date Details 08/29/2024 08/29/2024, SKIN LES ION OF FACE, German Mccann Next Appt Details Follow Up: 1 Year, Reason: Provider Name:Amari mcgee, 03/01/2026 08:30:00 AM, [address] [place] [address], [address] [place] [address], [phone], Provider Name:Amari mcgee, 08/26/2026 07:15:00 AM, [address] [place] [address], Suite [facility], [place], [place], [phone], Provider Name:Amari mcgee, 09/02/2026 09:30:00 AM, [address] [place] [address], [address] [place] [address], [phone], Progress Notes * Ismael FLETCHER TDOB:1965 (58 yo M)Acc No.[id number]:08/29/2024 Progress Notes Patient: Ismael Bobby Provider: Starla Albarado MD :1965 A ge:58 Y S ex:Male Date:08/29/2024 Address:[address] [place] [address], [place], [id number] Subjective: * Chief Complaints: * A nnual visit * HPI: D epression Screening: PHQ-9 L ittle interest or pleasure in doing things N ot at all, F eeling down, depressed, or hopeless N ot at all, T rouble falling or staying asleep, or sleeping too much N ot at all, F eeling tired or having little energy N ot at all, P oor appetite or overeating N ot at all, F eeling bad about yourself or that you are a failure, or have let yourself or your family down N ot at all, T rouble concentrating on things, such as reading the newspaper or watching television N ot at all, M oving or speaking so slowly that other people could have noticed; or the opposite, being so fidgety or restless that you have been moving around a lot more than usual N ot at all, T houghts that you would be better off or of hurting yourself in some way N ot at all, T otal Score 0 . I nterpretation and Intervention D epression Screening Findings N egative, F ollow-Up for Depression : review of PHQ-9 found negative result, no follow-up needed. C ommunication Needs: Communication Needs D oes the patient have a hearing impairment N o, D oes the patient have a vision impairment? Y es, I f yes, what is the vision impairment? G lasses, D oes the patient have a cognition impairment? N o. S ROSE Questions: SDOH Questions I n the past year have you been worried about losing housing? N o, I n the past year have you or any family members you live with been unable to get any of the following when it was really needed? Check all that apply: N one. S ymptom(s): patient is a 58 yo male here for annual visit with review of recent labs and follow up of chronic issues. has been doing well. 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 * ROS: G eneral/Constitutional: Patient denies f atigue , headache. C hange in appetite?denies. C hills d enies. F ever d enies. O phthalmologic: Blurred vision d enies. D ischarge d enies. P ain d enies. E NT: Patient denies d ecreased sense of smell , any loss of taste , sore throat. D ecreased hearing d enies. S ore throat d enies. S wollen glands d enies. E ndocrine: Cold intolerance d enies. E xcessive thirst d enies. H eat intolerance d enies. W eight loss d enies. R espiratory: Cough d enies. S hortness of breath at rest d enies. S hortness of breath with exertion d enies. W heezing d enies. C ardiovascular: Chest pain at rest d enies. C hest pain with exertion?denies. I rregular heartbeat d enies. S hortness of breath d enies. ? G astrointestinal: Abdominal pain d enies. C hange in bowel habits d enies. D iarrhea d enies. N ausea d enies. R ectal bleeding d enies. V omiting d enies . G enitourinary: Blood in urine d enies. D ifficulty urinating d enies. F requent urination d enies. M usculoskeletal: Patient denies m uscle aches. P ainful joints d enies. W eakness d enies. P eripheral Vascular: Patient denies r ed and blue toes. S kin: Dry skin d enies. I tching d enies. D enies?Mole(s), changes in moles, new moles or any lesions of concern. D enies P hotosensitivity. R alejo d enies. N eurologic: Dizziness d enies. F ainting d enies. H eadache?denies. * Medical History: * Surgical History: * Hospitalization/Major Diagno stic Procedure: * Family History: F ather: 72 yrs, Healthy. M other: 62 yrs, [place]. 2 sister(s) . 2 son(s) . . Father- Mother- [place], Denies mental health/substance abuse family history, No pertinent family medical history, Denies mental health/substance abuse family history father was an alcoholic. * Social History: T obacco Use: T obacco Use/Smoking P henny is a n onsmoker, A dditional Findings: Tobacco Non-User C urrent non-smoker, currently using no form of tobacco. D rugs/Alcohol: A lcohol Screen D id you have a drink containing alcohol in the past year? Y es, H ow often did you have a drink containing alcohol in the past year? M onthly or less (1 point), H ow many drinks did you have on a typical day when you were drinking in the past year? 1 or 2 drinks (0 point), H ow often did you have 6 or more drinks on one occasion in the past year? N ever (0 point), P oints 1 , I nterpretation N egative. M iscellaneous: C affeine: yes, frequency: one red bull every other day sugar free. Children: yes. Community involvements: yes. Exercise: yes, walks everyday for 1 mile and yoga 31-3 times a week. Housing: owning. Living with: spouse, family. Marital status: . Occupation: works full-time. Pets: dog. no Travel outside of the [place]. * Medications: N one * Allergies: N .K.D.A.yes[Allergies Verified] Objective: * Vitals: H t: 75, Wt:244, BMI:30.49, BP:122/80 weight is up 14 pounds since 04-15-24. * P ast Orders: L ab:Complete Blood Count Auto Diff (Order Date - 08/22/2024) (Collection Date - 08/22/2024) Value Reference Range White Blood Count 5.5 4.8-10.8 - X10*3/uL Red Blood Count 5.02 4.60-5.80 - X10*6/uL Hemoglobin 14.5 14.0-18.0 - g/dl Hematocrit 42.6 42.0-52.0 - % Mean Corpuscular Volume 84.9 80.0-98.0 - fL Mean Corpuscular Hemoglobin 28.9 27.0-33.0 - pg Mean Corpuscular HGB Conc 34.0 31.0-36.0 - g/ dl Red Cell Distribution Width 12.0 11.0-16.0 - % Platelet Count 247 160-400 - X10*3/uL Mean Platelet Volume 9.9 9.4-12.4 - fL Neutrophils Percent Auto 51.9 45-73 - % Imm Gran Pct Auto 0.2 0.0-0.4 - % Lymphocytes Percent Auto 36.4 20-40 - % Monocytes Percent Auto 8.4 2-11 - % Eosinophils Percent Auto 2.4 0-4 - % Basophils Percent Auto 0.7 0-2 - % NRBC Pct Auto 0.0 0.0-0.2 - /100WBC Neutrophils Absolute Auto 2.8 2.0-8.3 - x10* 3/uL Imm Gran Abs Auto 0.01 0.00-0.03 - X10*3/uL Lymphocytes Absolute Auto 2.0 1.2-4.9 - X10* 3/uL Monocytes Absolute Auto 0.5 0.1-1.2 - X10*3/ uL Eosinophils Absolute Auto 0.1 0.0-0.4 - X10* 3/uL Basophils Absolute Auto 0.0 0.0-0.2 - X10*3/ uL NRBC Abs Auto 0.000 0.0-0.012 - X10*3/uL L ab:Lipid Panel (Order Date - 08/22/2024) (Collection Date - 08/22/2024) Value Reference Range Triglycerides 105 <150 - mg/dL Cholesterol 197 <200 - mg/dL LDL Cholesterol Calculated 135 H <100 - mg/dL HDL Cholesterol 41 >40 - mg/dL L ab:PSA,Total (Free>4and<10) (Order Date - 08/22/2024) (Collection Date - 08/22/2024) Value Reference Range PSA,Total (Free>4and<10) 0.50 0.00-4.00 - ng/ mL L ab:Microalbumin, Random (Order Date - 08/22/2024) (Collection Date - 08/22/2024) Value Reference Range Creatinine Urine 118.46 - mg/dL Microalbumin Urine 12.0 - mg/L Microalbum Creatinine Ratio Ur 10.1 <30 - ug/ mg cr L ab:Hemoglobin A1c (Order Date - 08/22/2024) (Collection Date - 08/22/2024) Value Reference Range Hemoglobin A1c % 5.6 <6.0 - % Estimated Average Glucose 114 - mg/dL L ab:UA ClnCatch+Micro w/rflx Cult (Order Date - 08/22/2024) (Collection Date - 08/22/2024) Value Reference Range Color Urine Yellow - Appearance Urine Clear - PH 6.0 5.0-9.0 - Glucose Urine UA Negative Negative - mg/dL Urine Blood Negative Negative - Specific [place] - Urine 1.010 1.005-1.025 - Urine Protein Negative Neg-Trace - mg/dL Urine Ketones Negative Negative - mg/dL Nitrite Urine Negative Negative - Leukocyte Esterase Urine Negative Negative - RBC Urine 0-2 0-2 - /HPF WBC Urine 0-5 0-5 - /HPF Squamous Epithelial Cell Urine 0-2 0-2 - /HP F Bacteria Urine None Seen None Seen - Hyaline Casts Urine 3-5 0-2 - /LPF L ab:Comprehensive [place]. Panel Fast (Order Date - 08/22/2024) (Collection Date - 08/22/2024) Value Reference Range Sodium 141 135-145 - mmol/L Bilirubin Total 0.7 0.0-1.0 - mg/dL Aspartate Amino Transferase 34 5-37 - U/L Alanine Aminotransferase 30 0-40 - U/L Total Protein 7.1 6.5-8.0 - g/dL Albumin Level 4.4 3.5-5.0 - g/dL Alkaline Phosphatase 62 39-117 - U/L Potassium 3.5 3.3-5.1 - mmol/L Chloride 106 96-108 - mmol/L Carbon Dioxide 27 22-29 - mmol/L Anion Gap 12 12-20 - Blood Urea Nitrogen 13 9-16 - mg/dL Creatinine 1.30 0.5-1.4 - mg/dL Estimated Glomerular Filt Rate 57 - Glucose Fasting 112 H 60-99 - mg/dL Calcium 9.3 8.4-10.2 - mg/dL * Examination: G eneral Examination: GENERAL APPEARANCE: w ell developed, well nourished, in no acute distress. HEAD: n ormocephalic, atraumatic. EYES: p upils equal, round, reactive to light and accommodation, sclera non-icteric. EARS: n ormal. ORAL CAVITY: m ucosa moist. THROAT: c lear. NECK/THYROID: n nancy supple, full range of motion, no cervical lymphadenopathy, no bruits. SKIN: w arm and dry, no suspicious lesions , , abnormal with red scaly lesion on tip of nose. HEART: r egular rate and rhythm, S1, S2 normal, no murmurs.? LUNGS: c lear to auscultation bilaterally. ABDOMEN: s oft, nontender, nondistended, bowel sounds present, normal, no organomegaly , no masses palpable. RECTAL EXAM: n ormal tone, no external hemorrhoids, no masses palpable, prostate normal, stool guaiac negative. MALE GENITOURINARY: c ircumcised , no penile lesions or discharge , no testicular mass , testes descended bilaterally , abnormal with hydrocele on the right unchanged. EXTREMITIES: n o clubbing, cyanosis, or edema. NEUROLOGIC: n onfocal, motor strength normal upper and lower extremities, sensory exam intact. Assessment: * Assessment: 1. A nnual physical exam - Z00.00 (Primary) 2 . S kin lesion of face - L98.9 3 .?Prediabetes - R73.09 4 . F amily history of colon cancer - Z80.0 5 . R enal mass - N28.89 6 . O SA (obstructive sleep apnea) - G47.33 7 . P aroxysmal atrial fibrillation - I48.0 8 . C olon cancer screening - Z12.11 9 . D epression screening - Z13.31? Plan: * Treatment: 2. S kin lesion of face Notes: referral back to dr mccann/ REFERRAL MADE AND FAXED TO DR MCCANN @ [facility] , [facility] ON APPT AFTER 2 WEEKS PER [facility] Referral To:[facility] Mccann [facility] Reason:SKIN LESION OF FACE 3. P rediabetes Notes: keep weight down, stable, no need for medicatin at this time 4. F amily history of colon cancer Notes: had colonoscopy last year repeat in 2 years. 5. R enal mass Notes: going to go to [facility] 6. O SA (obstructive sleep apnea) Notes: is going to go back to see sleep medicine 7. P aroxysmal atrial fibrillation Notes: has not had any further episodes 8. C olon cancer screening L AB: Occult Blood, Stool, Guaiac N egative Value Reference Range O ccult Blood, Stool, Guaiac Neg Notes: guaiac negative??9.?Depression screening? Notes: negative screen?? * Procedure Codes: 8 2270 TEST FOR BLOOD, FECES * Follow Up: 1 Year * * Sign off status: Completed true * Provider: Starla Albarado MD Date: 10/29/2023 Generated for Thania corey/Rayo/Siriaransmitting on: 12/16/2024 04:52 PM EST History and Physical Notes * HPI (History of Present Illness) Category Sub-Category Detail Notes Category Not es Symptom(s) patient is a 58 yo male here for annual visit with review of recent labs and follow up of chronic issues. has been doing well. 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 Depression Screening PHQ-9 Little inte rest or pleasure in doing things: Not at all Feeling down, depressed, or hopeless: No t at all Trouble falling or staying asleep, or sl eeping too much: Not at all Feeling tired or having little energy: N ot at all Poor appetite or overeating: Not at all Feeling bad about yourself o r that you are a failure, or have let yourself or your family down: Not at all Trouble concentrating on thi ngs, such as reading the newspaper or watching television: Not at all Moving or speaking so slowly that other people could have noticed; or the opposite, being so fidgety or restless that you have been moving around a lot more than usual: Not at all Thoughts that you would be b john off or of hurting yourself in some way: Not at all Total Score: 0 Interpretation and Intervention Depression Etelvina mcrae Findings: Negative Follow-Up for Depression: : review of PH Q-9 found negative result, no follow-up needed SDOH Questions SDOH Questions In the past year have you been worried about losing housing?: No In the past year have you or any family members you live with been unable to get any of the following when it was really needed? Check all that apply:: None Communication Needs Communication Needs Does the patient have a hearing impairment: No Does the patient have a vision impairmen t?: Yes If yes, what is the vision impairment?: Glasses Does the patient have a cognition impair ment?: No Examination Category Sub-Category Detail Notes Category Not es General Examination GENERAL APPEARANCE: well dev eloped, well nourished, in no acute distress HEAD: normocephalic, atrau matic EYES: pupils equal, round, reactive to light and accommodation, sclera non-icteric EARS: normal THROAT: clear NECK/THYROID: neck supple, full ra nge of motion, no cervical lymphadenopathy, no bruits HEART: regular rate and rhy thm, S1, S2 normal, no murmurs LUNGS: clear to auscultatio n bilaterally ABDOMEN: soft, nontender, non distended, bowel sounds present, normal, no organomegaly , no masses palpable NEUROLOGIC: nonfocal, motor stre ngth normal upper and lower extremities, sensory exam intact SKIN: warm and dry, no dallas picious lesions , , abnormal with red scaly lesion on tip of nose EXTREMITIES: no clubbing, cyanosi s, or edema MALE GENITOURINARY: circumcised , no pen ile lesions or discharge , no testicular mass , testes descended bilaterally , abnormal with hydrocele on the right unchanged RECTAL EXAM: normal tone, no exte rnal hemorrhoids, no masses palpable, prostate normal, stool guaiac negative ORAL CAVITY: mucosa moist Consultation Request Notes Referral Date Referring Provider Referred Provider Not es 08/29/2024 Amari Albarado, German SKIN LESI ON OF FACE
--- OUTSIDE RECORDS SUMMARY | 2024-11-07 08:45 | XMS_ITS ---
Author Organization Amari Albarado MD Address [address] [place], [place] [phone] Care Team Providers Care Global Consumer Sector Vice President Name Role Phone Amari Albarado Primary Care Provider [phone] Allergies No Known Allergies Reason For Referral [...] system for Echo order faxed to [facility] dept booked for 12-31-2024, Yohana Vasques [...] Referred Provider Specialty Urology General Notes Yohana Vaqsues 0 11/28/2024 02:35:55 PM >info faxed, Yohana Vasques 12/16/2024 11:07:47 AM > referral info mailed to patient Referral Priority Routine Referral Appointment Date 02/05/2025 REASON FOR VISIT follow up from [facility] ER Sunday and [facility] on Sunday nite / for heart flutters, Went to the chiropractor feels much better Vital Signs Blood pressure systolic 148 mm Hg 11/07/19 25 Blood pressure diastolic 90 mm Hg 025 Height 75 in 11/07/2024 Weight 251 lbs 11/07/2024 BMI 31.37 kg/m2 11/07/2024 weight is up 7 pounds since 08-29-24 Encounters Encounter Location Date Provider Diagnosis Amari Albarado MD [address] [place], [place] [phone] 11/07/2024 Amari Albarado Intermittent palpitations R00.2 ; [...] (ICD-10 - N43.3) referral to urology at [facility] Plan Of Treatment Treatment Notes Assessment Notes Intermittent palpitations referral to dr carvajal Heart murmur, systolic get results of ca rdiology consult dr woodruff Right hydrocele referral to urology at [facility] Referrals Referral Date Details 11/07/2024 11/07/2024, intermit tent palpitations heart murmur, systolic, YASMINE VARUN 11/07/2024 11/07/2024, right hy drocele, [facility] Next Appt Details Provider Name:Amari Amaya ier, 03/01/2026 08:30:00 AM, [address], [address], [place], [place], [phone], Provider Name:Amari Amaya ier, 08/26/2026 07:15:00 AM, [address], [address], [place], [place], [phone], Provider Name:Amari Amaya ier, 09/02/2026 09:30:00 AM, [address], [address], [place], [place], [phone], Progress Notes * DUTCH Ismael TDOB:1965 (59 yo M)Acc No.[id number]:11/07/2024 Progress Notes Patient: Ismael QUEZADA Provider: Starla Albarado MD :1965 A ge:58 Y S ex:Male Date:11/07/2024 Address:[facility] [place], [place] Subjective: * Chief Complaints: * f ollow up from [facility] ER Sunday and [facility] on Sunday nite / for heart fluttersWent to the chiropractor feels much better * HPI: S ymptom(s): was having palpitations [...] D enies N ausea. * Medical History: * Surgical History: * Hospitalization/Major Diagno stic Procedure: * Medications: N one * Allergies: N .K.D.A.yes[Allergies Verified] Objective: * Vitals: H t: 75, Wt:251, [...] ight hydrocele Notes: referral to urology at [facility] Referral To:[facility] Reason:right hydrocele * Procedure Codes: * * Sign off status: Completed true * Provider: Starla Albarado MD Date: 0 11/07/2024 Generated for Thania corey/Rayo/eTransmitting on: 1 12/16/2024 04:52 PM EST History and Physical [...]
--- OUTSIDE RECORDS SUMMARY | 2024-12-01 06:46 | XMS_ITS ---
Author Organization Amari Albarado MD Address [address] [place] [phone] Care Team Providers Care Hearing Aid Technician Name Role Phone Amari Albarado Primary Care Provider [phone] REASON FOR VISIT Medical Records Encounters Encounter Location Date Provider Diagnosis Amari Albarado MD [address] [place] [address] [place] [phone] 12/01/2024 Amari Albarado Plan Of Treatment Next Appt Details Provider Name:Amari Amaya ier, 03/01/2026 08:30:00 AM, [address] [place] [address], [address], [phone], Provider Name:Amari Amaya ier, 08/26/2026 07:15:00 AM, [address] [place] [address], [address], [phone], Provider Name:Amari Amaya iealina, 09/02/2026 09:30:00 AM, [address] [place] [address], [address], [phone], Progress Notes * Ismael FLETCHER TDOB:1965 (59 yo M)Acc No.[id number]:12/01/2024 Patient: Ismael QUEZADA :1965 A ge:59 Y S ex:Male Address[facility] [address], [place] [address] * Addendum: * true * Date: Generated for Thania corey/Rayo/Mackitting on: 12/16/2024 04:53 PM EST
--- OUTSIDE RECORDS SUMMARY | 2024-12-16 06:55 | XMS_ITS ---
Author Organization Amari Albarado MD Address [address] [place] [phone] Care Team Providers Care Activities Director Scouting Name Role Phone Amari Albarado Primary Care Provider [phone] REASON FOR VISIT ? echo Encounters Encounter Location Date Provider Diagnosis Amari Albarado MD [address] [place] [address] [place] [phone] 12/16/2024 Amari Albarado Heart murmur, systolic R01.1 Assessments Encounter Date Diagnosis (ICD Code) Assessment Notes Treatment Notes Treatment Clinical Notes Section Notes 12/16/2024 Heart murmur, systolic (ICD-10 - R01.1) Plan Of Treatment Pending Test Test Name Order Date ECHO 12/16/2024 Next Appt Details Provider Name:Amari Amaya ier, 03/01/2026 08:30:00 AM, [address] [place] [address], [address], [phone], Provider Name:Amari mcgee, 08/26/2026 07:15:00 AM, [address] [place] [address], [address], [phone], Provider Name:Amari mcgee, 09/02/2026 09:30:00 AM, [address], [address], [place], [place], [phone], Progress Notes * Ismael FLETCHER TDOB:1965 (59 yo M)Acc No.[id number]:12/16/2024 Patient: Ismael QUEZADA :1965 A ge:59 Y S ex:Male Address[facility] [place] [address] Subjective: * Chief Complaints: * ? echo * Medical History: * Surgical History: * Hospitalization/Major Diagno stic Procedure: * Medications: Objective: * Vitals: * Physical Examination: Assessment: * Assessment: 1. H eart murmur, systolic - R01.1 Plan: * Treatment: * Procedure Codes: * true * Date: Generated for Thania corey/Rayo/Mackitting on: 12/16/2024 04:52 PM EST
--- OUTSIDE RECORDS SUMMARY | 2025-08-24 03:00 | XMS_ITS ---
Author Organization Amari Albarado MD Address [address] [place], [place] [id number] Care Team Providers Care Boiler Shop Mechanic Name Role Phone Amari Albarado Primary Care Provider Results Component Value Reference Range Notes Complete Blood Count Auto Di ff Reviewed date:08/25/2025 12:48:17 PM Interpretation: Performing Lab:[facility], [address] [place] [phone] Notes/Report: White Blood Count 6.8 4.8-10.8 X10*3/uL [...] Panel Reviewed date:08/24/2025 12:31:06 PM Interpretation: Performing Lab:[address] [phone] Notes/Report: Triglycerides 114 <150 mg/dL Desirable Triglyceride: [...] (Free>4and<10) Reviewed date:08/24/2025 12:30:47 PM Interpretation: Performing Lab:[address] [phone] Notes/Report: PSA,Total (Free>4and<10) 0.51 0.00-4.00 ng/mL A [...] Random Reviewed date:08/24/2025 12:32:40 PM Interpretation: Performing Lab:[address] [address] Notes/Report: Creatinine Urine 102.26 Microalbumin Urine 11.0 Microalbum/Creatinine Ratio Ur 10.7 <30 ug/mg cr Albumin/Creatinine Ratio Reference Ranges: Normal: < 30 ug/mg creatinine Microalbuminuria: 30 - 300 ug/mg creatinine Clinical Albuminuria: > 300 ug/mg creatinine Hemoglobin A1c Reviewed date:08/24/2025 12:30:56 PM Interpretation: Performing Lab:[address] [phone] Notes/Report: Hemoglobin A1c % 5.9 <6.0 % [...] average glucose, using the formula of the P6V-Kqzbdok Average Glucose study (ADAG), Diabetes Care, Vol.31,#8, May. 2007 UA ClnCatch+Micro w/rflx Cul t Reviewed date:08/27/2025 08:41:44 AM Interpretation: Performing Lab:[address] [address] Notes/Report: Urine, Clean Catch Color Urine Yellow Appearance Urine Clear PH 6.0 5.0-9.0 Glucose Urine UA Negative Negative mg/dL Urine Blood Trace Negative Specific [place] - Urine 1.015 1.005-1.025 Urine Protein Negative [...] Date Provider Diagnosis Amari Albarado MD [address] [place] [phone] 08/24/2025 Amari Albarado Blood tests for routine [...] Pending Test Test Name Order Date Comprehensive [place]. Panel Fast Next Appt Details Provider Name:Amari mcgee, 03/01/2026 08:30:00 AM, [address] [place] [address], [address], [phone], Provider Name:Amari mcgee, 08/26/2026 07:15:00 AM, [address] [place] [address], [address], [phone], Provider Name:Amari mcgee, 09/02/2026 09:30:00 AM, [address] [place] [address], [id number], Progress Notes * Ismael FLETCHER TDOB:1965 (59 yo M)Acc No.[id number]:08/24/2025 Progress Note Patient: Ismael QUEZADA Provider: Starla Albarado MD :1965 A ge:59 Y S ex:Male Date:08/24/2025 Address:[facility] [address] , [place], [id number] Subjective: * Chief Complaints: * 1 . FASTING LABS. * Medical History: Objective: * Vitals: Assessment: * Assessment: 1. B lood tests for routine general physical examination - Z00.00 (Primary) 2 .?Prediabetes - R73.09 3 . L ow HDL (under 40) - E78.6 Plan: * Treatment: 2. P rediabetes L AB: Comprehensive [place]. Panel Fast L AB: Complete Blood Count [...] ow HDL (under 40) L AB: Comprehensive [place]. Panel Fast L AB: Complete Blood Count [...] Pending * Provider: Starla Albarado MD Date: 1 Generated for Thania Licona/Melba on: 12/16/2024 04:52 PM EST
--- OUTSIDE RECORDS SUMMARY | 2025-08-31 09:30 | XMS_ITS ---
Author Organization Amari Albarado MD Address [address] [place], [place] [id number] Care Team Providers Care Senior Cost Accountant Name Role Phone Amari lAbarado Primary Care Provider Allergies No Known Allergies Results Component Value Reference Range Notes UA ClnCatch+Micro w/rflx Cul t Reviewed date:09/01/2025 01:06:11 PM Interpretation: Performing Lab:[facility], [address] [place] [id number] Notes/Report: Urine, Clean Catch Color Urine Yellow Appearance Urine Clear PH 5.5 5.0-9.0 Glucose Urine UA Negative Negative mg/dL Urine Blood Negative Negative Specific [place] - Urine <= 1.005 1.005-1.025 Urine Protein Negative Neg-Trace mg/dL Urine Ketones Negative Negative mg/dL Nitrite Urine Negative Negative Leukocyte Esterase Urine Negative Negative RBC Urine 0-2 0-2 /HPF WBC Urine 0-5 0-5 /HPF Squamous Epithelial Cell Urine 0-2 0-2 /HPF Bacteria Urine None Seen None Seen Hyaline Casts Urine 0-2 0-2 /LPF REASON FOR VISIT ANNUAL EXAM, Repeat U/A Hematuria Social History Tobacco Use: Social History Observation [...] Interpretation Negative Vital Signs Blood pressure systolic 132 mm Hg 08/31/20 25 Blood pressure diastolic 94 mm Hg 025 Height 75 in 08/31/2025 Weight 253 lbs 08/31/2025 BMI 31.62 kg/m2 08/31/2025 weight is up 2 pounds since 11-07-24 Encounters Encounter Location Date Provider Diagnosis Amari Albarado MD [address] [place] [phone] 08/31/2025 Amari Albarado Hematuria R31.9 and Annual physical exam Z00.00 Assessments Encounter Date Diagnosis (ICD Code) Assessment Notes Treatment Notes Treatment Clinical Notes Section Notes 08/31/2025 Hematuria (ICD-10 - R31.9) will repeat u/a 08/31/2025 Annual physical exam (ICD-10 - Z00.00) Labs reviewed and discussed with patient Plan Of Treatment Treatment Notes Assessment Notes Hematuria will repeat u/a Annual physical exam Labs reviewed and d iscussed with patient Next Appt Details Follow Up: 6 Months, Reason: Provider Name:Amari mcgee, 03/01/2026 08:30:00 AM, [address] [place] [address], [address], [phone], Provider Name:Amari mcgee, 08/26/2026 07:15:00 AM, [address] [place] [address], [phone], Provider Name:Amari mcgee, 09/02/2026 09:30:00 AM, [address] [place] [address], [phone], Progress Notes * Ismael FLETCHER TDOB:1965 (59 yo M)Acc No.[id number]:08/31/2025 Progress Notes Patient: Ismael QUEZADA Provider: Starla Albarado MD :1965 A ge:59 Y S ex:Male Date:08/31/2025 Address:[address] [place] [phone] Subjective: * Chief Complaints: * A NNUAL EXAMRepeat U/A Hematuria * HPI: D epression Screening: PHQ-9 L [...] patient have a cognition impairment? N o. F all Risk: History H ave you had any falls with injury in the past year? N o, H ave you had two or more falls in the past year? N o. S ROSE Questions: SDOH Questions I n the past year have you been worried about losing housing? N o, I n the past year have you or any family members you live with been unable to get any of the following when it was really needed? Check all that apply: N one. S ymptom(s): patient is a 59 yo male here for annual visit with review of recent labs and follow up of chronic issues. * ROS: G eneral/Constitutional: Change in appetite d enies. C hills d enies. F ever d enies. O phthalmologic: Blurred vision d enies. D ischarge d enies. P ain d enies. E NT: Decreased hearing d enies. S ore throat d enies.?Swollen glands d enies. E ndocrine: Cold intolerance [...] F requent urination d enies. M usculoskeletal: Painful joints d enies. W eakness d enies. ? S kin: Dry skin d enies. I [...] 72 yrs, Healthy. M other: 62 yrs, [place]. 2 sister(s) . 2 son(s) . . Father- Mother- [place], Denies mental health/substance abuse family history, No [...] free. Children: yes. Community involvements: yes. Exercise: no. Housing: owning. Living with: spouse, family. Marital status: . Occupation: works full-time. Pets: dog. * Medications: N one * Allergies: N .K.D.A.yes[Allergies Verified] Objective: * Vitals: H t: 75, Wt: 253, BMI:31.62, BP:132/94, Repeat BP:142/ 96, Wt-k.76. weight is up 2 pounds since 11-07-24. * P ast Orders: L ab:PSA,Total (Free>4and<10) (Order Date - 08/24/2025) (Collection Date & Time - 08/24/2025 08:00 AM) Value Reference Range PSA,Total (Free>4and<10) 0.51 0.00-4.00 - ng/ mL L ab:Microalbumin, Random (Order Date - 08/24/2025) (Collection Date & Time - 08/24/2025 08:00 AM) Value Reference Range Creatinine Urine 102.26 - mg/dL Microalbumin Urine 11.0 - mg/L Microalbum Creatinine Ratio Ur 10.7 <30 - ug/ mg cr L ab:Hemoglobin A1c (Order Date - 08/24/2025) (Collection Date & Time - 08/24/2025 08:00 AM) Value Reference Range Hemoglobin A1c % 5.9 <6.0 - % Estimated Average Glucose 123 - mg/dL L ab:Comprehensive Met. Panel (Order Date - 08/24/2025) (Collection Date & Time - 08/24/2025 08:00 AM) Value Reference Range Sodium 143 135-145 - mmol/L Bilirubin Total 0.4 0.0-1.0 - mg/dL Aspartate Amino Transferase 26 5-37 - U/L Alanine Aminotransferase 31 0-40 - U/L Total Protein 6.9 6.5-8.0 - g/dL Albumin Level 4.5 3.5-5.0 - g/dL Alkaline Phosphatase 63 39-117 - U/L Potassium 4.0 3.3-5.1 - mmol/L Chloride 107 96-108 - mmol/L Carbon Dioxide 28 22-29 - mmol/L Anion Gap 12 12-20 - Blood Urea Nitrogen 17 H 9-16 - mg/dL Creatinine 1.16 0.5-1.4 - mg/dL Estimated Glomerular Filt Rate > 60 - Glucose Random 110 60-115 - mg/dL Calcium 8.7 8.4-10.2 - mg/dL L ab:Lipid Panel (Order Date - 08/24/2025) (Collection Date & Time - 08/24/2025 08:00 AM) Value Reference Range Triglycerides 114 <150 - mg/dL Cholesterol 202 H <200 - mg/dL LDL Cholesterol Calculated 136 H <100 - mg/dL HDL Cholesterol 44 >40 - mg/dL L ab:Complete Blood Count Auto Diff (Order Date - 08/24/2025) (Collection Date & Time - 08/24/2025 08:00 AM) Value Reference Range White Blood Count 6.8 4.8-10.8 - X10*3/uL Red Blood Count 5.09 4.60-5.80 - X10*6/uL Hemoglobin 14.4 14.0-18.0 - g/dl Hematocrit 43.8 42.0-52.0 - % Mean Corpuscular Volume 86.1 80.0-98.0 - fL Mean Corpuscular Hemoglobin 28.3 27.0-33.0 - pg Mean Corpuscular HGB Conc 32.9 31.0-36.0 - g/ dl Red Cell Distribution Width 12.2 11.0-16.0 - % Platelet Count 263 160-400 - X10*3/uL Mean Platelet Volume 10.6 9.4-12.4 - fL Neutrophils Percent Auto 53.9 45-73 - % Imm Gran Pct Auto 0.3 0.0-0.4 - % Lymphocytes Percent Auto 32.5 20-40 - % Monocytes Percent Auto 9.4 2-11 - % Eosinophils Percent Auto 3.2 0-4 - % Basophils Percent Auto 0.7 0-2 - % NRBC Pct Auto 0.0 0.0-0.2 - /100WBC Neutrophils Absolute Auto 3.7 2.0-8.3 - x10* 3/uL Imm Gran Abs Auto 0.02 0.00-0.03 - X10*3/uL Lymphocytes Absolute Auto 2.2 1.2-4.9 - X10* 3/uL Monocytes Absolute Auto 0.6 0.1-1.2 - X10*3/ uL Eosinophils Absolute Auto 0.2 0.0-0.4 - X10* 3/uL Basophils Absolute Auto 0.1 0.0-0.2 - X10*3/ uL NRBC Abs Auto 0.000 0.0-0.012 - X10*3/uL L ab:UA ClnCatch+Micro w/rflx Cult (Order Date - 08/24/2025) (Collection Date & Time - 08/24/2025 08:00 AM) Value Reference Range Color Urine Yellow - Appearance Urine Clear - PH 6.0 5.0-9.0 - Glucose Urine UA Negative Negative - mg/dL Urine Blood Trace A Negative - Specific [place] - Urine 1.015 1.005-1.025 - Urine Protein Negative Neg-Trace - mg/dL Urine Ketones Negative Negative - mg/dL Nitrite Urine Negative Negative - Leukocyte Esterase Urine Negative Negative - RBC Urine 0-2 0-2 - /HPF WBC Urine 0-5 0-5 - /HPF Squamous Epithelial Cell Urine 0-2 0-2 - /HP F Bacteria Urine None Seen None Seen - Hyaline Casts Urine 0-2 0-2 - /LPF * Examination: G eneral Examination: GENERAL APPEARANCE: w ell developed, well nourished, in no acute distress. HEAD: n ormocephalic, atraumatic. EYES: p upils equal, round, reactive to light and accommodation, sclera non-icteric. EARS: n ormal. ORAL CAVITY: m ucosa moist. THROAT: c lear. NECK/THYROID: n nancy supple, full range of motion, no cervical lymphadenopathy, no bruits. SKIN: w arm and dry, no suspicious lesions. HEART: r egular rate and rhythm, S1, S2 normal, no murmurs.? LUNGS: c lear to auscultation bilaterally. ABDOMEN: s oft, nontender, nondistended, bowel sounds present, normal, no organomegaly , no masses palpable. RECTAL EXAM: n ormal tone, no external hemorrhoids, no masses palpable, prostate normal, stool guaiac negative. MALE GENITOURINARY: r t hydrocele. EXTREMITIES: n o clubbing, cyanosis, or edema. NEUROLOGIC: n onfocal, motor strength normal upper and lower extremities, sensory exam intact. Assessment: * Assessment: 1. A nnual physical exam - Z00.00 (Primary) 2 . H ematuria - R31.9 ? Plan: * Treatment: 2. H ematuria L AB: UA ClnCatch+Micro w/rflx Cult (Collection Date & Time - 08/31/2025 02:30 PM) Notes: will repeat u/a * Procedure Codes: * Preventive Medicine: Counseling: C are goal follow-up plan: C ounseling for abnormal BMI provided?Yes, A deana Normal BMI Follow-up G arielleing encouragement to exercise. * Follow Up: 6 Months * * Sign off status: Completed true * Provider: Starla Albarado MD Date: 10/31/2024 Generated for Thania corey/Rayo/Mackitting on: 12/16/2024 04:51 PM EST History and Physical Notes * HPI (History of Present Illness) Category Sub-Category Detail Notes Category Not es Symptom(s) patient is a 59 yo male here for annual visit with review of recent labs and follow up of chronic issues. Depression Screening PHQ-9 Little inte rest or [...] really needed? Check all that apply:: None Fall Risk History Have you had any falls with injury i n the past year?: No Have you had two or more falls in the st year?: No Communication Needs Communication Needs Does the patient [...] warm and dry, no [place] picious lesions EXTREMITIES: no clubbing, cyanosi s, or edema MALE GENITOURINARY: rt hydrocele RECTAL EXAM: normal tone, no exte rnal hemorrhoids, no masses palpable, prostate normal, stool guaiac negative ORAL CAVITY: mucosa moist
--- NOTE | 2025-10-15 13:09 | MHC.OFFVIS ---
Intake Visit Reasons: Increasing Hydrocele (set)UA) Intake Note: 59 year old male presents today for increasing Hydrocele / PSA :Total 0.51 / US completed 08/24 Allergies No Known Allergies Allergy (Verified 04/02/25 16:16) Medication List - Last Reconciled 10/15/25 by Zhen Martin MD HPI Comments Details: 10/15/25---Ismael is here for follow-up right hydrocele. He states that the scrotum is becoming more bothersome he gets some pain intermittent. On examination right hydrocele present scrotal swelling greater than a plum size. Discussed surgical management right hydrocelectomy. Postop healing no heavy lifting over 25 lb for 8 weeks. This may impact his job requirements. Currently the patient is not on any medications. 04/02/25--FU scrotal US. 03/17/25--Right Hydrocele. Currently asymptomatic. Will monitor. 02/05/25--Ismael is a 59-year-old male who is here as a new patient evaluation for scrotal swelling. He denies scrotal pain. He denies irritative voiding symptoms. Review of chart PSA 08/22/2024 0.50 ng/mL. [facility] Medical History PAF (paroxysmal atrial fibrillation) Surgical History History of appendectomy History of kidney removal (~12/13/20) Family History Father No problems noted. Mother Heart attack Social History Substance Use Type: Marijuana Review of Systems Const All systems reviewed & are unremarkable except as noted in HPI and below Reports no additional complaints Eyes Reports no additional complaints ENT Reports no additional complaints Card Reports no additional complaints Resp Reports no additional complaints GI Reports no additional complaints Reports as per HPI Musc Reports no additional complaints Skin/Breast Reports system reviewed and no additional complaints, except as documented Neuro Reports no additional complaints Psych Reports no additional complaints Endo Reports no additional complaints Alvaro/Lymph Reports no additional complaints Aller/Immun Reports no additional complaints Results AMB Urinalysis, Automated UA Leukoctes 0 [place]/uL Last Edit by Mickie Mccann, A on 10/15/25 13:21 UA Nitrite Negative Last Edit by Mickie Mccann, RMA on 10/15/25 13:21 UA Urobilinogen 0.2 mg/dL Last Edit by Mickie Mccann, RMA on 10/15/25 13:21 UA Protein 15 mg/dL Last Edit by Mickie Mccann, RMA on 10/15/25 13:21 UA pH 6.0 Last Edit by Mickie Mccann, RMA on 10/15/25 13:21 UA Blood 10 Yfn/uL Last Edit by Mickie Mccann, A on 10/15/25 13:21 UA Specific [place] 1.020 Last Edit by Mickie Mccann, A on 10/15/25 13:21 UA Ketone Negative Last Edit by Mickie Mccann, A on 10/15/25 13:21 UA Bilirubin 0 mg/dL Last Edit by Mickie Mccann, A on 10/15/25 13:21 UA Glucose 500 mg/dL Last Edit by Mickie Mccann, A on 10/15/25 13:21 Results Reviewed Results Reviewed: Laboratory Last Values Urine pH (Auto) 6.0 10/15/25 13:20 Specific [place] (Auto) 1.020 10/15/25 13:20 Urine Protein (Auto) 15 mg/dL 10/15/25 13:20 Glucose (UA)(Auto) 500 mg/dL 10/15/25 13:20 Urine Ketones (Auto) Negative 10/15/25 13:20 Urine Blood (Auto) 10 Yfn/uL 10/15/25 13:20 Urine Nitrite (Auto) Negative 10/15/25 13:20 Urine Bilirubin (Auto) 0 mg/dL 10/15/25 13:20 Urine Urobilinogen (Auto) 0.2 mg/dL 10/15/25 13:20 Leukocyte Esterase (Auto) 0 [place]/uL 10/15/25 13:20 Assessment & Plan Assessment & Plan (1) Scrotal swelling: Code(s): N50.89 - Other specified disorders of the male genital organs Category: Medical (2) Hydrocele: Code(s): N43.3 - Hydrocele, unspecified Category: Medical Plan Plan schedule right hydrocelectomy Orders: Orders AMB Urinalysis Automated Today Z13.9 - Encounter for screening, unspecified Patient Instructions: The patient had an opportunity to ask questions regarding treatment plan. The patient expressed understanding and agreement with the above treatment plan. The patient is aware they should contact our office by phone for worsening of their current condition or the appearance of new symptoms. Compliance is encouraged with any medications and followup testing that is ordered. It is a privilege to be allowed the opportunity to participate in the urologic care of your patient. If you have any questions or concerns regarding treatment for the above conditions please do not hesitate to contact me. The office telephone contact is [phone]. This note is constructed in part using voice recognition software. While every effort has been made to ensure accuracy armored cable machine operator errors may have been included. Yours sincerely, Zhen Martin MD Coding Level of Care Code Est Pt Level 4 (90302) Diagnoses Scrotal swelling N50.89 Hydrocele N43.3
--- OUTSIDE RECORDS SUMMARY | 2025-10-15 16:52 | XMS_ITS | Clinical Summary ---
Author Organization [facility] Address [address] [place] [address] Care Team Providers Care Analytical Strategist Name Role Phone Amari Albarado Primary Care Provider [phone] Allergies No known active allergies Medications No [...] history exists Diabetes Screening 11/02/2027 11/02/2024, 11/02/2024 Procedures * Due to [place] Clar[place] law, this organization might not be sharing negative HIV tests. Procedure Name Priority Date/Time Associated Diagnosis Comments BASIC METABOLIC PANEL STAT 11/02/2024 8:49 PM EST from Last 3 Months or Most Recently Relevant to Health Maintenance Results * Due to [place] Clar[place] law, this organization might not be sharing negative HIV tests. * (ABNORMAL) Basic Metabolic Panel (11/02/2024 8:49 PM EST) NA 139 135 - 145 mmol/L 11/02/2024 9:33 PM EST [facility] K 4.2 3.5 - 5.3 mmol/L 11/02/2024 9:33 PM EST [facility] Comment:1+ hemolysis, result may be falsely increased Cl 104 98 - 107 mmol/L 11/02/2024 9:33 PM EST [facility] CO2 20(L) 22 - 32 mmol/L 11/02/2024 9:33 PM EST [facility] BUN 16 7 - 23 mg/dL 11/02/2024 9:33 PM EST [facility] Creatinine 1.16 0.60 - 1.30 mg/dL 11/02/2024 9:33 PM EST [facility] Glucose 130(H) 65 - 99 mg/dL 11/02/2024 9:33 PM EST [facility] Calcium 9.4 8.6 - 10.5 mg/dL 11/02/2024 9:[address] [facility] [employer] Anion Gap 15 5 - 15 11/02/2024 9:[address] [facility] eGFR 73 >=60 mL/min/1. 73m2 11/02/2024 9:[address] [facility] Comment:The estimated glomer ular filtration rate (eGFR) is calculated using a new formula developed by the NKF-ASN task force to eliminate race-based correction factors. The new formula uses serum/plasma creatinine, age, and gender to determine eGFR. A value below 60mls/min might indicate kidney disease and will be flagged. For additional information, see Chriss et al, Am J Kidney Dis. 2021;79(2):268- 288, A Unifying Approach for GFR estimation: Recommendations of the NKF-ASN Task Force on Reassessing the Inclusion of Race in Diagnosing Kidney Disease . Blood Structure of peripheral vein / Unknown Venipuncture / Unknown 11/02/2024 8:49 PM EST 11/02/2024 9:01 PM EST us Robby Jaquez MD LAB BLOOD ORDERABLES Final Res ult [facility] [address] [place] [address], from Last 3 Months or Most Recently Relevant to Health Maintenance Insurance [employer] PPO/EPO/IND Care Teams Analytical Strategist Relationship Specialty Start Date End Date Amari Albarado [address] [place] [address] dr Gio Powers, [place] [address] PCP - General Internal Medicine 11/02/24
--- OUTSIDE RECORDS SUMMARY | 2025-10-15 16:52 | XMS_ITS | Encounter Summary ---
Author Organization [facility] Address [address] [facility] [address] [place] [address] Phone Care Team Providers Care Brewing Director Name Role Phone Self-Referred, Patient Unavailable Unavailab German Richard MD, MPH Unavailable [phone] Amari Albarado MD Primary Care Provider Encounter Details Date Type Department Care Team (Late st Contact Info) Description 06/30/2021 Procedure Pass [facility] [address] [place] [address] Social History Tobacco Use Types Packs/Day Years [...] on filedocumented in this encounter Care Teams Brewing Director Relationship Specialty Start Date End Date Amari Albarado MD [address] [place] [address] [place] [address] PCP - General Internal Medicine 11/29/20 Self-Referred, Patient 11/25/20 German Pena MD, MPH [address] [place] [address] [place] [address] [email or web address] Primary Oncologist Urology 11/25/20 documented as of this encounter Additional Source Comments The information contained in this document represents components of the legal health record. It is not the complete legal health record.[facility]
--- OUTSIDE RECORDS SUMMARY | 2025-10-15 16:52 | XMS_ITS | Encounter Summary ---
Author Organization [facility] Address [address] [facility] [address] [place] [address] Phone Care Team Providers Care Trust Clerk Name Role Phone Self-Referred, Patient Unavailable Unavailab German Richard MD, MPH Unavailable [phone] Amari Albarado MD Primary Care Provider Encounter Details Date Type Department Care Team (Late st Contact Info) Description 12/13/2020 Procedure Pass [facility] Per[facility] [address] [place] [address] Social History Tobacco Use Types Packs/Day Years [...] on filedocumented in this encounter Care Teams Trust Clerk Relationship Specialty Start Date End Date Amari Albarado MD [address] [place] [address] [place] [address] PCP - General Internal Medicine 11/29/20 Self-Referred, Patient 11/25/20 German Pena MD, MPH [address] [place] [address] [email or web address] Primary Oncologist Urology 11/25/20 documented as of this encounter Additional Source Comments The information contained in this document represents components of the legal health record. It is not the complete legal health record.[facility]
--- OUTSIDE RECORDS SUMMARY | 2025-10-15 16:52 | XMS_ITS | Encounter Summary ---
Author Organization [facility] Address [address] [facility] [address] [place] [address] Phone Care Team Providers Care Search Specialist Name Role Phone Self-Referred, Patient Unavailable Unavailab German Richard MD, MPH Unavailable [phone] Amari Albarado MD Primary Care Provider Encounter Details Date Type Department Care Team (Late st Contact Info) Description 12/27/2020 Procedure Pass [facility] [address] [place] [address] Social History Tobacco Use Types Packs/Day Years [...] on filedocumented in this encounter Care Teams Search Specialist Relationship Specialty Start Date End Date Amari Albarado MD [address] [place] [address] [place] [address] PCP - General Internal Medicine 11/29/20 Self-Referred, Patient 11/25/20 German Pena MD, MPH [address] [place] [address] [place] [address] [email or web address] Primary Oncologist Urology 11/25/20 documented as of this encounter Additional Source Comments The information contained in this document represents components of the legal health record. It is not the complete legal health record.[facility]
--- OUTSIDE RECORDS SUMMARY | 2025-10-15 16:53 | XMS_ITS | Encounter Summary ---
Author Organization [facility] Address [address] [facility] [address] [place] [address] Phone Care Team Providers Care Overedger Name Role Phone Self-Referred, Patient Unavailable Unavailab German Richard MD, MPH Unavailable [phone] Amari Albarado MD Primary Care Provider Encounter Details Date Type Department Care Team (Late st Contact Info) Description 12/12/2020 Procedure Pass [facility] [address] [place] [address] Social History Tobacco Use Types Packs/Day Years [...] 12/12/2020 8:32 PM Catherine Mccurdy RN * [place] Suicide Severity Rating Scale (Screener/Recent Self-Report) Question [...] on filedocumented in this encounter Care Teams Overedger Relationship Specialty Start Date End Date Amari Albarado MD [address] [place] [address] [place] [address] PCP - General Internal Medicine 11/29/20 Self-Referred, Patient 11/25/20 German Pena MD, MPH [address] [place] [phone] [email or web address] Primary Oncologist Urology 11/25/20 documented as of this encounter Additional Source Comments The information contained in this document represents components of the legal health record. It is not the complete legal health record.[facility]
--- OUTSIDE RECORDS SUMMARY | 2025-10-15 16:53 | XMS_ITS | Clinical Summary ---
Author Organization [facility] Address [address] [place] [address] Care Team Providers Care Paper Deliverer Name Role Phone Amari Albarado MD Primary Care Provider [phone] Social History Tobacco Use Types Packs/Day Years Used Date Smoking Tobacco: Never Sex and Gender Information Value Date Recorded Sex Assigned at Not on file Legal Sex Male 2:02 AM EST Gender Identity Not on file Sexual Orientation Not on file Last Filed [...] Depression Screening 10/29/2024 COVID-19 Vaccine (1 - 2024-2 6 season) 2025 Influenza Vaccine (#1) 2025 , [...] age to complete this topic Care Teams Paper Deliverer Relationship Specialty Start Date End Date Amari Albarado MD PCP - General Internal Medicine 08/07/22
--- OUTSIDE RECORDS SUMMARY | 2025-10-15 16:53 | XMS_ITS | Clinical Summary ---
Author Organization [facility] Address [address] [facility] [address] [place] [address] Phone Care Team Providers Care Control Officer Manager Name Role Phone Self-Referred, Patient Unavailable Unavailab German Richard MD, MPH Unavailable [phone] Amari Albarado MD Primary Care Provider Allergies [...] Additional Information Patient not taking.Reported on 06/30/2021 omega 5-oze-htx-fish oil (FISH OIL) 1,000 (120-180) mg Cap Take 500 mg by mouth. 5 Active acetaminophen (TYLENOL) 500 MG tablet TAKE 2 TABLET BY MOUTH EVERY 6 HOURS NEEDED FOR MILD PAIN NOT TO EXCEED 4000 MG/DAY 5 Active ibuprofen (ADVIL,MOTRIN) 600 MG tablet 1 TABLET BY MOUTH EVERY 6 HOURS NEEDED MILD PAIN 5 Active naproxen (NAPROSYN) 500 MG tablet TAKE 1 TABLET BY MOUTH TWICE A DAY NEEDED FOR PAIN FOR 7 DAYS 5 Active Active Problems Problem Noted Date Diagnosed Date Renal mass 12/12/2020 Urothelial carcinoma of kidney, right 2020 Encounters Date Type Department Care Team Description 09/21/2025 1:00 PM EST Office Visit [facility] [address] [address] German Pena MD, MPH Urothelial carcinoma of kidney, right (Primary Dx) 08/25/2025 Telephone [facility] [address] [place] [address] Gisela Corcoran from Last 3 Months Social [...] Adult Td,Tdap Booster 1965 LIPID PANEL 1965 HEPATITIS C SCREENING 1983 HIV ONE-TIME SCREENING (18-65 YEARS) 1983 PNEUMOCOCCAL VACCINES (50+ years) (1 of 2 - PCV) 1984 ZOSTER VACCINES (1 of 2) 1984 COLOGUARD 2010 COLONOSCOPY 2010 COLORECTAL CANCER SCREENING 2010 FIT TEST 2010 FOBT 2010 SIGMOIDOSCOPY 2010 VIRTUAL COLONOSCOPY 2010 INFLUENZA VACCINE (#1) 2025 3, 08/14/2022, 08/18/2021, Additional history exists COVID-19 VACCINE ( - 2024- season) 2025 03/31/2021, 03/02/2021 DEPRESSION SCREENING 09/21/2026 09/21/2025 RSV VACCINE (1 - 1-dose 75+ series) 2040 SMOKING STATUS SCREENING (Once After 26 Yrs) Completed 05/29/2022 HEPATITIS A [...] this topic Medical Devices Not on file Procedures Procedure Name Priority Date/Time Associated Diagnosis Comments NON-FRUIT GROWER CYTOLOGY Routine 09/21/2025 2:10 PM EST Urothelial carcinoma of kidney, right from Last 3 Months Results * Non-Spark Plug Assembler Cytology (09/21/2025 2:10 PM EST) Final Diagnosis A. NON-FRUIT GROWER CYTOLOGY: URINE, VOIDED, URINE SPECIMEN ADEQUACY: Satisfactory for evaluation. INTERPRETATION: Negative for high-grade urothelial carcinoma. DIAGNOSIS: Benign urothelial and squamous cells. Red blood cells. 09/25/2025 10:[address] [facility] at 1055 EST Reviewed by ELIEL Guo(ASCP) Non/FNA Disclaimer By their signature above, the Pathologist listed as making the Final Diagnosis certifies that they have personally reviewed the case and confirmed the diagnosis. All slides and stains were of sufficient quality to establish the diagnosis, unless otherwise stated. 09/25/2025 10:[address] [facility] Clinical History ICD-10: Urothelial carcinoma of kidney, right Bladder cancer 09/25/2025 10:[address] [facility] Gross Description A. NON-FRUIT GROWER CYTOLOGY: URINE, VOIDED, URINE: 80 ml of clear yellow fluid received labeled with two patient identifiers. 1 Cytospin prepared. 09/25/2025 10:[address] [facility] A. Adequacy Satisfactory for evaluation. 09/25/2025 10:[address] [facility] A. Interpretation Negative for high-grade urothelial carcinoma. 09/25/2025 10:[address] [facility] A. Diagnosis Benign urothelial and squamous cells. Red blood cells. 09/25/2025 10:[address] [facility] Urine (Urine, Voided) Non-Blood Collection / Unknown 09/21/2025 2:10 PM EST 09/22/2025 11:08 AM EST German Pena MD, MPH LAB CYTOLOGY ORDERABLES F inal Result [facility] [address] [place] [address] from Last 3 Months Insurance [facility] PPO CIGNA PPO CIGNA PPO CIG[employer] PPO [employer]IG[employer] PPO [employer] PPO [employer] PPO [employer] PPO C[employer] PPO Advance Directives For more information, please contact: [phone] (9AM - 5PM [facility], Sunday-Sunday) * Full Code (Latest Code Status on File) Date Activated Date Inactivated Comments 12/12/2020 8:53 PM Question Answer Comments Code Status Confirmed With: Other (specify below ) Code Discussion Comments: Having surgery 12/13 Care Teams Control Officer Manager Relationship Specialty Start Date End Date Amari Albarado MD [address] [place] [address] [place] [address] PCP - General Internal Medicine 11/29/20 Self-Referred, Patient 11/25/20 German Pena MD, MPH [address] [place] [address] [email or web address] Primary Oncologist Urology 11/25/20 Additional Source Comments The information contained in this document represents components of the legal health record. It is not the complete legal health record.[facility]
--- OUTSIDE RECORDS SUMMARY | 2025-10-15 16:53 | XMS_ITS | Encounter Summary ---
Author Organization [facility] Address [address] [facility] [address] [place] [address] Phone Care Team Providers Care Slitter Scorer Cut Off Operator Name Role Phone Self-Referred, Patient Unavailable Unavailab German Richard MD, MPH Unavailable [phone] Amari Albarado MD Primary Care Provider Encounter Details Date Type Department Care Team (Late st Contact Info) Description 12/07/2020 Prep for Surgery [facility] [address] [place] [address] German Pena MD, MPH [address] [place] [phone] [email or web address] Social History Tobacco Use Types Packs/Day [...] on filedocumented in this encounter Care Teams Slitter Scorer Cut Off Operator Relationship Specialty Start Date End Date Amari Albarado MD [address] [place] [address] [place] [address] PCP - General Internal Medicine 11/29/20 Self-Referred, Patient 11/25/20 German Pena MD, MPH [address] [place] [address] [place] [phone] [email or web address] Primary Oncologist Urology 11/25/20 documented as of this encounter Additional Source Comments The information contained in this document represents components of the legal health record. It is not the complete legal health record.[facility]
--- OUTSIDE RECORDS SUMMARY | 2025-10-15 16:53 | XMS_ITS | Patient Health Record ---
Author Organization [facility] Address [address] [facility] [address] [place] [address] Care Team Providers Care Associate Chemist Name Role Phone Amari Albarado Primary Care Provider Unavailab le Allergies No Known Allergies Reason For Referral No Information Plan Of Treatment Pending Test Test Name Order Date WALKING BOOT PNEUMATIC AND/OR VAC 2022 Insurance Providers Payer Name Payer Address Payer Phone Subscriber Number Group Number Insured Name Patient Relationship to Insured Coverage Start Date [facility]age End Date [facility] [address] [place] [address] [phone] [id number] Ismael Richardson Self - patient is the [...]
--- OUTSIDE RECORDS SUMMARY | 2025-10-15 16:53 | XMS_ITS | Patient Health Record ---
Author Organization Amari Albarado MD Address [address] [place], [place] [id number] Care Team Providers Care Wash Helper Name Role Phone Amari Albarado Primary Care Provider [phone] Allergies No Known Allergies Results Component Value Reference Range Notes Complete Blood Count Auto Di ff Reviewed date:08/25/2025 12:48:17 PM Interpretation: Performing Lab:[facility], [address] [place] [phone] Notes/Report: White Blood Count 6.8 4.8-10.8 X10*3/uL [...] Panel Reviewed date:08/24/2025 12:31:06 PM Interpretation: Performing Lab:[address] [phone] Notes/Report: Triglycerides 114 <150 mg/dL Desirable Triglyceride: [...] (Free>4and<10) Reviewed date:08/24/2025 12:30:47 PM Interpretation: Performing Lab:[facility], [address] [place] [phone] Notes/Report: PSA,Total (Free>4and<10) 0.51 0.00-4.00 ng/mL A [...] Random Reviewed date:08/24/2025 12:32:40 PM Interpretation: Performing Lab:[address] [phone] Notes/Report: Creatinine Urine 102.26 Microalbumin Urine 11.0 Microalbum/Creatinine Ratio Ur 10.7 <30 ug/mg cr Albumin/Creatinine Ratio Reference Ranges: Normal: < 30 ug/mg creatinine Microalbuminuria: 30 - 300 ug/mg creatinine Clinical Albuminuria: > 300 ug/mg creatinine Hemoglobin A1c Reviewed date:08/24/2025 12:30:56 PM Interpretation: Performing Lab:[address] [phone] Notes/Report: Hemoglobin A1c % 5.9 <6.0 % [...] average glucose, using the formula of the M0L-Jyatjov Average Glucose study (ADAG), Diabetes Care, Vol.31,#8, May. 2007 UA ClnCatch+Micro w/rflx Cul t Reviewed date:08/27/2025 08:41:44 AM Interpretation: Performing Lab:[facility], [address] [place] [phone] Notes/Report: Urine, Clean Catch Color Urine Yellow Appearance Urine Clear PH 6.0 5.0-9.0 Glucose Urine UA Negative Negative mg/dL Urine Blood Trace Negative Specific [place] - Urine 1.015 1.005-1.025 Urine Protein Negative Neg-Trace mg/dL Urine Ketones Negative Negative mg/dL Nitrite Urine Negative Negative Leukocyte Esterase Urine Negative Negative RBC Urine 0-2 0-2 /HPF WBC Urine 0-5 0-5 /HPF Squamous Epithelial Cell Urine 0-2 0-2 /HPF Bacteria Urine None Seen None Seen Hyaline Casts Urine 0-2 0-2 /LPF UA ClnCatch+Micro w/rflx Cul t Reviewed date:09/01/2025 01:06:11 PM Interpretation: Performing Lab:[facility], [address] [place] [phone] Notes/Report: Urine, Clean Catch Color Urine Yellow Appearance Urine Clear PH 5.5 5.0-9.0 Glucose Urine UA Negative Negative mg/dL Urine Blood Negative Negative Specific [place] - Urine <= 1.005 1.005-1.025 Urine Protein [...] ff Reviewed date:11/02/2024 06:30:08 PM Interpretation: Performing Lab:[facility], [address] [place] [phone] Notes/Report: White Blood Count 6.7 4.8-10.8 X10*3/uL [...] INR Reviewed date:11/02/2024 06:18:05 PM Interpretation: Performing Lab:[address] [phone] Notes/Report: Prothrombin Time 10.9 10.9-12.4 [employer] [...] Panel Reviewed date:11/02/2024 06:30:35 PM Interpretation: Performing Lab:[address] [phone] Notes/Report: Sodium 140 135-145 mmol/L Potassium 4.1 [...] Sensitivity Reviewed date:11/02/2024 06:17:46 PM Interpretation: Performing Lab:[facility], [address] [place] [phone] Notes/Report: Troponin-I High Sensitivity 8.3 <3.5-35.0 ng/L The Andrade high sensitivity Troponin-I results should be used in conjunction with other diagnostic information such as ECG, clinical observations and information, and patient symptoms to aid in the diagnosis of HI. B Type Natriuretic Peptide Reviewed date:11/02/2024 06:28:53 PM Interpretation: Performing Lab:[facility], [address] [place] [phone] Notes/Report: B Type Natriuretic Peptide 63 <100 pg/mL For those patients who are being treated with Natrecor (nesiritide, recombinant BNP), BNP testing should be performed at least two hours post treatment in order to ensure that only endogenous levels of BNP are detected. SARS-CoV2/FLU/RSV Reviewed date:11/02/2024 06:17:54 PM Interpretation: Performing Lab:[facility], [address] [place] [phone] Notes/Report: Influenza A PCR NEGATIVE Negative Influenza [...] by authorized laboratories. Testing performed on the [employer] GeneXpert utilizing real-time RT-PCR. All SARS CoV2 and positive influenza A/B results are reported to [facility]. XR chest 2V Reviewed date:10/31/2024 04:57:02 PM Interpretation: Performing Lab: Notes/Report: [address] [address] XRay Report Signed Patient: Ismael Fletcher MR#: [id number] : 1965 Acct:[id number] Age/Sex: 58 / M ADM Date: 10/31/24 Loc: .ED Attending Dr: Ordering Physician: Alexus Del Valle NP Date of Service: 10/31/24 Procedure(s): XR chest 2V Accession Number(s): [id number] cc: Amari Albarado MD; Alexus Del Valle NP EXAMINATION: XR CHEST CLINICAL INFORMATION: shortenss of breath COMPARISON: None available. TECHNIQUE: 2 views of the chest were obtained. FINDINGS: No significant abnormality is noted involving the heart, lungs, mediastinum, bony thorax or soft tissues. XR/XR chest 2V IMPRESSION: Unremarkable chest examination. Electronically signed by: Rambo Cohen MD 10/31/2024 04:50 PM [facility] Dictated By: Rambo Cohen MD Signed By: <Electronically signed by Rambo Cohen MD in OV> 10/31/24 1650 DD/ 1600 TD/TT: 10/31/24 1605 Engineering Vice President: [address] [address] XRay Report Signed Patient: Ismael Fletcher MR#: [id number] : 1965 Acct:[id number] Age/Sex: 58 / M ADM Date: 10/31/24 Loc: HO.ED Attending Dr: Ordering Physician: Alexus Del Valle NP Date of Service: 10/31/24 Procedure(s): XR mirta st 2V Accession Number(s): [id number] cc: Amari Albarado MD; Alexus Del Valle NP EXAMINATION: XR CHEST CLINICAL INFORMATION: shortenss of breath COMPARISON: None available. TECHNIQUE: 2 views of the chest were obtained. FINDINGS: No significant abnormality is noted involving the heart, lungs, mediastinum, bony thorax or soft tissues. XR/XR chest 2V IMPRESSION: Unremarkable chest examination. Electronically mele d by: Rambo Cohen MD 10/31/2024 04:50 PM [facility] Dictated By: Rambo Cohen MD Signed By: <Electronically signed by Rambo Cohen MD in OV> 10/31/24 1650 DD/ 1600 TD/TT: 10/31/24 1605 Engineering Vice President: [facility] US scrotum Reviewed date:03/16/2025 12:29:24 PM Interpretation: Performing Lab: Notes/Report: [address] [address] Ultrasound Report Signed Patient: Ismael Fletcher MR#: [id number] : 1965 Acct:[id number] Age/Sex: 59 / M ADM Date: 03/13/25 Loc: .US Attending Dr: Zhen Martin MD Ordering Physician: Zhen Martin MD Date of Service: 03/13/25 Procedure(s): US scrotum Accession Number(s): [id number] cc: Zhen Martin MD; Amari Albarado MD [...] 03/16/25 0716 DD/ 1609 TD/TT: 03/13/25 1616 Engineering Vice President: [place] [address] Ultrasound Report Signed Patient: Ismael Fletcher MR#: [id number] : 1965 Acct:[id number] Age/Sex: 59 / M ADM Date: 03/13/25 Loc: HO.US Attending Dr: Zhen Martin MD Ordering Physician: Zhen Martin MD Date of Service: 03/13/25 Procedure(s): US scrotum Accession Number(s): [id number] cc: Zhen Martin MD; Amari Albarado MD [...] 03/16/25 0716 DD/ 1609 TD/TT: 03/13/25 1616 Engineering Vice President: Jenny Nicole. Panel Reviewed date:08/24/2025 12:33:23 PM Interpretation: Performing Lab:[facility], [address] [place] [phone] Notes/Report: Sodium 143 135-145 mmol/L Potassium 4.0 [...] for [place] [facility] [place] booked for 12-31-2024, Yohana Vasques [...] Problem Status W/U Status Risk Notes Problem 858052115 Paroxysmal atria l fibrillation (I48.0) Active confirmed Problem 909711723 Chronic sinusitis, unspecified (J32.9) Active confirmed Problem 65687634 Rectal polyp (K62.1) Active confirmed Problem 8407700 Prediabetes (R73.09) Active confirmed Problem 134423451 Low HDL (under 40) (E78.6) Active confirmed Problem 27302717 Intrinsic eczema (L20.84) Active confirmed Problem 887072146 Family history o f colon cancer (Z80.0) Active confirmed Problem 95221686 Acute non-recurrent maxillary sinusitis (J01.00) Active confirmed Problem 781875579 Renal mass (N28.89) Active confirmed Problem 18763132 REJI (obstructive sleep apnea) (G47.33) Active confirmed Problem 596850906 Renal cell carcinoma of right kidney (C64.1) Active confirmed Vital Signs Blood pressure diastolic 94 mm Hg 08/31/2025 ольга ght is up 2 pounds since 11-07-24 Height 75 in 08/31/2025 weight is up 2 pounds since 11-07-24 Blood pressure systolic 132 mm Hg 08/31/2025 stacy ht is up 2 pounds since 11-07-24 Weight 253 lbs 08/31/2025 weight is up 2 pounds since 11-07-24 BMI 31.62 kg/m2 08/31/2025 weight is up 2 pounds since 11-07-24 Encounters Encounter Location Date Provider Diagnosis Amari Albarado MD [address] [place] [address] [phone] 08/24/2025 Amari Albarado Blood tests for routine general physical examination Z00.00 ; Prediabetes R73.09 and Low HDL (under 40) E78.6 Amari Albarado MD [address] [place] [phone] 11/07/2024 Amari Albarado Intermittent palpitations R00.2 ; Heart murmur, systolic R01.1 and Right hydrocele N43.3 Amari Albarado MD [address] [place] [phone] 08/31/2025 Amari Albarado Hematuria R31.9 and Annual physical exam Z00.00 Amari Albarado MD [address] [place] [address] [phone] 12/01/2024 Amari Albarado MD [address] [place] [phone] 12/16/2024 Amari Albarado Heart murmur, systolic R01.1 Assessments Encounter Date Diagnosis (ICD Code) Assessment Notes Treatment Notes Treatment Clinical Notes Section Notes 08/24/2025 Blood tests for routine general physical examination (ICD-10 - Z00.00) 11/07/2024 Intermittent palpitations (ICD-10 - R00.2) referral to dr carvajal 11/07/2024 Heart murmur, systolic (ICD-10 - R01.1) get results of cardiology consult dr woodruff 08/31/2025 Hematuria (ICD-10 - R31.9) will repeat u/a 08/31/2025 Annual physical exam (ICD-10 - Z00.00) Labs reviewed and discussed with patient 12/16/2024 Heart murmur, systolic (ICD-10 - R01.1) 08/24/2025 Prediabetes (ICD-10 - R73.09) 11/07/2024 Right hydrocele (ICD-10 - N43.3) referral to urology at [facility] 08/24/2025 Low HDL (under 40) (ICD-10 - E78.6) Plan Of Treatment Pending Test Test Name Order Date Electrocardiogram (EKG) 06/01/2016 Electrocardiogram (EKG) 06/07/2017 Electrocardiogram (EKG) 08/01/2018 MRI ABD W&WO CONTRAST 07/20/2022 XR GI SERIES 01/02/2020 US ABD 05/18/2022 ECHO 12/16/2024 Comprehensive [place]. Panel Fast 5 Next Appt Details Provider Name:Amari Amaya ier, 03/01/2026 08:30:00 AM, [address] [place] [address], [facility], [place], [place], [phone], Provider Name:Amari Amaya ier, 08/26/2026 07:15:00 AM, [address] [place] [address], [place] [address], [place], [place], [phone], Provider Name:Amari Rajancori ier, 09/02/2026 09:30:00 AM, [address] [place] [address], [address] [facility], [place], [place], [phone], Insurance Providers Payer Name Payer Address Payer Phone Subscriber Number Group Number Insured Name Patient Relationship to Insured Coverage Start Date Coverage End Date [employer]UA [id number] [place] [phone] [id number] Ismael Wells Self - patient is the insured Medical (General) History Medical History History ICD Code colonoscopy 2011 due in 5 ye ars; colonoscopy 09/06/[address] Novak-repeat 5 years. Clonoscopy 03/09/21 repeat 3y colonoscopy in 2022 repeat in 3 years
== END 2025-10-15 13:54 | disposition home or self-care (01) ==
LOC: HO.HUSH 12:59
PROVIDERS: PCP Internal Medicine; Visit Provider Urology
DX: N50.89 Other specified disorders of the male genital organs (principal); N43.3 Hydrocele, unspecified; Z13.9 Encounter for screening, unspecified
CPT/HCPCS: 99214

== ENCOUNTER → 2025-10-15 12:59 | Outpatient (BNVA) | payer OTHER, SELFPAY | PROVIDERS: PCP Internal Medicine; Visit Provider Urology | DX: N43.3 Hydrocele, unspecified (principal); N50.89 Other specified disorders of the male genital organs; Z13.89 Encounter for screening for other disorder | CPT/HCPCS: 81003 ==